=== PATIENT | male | born 1950 | race Caucasian/White ===

== ENCOUNTER → 2016-06-27 | Outpatient (CLI) | payer MEDICARE, OTHER ==
[2016-06-27 13:29] LABS: ABSOLUTE BASOPHILS # (AUTO) 0.1 10^3/uL (0.0-0.2); ABSOLUTE EOSINOPHILS # (AUTO) 0.2 10^3/uL (0.0-0.6); ABSOLUTE LYMPHOCYTES (AUTO) 1.5 10^3/uL (0.5-4.7); ABSOLUTE MONOCYTES (AUTO) 0.7 10^3/uL (0.1-1.4); ABSOLUTE NEUT (AUTO) 13.6 10^3/uL (1.7-8.2); BASOPHILS % (AUTO) 0.5 % (0-2); EOSINOPHILS % (AUTO) 1.3 % (0-6); LYMPHOCYTES % (AUTO) 9.1 % (13-45); MEAN CORPUSCULAR HEMOGLOBIN 29.3 pg (27.0-33.4); MEAN CORPUSCULAR HGB CONC 32.7 g/dL (32.0-36.0); MEAN CORPUSCULAR VOLUME 90 fl (80-97); MONOCYTES % (AUTO) 4.4 % (3-13); RED CELL DISTRIBUTION WIDTH 14.4 % (11.5-14.0); SEGMENTED NEUTROPHILS % (AUTO) 84.7 % (42-78)
[2016-06-27 13:45] LABS: ANION GAP 10 (5-19); BLOOD UREA NITROGEN 15 mg/dL (7-20); CALCIUM 10.2 mg/dL (8.4-10.2); CARBON DIOXIDE 28 mmol/L (22-30); CHLORIDE 103 mmol/L (98-107); GLUCOSE 330 mg/dL (75-110); POTASSIUM 4.9 mmol/L (3.6-5.0); SODIUM 140.5 mmol/L (137-145)
[2016-06-27 14:07] LABS: ERYTHROCYTE SEDIMENTATION RATE 19 mm/hr (0-20)
== END ==
LOC: LAB 13:09
PROVIDERS: ATTEND Emergency Medicine
DX: J18.9 Pneumonia, unspecified organism (principal); R06.02 Shortness of breath; R50.9 Fever, unspecified; Z87.09 Personal history of other diseases of the respiratory system
CPT/HCPCS: 36415; 71020; 80048; 85025; 85652

== ENCOUNTER 2016-10-11 14:31 | Inpatient (IN) | payer MEDICARE, OTHER ==
[2016-10-11] MEDS ORDERED: ASPIRIN 81 MG TABLET, CHEWABLE PO ONE (15:09)
[2016-10-11] MEDS ORDERED: NITROGLYCERIN 0.4 MG/TAB 25 TAB/BOTTLE SL PRN (15:11)
[2016-10-11 15:37] LABS: HEMATOCRIT 46.1 % (37.9-51.0); HEMOGLOBIN 14.7 g/dL (13.5-17.0); MEAN CORPUSCULAR HEMOGLOBIN 28.9 pg (27.0-33.4); MEAN CORPUSCULAR VOLUME 90 fl (80-97); RED BLOOD COUNT 5.11 10^6/uL (4.35-5.55); RED CELL DISTRIBUTION WIDTH 14.4 % (11.5-14.0); WHITE BLOOD COUNT 16.3 10^3/uL (4.0-10.5)
--- NOTE | 2016-10-11 15:47 | RADIOLOGY REPORT (SQ) ---
EXAM DESCRIPTION: CHEST PA/LAT COMPLETED DATE/TIME: 10/11/2016 3:39 pm REASON FOR STUDY: cough, fever, chest pain COMPARISON: 06/27/2016 NUMBER OF VIEWS: Two view. TECHNIQUE: Frontal and lateral radiographic views of the chest acquired. LIMITATIONS: None. FINDINGS: LUNGS AND PLEURA: Peribronchial cuffing and interstitial changes. No consolidation, effus ion, or pneumothorax. MEDIASTINUM AND HILAR STRUCTURES: No masses. No contour abnormalities. HEART AND VASCULAR STRUCTURES: Heart normal in size and contour. No evidence for failure. BONES: No acute findings. HARDWARE: Neural stimulator. OTHER: No other significant finding. IMPRESSION: REACTIVE AIRWAY DISEASE VERSUS VIRAL SYNDROME. NO CONSOLIDATION. TECHNICAL DOCUMENTATION: JOB ID: [id number] [employer]- All Rights Reserved
[2016-10-11 15:54] LABS: BAND NEUTROPHILS % (MANUAL) 8 % (3-5); BASOPHILS % (MANUAL) 0 % (0-2); EOSINOPHILS % (MANUAL) 0 % (0-6); LYMPHOCYTES % (MANUAL) 1 % (13-45); TOTAL CELLS COUNTED 100
[2016-10-11 15:55] LABS: RBC MORPHOLOGY COMMENT NORMO-CYTIC/CHROMIC
--- NOTE | 2016-10-11 15:55 | ER Document Report ---
ED Cardiac - General Mode of Arrival: Wheelchair Information source: Patient TRAVEL OUTSIDE OF THE [place] IN LAST 30 DAYS: No - HPI Similar symptoms previously: Yes Recently seen / treated by doctor: Yes <TREY BECKFORD - Last Filed: 10/11/16 18:00> <SAHARA CARUSO - Last Filed: 10/11/16 23:54> - General Chief Complaint: Chest Pain Stated Complaint: CHEST PAIN, COUGH,CONGESTION Time Seen by Provider: 10/11/16 14:56 Notes: Patient is a 66 year old male presenting to the emergency department for chest pain. Patient states his symptoms were onset yesterday and they are consistent with the symptoms he had when he was diagnosed with pneumonia in the past. Patient also complains of cough, fever, chills, vomiting, and diarrhea. Patient states her vomiting is from difficulty swallowing which is chronic. Patient states the only new symptoms is the chest pain which is dull and achy. Patient states he saw Dr. King today who referred him to the emergency department. Patient has a history of type II diabetes mellitus, hypertension, and hypercholesterolemia. Patient is also a former smoker. Patient has no known drug allergies. 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 Musculoskeltal Medical History: Reports Hx Arthritis Past Surgical History: Reports: Hx Cholecystectomy - Immunizations Hx Diphtheria, Pertussis, Tetanus Vaccination: Yes Hx Pneumococcal Vaccination: 03/11/11 <TREY BECKFORD - Last Filed: 10/11/16 18:00> Review of Systems - Review of Systems Constitutional: See HPI, Chills, Fever, Malaise EENT: No symptoms reported Cardiovascular: See HPI, Chest pain Respiratory: See HPI, Cough, Short of breath Gastrointestinal: See HPI, Diarrhea, Nausea, Vomiting Genitourinary: No symptoms reported Male Genitourinary: No symptoms reported Musculoskeletal: No symptoms reported Skin: No symptoms reported Hematologic/Lymphatic: No symptoms reported Neurological/Psychological: No symptoms reported -: Yes All other systems reviewed and negative <TREY BECKFORD - Last Filed: 10/11/16 18:00> Physical Exam <TREY BECKFORD - Last Filed: 10/11/16 18:00> <SAHARA CARUSO - Last Filed: 10/11/16 23:54> - Vital signs Vitals: Temp Pulse Resp BP Pulse Ox 99.1 F 97 20 164/62 H 94 10/11/16 14:42 10/11/16 14:42 10/11/16 14:42 10/11/16 14:42 10/11/16 14:42 - Notes Notes: GENERAL: Alert, interacts well. No acute distress. HEAD: Normocephalic, atraumatic. EYES: Pupils equal, round, and reactive to light. Extraocular movements intact. ENT: Oral mucosa moist, tongue midline. NECK: Full range of motion. Supple. Trachea midline. LUNGS: Slightly diminished breath sounds to the left lower lobe, no wheezes, rales, or rhonchi. Mildly tachypneic. Slight shortness of breath with talking. HEART: Regular rate and rhythm. No murmurs, gallops, or rubs. ABDOMEN: Soft, non-tender. Non-distended. Bowel sounds present in all 4 quadrants. EXTREMITIES: Moves all 4 extremities spontaneously. No edema. No cyanosis. NEUROLOGICAL: Alert and oriented x3. Normal speech. PSYCH: Normal affect, normal mood. SKIN: Warm, dry, normal turgor. No rashes or lesions noted. (TREY BECKFORD) Course - Laboratory Result Diagrams: 10/11/16 15:20 10/11/16 15:20 - Consults Dr. Reed Time consulted: 17:45 Consulted provider: will see as inpatient <TREY BECKFORD - Last Filed: 10/11/16 18:00> - Laboratory Result Diagrams: 10/11/16 15:20 10/11/16 15:20 <SAHARA CARUSO - Last Filed: 10/11/16 23:54> - Re-evaluation Re-evalutation: 10/11/16 16:45 Re-evaluated patient at this time. Patient's chest x-ray showed reactive airway disease verses viral syndrome. At this time patient is still requiring 4 L of oxygen via nasal cannula to maintain normal oxygenation levels. To rule out a possible PE patient will receive a CT scan. Patient's chest pain was relieved with 1 nitroglycerin. (TREY BECKFORD) 10/11/16 17:49 CBC shows leukocytosis of 16.3 with a left shift, 8% bands, coags normal, hyperglycemia noted with a glucose of 331, initial cardiac enzymes negative, lipase unremarkable at 107.3. Chest x-ray shows reactive airway disease versus viral syndrome. Patient's chest pain did resolve with one nitroglycerin. Given the chest pain and the hypoxemia without acute pneumonia and concern for possible pulmonary embolism, CT angiogram of the chest did not reveal any pulmonary embolism although there was some left lingular atelectasis. Patient was given a dose of Lovenox prior to receiving the results of the CT angiogram of the chest. Patient was discussed with Dr. Reed who agrees to accept the patient to his service for inpatient admission. He agrees with starting steroids and antibiotics. Also agrees with starting aspirin for chest pain rule out in addition to hypoxic respiratory failure from acute bronchitis. 10/11/16 23:54 (SAHARA CARUSO) - Vital Signs Vital signs: Temp Pulse Resp BP Pulse Ox 99.1 F 97 19 131/84 H 93 10/11/16 14:42 10/11/16 14:42 10/11/16 21:01 10/11/16 21:01 10/11/16 21:44 - Laboratory Laboratory results interpreted by me: 10/11/16 10/11/16 15:20 15:20 WBC 16.3 H RDW 14.4 H Seg Neuts % (Manual) 83 H Band Neutrophils % 8 H Lymphocytes % (Manual) 1 L Abs Neuts (Manual) 14.8 H Abs Lymphs (Manual) 0.2 L Glucose 331 H - EKG Interpretation by Me Additional EKG results interpreted by me: 10/11/16 17:50 EKG shows sinus rhythm at a rate of 99, first-degree AV block at a rate of 232, left anterior hemiblock, poor R-wave progression, no ST segment elevations or depressions, no T-wave inversions per my interpretation. (SAHARA CARUSO) - Consults Dr. Reed Reason for consultation: 10/11/16 17:[address] Reed who will admit the patient to telemetry. He agrees with steroids and antibiotics. (TREY BECKFORD) Discharge <TREY BECKFORD - Last Filed: 10/11/16 18:00> - Discharge Admitting Provider: Oksana - Derek Unit Admitted: Telemetry <SAHARA CARUSO - Last Filed: 10/11/16 23:54> - Discharge Clinical Impression: Acute hypoxemic respiratory failure, Chest pain, rule out acute myocardial infarction Condition: Fair Disposition: ADMITTED INPATIENT Scribe Attestation: 10/11/16 23:54 I personally performed the services described in the documentation, reviewed and edited the documentation which was dictated to the scribe in my presence, and it accurately records my words and actions. (SAHARA CARUSO) Scribe Documentation - Scribe Written by Konrad:: Konrad Oconnell, 10/11/2016 17:35 acting as scribe for :: Sourav <TREY BECKFORD - Last Filed: 10/11/16 18:00>
[2016-10-11 15:57] LABS: ALANINE AMINOTRANSFERASE 38 U/L (21-72); ALBUMIN 3.9 g/dL (3.5-5.0); ALKALINE PHOSPHATASE 123 U/L (38-126); ANION GAP 14 (5-19); ASPARTATE AMINO TRANSFERASE 18 U/L (17-59); BILIRUBIN,DIRECT 0.3 mg/dL (0.0-0.4); BILIRUBIN,TOTAL 0.9 mg/dL (0.2-1.3); BLOOD UREA NITROGEN 20 mg/dL (7-20); CALCIUM 9.3 mg/dL (8.4-10.2); CARBON DIOXIDE 25 mmol/L (22-30); CHLORIDE 102 mmol/L (98-107); CREATINE KINASE 79 U/L (55-170); CREATININE RESULT 0.93 mg/dL (0.52-1.25); GLUCOSE 331 mg/dL (75-110); LIPASE 107.3 U/L (23-300); POTASSIUM 4.6 mmol/L (3.6-5.0); SODIUM 140.9 mmol/L (137-145); TOTAL PROTEIN 6.8 g/dL (6.3-8.2)
[2016-10-11 16:09] LABS: CREATINE KINASE MB 2.19 ng/mL (<4.55)
[2016-10-11 16:14] LABS: TROPONIN I < 0.012 ng/mL
[2016-10-11] MEDS ORDERED: ALBUTEROL SULFATE 0.083% NEB 2.5 MG/3 ML AMPUL NEB ONE (16:46)
[2016-10-11] MEDS ORDERED: ENOXAPARIN SODIUM INJ 150 MG/1 ML DISP.SYRIN SUBCUT ONE (16:47)
--- NOTE | 2016-10-11 17:32 | RADIOLOGY REPORT (SQ) ---
EXAM DESCRIPTION: CTA CHEST COMPLETED DATE/TIME: 10/11/2016 5:19 pm REASON FOR STUDY: hypoxia, chest pain, r/o PE COMPARISON: Two-view chest 10/11/2016 TECHNIQUE: CT scan of the chest performed using helical scanning technique with dynamic intravenous contrast injection. Images reviewed with lung, soft tissue and bone windows. Reconstructed coronal and sagittal MPR images reviewed. Additional 3 dimensional post-processing performed to develop Maximal Intensity Projection images (MD P). All images stored on PACS. All CT scanners at this facility use dose modulation, iterative reconstruction, and/or weight based d osing when appropriate to reduce radiation dose to as low as reasonably achievable (ALARA). [facility]: Dose Right [facility]: CareDose [facility]: Dose Right [facility]: Teradose 4D [facility]: TagTagCity CONTRAST TYPE AND DOSE: contrast/concentration: Isovue 370.00 mg/ml; Total Contrast Delivered: 86.0 ml; Total Saline Delivered: 110.0 ml RENAL FUNCTION: Creatinine 0.93 RADIATION DOSE: 67.46 . LIMITATIONS: None. FINDINGS: LUNGS AND PLEURA: Minimal lingular atelectasis. Calcified granuloma in the left lower lob e. No fluffy alveolar infiltrates worrisome for edema or pneumonia. No pleural effusion or pneumothorax . No calcific pleural plaque. AORTA AND GREAT VESSELS: No aneurysm or dissection. HEART: No pericardial effusion. Moderate left coronary artery calcification PULMONARY ARTERIES: No emboli visualized in the main pulmonary arteries or the segmental branches. HILAR AND MEDIASTINAL STRUCTURES: No identified masses or abnormal nodes. HARDWARE: Thoracic spine dorsal column stimulator UPPER ABDOMEN: Post cholecystectomy. THYROID AND OTHER SOFT TISSUES: No masses. No adenopathy. BONES: Diffuse thoracic spondylotic change 3D MIPS: Confirm above findings. OTHER: Hiatal hernia with air-fluid level in the esophagus likely related to reflux. IMPRESSION: No CT angio evidence of acute pulmonary emboli or thoracic aortic dissection. Minimal lingular atelectasis Air-fluid level in the thick walled esophagus with small hiatal hernia, likely reflux esophagitis TECHNICAL DOCUMENTATION: JOB ID: [id number] Quality ID # [id number]: Final reports with documentation of one or more dose reduction techniques (e.g., Au tomated exposure control, adjustment of the mA and/or kV according to patient size, use of iterative reconstruction technique) 2010 [employer]- All Rights Reserved
[2016-10-11] MEDS ORDERED: METHYLPREDNISOLONE INJ 125 MG/2 ML SDV IV ONE (17:47)
[2016-10-11] MEDS ORDERED: LEVOFLOXACIN 750 MG/D5W RTU 150 ML IV ONE (17:47)
[2016-10-11] MEDS ORDERED: ALBUTEROL SULFATE 0.083% NEB 2.5 MG/3 ML AMPUL NEB PRN (18:04)
[2016-10-11] MEDS ORDERED: ONDANSETRON HCL INJ/PF 4 MG/2 ML SDV IV PRN (18:05)
[2016-10-11] MEDS ORDERED: ACETAMINOPHEN 325 MG TABLET PO PRN (18:05)
[2016-10-11] MEDS ORDERED: DEXTROSE 40% GEL 15 GM TUBE PO PRN ×2 (18:07)
[2016-10-11] MEDS ORDERED: GLUCAGON,HUMAN RECOMB 1 MG INJ IM PRN (18:07)
[2016-10-11] MEDS ORDERED: DEXTROSE 50%-WATER 25 GM/50 ML DISP.SYRIN IV PRN ×2 (18:07)
--- NOTE | 2016-10-11 18:13 | PDOC H&P ---
History of Present Illness Admission Date/PCP: ROSANGELA AMOR MD Patient complains of: Shortness of breath History of Present Illness: LIONEL CHESTER is a 66 year old male with past medical history of COPD, productive sleep apnea, diabetes presents with 1 day history of fever, chills, shortness of breath, chest discomfort, cough. 2-year-old granddaughter with similar symptoms. No prior cardiac disease. Chest discomfort relieved with nitroglycerin. Patient noted in the emergency department to have O2 sat at 90% . O2 sat not 95% on 4 L nasal cannula. Medications have not been verified. Past Medical History Cardiac Medical History: Reports: Hypertension Denies: Coronary Artery Disease, Myocardial Infarction Pulmonary Medical History: Reports: Chronic Obstructive Pulmonary Disease (COPD) , Sleep Apnea Denies: Asthma, Bronchitis, Pneumonia Neurological Medical History: Denies: Seizures Endocrine Medical History: Reports: Diabetes Mellitus Type 2 Malignancy Medical History: Reports: 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 Musculoskeltal Medical History: Reports: Arthritis Psychiatric Medical History: Denies: Depression Hematology: Denies: Anemia Past Surgical History Past Surgical History: Reports: Cholecystectomy Social History Information Source: Patient Lives with: Family Smoking Status: Former Smoker Frequency of Alcohol Use: Rare Hx Recreational Drug Use: No Hx Prescription Drug Abuse: No - Advance Directive Resuscitation Status: Full Code Family History Family History: COPD - Mother Parental Family History Reviewed: Yes Children Family History Reviewed: Yes Sibling(s) Family History Reviewed.: Yes Medication/Allergy Home Medications: Albuterol Sulfate [Ventolin HFA MDI 18 GM] 2 puff IH Q4H PRN 01/31/13 Aspirin [Aspirin EC] 81 mg PO DAILY 01/31/13 Ibuprofen [Motrin 800 mg Tablet] 800 mg PO PRN 01/31/13 Multivitamin [Multi-Vitamin Daily] 1 each PO DAILY 01/31/13 Pramipexole Di-HCl [Mirapex 0.5 mg Tablet] 0.5 mg PO TID 01/31/13 Albiglutide [Tanzeum] 30 mg INJ ASDIR PRN 01/04/16 Empagliflozin [Jardiance] 25 mg PO DAILY 01/04/16 Fish Oil/Dha/Epa [Fish Oil 1,200 mg Fish Oil] 1 each PO BID 01/04/16 Flaxseed Oil [Flax Seed Oil] 1,000 mg PO DAILY 01/04/16 Furosemide [Lasix 40 mg Tablet] 40 mg PO DAILY 01/04/16 Glimepiride [Amaryl] 2 mg PO DAILY 01/04/16 Losartan Potassium 50 mg PO DAILY 01/04/16 Metformin HCl [Glucophage] 1,000 mg PO BID 01/04/16 Tamsulosin HCl 0.4 mg PO DAILY 01/04/16 Tolterodine Tartrate [Detrol LA] 01/04/16 Acetaminophen [Tylenol 325 mg Tablet] 650 mg PO Q4HP PRN tablet 01/05/16 Aclidinium [place] [Tudorza Pressair for Inh] 1 inh IH BID 01/05/16 Cholecalciferol (Vitamin D3) [Vitamin D3] 1,000 unit PO BID 01/05/16 Fluticasone/Salmeterol [Advair 250-50 Diskus] 1 inh IH BID 01/05/16 Fluticasone/Salmeterol [Advair 250-50 Diskus] 1 inh IN BID 01/05/16 Levofloxacin [Levaquin 750 mg Tablet] 750 mg PO DAILY #5 tablet 01/05/16 Pramipexole Di-HCl [Mirapex] 0.5 mg PO TID 01/05/16 Tolterodine Tartrate [Detrol LA] 4 mg PO DAILY 01/05/16 Allergies/Adverse Reactions: No Known Allergies Allergy (Verified 08/24/14 09:59) Review of Systems Constitutional: PRESENT: chills, fatigue, fever(s). ABSENT: headache(s), weight gain, weight loss Eyes: ABSENT: visual disturbances Ears: ABSENT: hearing changes Cardiovascular: PRESENT: chest pain. ABSENT: dyspnea on exertion, edema, orthropnea, palpitations Respiratory: PRESENT: cough, dyspnea. ABSENT: hemoptysis Gastrointestinal: ABSENT: abdominal pain, constipation, diarrhea, hematemesis, hematochezia, nausea, vomiting Genitourinary: ABSENT: dysuria, hematuria Musculoskeletal: ABSENT: joint swelling Integumentary: ABSENT: rash, wounds Neurological: ABSENT: abnormal gait, abnormal speech, confusion, dizziness, focal weakness, syncope Psychiatric: ABSENT: anxiety, depression, homidical ideation, suicidal ideation Endocrine: ABSENT: cold intolerance, heat intolerance, polydipsia, polyuria Hematologic/Lymphatic: ABSENT: easy bleeding, easy bruising Physical Exam Vital Signs: Temp Pulse Resp BP Pulse Ox 99.1 F 97 15 130/64 H 96 10/11/16 14:42 10/11/16 14:42 10/11/16 17:19 10/11/16 16:31 10/11/16 16:31 Intake & Output 10/10/16 10/11/16 10/12/16 06:59 06:59 06:59 Weight 134 kg PHYSICAL EXAM: GENERAL: Appears well, no acute distress HEENT: Normocephalic, no scleral icterus, conjunctiva clear, EOEM intact, PERRLA , moist mucous membranes NECK: trachea midline, no thyromegally RESPIRATORY: Faint wheezes bilaterally CARDIAC: Regular rate and rhythm, no murmur/lay/rub ABDOMEN: Soft, no distension, no tenderness, no guarding, normal bowel sounds, negative Maldonado sign RECTAL: deferred : deferred EXTREMITIES: No edema, cyanosis, clubbing MUSCULOSKELETAL: No joint swelling or deformity VASCULAR: normal peripheral pulses NEUROLOGIC: Alert, oriented to person/place/time, normal speech, cranial nerves grossly intact, 5/5 strength in all extremities, tactile sensation intact in all extremities SKIN: No rash, no wounds, no worrisome skin lesions PSYCHIATRIC: Normal mood, normal affect Results Laboratory Results: 10/11/16 15:20 10/11/16 15:20 10/11/16 10/11/16 15:20 15:20 WBC 16.3 H RBC 5.11 Hgb 14.7 Hct 46.1 MCV 90 MCH 28.9 MCHC 32.0 RDW 14.4 H Plt Count 190 Seg Neutrophils % Not Reportable Lymphocytes % Not Reportable Monocytes % Not Reportable Eosinophils % Not Reportable Basophils % Not Reportable Absolute Neutrophils Not Reportable Absolute Lymphocytes Not Reportable Absolute Monocytes Not Reportable Absolute Eosinophils Not Reportable Absolute Basophils Not Reportable Sodium 140.9 Potassium 4.6 Chloride 102 Carbon Dioxide 25 Anion Gap 14 BUN 20 Creatinine 0.93 Est GFR ( Amer) > 60 Est GFR (Non-Af Amer) > 60 Glucose 331 H Calcium 9.3 Total Bilirubin 0.9 AST 18 ALT 38 Alkaline Phosphatase 123 Total Protein 6.8 Albumin 3.9 Lipase 107.3 10/11/16 10/11/16 15:20 15:20 Creatine Kinase 79 CK-MB (CK-2) 2.19 Troponin I < 0.012 Impressions: Chest X-Ray 10/11/16 15:11 IMPRESSION: REACTIVE AIRWAY DISEASE VERSUS VIRAL SYNDROME. NO CONSOLIDATION. Chest/Abdomen CTA 10/11/16 16:46 IMPRESSION: No CT angio evidence of acute pulmonary emboli or thoracic aortic dissection. Minimal lingular atelectasis Air-fluid level in the thick walled esophagus with small hiatal hernia, likely reflux esophagitis Assessment & Plan - Diagnosis (1) Acute hypoxemic respiratory failure Is this a current diagnosis for this admission?: YesPlan: Oxygen supplementation to maintain O2 sat greater than 95%. (2) COPD exacerbation Is this a current diagnosis for this admission?: YesPlan: IV Solu-Medrol, IV Levaquin, nebulizer treatments. (3) Chest pain, rule out acute myocardial infarction Is this a current diagnosis for this admission?: YesPlan: Serial cardiac enzymes. 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 Sliding scale insulin coverage. (5) Hypertension Is this a current diagnosis for this admission?: Yes (6) Obstructive sleep apnea on CPAP Is this a current diagnosis for this admission?: Yes - Time Time Spent: Greater than 70 Minutes
[2016-10-11 20:53] LABS: CREATINE KINASE MB 0.87 ng/mL (<4.55); TROPONIN I < 0.012 ng/mL
[2016-10-11] MEDS: INSULIN LISPRO 100 UNIT/ML 3 ML VIAL SUBCUT PRN (22:19)
[2016-10-12] MEDS ORDERED: METHYLPREDNISOLONE INJ 40 MG/1 ML SDV IV SCH (02:00)
[2016-10-12 02:02] LABS: CREATINE KINASE MB 0.93 ng/mL (<4.55)
[2016-10-12 02:10] LABS: TROPONIN I < 0.012 ng/mL
[2016-10-12] MEDS: INSULIN LISPRO 100 UNIT/ML 3 ML VIAL SUBCUT PRN ×2 (06:42→11:57)
[2016-10-12 08:20] LABS: ABSOLUTE LYMPHOCYTES (AUTO) 0.4 10^3/uL (0.5-4.7); ABSOLUTE MONOCYTES (AUTO) 0.1 10^3/uL (0.1-1.4); ABSOLUTE NEUT (AUTO) 6.7 10^3/uL (1.7-8.2); BASOPHILS % (AUTO) 0.2 % (0-2); EOSINOPHILS % (AUTO) 0.1 % (0-6); HEMATOCRIT 44.1 % (37.9-51.0); HEMOGLOBIN 14.5 g/dL (13.5-17.0); HGB HCT DIFFERENCE -0.6; LYMPHOCYTES % (AUTO) 5.3 % (13-45); MEAN CORPUSCULAR HEMOGLOBIN 29.3 pg (27.0-33.4); MEAN CORPUSCULAR HGB CONC 32.8 g/dL (32.0-36.0); MEAN CORPUSCULAR VOLUME 89 fl (80-97); RED BLOOD COUNT 4.94 10^6/uL (4.35-5.55); SEGMENTED NEUTROPHILS % (AUTO) 93.4 % (42-78); WHITE BLOOD COUNT 7.2 10^3/uL (4.0-10.5)
[2016-10-12 08:33] LABS: ANION GAP 15 (5-19); BLOOD UREA NITROGEN 30 mg/dL (7-20); CALCIUM 9.2 mg/dL (8.4-10.2); CARBON DIOXIDE 21 mmol/L (22-30); CHLORIDE 102 mmol/L (98-107); CREATINE KINASE 82 U/L (55-170); CREATININE RESULT 0.91 mg/dL (0.52-1.25); POTASSIUM 4.7 mmol/L (3.6-5.0); SODIUM 138.3 mmol/L (137-145)
[2016-10-12 08:53] LABS: GLUCOSE 433 mg/dL (75-110)
[2016-10-12] MEDS ORDERED: PREDNISONE 20 MG TABLET PO SCH (10:00)
[2016-10-12] MEDS ORDERED: ENOXAPARIN SODIUM INJ 40 MG/0.4 ML DISP.SYRIN SUBCUT SCH (10:00)
--- NOTE | 2016-10-12 10:19 | EKG REPORT ---
SEVERITY:- ABNORMAL ECG - SINUS RHYTHM FIRST DEGREE AV BLOCK SUPERIOR QRS AXIS CONSIDER RIGHT VENTRICULAR HYPERTROPHY : Confirmed by: Tatiana Oquendo MD 12-Oct-2016 10:19:17
[2016-10-12 10:21] LABS: CREATINE KINASE MB 1.49 ng/mL (<4.55)
[2016-10-12 10:28] LABS: TROPONIN I < 0.012 ng/mL
[2016-10-12 12:32] VITALS: BP 138/59
--- NOTE | 2016-10-12 15:54 | PDOC DISCHARGE SUMMARY ---
General - Admit/Disc Date/PCP Admission Date/Primary Care Provider: 10/11/16 18:05 ROSANGELA AMOR MD Discharge Date: 10/12/16 - Discharge Diagnosis (1) Acute hypoxemic respiratory failure Is this a current diagnosis for this admission?: Yes (2) COPD exacerbation Is this a current diagnosis for this admission?: Yes (3) Chest pain, rule out acute myocardial infarction Is this a current diagnosis for this admission?: Yes (4) Diabetes mellitus Is this a current diagnosis for this admission?: Yes (5) Hypertension Is this a current diagnosis for this admission?: Yes (6) Obstructive sleep apnea on CPAP Is this a current diagnosis for this admission?: Yes - Additional Information Resuscitation Status: Full Code Discharge Diet: Cardiac, Diabetic Discharge Activity: Activity As Tolerated, Balance Activity w/Rest Home Medications: Aclidinium [place] [Tudorza Pressair] 1 puff IH BID 10/12/16 Albuterol Sulfate [Ventolin HFA MDI 18 GM] 2 puff IH Q4HP PRN 10/12/16 Aspirin [Ecotrin 81 mg EC Tablet] 81 mg PO DAILY 10/12/16 Cholecalciferol (Vitamin D3) [Vitamin D3 1000 Unit Tablet] 1,000 unit PO BID Empagliflozin [Jardiance] 25 mg PO DAILY 10/12/16 Ezetimibe [Zetia 10 mg Tablet] 10 mg PO QHS 10/12/16 Fish Oil/Dha/Epa [Fish Oil 1,200 mg Fish Oil] 1 each PO BID 10/12/16 Flaxseed Oil [Flaxseed] 1,000 mg PO DAILY 10/12/16 Fluticasone/Salmeterol [Advair 250-50 Diskus 28 dose] 1 inh IH Q12 10/12/16 Furosemide [Lasix] 40 mg PO DAILY 10/12/16 Ibuprofen [Motrin 800 mg Tablet] 800 mg PO Q8H PRN 10/12/16 Insulin Aspart [Novolog Insulin 100 Unit/1 ml 10 ml] 0 unit SUBCUT .SLD SCALE Insulin Degludec [Tresiba Flextouch U-200] 66 unit SQ DAILY 10/12/16 Levofloxacin [Levaquin 750 mg Tablet] 750 mg PO DAILY #5 tablet 10/12/16 Losartan Potassium [Cozaar 50 mg Tablet] 50 mg PO DAILY 10/12/16 Multivitamin [Tab-A-Priscilla] 1 each PO DAILY 10/12/16 Pramipexole Di-HCl [Mirapex 0.5 Mg Tablet] 0.5 mg PO TID 10/12/16 Prednisone [Deltasone 20 mg Tablet] 40 mg PO DAILY #4 tablet 10/12/16 Tamsulosin HCl [Flomax 0.4 mg Cap.sr] 0.4 mg PO DAILY 10/12/16 Tolterodine Tartrate [Detrol La] 4 mg PO DAILY 10/12/16 History of Present Illness Patient complains of: Shortness of breath History of Present Illness: LIONEL CHESTER is a 66 year old male with past medical history of COPD, productive sleep apnea, diabetes presents with 1 day history of fever, chills, shortness of breath, chest discomfort, cough. 2-year-old granddaughter with similar symptoms. No prior cardiac disease. Chest discomfort relieved with nitroglycerin. Patient noted in the emergency department to have O2 sat at 90% . O2 sat not 95% on 4 L nasal cannula. Hospital Course Hospital Course: Patient was admitted for mild acute exacerbation of COPD. He was started on IV Solu-Medrol in the emergency department as well as IV Levaquin. Fevers resolved within 24 hours. He was back to his baseline respiratory status at time of discharge. He became hyperglycemic from IV Solu-Medrol. He will be discharged home on a much reduced steroid dose of prednisone 40 mg daily and we will taper him off this very quickly secondary to hyperglycemia. Patient was ready to discharge from the hospital despite hyperglycemia. He is comfortable with restarting all of his previous home medications. He is comfortable with monitoring his blood glucose and administering sliding scale insulin. He states that he has dietary modifications that he can implement and has tried contacting his dietitian for more advice. He admits that he has horribly noncompliant with diabetic diet. Physical Exam Vital Signs: Temp Pulse Resp BP Pulse Ox 97.4 F 72 16 138/59 H 95 10/12/16 12:18 10/12/16 12:18 10/12/16 12:18 10/12/16 12:18 10/12/16 12:18 Intake & Output 10/11/16 10/12/16 10/13/16 06:59 06:59 06:59 Intake Total 0 Balance 0 Weight 131.7 kg 131.7 kg GENERAL: No acute distress HEENT: Conjunctiva clear, nonicteric, moist mucous membranes, no JVD, midline trachea RESPIRATORY: Clear to auscultation bilaterally, no wheezes, no rhonchi CARDIAC: Regular rate and rhythm, no murmurs/gallops/rubs ABDOMEN: Soft, nondistended, nontender, positive bowel sounds, no rebound, no guarding EXTREMETIES: No edema, cyanosis, clubbing NEUROLOGIC: Alert, oriented to person/place/time, CN's grossly intact, no focal deficits SKIN: No rash, wounds PSYCH: Normal mood, normal affect Results Laboratory Results: 10/12/16 07:35 10/12/16 07:35 10/12/16 10/12/16 07:35 07:35 WBC 7.2 RBC 4.94 Hgb 14.5 Hct 44.1 MCV 89 MCH 29.3 MCHC 32.8 RDW 15.0 H Plt Count 158 Seg Neutrophils % 93.4 H Lymphocytes % 5.3 L Monocytes % 1.0 L Eosinophils % 0.1 Basophils % 0.2 Absolute Neutrophils 6.7 Absolute Lymphocytes 0.4 L Absolute Monocytes 0.1 Absolute Eosinophils 0.0 Absolute Basophils 0.0 Sodium 138.3 Potassium 4.7 Chloride 102 Carbon Dioxide 21 L Anion Gap 15 BUN 30 H Creatinine 0.91 Est GFR ( Amer) > 60 Est GFR (Non-Af Amer) > 60 Glucose 433 H* Calcium 9.2 10/11/16 10/11/16 10/11/16 19:19 19:19 20:20 Creatine Kinase 90 CK-MB (CK-2) Cancelled 0.87 Troponin I Cancelled < 0.012 10/12/16 10/12/16 10/12/16 01:13 01:13 07:35 Creatine Kinase 79 82 CK-MB (CK-2) 0.93 Troponin I < 0.012 10/12/16 07:35 Creatine Kinase CK-MB (CK-2) 1.49 Troponin I < 0.012 Impressions: Chest X-Ray 10/11/16 15:11 IMPRESSION: REACTIVE AIRWAY DISEASE VERSUS VIRAL SYNDROME. NO CONSOLIDATION. Chest/Abdomen CTA 10/11/16 16:46 IMPRESSION: No CT angio evidence of acute pulmonary emboli or thoracic aortic dissection. Minimal lingular atelectasis Air-fluid level in the thick walled esophagus with small hiatal hernia, likely reflux esophagitis Qualifiers PATEINT BEING DISCHARGED WITH ANY OF THE FOLLOWING DIAGNOSIS?: No Plan Time Spent: Less than 30 Minutes
[2016-10-12] MEDS ORDERED: LEVOFLOXACIN 750 MG/D5W RTU 750 MG/150 ML RTUPB IV SCH (18:00)
== END 2016-10-12 12:30 | disposition home or self-care (01) | DRG 190 ==
LOC: ER 14:31 → EH 18:05 → UNDOADMIN 18:33 → 4N 21:52
PROVIDERS: ADMIT Family Medicine; ATTEND Family Medicine
PROC: 3E0F73Z Introduction of Anti-inflammatory into Respiratory Tract, Via Natural or Artificial Opening (ICD-10-PCS; principal; 2016-10-12)
DX: J44.1 Chronic obstructive pulmonary disease with (acute) exacerbation (principal); J96.01 Acute respiratory failure with hypoxia; E11.65 Type 2 diabetes mellitus with hyperglycemia; I10 Essential (primary) hypertension; G47.33 Obstructive sleep apnea (adult) (pediatric); M19.90 Unspecified osteoarthritis, unspecified site; R07.89 Other chest pain; E78.00 Pure hypercholesterolemia, unspecified; Z79.82 Long term (current) use of aspirin; Z79.4 Long term (current) use of insulin; Z79.899 Other long term (current) drug therapy; Z91.11 Patient's noncompliance with dietary regimen; Z85.828 Personal history of other malignant neoplasm of skin; Z90.49 Acquired absence of other specified parts of digestive tract; Z87.891 Personal history of nicotine dependence; Z83.6 Family history of other diseases of the respiratory system
CPT/HCPCS: 36415; 71020; 71275; 80048; 80053; 82550; 82553; 82962; 83690; 84484; 85025; 85610; 87040; 93005; 93010; 94640; 96374; 99285; J1650; J1815; J1956; J2405; J2930; J3490; J7512

== ENCOUNTER 2016-11-04 14:48 | Emergency (ER) | payer MEDICARE, OTHER ==
[2016-11-04] MEDS ORDERED: ONDANSETRON 4 MG TAB.RAPDIS PO ONE (15:54)
--- NOTE | 2016-11-04 15:54 | ER Document Report ---
ED Medical Screen (RME) - General Chief Complaint: Chest Pain Stated Complaint: CHEST PAIN Time Seen by Provider: 11/04/16 15:46 Mode of Arrival: Ambulatory Information source: Patient TRAVEL OUTSIDE OF THE [place] IN LAST 30 DAYS: No - HPI Onset: This afternoon Onset/Duration: Gradual, Constant Quality of pain: Dull Associated Symptoms: Chills, Nausea, Vomiting Exacerbated by: Denies Relieved by: Denies Similar symptoms previously: Yes Recently seen / treated by doctor: Yes Notes: 11/04/16 15:51 Patient is a 66-year-old male with history of COPD, with apnea, diabetes. Patient presents with approximately 3 hours of chills, nausea, vomiting, and chest pain. Denies any acute shortness of breath. No measured fevers at home. No ill contacts. Patient is a non-smoker and does not require home oxygen. - Related Data Allergies/Adverse Reactions: No Known Allergies Allergy (Verified 11/04/16 15:02) Past Medical History - General Information source: Patient, [facility] Records - Social History Frequency of alcohol use: Occasional Drug Abuse: None Lives with: Family - Past Medical History Cardiac Medical History: Reports: Hx Hypertension Denies: Hx Coronary Artery Disease, Hx Heart Attack Pulmonary Medical History: Reports: Hx COPD, Hx Sleep Apnea Denies: Hx Asthma, Hx Bronchitis, Hx Pneumonia Neurological Medical History: Denies: Hx Cerebrovascular Accident, Hx Seizures Endocrine Medical History: Reports: Hx Diabetes Mellitus Type 2 Renal/ Medical History: Denies: Hx Peritoneal Dialysis Malignancy Medical History: Reports 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 Musculoskeltal Medical History: Reports Hx Arthritis Psychiatric Medical History: Denies: Hx Depression Past Surgical History: Reports: Hx Cholecystectomy - Immunizations Hx Diphtheria, Pertussis, Tetanus Vaccination: Yes Review of Systems - Review of Systems Constitutional: Chills Cardiovascular: Chest pain Gastrointestinal: Nausea, Vomiting -: Yes All other systems reviewed and negative Physical Exam - Vital signs Vitals: Temp Pulse Resp BP Pulse Ox 98.0 F 113 H 18 118/51 L 91 L 11/04/16 15:03 11/04/16 15:03 11/04/16 15:03 11/04/16 15:03 11/04/16 15:03 Interpretation: Normal, Tachycardic, Hypoxic - General General appearance: Appears well, Alert - HEENT Head: Normocephalic, Atraumatic Eyes: Normal Pupils: PERRL - Respiratory Respiratory status: No respiratory distress Chest status: Nontender Breath sounds: Normal Chest palpation: Normal - Cardiovascular Rhythm: Regular Heart sounds: Normal auscultation Murmur: No - Abdominal Inspection: Normal Distension: No distension Bowel sounds: Normal Tenderness: Nontender Organomegaly: No organomegaly - Extremities General upper extremity: Normal inspection, Nontender, Normal color, Normal ROM , Normal temperature General lower extremity: Normal inspection, Nontender, Normal color, Normal ROM , Normal temperature, Normal weight bearing. No: Chris's sign - Neurological Neuro grossly intact: Yes Cognition: Normal Orientation: AAOx4 Matty Coma Scale Eye Opening: Spontaneous [place] Coma Scale Verbal: Oriented [place] Coma Scale Motor: Obeys Commands Matty Coma Scale Total: 15 Speech: Normal Motor strength normal: LUE, RUE, LLE, RLE Sensory: Normal - Skin Skin Temperature: Warm Skin Moisture: Dry Skin Color: Normal Course - Re-evaluation Re-evalutation: 11/04/16 15:53 Patient with extensive history of COPD and poorly controlled diabetes. Patient will require further evaluation and management of the back treatment area. Disposition will be per the provider in that region. - Vital Signs Vital signs: Temp Pulse Resp BP Pulse Ox 98.0 F 113 H 18 118/51 L 91 L 11/04/16 15:03 11/04/16 15:03 11/04/16 15:03 11/04/16 15:03 11/04/16 15:03 - EKG Interpretation by Tx EKG shows normal: Sinus rhythm Rate: Tachycardia - 114 [place]/QRS: No: Right axis deviation, Left axis deviation When compared to previous EKG there are: Other - Nonspecific ST-T wave changes. Nothing acute
--- NOTE | 2016-11-04 16:13 | RADIOLOGY REPORT (SQ) ---
EXAM DESCRIPTION: CHEST SINGLE VIEW COMPLETED DATE/TIME: 11/04/2016 4:03 pm REASON FOR STUDY: cp COMPARISON: 10/11/2016 EXAM PARAMETERS: NUMBER OF VIEWS: One view. TECHNIQUE: Single frontal radiographic view of the chest acquired. RADIATION DOSE: NA LIMITATIONS: None. FINDINGS: LUNGS AND PLEURA: There is mild prominence of the markings in the lung bases. No focal in filtrate is seen. No pleural effusion is present. No mass is appreciated. MEDIASTINUM AND HILAR STRUCTURES: No masses. Contour normal. HEART AND VASCULAR STRUCTURES: Heart normal in size. Normal vasculature. BONES: No acute findings. HARDWARE: Neural stimulator electrodes are present. OTHER: No other significant finding. IMPRESSION: Interstitial changes are suggested in the lung bases. No acute localized pneumonia is s een. TECHNICAL DOCUMENTATION: JOB ID: [id number]
[2016-11-04 16:24] LABS: ABSOLUTE EOSINOPHILS # (AUTO) 0.1 10^3/uL (0.0-0.6); ABSOLUTE LYMPHOCYTES (AUTO) 0.4 10^3/uL (0.5-4.7); ABSOLUTE MONOCYTES (AUTO) 0.2 10^3/uL (0.1-1.4); ABSOLUTE NEUT (AUTO) 4.1 10^3/uL (1.7-8.2); BASOPHILS % (AUTO) 0.7 % (0-2); EOSINOPHILS % (AUTO) 1.8 % (0-6); HEMATOCRIT 45.7 % (37.9-51.0); HEMOGLOBIN 14.6 g/dL (13.5-17.0); HGB HCT DIFFERENCE -1.9; LYMPHOCYTES % (AUTO) 9.1 % (13-45); MEAN CORPUSCULAR HEMOGLOBIN 28.6 pg (27.0-33.4); MEAN CORPUSCULAR HGB CONC 31.9 g/dL (32.0-36.0); MEAN CORPUSCULAR VOLUME 90 fl (80-97); MONOCYTES % (AUTO) 4.8 % (3-13); RED CELL DISTRIBUTION WIDTH 14.5 % (11.5-14.0); SEGMENTED NEUTROPHILS % (AUTO) 83.6 % (42-78); WHITE BLOOD COUNT 4.9 10^3/uL (4.0-10.5)
[2016-11-04 16:41] LABS: ALANINE AMINOTRANSFERASE 36 U/L (21-72); ALBUMIN 4.2 g/dL (3.5-5.0); ALKALINE PHOSPHATASE 131 U/L (38-126); ANION GAP 13 (5-19); ASPARTATE AMINO TRANSFERASE 23 U/L (17-59); BILIRUBIN,DIRECT 0.3 mg/dL (0.0-0.4); BILIRUBIN,TOTAL 0.9 mg/dL (0.2-1.3); BLOOD UREA NITROGEN 20 mg/dL (7-20); CALCIUM 9.6 mg/dL (8.4-10.2); CARBON DIOXIDE 24 mmol/L (22-30); CHLORIDE 104 mmol/L (98-107); CREATININE RESULT 1.08 mg/dL (0.52-1.25); GLUCOSE 301 mg/dL (75-110); POTASSIUM 4.6 mmol/L (3.6-5.0); SODIUM 141.3 mmol/L (137-145); TOTAL PROTEIN 7.1 g/dL (6.3-8.2)
[2016-11-04 19:07] VITALS: BP 110/51
--- NOTE | 2016-11-04 19:13 | RADIOLOGY REPORT (SQ) ---
EXAM DESCRIPTION: CTA CHEST COMPLETED DATE/TIME: 11/04/2016 7:00 pm REASON FOR STUDY: tachycardic, SOB, hypoxia COMPARISON: 11/05/2015 TECHNIQUE: CT scan of the chest performed using helical scanning technique with dynamic intravenous contrast injection. Images reviewed with lung, soft tissue and bone windows. Reconstructed coronal and sagittal MPR images reviewed. Additional 3 dimensional post-processing performed to develop Maximal Intensity Projection images (WI P). All images stored on PACS. All CT scanners at this facility use dose modulation, iterative reconstruction, and/or weight based d osing when appropriate to reduce radiation dose to as low as reasonably achievable (ALARA). [facility]: Dose Right [facility]: CareDose [facility]: Dose Right [facility]: Teradose 4D [facility]: Global Experience CONTRAST TYPE AND DOSE: contrast/concentration: Isovue 370.00 mg/ml; Total Contrast Delivered: 86.0 ml; Total Saline Delivered: 100.0 ml RENAL FUNCTION: Creatinine 1.08 RADIATION DOSE: Up-to-date CT equipment and radiation dose reduction techniques were employed. CTDIv ol: 31.9 - 41.3 mGy. DLP: 1226 mGy-cm. . LIMITATIONS: None. FINDINGS: LUNGS AND PLEURA: Minimal parenchymal opacities lingular and right middle lobe. No effusi ons. No focal masses. AORTA AND GREAT VESSELS: No aneurysm or dissection. HEART: No pericardial effusion. PULMONARY ARTERIES: No emboli visualized in the main pulmonary arteries or the segmental branches. HILAR AND MEDIASTINAL STRUCTURES: No identified masses or abnormal nodes. HARDWARE: None in the chest. UPPER ABDOMEN: Dilated esophagus with thickened wall. Suggests esophagitis. THYROID AND OTHER SOFT TISSUES: No masses. No adenopathy. BONES: No acute or significant finding. 3D MIPS: Confirm above findings. OTHER: No other significant finding. IMPRESSION: No pulmonary emboli. Minimal parenchymal opacities possibly chronic. Dilated esophagus with thickened wall. Suggests esophagitis. TECHNICAL DOCUMENTATION: JOB ID: [id number] Quality ID # [id number]: Final reports with documentation of one or more dose reduction techniques (e.g., Au tomated exposure control, adjustment of the mA and/or kV according to patient size, use of iterative reconstruction technique) 2010 [employer]- All Rights Reserved
--- NOTE | 2016-11-04 19:48 | EKG REPORT ---
SEVERITY:- BORDERLINE ECG - SINUS OR ECTOPIC ATRIAL TACHYCARDIA CONSIDER LAFB OR INFERIOR INFARCT : Confirmed by: Jos Palumbo MD 04-Nov-2016 19:47:58
--- NOTE | 2016-11-04 20:13 | ER Document Report ---
ED Respiratory Problem - General Chief Complaint: Chest Pain Stated Complaint: CHEST PAIN Time Seen by Provider: 11/04/16 15:46 Mode of Arrival: Ambulatory Notes: The patient is a 66-year-old male, past medical history COPD, presents with mild shortness of breath, chills, nausea and episode of vomiting earlier today. He is also having a dull diffuse chest ache after the vomiting. 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 He denies current nausea, vomiting, shortness of breath , fevers, cough, leg swelling, abdominal pain, back pain, numbness or tingling. TRAVEL OUTSIDE OF THE [place] IN LAST 30 DAYS: No - Related Data Allergies/Adverse Reactions: No Known Allergies Allergy (Verified 11/04/16 15:02) Past Medical History - General Information source: Patient, [facility] Records - Social History Smoking Status: Former Smoker Frequency of alcohol use: Occasional Drug Abuse: None Lives with: Family Family History: COPD - Mother Patient has suicidal ideation: No Patient has homicidal ideation: No - Past Medical History Cardiac Medical History: Reports: Hx Hypertension Denies: Hx Coronary Artery Disease, Hx Heart Attack Pulmonary Medical History: Reports: Hx COPD, Hx Sleep Apnea Denies: Hx Asthma, Hx Bronchitis, Hx Pneumonia Neurological Medical History: Denies: Hx Cerebrovascular Accident, Hx Seizures Endocrine Medical History: Reports: Hx Diabetes Mellitus Type 2 Renal/ Medical History: Denies: Hx Peritoneal Dialysis Malignancy Medical History: 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 RESPIRATORY: -cough, +SOB GASTROINTESTINAL: -abdominal pain, - nausea, -vomiting, -diarrhea GENITOURINARY: -dysuria, -hematuria MUSCULOSKELETAL: -back pain, -neck pain SKIN: -rash or skin lesions. HEMATOLOGIC: -easy bruising or bleeding. LYMPHATIC: -swollen, enlarged glands. NEUROLOGICAL: -altered mental status or loss of consciousness, -headache, - neurologic symptoms PSYCHIATRIC: -anxiety, -depression. ALL OTHER SYSTEMS REVIEWED AND NEGATIVE. Physical Exam - Vital signs Vitals: Temp Pulse Resp BP Pulse Ox 98.0 F 113 H 18 118/51 L 91 L 11/04/16 15:03 11/04/16 15:03 11/04/16 15:03 11/04/16 15:03 11/04/16 15:03 - Notes Notes: PHYSICAL EXAMINATION: GENERAL: Well-appearing, well-nourished and in no acute distress. HEAD: Atraumatic, normocephalic. EYES: Pupils equal round and reactive to light, extraocular movements intact, sclera anicteric, conjunctiva are normal. ENT: nares patent, oropharynx clear without exudates. Moist mucous membranes. NECK: Normal range of motion, supple without lymphadenopathy LUNGS: Breath sounds clear to auscultation bilaterally and equal. Mild end- expiratory wheezing. HEART: Tachycardia, regular rhythm ABDOMEN: Soft, nontender, normoactive bowel sounds. No guarding, no rebound. No masses appreciated. EXTREMITIES: Normal range of motion, no pitting or edema. No cyanosis. NEUROLOGICAL: Cranial nerves grossly intact. Normal speech, normal gait. Normal sensory and motor exams. PSYCH: Normal mood, normal affect. SKIN: Warm, Dry, normal turgor, no rashes or lesions noted. Course - Re-evaluation Re-evalutation: Patient with tachycardia, tachypnea and mild hypoxia. Concern for PE, but CTA did not show any evidence of PE at this time. 2 sets of troponins were normal and his tachycardia resolved. Patient is completely asymptomatic on discharge. His HEART score is 3. CT does show evidence of esophagitis, so will begin a PPI and have him follow-up with his primary care physician and manufacturing maintenance technician tomorrow for further evaluation and treatment. Given strict return precautions and he understands. - Vital Signs Vital signs: Temp Pulse Resp BP Pulse Ox 98.0 F 113 H 19 110/51 L 95 11/04/16 16:48 11/04/16 15:03 11/04/16 21:33 11/04/16 19:00 11/04/16 21:33 - Laboratory Result Diagrams: 11/04/16 16:05 11/04/16 16:05 Laboratory results interpreted by me: 11/04/16 11/04/16 16:05 16:05 MCHC 31.9 L RDW 14.5 H Seg Neutrophils % 83.6 H Lymphocytes % 9.1 L Absolute Lymphocytes 0.4 L Glucose 301 H Alkaline Phosphatase 131 H - Diagnostic Test Radiology reviewed: Image reviewed, Reports reviewed Radiology results interpreted by me: CTA Chest: no PE, esophagitis - EKG Interpretation by Me EKG shows normal: Sinus rhythm, [place], Intervals, QRS Complexes, ST-T Waves When compared to previous EKG there are: No significant change Discharge - Discharge Clinical Impression: Dyspnea Qualifiers: Dyspnea type: unspecified Qualified Code(s): R06.00 - Dyspnea, unspecified Chest pain Qualifiers: Chest pain type: unspecified Qualified Code(s): R07.9 - Chest pain, unspecified Condition: Stable Disposition: HOME, SELF-CARE Additional Instructions: CHEST PAIN OF UNCLEAR CAUSE: The exact cause of your chest pain isn't clear. Fortunately, there is no evidence of a dangerous medical condition. Further testing may be required to find the source of the pain. Most often, we find that this pain is coming from the chest wall -- the muscles or rib joints in the chest. But chest pain can come from the lung and lung lining, the esophagus, the heart valves or heart lining, and even the stomach or gallbladder. Rest. Eat lightly until the pain is gone. We may prescribe medicine for pain and inflammation. You should call the physician immediately if the pain radiates to the shoulder, jaw or arms; if you start to run a fever or develop a cough; or if you develop shortness of breath, or other new or alarming symptoms. NORMAL EXAM AND WORKUP: At this time, your examination and workup show no significant abnormality. No significant abnormal physical findings were noted. All laboratory, EKG, and imaging (x-ray, CT scans, ultrasound) studies that were ordered show no significant abnormality. Although your examination and all studies that were ordered showed no significant abnormal finding, there are no examinations and no studies that are 100% accurate. There is always the possibility that some abnormality could exist and not be detected with physical examination or within the limits and capabilities of laboratory and other studies. You should return or follow up as you were instructed on your visit today for further evaluation if your symptoms do not resolve. ANGINA EPISODE: Your physician has diagnosed the pain you experienced as an episode of angina. Angina occurs when a portion of the heart muscle temporarily lacks oxygen. It does not cause any permanent heart damage, but serves as a warning. Hospitalization is not necessary now. Evaluation of your cardiac condition , and medical therapy for angina will be necessary. It's important you be sure to keep all appointments and take medication exactly as prescribed. Angina is usually treated with a type of "nitrate" medication. This is available as ointment, pills, or sublingual (under the tongue) tablets. Depending on your clinical situation, other medications may be added to help control angina. These may include beta blockers or calcium blockers. If episodes of angina are occurring with increased frequency, or if chest pain lasts longer than 15 minutes or does not respond to nitroglycerin, you must seek emergency medical care immediately. ASPIRIN: Aspirin has been shown to have a beneficial effect on blood circulation by reducing the clotting effect of platelets in the blood. These beneficial effects can be achieved by taking just a single baby (81 mg) aspirin a day. It is recommended that any person over the age of forty take a single baby aspirin every day for heart and brain circulation, unless you are allergic to aspirin or have some significant bleeding disorder. It is strongly recommended that people who have proven cardiac or blood circulation disturbances should take a baby aspirin every day. ANTACID THERAPY: You have been instructed to start antacid therapy. Antacids directly neutralize stomach acid. This is useful for acid irritation of the esophagus, gastritis, and ulcers. You should take two tablespoons of antacid one hour after each meal and three hours after each meal. If you are not eating, take the antacid every two hours. If you are using a concentrate (such as Maalox TC), use only one tablespoon. Many antacids affect the bowels. The most common problem is diarrhea. In this case, a pure aluminum hydroxide antacid (such as AlternaGel) can be substituted for some or all doses. If the problem is constipation, add a teaspoon of Milk of Magnesia to each dose. Call the doctor if you experience continued diarrhea or constipation, or if you develop lightheadedness, bloody stool or vomitus, severe abdominal pain, or black stool. PRILOSEC (ACID PUMP INHIBITOR): Prilosec (omeprazole) is an acid-pump inhibitor. It blocks the secretion of hydrogen ions in the acid-producing cells of the stomach. Prilosec keeps your stomach from making acid. Take all medication as prescribed, even after the pain is gone. Regular antacids may be added as needed if you have symptoms while taking this medicine. There are usually no side effects from this medication. Contact your doctor if there is fever, rash, yellow skin color, increasing abdominal pain, weakness, or unusual bruising. Return at once if you develop lightheadedness, black or bloody stool, or bloody vomitus. FOLLOW-UP CARE: If you have been referred to a physician for follow-up care, call the physician s office for an appointment as you were instructed or within the next two days. If you experience worsening or a significant change in your symptoms, notify the physician immediately or return to the Emergency Department at any time for re-evaluation. SHORTNESS OF BREATH OR DYSPNEA: You were evaluated for shortness of breath, or dyspnea. Dyspnea has many causes, and some are more serious than others. Sometimes it's impossible to diagnose the cause of dyspnea with the tests that are available on an emergency basis. Based on our evaluation today, you do not need hospitalization now. We found no evidence of pneumonia, collapsed lung, blood clots in the lung, tumors , or heart failure. Causes of non-specific dyspnea can include asthma or bronchospasm, hyperventilation, emotional distress, heart disease, emphysema, fibrosis of the lung, and stiffness of the chest wall. In healthy individuals with a single episode, it's sometimes reasonable to do nothing but wait to see if the problem occurs again. Additional tests used to evaluate dyspnea can include cardiac stress testing, echocardiography, pulmonary function testing, CAT scan of the chest, bronchoscopy or pulmonary biopsy. Return if shortness of breath persists or worsens, or if you develop chest pain, fever, cough, confusion, or fainting. NORMAL EXAM AND WORKUP: At this time, your examination and workup show no significant abnormality. No significant abnormal physical findings were noted. All laboratory, EKG, and imaging (x-ray, CT scans, ultrasound) studies that were ordered show no significant abnormality. Although your examination and all studies that were ordered showed no significant abnormal finding, there are no examinations and no studies that are 100% accurate. There is always the possibility that some abnormality could exist and not be detected with physical examination or within the limits and capabilities of laboratory and other studies. You should return or follow up as you were instructed on your visit today for further evaluation if your symptoms do not resolve. FOLLOW-UP CARE: If you have been referred to a physician for follow-up care, call the physician s office for an appointment as you were instructed or within the next two days. If you experience worsening or a significant change in your symptoms, notify the physician immediately or return to the Emergency Department at any time for re-evaluation. Prescriptions: Omeprazole Magnesium [Prilosec Otc] 20 mg PO Q12H #30 tablet.dr Referrals: TRISTIN CORONADO MD [ACTIVE STAFF] - Follow up as needed
== END 2016-11-04 22:01 | disposition home or self-care (01) ==
LOC: ER 14:48
DX: K20.9 Esophagitis, unspecified (principal); J44.9 Chronic obstructive pulmonary disease, unspecified; R07.9 Chest pain, unspecified; R00.0 Tachycardia, unspecified; R06.02 Shortness of breath; R09.02 Hypoxemia; R11.2 Nausea with vomiting, unspecified; R68.83 Chills (without fever); I10 Essential (primary) hypertension; E11.9 Type 2 diabetes mellitus without complications; Z85.828 Personal history of other malignant neoplasm of skin; Z87.891 Personal history of nicotine dependence
CPT/HCPCS: 93005; 99285; 36415; 85025; 80053; 84484; 71010; 71275; 93010; A9270; S0119

== ENCOUNTER 2017-03-13 10:42 | Inpatient (IN) | payer MEDICARE, OTHER ==
[2017-03-13] MEDS ORDERED: IPRATROPIUM/ALBUTEROL 0.5-2.5 MG/3 ML AMPUL NEB ONE (11:03)
--- NOTE | 2017-03-13 11:20 | RADIOLOGY REPORT (SQ) ---
EXAM DESCRIPTION: CHEST PA/LAT COMPLETED DATE/TIME: 03/13/2017 11:05 am REASON FOR STUDY: sob hypoxia COMPARISON: None. EXAM PARAMETERS: NUMBER OF VIEWS: two views TECHNIQUE: Digital Frontal and Lateral radiographic views of the chest acquired. RADIATION DOSE: NA LIMITATIONS: none FINDINGS: LUNGS AND PLEURA: There is some ill-defined increased density in the left lung base which could represent atelectatic changes or minimal infiltrate. Remaining lung cooley are clear. No pleu ral effusions are identified. No pneumothorax is seen. MEDIASTINUM AND HILAR STRUCTURES: No masses or contour abnormalities. HEART AND VASCULAR STRUCTURES: Heart normal size. No evidence for failure. BONES: No acute findings. HARDWARE: Electrodes from a neuro stimulator device are identified projected in the mid thoracic spin e OTHER: No other significant finding. IMPRESSION: Ill-defined increased density in the left lung base which could represent atelectatic ch anges or minimal infiltrate. Remaining lung cooley are clear. Other findings as noted TECHNICAL DOCUMENTATION: JOB ID: [id number] 1985 [employer]- All Rights Reserved
[2017-03-13 11:42] LABS: ABSOLUTE EOSINOPHILS # (AUTO) 0.3 10^3/uL (0.0-0.6); ABSOLUTE MONOCYTES (AUTO) 0.5 10^3/uL (0.1-1.4); BASOPHILS % (AUTO) 0.6 % (0-2); EOSINOPHILS % (AUTO) 3.6 % (0-6); HEMATOCRIT 40.1 % (37.9-51.0); HEMOGLOBIN 13.3 g/dL (13.5-17.0); HGB HCT DIFFERENCE -0.2; LYMPHOCYTES % (AUTO) 22.3 % (13-45); MEAN CORPUSCULAR HEMOGLOBIN 28.5 pg (27.0-33.4); MEAN CORPUSCULAR HGB CONC 33.3 g/dL (32.0-36.0); MEAN CORPUSCULAR VOLUME 86 fl (80-97); MONOCYTES % (AUTO) 5.2 % (3-13); RED BLOOD COUNT 4.68 10^6/uL (4.35-5.55); RED CELL DISTRIBUTION WIDTH 16.5 % (11.5-14.0); SEGMENTED NEUTROPHILS % (AUTO) 68.3 % (42-78); VENOUS BLOOD BASE EXCESS 1.3 mmol/L; VENOUS BLOOD HCO3 26.7 mmol/L (20-32); VENOUS BLOOD PCO2 45.3 mmHg (35-63); VENOUS BLOOD PH 7.39 (7.30-7.42); WHITE BLOOD COUNT 8.8 10^3/uL (4.0-10.5)
[2017-03-13 11:57] LABS: ALANINE AMINOTRANSFERASE 39 U/L (21-72); ALBUMIN 3.9 g/dL (3.5-5.0); ALKALINE PHOSPHATASE 169 U/L (38-126); ANION GAP 15 (5-19); ASPARTATE AMINO TRANSFERASE 19 U/L (17-59); BILIRUBIN,DIRECT 0.3 mg/dL (0.0-0.4); BILIRUBIN,TOTAL 0.7 mg/dL (0.2-1.3); BLOOD UREA NITROGEN 23 mg/dL (7-20); CALCIUM 9.4 mg/dL (8.4-10.2); CARBON DIOXIDE 25 mmol/L (22-30); CHLORIDE 105 mmol/L (98-107); CREATINE KINASE 68 U/L (55-170); CREATININE RESULT 0.91 mg/dL (0.52-1.25); GLUCOSE 328 mg/dL (75-110); MAGNESIUM 1.9 mg/dL (1.6-2.3); POTASSIUM 4.3 mmol/L (3.6-5.0); SODIUM 145.3 mmol/L (137-145); TOTAL PROTEIN 6.1 g/dL (6.3-8.2)
[2017-03-13] MEDS ORDERED: LEVOFLOXACIN 500 MG/D5W RTU 500 MG/100 ML RTUPB IV ONE (12:00)
[2017-03-13] MEDS ORDERED: ALBUTEROL SULFATE 0.083% NEB 2.5 MG/3 ML AMPUL NEB ONE (12:08)
[2017-03-13] MEDS ORDERED: METHYLPREDNISOLONE INJ 125 MG/2 ML SDV IV ONE (12:08)
[2017-03-13 12:09] LABS: CREATINE KINASE MB 2.45 ng/mL (<4.55)
[2017-03-13 12:21] LABS: TROPONIN I < 0.012 ng/mL
[2017-03-13] MEDS ORDERED: NITROGLYCERIN 2% OINTMENT 1 GM PACKET TP ONE (13:03)
[2017-03-13] MEDS ORDERED: CLINDAMYCIN 300 MG/D5W RTU 300 MG/50 ML RTUPB IV ONE (13:24)
--- NOTE | 2017-03-13 13:27 | ER Document Report ---
ED General - General Chief Complaint: Shortness Of Breath Stated Complaint: BREATHING DIFFICULTY Time Seen by Provider: 03/13/17 10:49 TRAVEL OUTSIDE OF THE [place] IN LAST 30 DAYS: No - HPI Patient complains to provider of: Shortness of breath Notes: Patient coming in for shortness of breath. Patient states was drinking and eating a doughnut when he had a coughing sensation and vomited states afterwards became very short of breath therefore came to the ER for further evaluation. Patient states he is concerned that he may have aspirated. Patient has a history of COPD denies any recent antibiotic use denies any fevers chills diarrhea. Upon my evaluation patient is found to be hypoxic patient states wear CPAP does not wear oxygen at home. Patient is requiring approximately 2 3 L of oxygen to keep his SPO2 around 90-92%. Patient was 84 upon arrival in room air - Related Data Allergies/Adverse Reactions: No Known Allergies Allergy (Verified 03/13/17 10:47) Home Medications: Current Home Medications Atorvastatin Calcium [Lipitor 20 mg Tablet] 20 mg PO DAILY 03/13/17 [History] Mirabegron [Myrbetriq] 50 mg PO DAILY 03/13/17 [History] Past Medical History - Social History Smoking Status: Never Smoker Chew tobacco use (# tins/day): No Frequency of alcohol use: None Drug Abuse: None Family History: COPD - Mother Patient has suicidal ideation: No Patient has homicidal ideation: No - Past Medical History Cardiac Medical History: Reports: Hx Hypertension Denies: Hx Coronary Artery Disease, Hx Heart Attack Pulmonary Medical History: Reports: Hx COPD - sleep apnea, no home o2, Hx Sleep Apnea Denies: Hx Asthma, Hx Bronchitis, Hx Pneumonia Neurological Medical History: Denies: Hx Cerebrovascular Accident, Hx Seizures Endocrine Medical History: Reports: Hx Diabetes Mellitus Type 2 Renal/ Medical History: Denies: Hx Peritoneal Dialysis Malignancy Medical History: Reports 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 - Immunizations Hx Diphtheria, Pertussis, Tetanus Vaccination: Yes Hx Pneumococcal Vaccination: 03/11/11 Review of Systems - Review of Systems Constitutional: No symptoms reported EENT: No symptoms reported Cardiovascular: No symptoms reported Respiratory: Short of breath, Wheezing Gastrointestinal: No symptoms reported Genitourinary: No symptoms reported Male Genitourinary: No symptoms reported Musculoskeletal: No symptoms reported Skin: No symptoms reported Hematologic/Lymphatic: No symptoms reported Neurological/Psychological: No symptoms reported Physical Exam - Vital signs Vitals: Temp Pulse Resp BP Pulse Ox 97.7 F 106 H 24 H 169/65 H 84 L 03/13/17 10:47 03/13/17 10:47 03/13/17 10:47 03/13/17 10:47 03/13/17 10:47 Interpretation: Hypoxic, Tachypneic - General General appearance: Appears well, Alert - HEENT Head: Normocephalic, Atraumatic Eyes: Normal Pupils: PERRL - Respiratory Respiratory status: No respiratory distress Chest status: Nontender Breath sounds: Normal Chest palpation: Normal - Cardiovascular Rhythm: Regular Heart sounds: Normal auscultation Murmur: No - Abdominal Inspection: Normal Distension: No distension Bowel sounds: Normal Tenderness: Nontender Organomegaly: No organomegaly - Back Back: Normal, Nontender - Extremities General upper extremity: Normal inspection, Nontender, Normal color, Normal ROM , Normal temperature General lower extremity: Normal inspection, Nontender, Normal color, Normal ROM , Normal temperature, Normal weight bearing. No: Chris's sign - Neurological Neuro grossly intact: Yes Cognition: Normal Orientation: AAOx4 Matty Coma Scale Eye Opening: Spontaneous [place] Coma Scale Verbal: Oriented [place] Coma Scale Motor: Obeys Commands Matty Coma Scale Total: 15 Speech: Normal Motor strength normal: LUE, RUE, LLE, RLE Sensory: Normal - Psychological Associated symptoms: Normal affect, Normal mood - Skin Skin Temperature: Warm Skin Moisture: Dry Skin Color: Normal Course - Re-evaluation Re-evalutation: 03/13/17 14:33 Laboratory studies do not really show significant pathology. Chest x-ray shows atelectasis versus developing pneumonia on the left not really the right. Patient continued to be tachypneic despite breathing treatments no improvement in this is dyspnea therefore patient was placed on BiPAP at the BiPAP patient states great relief in his dyspnea. Concern about aspiration patient states recently started on Levaquin thought to the hospitalist requesting clindamycin this was also given to the patient. Patient will be admitted to the hospital for further evaluation of his hypoxia and shortness of breath. - Vital Signs Vital signs: Temp Pulse Resp BP Pulse Ox 97.7 F 106 H 23 H 118/67 93 03/13/17 10:47 03/13/17 10:47 03/13/17 13:31 03/13/17 13:31 03/13/17 13:31 - Laboratory Result Diagrams: 03/13/17 11:20 03/13/17 11:20 Laboratory results interpreted by me: 03/13/17 03/13/17 11:20 11:20 Hgb 13.3 L RDW 16.5 H Sodium 145.3 H BUN 23 H Glucose 328 H Alkaline Phosphatase 169 H Total Protein 6.1 L Discharge - Discharge Clinical Impression: Hypoxemia, Obstructive sleep apnea on CPAP Pneumonia Qualifiers: Pneumonia type: due to unspecified organism Laterality: left Lung location: lower lobe of lung Qualified Code(s): J18.1 - Lobar pneumonia, unspecified organism Condition: Good Disposition: ADMITTED INPATIENT Admitting Provider: Hospitalist - tony Unit Admitted: [facility]
[2017-03-13 14:44] LABS: ARTERIAL BLOOD BASE EXCESS -2.2 mmol/L; ARTERIAL BLOOD O2 SATURATION 94.2 % (94-98)
--- NOTE | 2017-03-13 14:59 | PDOC H&P ---
History of Present Illness Admission Date/PCP: 03/13/17 13:48 ROSANGELA AMOR MD Patient complains of: shortness of air History of Present Illness: LIONEL CHESTER is a 66 year old male presents from home with sudden onset of SOA and wheezing after choking on a piece of doughnut earlier today. He has hx of esophageal strictures requiring intermittent EGD and dilatation last completed by dr vasquez in 09/2016. He also suffers from COPD, not O2 or steroid dependent and has nebulizer available for prn use, and LAURIE for which he wears nocturnal CPAP. prior to this event he was in his usual state of health without cough or phlegm, wheezing, fevers/chills, worsening of his chronic BLE edema, orthopnea or PND. he denies chest pain, palpitations, jaw pain, abd wall pain and has been able to swallow liquids and pills since the inciting event earlier to day. He was hypoxemic on arrival with RA sat of only 84% and remains bronchospastic requiring BiPAP for increased WOB in spite of IV solumedrol and multiple nebs so we were asked to admit for further eval and management. Of note, he is alert and talking at present, thoughts are lucid. Past Medical History Cardiac Medical History: Reports: Hypertension Denies: Coronary Artery Disease, Myocardial Infarction Pulmonary Medical History: Reports: Chronic Obstructive Pulmonary Disease (COPD ) - sleep apnea, no home o2, Sleep Apnea Denies: Asthma, Bronchitis, Pneumonia Neurological Medical History: Denies: Seizures Endocrine Medical History: Reports: Diabetes Mellitus Type 2 Malignancy Medical History: Reports: 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 Musculoskeltal Medical History: Reports: Arthritis Psychiatric Medical History: Denies: Depression Hematology: Denies: Anemia Past Surgical History Past Surgical History: Reports: Cholecystectomy Social History Information Source: Patient Smoking Status: Former Smoker Cigarettes Packs Per Day: 1.5 Number of Years Smokin Last Time Smoked: 4 yrs ago Frequency of Alcohol Use: Occasional Hx Recreational Drug Use: No Drugs: None Hx Prescription Drug Abuse: No - Advance Directive Resuscitation Status: Full Code Family History Family History: COPD - Mother Parental Family History Reviewed: Yes Children Family History Reviewed: Yes Sibling(s) Family History Reviewed.: Yes Medication/Allergy Home Medications: Aclidinium [place] [Tudorza Pressair] 1 puff IH BID 10/12/16 Albuterol Sulfate [Ventolin HFA MDI 18 GM] 2 puff IH Q4HP PRN 10/12/16 Aspirin [Ecotrin 81 mg EC Tablet] 81 mg PO DAILY 10/12/16 Cholecalciferol (Vitamin D3) [Vitamin D3 1000 Unit Tablet] 1,000 unit PO BID Empagliflozin [Jardiance] 25 mg PO DAILY 10/12/16 Ezetimibe [Zetia 10 mg Tablet] 10 mg PO DAILY 10/12/16 Fish Oil/Dha/Epa [Fish Oil 1,200 mg Fish Oil] 1 each PO BID 10/12/16 Flaxseed Oil [Flaxseed] 1,000 mg PO DAILY 10/12/16 Fluticasone/Salmeterol [Advair 250-50 Diskus 28 dose] 1 inh IH Q12 10/12/16 Furosemide [Lasix] 80 mg PO DAILY 10/12/16 Ibuprofen [Motrin 800 mg Tablet] 800 mg PO Q8H PRN 10/12/16 Insulin Aspart [Novolog Insulin 100 Unit/1 ml 10 ml] 0 unit SUBCUT .SLD SCALE Insulin Degludec [Tresiba Flextouch U-200] 51 unit SQ DAILY 10/12/16 Losartan Potassium [Cozaar 50 mg Tablet] 50 mg PO DAILY 10/12/16 Multivitamin [Tab-A-Priscilla] 1 each PO DAILY 10/12/16 Pramipexole Di-HCl [Mirapex 0.5 Mg Tablet] 0.5 mg PO TID 10/12/16 Tamsulosin HCl [Flomax 0.4 mg Cap.sr] 0.4 mg PO BID 10/12/16 Atorvastatin Calcium [Lipitor 20 mg Tablet] 20 mg PO DAILY 03/13/17 Mirabegron [Myrbetriq] 50 mg PO DAILY 03/13/17 Allergies/Adverse Reactions: No Known Allergies Allergy (Verified 03/13/17 10:47) Review of Systems All systems: reviewed and no additional remarkable complaints except as stated - all systems reviewed, see above, remaining systems negative Physical Exam Vital Signs: Temp Pulse Resp BP Pulse Ox 97.7 F 106 H 23 H 118/67 93 03/13/17 10:47 03/13/17 10:47 03/13/17 13:31 03/13/17 13:31 03/13/17 13:31 General appearance: PRESENT: mild distress, morbidly obese Head exam: PRESENT: atraumatic, normocephalic Eye exam: PRESENT: EOMI, PERRLA Mouth exam: PRESENT: moist, neck supple Throat exam: ABSENT: post pharyngeal erythema, tonsillar erythema, tonsillar exudate Neck exam: PRESENT: other - no stridor. ABSENT: lymphadenopathy, tracheal deviation Respiratory exam: PRESENT: accessory muscle use, prolonged expiratory phas, rhonchi, tachypnea. ABSENT: crackles, rales, wheezes Cardiovascular exam: PRESENT: RRR, tachycardia. ABSENT: systolic murmur Pulses: PRESENT: normal carotid pulses, normal dorsalis pedis pul GI/Abdominal exam: PRESENT: normal bowel sounds, soft. ABSENT: tenderness Extremities exam: PRESENT: pedal edema, +1 edema - no palpable cords Neurological exam: PRESENT: alert, awake, oriented to person, oriented to place , oriented to time, oriented to situation Psychiatric exam: PRESENT: appropriate affect, normal mood. ABSENT: anxious Focused psych exam: ABSENT: delusional, pressured speech Skin exam: PRESENT: dry, warm Results Laboratory Results: 03/13/17 11:20 03/13/17 11:20 MCV 86 fl (80-97) 03/13/17 11:20 MCH 28.5 pg (27.0-33.4) 03/13/17 11:20 MCHC 33.3 g/dL (32.0-36.0) 03/13/17 11:20 RDW 16.5 % (11.5-14.0) H 03/13/17 11:20 Seg Neutrophils % 68.3 % (42-78) 03/13/17 11:20 Lymphocytes % 22.3 % (13-45) 03/13/17 11:20 Monocytes % 5.2 % (3-13) 03/13/17 11:20 Eosinophils % 3.6 % (0-6) 03/13/17 11:20 Basophils % 0.6 % (0-2) 03/13/17 11:20 Absolute Neutrophils 6.0 10^3/uL (1.7-8.2) 03/13/17 11:20 Absolute Lymphocytes 2.0 10^3/uL (0.5-4.7) 03/13/17 11:20 Absolute Monocytes 0.5 10^3/uL (0.1-1.4) 03/13/17 11:20 Absolute Eosinophils 0.3 10^3/uL (0.0-0.6) 03/13/17 11:20 Absolute Basophils 0.0 10^3/uL (0.0-0.2) 03/13/17 11:20 Carbonic Acid 1.21 mmol/L (1.05-1.35) 03/13/17 14:20 HCO3/H2CO3 Ratio 18:1 03/13/17 14:20 ABG pH 7.37 (7.35-7.45) 03/13/17 14:20 ABG pCO2 40.3 mmHg (35-45) 03/13/17 14:20 ABG pO2 72.3 mmHg (80-100) L 03/13/17 14:20 ABG HCO3 22.9 mmol/L (20-26) 03/13/17 14:20 ABG O2 Saturation 94.2 % (94-98) 03/13/17 14:20 ABG Base Excess -2.2 mmol/L 03/13/17 14:20 VBG pH 7.39 (7.30-7.42) 03/13/17 11:20 VBG pCO2 45.3 mmHg (35-63) 03/13/17 11:20 VBG HCO3 26.7 mmol/L (20-32) 03/13/17 11:20 VBG Base Excess 1.3 mmol/L 03/13/17 11:20 FiO2 30% 03/13/17 14:20 Chloride 105 mmol/L (98-107) 03/13/17 11:20 Carbon Dioxide 25 mmol/L (22-30) 03/13/17 11:20 Anion Gap 15 (5-19) 03/13/17 11:20 Est GFR ( Amer) > 60 (>60) 03/13/17 11:20 Est GFR (Non-Af Amer) > 60 (>60) 03/13/17 11:20 Glucose 328 mg/dL (75-110) H 03/13/17 11:20 Calcium 9.4 mg/dL (8.4-10.2) 03/13/17 11:20 Magnesium 1.9 mg/dL (1.6-2.3) 03/13/17 11:20 Total Bilirubin 0.7 mg/dL (0.2-1.3) 03/13/17 11:20 AST 19 U/L (17-59) 03/13/17 11:20 ALT 39 U/L (21-72) 03/13/17 11:20 Alkaline Phosphatase 169 U/L (38-126) H 03/13/17 11:20 Total Protein 6.1 g/dL (6.3-8.2) L 03/13/17 11:20 Albumin 3.9 g/dL (3.5-5.0) 03/13/17 11:20 03/13/17 03/13/17 11:20 11:20 Creatine Kinase 68 CK-MB (CK-2) 2.45 Troponin I < 0.012 Impressions: Chest X-Ray 03/13/17 10:54 IMPRESSION: Ill-defined increased density in the left lung base which could represent atelectatic changes or minimal infiltrate. Remaining lung cooley are clear. Other findings as noted Status: Image reviewed by me - review of old ct chest from a couple of months ago shows a LLL scar or atelectasis likely accounting for shadow seen on today' s CXR which to me doesn't appear different from prior [facility] Assessment & Plan - Diagnosis (1) Acute hypoxemic respiratory failure Is this a current diagnosis for this admission?: Yes Plan: likely 2/2 aspiration triggered bronchospasm, possibly early aspiration pneumonitis. admit to IMCU for continue prn BiPAP support for increased WOB, supplemental O2, scheduled and prn nebs. I see no clear indication for continued steroids at this time and only a short course of abx to prevent aspiration pneumonia given his fixed lung disease and lack of functional reserve and repeat hospitalizations for pneumonia in the past including most recently 12/2016. (2) COPD (chronic obstructive pulmonary disease) Qualifiers: COPD type: chronic bronchitis Chronic bronchitis type: simple Qualified Code(s): J41.0 - Simple chronic bronchitis Is this a current diagnosis for this admission?: Yes Plan: as above (3) Obstructive sleep apnea on CPAP Is this a current diagnosis for this admission?: Yes Plan: stable, continue home CPAP (4) Diabetes mellitus Qualifiers: Diabetes mellitus type: type 2 Diabetes mellitus complication status: without complication Diabetes mellitus entry level administrative assistant insulin use: with entry level administrative assistant use Qualified Code(s): E11.9 - Type 2 diabetes mellitus without complications ; Z79.4 - [facility] (current) use of insulin; 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 will cover with low dose basal and SSI while hospitalized. (5) Hypertension Qualifiers: Hypertension type: essential hypertension Qualified Code(s): I10 - Essential (primary) hypertension Is this a current diagnosis for this admission?: Yes Plan: continue home regimen and titrate as needed. - Time Time Spent: 50 to 70 Minutes Medications reviewed and adjusted accordingly: Yes Anticipated discharge: Home Within: within 48 hours - Inpatient Certification Based on my medical assessment, after consideration of the patient's comorbidities, presenting symptoms, or acuity I expect that the services needed warrant INPATIENT care.: Yes I certify that my determination is in accordance with my understanding of Medicare's requirements for reasonable and necessary INPATIENT services [42 CFR 412.3e].: Yes Medical Necessity: Significant Comorbidiites Make Outpatient Treatment Too Risky , Need For Continuous Telemetry Monitoring, Need for Nebulizer Therapy and Monitoring of Response - Plan Summary Plan Summary: i anticipate he will turn around quickly but may need 2 nights in hospital given his multiple comorbid conditions.
[2017-03-13] MEDS ORDERED: ALBUTEROL SULFATE 0.083% NEB 2.5 MG/3 ML AMPUL NEB PRN (15:00)
[2017-03-13] MEDS ORDERED: GLUCAGON,HUMAN RECOMB 1 MG INJ IM PRN (15:00)
[2017-03-13] MEDS ORDERED: DEXTROSE 40% GEL 15 GM TUBE PO PRN ×2 (15:00)
[2017-03-13] MEDS ORDERED: ACETAMINOPHEN 325 MG TABLET PO PRN (15:00)
[2017-03-13] MEDS ORDERED: DEXTROSE 50%-WATER 25 GM/50 ML DISP.SYRIN IV PRN ×2 (15:00)
[2017-03-13] MEDS ORDERED: ONDANSETRON HCL INJ/PF 4 MG/2 ML SDV IV PRN (15:05)
[2017-03-13] MEDS ORDERED: MAGNESIUM HYDROXIDE SUSP 30 ML UDCUP PO PRN (15:05)
--- NOTE | 2017-03-13 15:44 | EKG REPORT ---
SEVERITY:- ABNORMAL ECG - SINUS RHYTHM FIRST DEGREE AV BLOCK LAD, CONSIDER LEFT ANTERIOR FASCICULAR BLOCK : Confirmed by: Indy Root 13-Mar-2017 15:43:38
[2017-03-13] MEDS: TAMSULOSIN HCL 0.4 MG CAP.SR.24H PO SCH (18:18)
[2017-03-13] MEDS: INSULIN LISPRO 100 UNIT/ML 3 ML VIAL SUBCUT PRN ×2 (18:18→22:10)
[2017-03-13] MEDS: PRAMIPEXOLE DI-HCL 0.5 MG TABLET PO SCH (18:18)
[2017-03-13] MEDS: IPRATROPIUM/ALBUTEROL 0.5-2.5 MG/3 ML AMPUL NEB SCH (20:48)
[2017-03-13] MEDS ORDERED: INSULIN GLARGINE,HUM.REC.ANLOG 300 UNIT/3 ML INSULN.PEN SUBCUT SCH (22:00)
[2017-03-13] MEDS: PANTOPRAZOLE SODIUM 40 MG VIAL IV SCH (22:10)
[2017-03-14] MEDS: IPRATROPIUM/ALBUTEROL 0.5-2.5 MG/3 ML AMPUL NEB SCH ×2 (02:36→08:42)
[2017-03-14] MEDS ORDERED: INSULIN LISPRO 100 UNIT/ML 3 ML VIAL SUBCUT ONE (09:30)
[2017-03-14] MEDS: PANTOPRAZOLE SODIUM 40 MG VIAL IV SCH (09:55)
[2017-03-14] MEDS: TAMSULOSIN HCL 0.4 MG CAP.SR.24H PO SCH (09:57)
[2017-03-14] MEDS: PRAMIPEXOLE DI-HCL 0.5 MG TABLET PO SCH (09:57)
--- NOTE | 2017-03-14 09:57 | PDOC DISCHARGE SUMMARY ---
General - Admit/Disc Date/PCP Admission Date/Primary Care Provider: 03/13/17 13:48 ROSANGELA AMOR MD Discharge Date: 03/14/17 - Discharge Diagnosis (1) Acute hypoxemic respiratory failure Is this a current diagnosis for this admission?: Yes Summary: Resolved. (2) Diabetes mellitus Is this a current diagnosis for this admission?: Yes Summary: Continue home medications. (3) Hypertension Is this a current diagnosis for this admission?: Yes (4) Obstructive sleep apnea on CPAP Is this a current diagnosis for this admission?: Yes Summary: Continue nightly CPAP. (5) COPD (chronic obstructive pulmonary disease) Is this a current diagnosis for this admission?: Yes Summary: Patient is not chronically on oxygen. Continue various nebulizers. Follow-up with PCP as needed. - Additional Information Resuscitation Status: Full Code Home Medications: Aclidinium [place] [Tudorza Pressair] 1 puff IN BID 10/12/16 Albuterol Sulfate [Ventolin HFA MDI 18 GM] 2 puff IH Q4HP PRN 10/12/16 Aspirin [Ecotrin 81 mg EC Tablet] 81 mg PO DAILY 10/12/16 Cholecalciferol (Vitamin D3) [Vitamin D3 1000 Unit Tablet] 1,000 unit PO BID Empagliflozin [Jardiance] 25 mg PO DAILY 10/12/16 Ezetimibe [Zetia 10 mg Tablet] 10 mg PO DAILY 10/12/16 Fish Oil/Dha/Epa [Fish Oil 1,200 mg Fish Oil] 1 each PO BID 10/12/16 Flaxseed Oil [Flaxseed] 1,000 mg PO DAILY 10/12/16 Fluticasone/Salmeterol [Advair 250-50 Diskus 28 dose] 1 puff IN Q12 10/12/16 Furosemide [Lasix] 80 mg PO Q12 10/12/16 Ibuprofen [Motrin 800 mg Tablet] 800 mg PO Q8H PRN 10/12/16 Insulin Aspart [Novolog Insulin (Aspart) 100 unit/mL] 0 unit SUBCUT .SLD SCALE 10/12/16 Insulin Degludec [Tresiba Flextouch U-200] 69 unit SQ QHS 10/12/16 Losartan Potassium [Cozaar 50 mg Tablet] 50 mg PO DAILY 10/12/16 Multivitamin [Tab-A-Priscilla] 1 each PO DAILY 10/12/16 Tamsulosin HCl [Flomax 0.4 mg Cap.sr] 0.4 mg PO BID 10/12/16 Atorvastatin Calcium [Lipitor 20 mg Tablet] 20 mg PO DAILY 03/13/17 Isosorbide Mononitrate [Isosorbide Mononitrate ER] 30 mg PO DAILY 03/13/17 Mirabegron [Myrbetriq] 50 mg PO DAILY 03/13/17 Pramipexole Di-HCl [Mirapex] 2 mg PO QHS 03/13/17 Pramipexole Di-HCl [Pramipexole Dihydrochloride] 1 mg PO QAM 03/13/17 History of Present Illness History of Present Illness: LIONEL CHESTER is a 66 year old white male who presented to the service after choking on a piece of dominant and beverage and developing acute respiratory failure. Please see the HPI as outlined by the admitting physician below. Admission Date/PCP: 03/13/17 13:48 ROSANGELA AMOR MD Patient complains of: shortness of air History of Present Illness: LIONEL CHESTER is a 66 year old male presents from home with sudden onset of SOA and wheezing after choking on a piece of doughnut earlier today. He has hx of esophageal strictures requiring intermittent EGD and dilatation last completed by dr vasquez in 09/2016. He also suffers from COPD, not O2 or steroid dependent and has nebulizer available for prn use, and LAURIE for which he wears nocturnal CPAP. prior to this event he was in his usual state of health without cough or phlegm, wheezing, fevers/chills, worsening of his chronic BLE edema, orthopnea or PND. he denies chest pain, palpitations, jaw pain, abd wall pain and has been able to swallow liquids and pills since the inciting event earlier to day. He was hypoxemic on arrival with RA sat of only 84% and remains bronchospastic requiring BiPAP for increased WOB in spite of IV solumedrol and multiple nebs so we were asked to admit for further eval and management. Of note, he is alert and talking at present, thoughts are lucid. Hospital Course Hospital Course: Patient was admitted to the hospital initially on bilevel Pap. He did well with this overnight. And was able to be weaned off. At the bedside today the patient states that he feels like himself and that he is breathing well. He says that at baseline he always has some dyspnea on exertion. He states that he got up and walked around the room and walked to the bathroom as well as washed up this morning. He states he did not feel any worse than usual and that he ready to go home. Antibiotics as well as steroids were stopped after the patient arrived to the floor the patient has been doing well without them. Patient is stable and fit for discharge. Physical Exam Vital Signs: Temp Pulse Resp BP Pulse Ox 97.7 F 76 18 126/48 H 96 03/14/17 07:15 03/14/17 07:15 03/14/17 04:50 03/14/17 07:15 03/14/17 07:15 Intake & Output 03/13/17 03/14/17 03/15/17 06:59 06:59 06:59 Intake Total 952 Balance 952 Weight 132.3 kg GENERAL: This is a well-developed well-nourished morbidly obese white male resting in his recliner currently in no acute distress. HEART: Regular rate and rhythm. No murmurs, rubs or gallops. LUNGS: Clear to auscultation bilaterally with equal rise and fall of the chest. ABDOMEN: Soft, obese nontender, nondistended with normoactive bowel sounds EXTREMETIES: No clubbing, cyanosis or edema. JULIA hose are in place 2+ peripheral pulses bilaterally. NEURO: Awake, alert and oriented 3. Cranial nerves II through XII are grossly intact. Results Laboratory Results: 03/13/17 14:20 Carbonic Acid 1.21 HCO3/H2CO3 Ratio 18:1 ABG pH 7.37 ABG pCO2 40.3 ABG pO2 72.3 L ABG HCO3 22.9 ABG O2 Saturation 94.2 ABG Base Excess -2.2 FiO2 30% 03/13/17 15:40 Troponin I < 0.012 Impressions: Chest X-Ray 03/13/17 10:54 IMPRESSION: Ill-defined increased density in the left lung base which could represent atelectatic changes or minimal infiltrate. Remaining lung cooley are clear. Other findings as noted Qualifiers PATEINT BEING DISCHARGED WITH ANY OF THE FOLLOWING DIAGNOSIS?: No Plan Time Spent: Less than 30 Minutes
[2017-03-14] MEDS ORDERED: (PENDING PHARMACY ID) (Aclidinium Bromide [Tudorza Pressair] 1 PUFF) IN SCH (10:00)
[2017-03-14] MEDS ORDERED: ATORVASTATIN CALCIUM 20 MG TABLET PO SCH (10:00)
[2017-03-14] MEDS ORDERED: (PENDING PHARMACY ID) (Empagliflozin [Jardiance] 25 MG) PO SCH (10:00)
[2017-03-14] MEDS ORDERED: LOSARTAN POTASSIUM 50 MG TABLET PO SCH (10:00)
[2017-03-14] MEDS ORDERED: DOCUSATE SODIUM 100 MG CAPSULE PO SCH (10:00)
[2017-03-14] MEDS ORDERED: FUROSEMIDE 40 MG TABLET PO SCH (10:00)
[2017-03-14] MEDS ORDERED: EZETIMIBE 10 MG TABLET PO SCH (10:00)
[2017-03-14] MEDS ORDERED: ISOSORBIDE MONONITRATE 30 MG TAB.ER.24H PO SCH (10:00)
[2017-03-14] MEDS ORDERED: ASPIRIN 81 MG TABLET, ENT COATED PO SCH (10:00)
[2017-03-14] MEDS ORDERED: FLUTICASONE/SALMETEROL DISKUS 250-50 MCG/DOSE IH SCH (10:00)
[2017-03-14] MEDS ORDERED: ENOXAPARIN SODIUM INJ 40 MG/0.4 ML DISP.SYRIN SUBCUT SCH (10:00)
[2017-03-14] MEDS ORDERED: INSULIN LISPRO 100 UNIT/ML 3 ML VIAL SUBCUT SCH (11:00)
[2017-03-14] MEDS ORDERED: INSULIN ASPART 20 UNIT SUBCUT SCH (11:00)
[2017-03-14 11:35] VITALS: BP 147/73
[2017-03-14] MEDS ORDERED: INSULIN DEGLUDEC SQ SCH (22:00)
== END 2017-03-14 11:45 | disposition home or self-care (01) | DRG 189 ==
LOC: ER 10:42 → EH 13:48 → 3S 17:01
PROVIDERS: ADMIT Internal Medicine; ATTEND Internal Medicine
DX: J96.01 Acute respiratory failure with hypoxia (principal); Z68.41 Body mass index [BMI] 40.0-44.9, adult; J44.9 Chronic obstructive pulmonary disease, unspecified; G47.33 Obstructive sleep apnea (adult) (pediatric); I10 Essential (primary) hypertension; E11.9 Type 2 diabetes mellitus without complications; E66.01 Morbid (severe) obesity due to excess calories; Z87.891 Personal history of nicotine dependence; Z79.82 Long term (current) use of aspirin; Z79.4 Long term (current) use of insulin; Z79.51 Long term (current) use of inhaled steroids; Z79.899 Other long term (current) drug therapy
CPT/HCPCS: 36415; 36600; 71020; 80053; 82550; 82553; 82803; 82962; 83735; 84484; 85025; 87040; 93005; 93010; 94640; 94660; 96365; 96375; 99285; J1815; J1956; J2930; J3490; J7620; S0164

== ENCOUNTER → 2017-12-07 | Outpatient (CLI) | payer MEDICARE, OTHER ==
--- NOTE | 2017-12-07 09:26 | RADIOLOGY REPORT (SQ) ---
EXAM DESCRIPTION: COOKIE SWALLOW COMPLETED DATE/TIME: 12/07/2017 8:59 am REASON FOR STUDY: DYSPHAGIA (R13.10), UNSP FB IN RESP TRACT, PART UNSP CAUSING ASPHYX, INIT R13.10 DYSPHAGIA, UNSPECIFIED T17.900A UNSP FB IN RESP TRACT, PART UNSP CAUSING ASPHYX, IN COMPARISON: Cookie swallow 09/25/2014. TECHNIQUE: Videofluoroscopic swallowing examination was performed in conjunction with speech patholo gy. Videofluoroscopic imaging was obtained and reviewed and these are the findings: RADIATION DOSE: Fluoro time 1.37 minutes 1 images saved to PACS. LIMITATIONS: None FINDINGS: The patient was brought into the fluoro room and placed upright on a modified barium swall ow chair. The patient was then given multiple consistencies mixed with barium to swallow under live fluoroscopic video guidance. According to the Speech Pathologist there was no penetration or aspirat ion. Please refer to the speech pathology report for further details. IMPRESSION: NO EVIDENCE OF PENETRATION OR ASPIRATION.PLEASE SEE SPEECH PATHOLOGIST REPORT FOR OTHER FINDINGS AND RECOMMENDATIONS. COMMENT: None Quality ID [id number]: Final reports for procedures using fluoroscopy that document radiation exposure kelsi frank, or exposure time and number of fluorographic images (if radiation exposure indices are not avail able) TECHNICAL DOCUMENTATION: JOB ID: [id number] [employer]- All Rights Reserved Reading location - IP/workstation name: [email or web address]
--- NOTE | 2017-12-07 17:39 | ST Modified Barium Swallow ---
Recommendation - Recommendations Recommendations: Recommend alternating bites and sips due to mild valleculae residue. Normal pharyngeal swallow seen. Medical Diagnoses - Medical Diagnoses Medical Diagnosis Description & ICD-10 Code(s): Dysphagia R13.10 Other Medical Diagnoses/Co-Morbidities: Pt reports medical history significant for COPD, DM, lower back pain - ICD-10 Tx Diagnosis Coding (1) Airway obstruction due to foreign body ICD-10 Code(s): T17.900A - UNSP FB IN RESP TRACT, PART UNSP CAUSING ASPHYX, INIT ST Modified Barium Swallow - General Date: 12/07/17 Referring Physician: Dr. Montes De Oca Date of Onset: 11/24/16 - approximate onset date Reason for Referral: difficulty with solids and liquids - History History obtained from: Patient -: Medical - Pt endorses difficulty swallowing characterized by globus sensation and coughing with PO trials. Patient does report having an esophageal dilation previously due to swallowing problems. Medications: per patient report: advair, proair, diabetes medication. Unable to give complete medication list. Allergies: None reported. - Functional Status Prior Functional Status: INDEPENDENT: feeding - independent Current Functional Limitations: feeding - coughing - Subjective Patient/caregiver goal(s): better swallow Cognitive-Linguistic Function: WNL Speech Intelligibility: WNL Current Nutritional Means: PO Current PO diet: Regular Current symptoms: Coughing, c/o Globus sensation Pain: Patient reports, 0/5 - Objective Assessment: Upright, Left Lateral - Food Trials Used Food trials used: Thin liquids, Pureed, Regular The patient: Was Able to Self Feed - Assessment Oral prep: Normal Labial closure: Adequate Leakage: None Mastication: Adequate Lingual Movement: Normal Oral stage: Normal for this Procedure - Pharyngeal Stage Initiation of Pharyngeal Stage Reflex: Normal Decreased laryngeal elevation: No Reduced Velopharyngeal Closure: no Reduced pressure generation: No reduced tongue-based retraction: No Pre-swallow pooling in valleculae: None Pre-Swallow pooling in pyriforms: None Reduced Thyro-Hyoid approximation: No Reduced epiglottic excursion: No Reduced pharyngeal peristalsis/contraction: No Multiple Swallows with: Cleared w/ Liquid Assist Post-swallow residulas vallecular: Moderate Post-Swallow residuals in pyriforms: None - Fall Risk Assessment Medications/Conditions that increase fall risks include: Antidepressants, sedatives, anti-arrhythmic, diuretic, benzodiazipenes, neuroleptics. BP regulation problems, cardiac problems, balance or gait deficits, neurological problems. Fall Risk Actions Taken: No action needed - Behavioral Observations During evaluation process patient: was pleasant, was cooperative, able to answer questions - Treatment / Educational Needs: Treatment/Education Needs: Treatment consisted of patient education on the role of the Speech Pathologist. Patient's plan of care and golas were communicated as well as scheduling and attendance policies. Recommendations for initial home program were shared. Patient demonstrated understanding and verbalized agreement. - Impression/Summary Laryngeal Penetration: No Tracheal Aspiration: no Patient presents with: Normal swallow at eval Risk of Aspiration: Minimal Evaluation and Findings: Patient demonstrated functional swallow for all consistencies. Valleculae residue noted with solid trials, however, this cleared with liquid wash. - Recommendations Solid diet recommendations: Regular Liquid Diet Modification: Thin Pt/Family education and followup with MD: Yes Dysphagia therapy with PSYCHOLOGICAL TESTS SALES AGENT: no Reflux Precautions: Taught to Patient Recommended techniques: Fully Upright During Meal, Small Bites and Sips, Alternate Bites/Sips Information, Precautions and Recommendations: Patient (Written), Patient (Verbal ) - Time Total Time: 30 - Plan of Care Strategies to optimize patient understanding include:: ongoing assessment of educational needs, implementation of educational strategies, and re-education. - - -: Thank you for the opportunity to work with this patient and his/her family. Should you have any questions about this patient's plan or progress, I can be reached at [phone]. Charge G Code? - - -: Yes ST F.L. Impairment Category - Rationale Based On Rationale Based On: Clin Find., Obj Measures - Swallowing Current G8996: CI 1-19% Impaired Goal G8997: CI 1-19% Impaired Discharge G8998: CI 1-19% Impaired
== END ==
LOC: RAD 07:53
PROVIDERS: ATTEND Internal Medicine Pulmonary Disease
DX: T17.900A Unspecified foreign body in respiratory tract, part unspecified causing asphyxiation, initial encounter (principal); R13.10 Dysphagia, unspecified
CPT/HCPCS: 74230; 92611; G8996; G8997; G8998

== ENCOUNTER 2017-12-17 12:53 | Emergency (ER) | payer MEDICARE, OTHER ==
[2017-12-17] MEDS ORDERED: ASPIRIN 81 MG TABLET, CHEWABLE PO ONE (13:31)
[2017-12-17] MEDS ORDERED: PREDNISONE 20 MG TABLET PO ONE (13:33)
[2017-12-17] MEDS ORDERED: IPRATROPIUM/ALBUTEROL 0.5-2.5 MG/3 ML AMPUL NEB ONE (13:33)
--- NOTE | 2017-12-17 13:36 | ER Document Report ---
ED Medical Screen (RME) - General Chief Complaint: Chest Pain Stated Complaint: chest pain Time Seen by Provider: 12/17/17 13:31 Mode of Arrival: Ambulatory Information source: Patient TRAVEL OUTSIDE OF THE [place] IN LAST 30 DAYS: No - HPI Patient complains to provider of: Shortness of breath Onset: Other - 59-year-old male with a history of COPD as well as hypertension who presents for evaluation of worsening shortness of breath and associated chest tightness. He has been evaluated in the past for his chest tightness is currently_scheduled to go catheterization for further investigation. Has uses nebulizer 3 times a day with minimal improvement in his symptoms, he is concerned that he may have aspirated approximately 3 days prior during an episode when she vomited while coughing. - Related Data Allergies/Adverse Reactions: No Known Allergies Allergy (Verified 03/13/17 10:47) Past Medical History - General Information source: Patient - Social History Chew tobacco use (# tins/day): No Frequency of alcohol use: Rare Drug Abuse: None - Past Medical History Cardiac Medical History: Reports: Hx Hypertension Denies: Hx Coronary Artery Disease, Hx Heart Attack Pulmonary Medical History: Reports: Hx COPD, Hx Sleep Apnea Denies: Hx Asthma, Hx Bronchitis, Hx Pneumonia Neurological Medical History: Denies: Hx Cerebrovascular Accident, Hx Seizures Endocrine Medical History: Reports: Hx Diabetes Mellitus Type 2 Renal/ Medical History: Denies: Hx Peritoneal Dialysis Malignancy Medical History: Reports 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, Hx Orthopedic Surgery - back stimulator - Immunizations Hx Diphtheria, Pertussis, Tetanus Vaccination: Yes History of Influenza Vaccine for 01/2017 - 06/2017 Season: Yes Influenza Administration Date for 01/2017 - 06/2017 Season: 01/24/17 Physical Exam - Vital signs Vitals: Temp Pulse Resp BP Pulse Ox 97.6 F 101 H 24 H 144/74 H 90 L 12/17/17 13:08 12/17/17 13:08 12/17/17 13:08 12/17/17 13:08 12/17/17 13:08 Course - Re-evaluation Re-evalutation: 12/17/17 13:35 67-year-old male with COPD as well as multiple comorbidities potential for cardiac problems is currently scheduled to undergo cath as a result of an abnormal stress test. Patient with active chest discomfort at this time, his EKG is unchanged, he demonstrates diminished air movements in bilateral lung cooley, because of the concern for worsening COPD exacerbation versus angina will plan for a broad workup including chest x-ray, EKG, CMP CBC and troponin. This patient may have an aspiration pneumonia, angina, COPD exacerbation or some combination thereof. As such we will plan for monitoring and evaluations remain emergency department. - Vital Signs Vital signs: Temp Pulse Resp BP Pulse Ox 97.6 F 101 H 24 H 144/74 H 90 L 12/17/17 13:08 12/17/17 13:08 12/17/17 13:08 12/17/17 13:08 12/17/17 13:08 Doctor's Discharge - Discharge Referrals: DEVIN VILLAVICENCIO DO [Primary Care Provider] - Follow up as needed
--- NOTE | 2017-12-17 14:35 | ER Document Report ---
ED Respiratory Problem - General Chief Complaint: Chest Pain Stated Complaint: chest pain Time Seen by Provider: 12/17/17 13:31 Mode of Arrival: Ambulatory Information source: Patient TRAVEL OUTSIDE OF THE [place] IN LAST 30 DAYS: No - HPI Patient complains to provider of: Chest pain, COPD, Cough, Short of breath Onset: Other - Several weeks intermittently Duration: Intermittent episodes Quality of pain: Achy Severity: Moderate Context: Hx COPD Short of Breath: Moderate Chest pain/discomfort: Tightness Cough: Nonproductive At home treatment: Bronchodilators, Inhaled steroids Associated symptoms: Chest pain/discomfort, Cough, Short of breath Similar symptoms previously: Yes Recently seen / treated by doctor: Yes Notes: Patient is a 67-year-old male with a history of COPD presenting to the emergency room today complaining of intermittent shortness of breath with intermittent waves of chest pain that have been going on for several weeks now, he has used breathing treatments at home with minimal relief of symptoms, he does not wear home oxygen, he is scheduled to have a cardiac catheterization with his apprentice instrument technician in [facility] next week, no known history of coronary artery disease, no exacerbating or alleviating, no nausea, vomiting or diarrhea , no fever or chills - Related Data Allergies/Adverse Reactions: No Known Allergies Allergy (Verified 03/13/17 10:47) Past Medical History - General Information source: Patient - Social History Smoking Status: Former Smoker Chew tobacco use (# tins/day): No Frequency of alcohol use: Rare Drug Abuse: None Family History: COPD - Mother Patient has suicidal ideation: No Patient has homicidal ideation: No - Past Medical History Cardiac Medical History: Reports: Hx Hypertension Denies: Hx Coronary Artery Disease, Hx Heart Attack Pulmonary Medical History: Reports: Hx COPD, Hx Sleep Apnea Denies: Hx Asthma, Hx Bronchitis, Hx Pneumonia Neurological Medical History: Denies: Hx Cerebrovascular Accident, Hx Seizures Endocrine Medical History: Reports: Hx Diabetes Mellitus Type 2 Renal/ Medical History: Denies: Hx Peritoneal Dialysis Malignancy Medical History: Reports 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 Musculoskeletal Medical History: Reports Hx Arthritis Psychiatric Medical History: Denies: Hx Depression Past Surgical History: Reports: Hx Cholecystectomy, Hx Neurologic Surgery - right hip nerve stim., Hx Orthopedic Surgery - back stimulator - Immunizations Hx Diphtheria, Pertussis, Tetanus Vaccination: Yes Hx Pneumococcal Vaccination: 03/11/11 Review of Systems - Review of Systems Constitutional: No symptoms reported EENT: No symptoms reported Cardiovascular: See HPI Respiratory: See HPI Gastrointestinal: No symptoms reported Genitourinary: No symptoms reported Male Genitourinary: No symptoms reported Musculoskeletal: No symptoms reported Skin: No symptoms reported Hematologic/Lymphatic: No symptoms reported Neurological/Psychological: No symptoms reported -: Yes All other systems reviewed and negative Physical Exam - Vital signs Vitals: Temp Pulse Resp BP Pulse Ox 97.6 F 101 H 24 H 144/74 H 90 L 12/17/17 13:08 12/17/17 13:08 12/17/17 13:08 12/17/17 13:08 12/17/17 13:08 Interpretation: Normal - General General appearance: Appears well, Alert - HEENT Head: Normocephalic, Atraumatic Eyes: Normal Pupils: PERRL - Respiratory Respiratory status: No respiratory distress Chest status: Nontender Breath sounds: Normal Chest palpation: Normal - Cardiovascular Rhythm: Regular Heart sounds: Normal auscultation Murmur: No - Abdominal Inspection: Normal Distension: No distension Bowel sounds: Normal Tenderness: Nontender Organomegaly: No organomegaly - Back Back: Normal, Nontender - Extremities General upper extremity: Normal inspection, Nontender, Normal color, Normal ROM , Normal temperature General lower extremity: Normal inspection, Nontender, Normal color, Normal ROM , Normal temperature, Normal weight bearing. No: Chris's sign - Neurological Neuro grossly intact: Yes Cognition: Normal Orientation: AAOx4 [place] Coma Scale Eye Opening: Spontaneous Matty Coma Scale Verbal: Oriented [place] Coma Scale Motor: Obeys Commands Matty Coma Scale Total: 15 Speech: Normal Motor strength normal: LUE, RUE, LLE, RLE Sensory: Normal - Psychological Associated symptoms: Normal affect, Normal mood - Skin Skin Temperature: Warm Skin Moisture: Dry Skin Color: Normal Course - Re-evaluation Re-evalutation: 12/17/17 18:45 Patient resting comfortably, reports feeling much better, symptoms resolved after receiving a breathing treatment and are likely related to COPD exacerbation, troponin 2 is unremarkable as well as rest of evaluation, patient already has several nebulizer treatments and inhaled steroids at home, because the possibility of admission versus discharge with outpatient, patient states he feels well enough to be discharged home to this time, will given prescription for prednisone and instructions for follow-up, advised to return if symptoms worsen, patient acknowledges understanding and agreement with this plan - Vital Signs Vital signs: Temp Pulse Resp BP Pulse Ox 97.6 F 89 20 118/64 92 12/17/17 13:08 12/17/17 14:18 12/17/17 17:00 12/17/17 14:18 12/17/17 17:00 - Laboratory Result Diagrams: 12/17/17 13:45 12/17/17 13:45 Laboratory results interpreted by me: 12/17/17 12/17/17 13:45 13:45 RDW 15.9 H Sodium 145.2 H BUN 22 H Glucose 190 H Alkaline Phosphatase 129 H - Diagnostic Test Radiology reviewed: Image reviewed, Reports reviewed - EKG Interpretation by Me EKG shows normal: Sinus rhythm Rate: Normal Rhythm: NSR Heart block present: 1st Degree When compared to previous EKG there are: No significant change Discharge - Discharge Clinical Impression: COPD exacerbation Condition: Stable Disposition: HOME, SELF-CARE Instructions: Chronic Obstructive Lung Disease ([facility]) Additional Instructions: Follow up with your primary care provider in one to 2 days. Return to the emergency room immediately if symptoms worsen or any additional concerns. Prescriptions: Prednisone 40 mg PO DAILY #8 tablet Referrals: DEVIN VILLAVICENCIO DO [NO LOCAL MD] - Follow up as needed
[2017-12-17 14:47] LABS: ABSOLUTE EOSINOPHILS # (AUTO) 0.3 10^3/uL (0.0-0.6); ABSOLUTE LYMPHOCYTES (AUTO) 1.7 10^3/uL (0.5-4.7); ABSOLUTE MONOCYTES (AUTO) 0.5 10^3/uL (0.1-1.4); ABSOLUTE NEUT (AUTO) 5.7 10^3/uL (1.7-8.2); BASOPHILS % (AUTO) 0.5 % (0-2); EOSINOPHILS % (AUTO) 3.8 % (0-6); HEMATOCRIT 45.5 % (37.9-51.0); HEMOGLOBIN 15.3 g/dL (13.5-17.0); LYMPHOCYTES % (AUTO) 20.5 % (13-45); MEAN CORPUSCULAR HEMOGLOBIN 28.7 pg (27.0-33.4); MEAN CORPUSCULAR HGB CONC 33.5 g/dL (32.0-36.0); MEAN CORPUSCULAR VOLUME 86 fl (80-97); MONOCYTES % (AUTO) 6.6 % (3-13); PLATELET COUNT 207 10^3/uL (150-450); RED BLOOD COUNT 5.31 10^6/uL (4.35-5.55); RED CELL DISTRIBUTION WIDTH 15.9 % (11.5-14.0); SEGMENTED NEUTROPHILS % (AUTO) 68.6 % (42-78); TOTAL CELLS COUNTED % (AUTO) 100 %; WHITE BLOOD COUNT 8.4 10^3/uL (4.0-10.5)
--- NOTE | 2017-12-17 15:00 | RADIOLOGY REPORT (SQ) ---
EXAM DESCRIPTION: CHEST 2 VIEWS COMPLETED DATE/TIME: 12/17/2017 2:37 pm REASON FOR STUDY: query aspiration pneumonia COMPARISON: 03/13/2017 EXAM PARAMETERS: NUMBER OF VIEWS: two views TECHNIQUE: Digital Frontal and Lateral radiographic views of the chest acquired. RADIATION DOSE: NA LIMITATIONS: none FINDINGS: LUNGS AND PLEURA: No opacities, masses or pneumothorax. No pleural effusion. MEDIASTINUM AND HILAR STRUCTURES: No masses or contour abnormalities. HEART AND VASCULAR STRUCTURES: Heart normal size. No evidence for failure. BONES: No acute findings. HARDWARE: None in the chest. OTHER: No other significant finding. IMPRESSION: NO ACUTE RADIOGRAPHIC FINDING IN THE CHEST. TECHNICAL DOCUMENTATION: JOB ID: [id number] [employer]- All Rights Reserved Reading location - IP/workstation name: [email or web address]
[2017-12-17 15:12] LABS: ALANINE AMINOTRANSFERASE 35 U/L (21-72); ALKALINE PHOSPHATASE 129 U/L (38-126); ANION GAP 12 (5-19); ASPARTATE AMINO TRANSFERASE 21 U/L (17-59); BILIRUBIN,DIRECT 0.3 mg/dL (0.0-0.4); BILIRUBIN,TOTAL 0.7 mg/dL (0.2-1.3); BLOOD UREA NITROGEN 22 mg/dL (7-20); CALCIUM 10.1 mg/dL (8.4-10.2); CARBON DIOXIDE 28 mmol/L (22-30); CHLORIDE 105 mmol/L (98-107); CREATINE KINASE 105 U/L (55-170); GLUCOSE 190 mg/dL (75-110); POTASSIUM 4.5 mmol/L (3.6-5.0); SODIUM 145.2 mmol/L (137-145); TOTAL PROTEIN 6.5 g/dL (6.3-8.2)
[2017-12-17 15:34] LABS: NT PRO BNP 29 pg/mL (5-900)
[2017-12-17 15:35] LABS: TROPONIN I < 0.012 ng/mL
[2017-12-17] MEDS ORDERED: ALBUTEROL SULFATE 0.083% NEB 2.5 MG/3 ML AMPUL NEB ONE (17:11)
[2017-12-17 19:10] VITALS: BP 136/74
--- NOTE | 2017-12-17 20:32 | EKG REPORT ---
SEVERITY:- ABNORMAL ECG - SINUS RHYTHM FIRST DEGREE AV BLOCK PROBABLE INFERIOR INFARCT, OLD : Confirmed by: Indy Root 17-Dec-2017 17:31:29
== END 2017-12-17 19:10 | disposition home or self-care (01) ==
LOC: ER 12:53
DX: R07.89 Other chest pain (principal); J44.1 Chronic obstructive pulmonary disease with (acute) exacerbation; I44.0 Atrioventricular block, first degree; I10 Essential (primary) hypertension; E11.9 Type 2 diabetes mellitus without complications; R05 Cough; R06.02 Shortness of breath; Z87.891 Personal history of nicotine dependence; Z85.828 Personal history of other malignant neoplasm of skin
CPT/HCPCS: 93005; 94640 ×2; 99285; 36415; 82553; 82550; 85025; 80053; 84484; 83880; 71046; 93010; A9270 ×4; J7512; J7620

== ENCOUNTER → 2017-12-22 | Outpatient (CLI) | payer MEDICARE, OTHER ==
[2017-12-22 10:10] LABS: ABSOLUTE LYMPHOCYTES (AUTO) 0.8 10^3/uL (0.5-4.7); ABSOLUTE MONOCYTES (AUTO) 0.2 10^3/uL (0.1-1.4); ABSOLUTE NEUT (AUTO) 8.6 10^3/uL (1.7-8.2); BASOPHILS % (AUTO) 0.2 % (0-2); EOSINOPHILS % (AUTO) 0.1 % (0-6); HEMATOCRIT 46.2 % (37.9-51.0); HEMOGLOBIN 15.5 g/dL (13.5-17.0); MEAN CORPUSCULAR HEMOGLOBIN 28.8 pg (27.0-33.4); MEAN CORPUSCULAR HGB CONC 33.5 g/dL (32.0-36.0); MEAN CORPUSCULAR VOLUME 86 fl (80-97); MONOCYTES % (AUTO) 2.3 % (3-13); PLATELET COUNT 191 10^3/uL (150-450); RED BLOOD COUNT 5.37 10^6/uL (4.35-5.55); RED CELL DISTRIBUTION WIDTH 15.8 % (11.5-14.0); SEGMENTED NEUTROPHILS % (AUTO) 89.4 % (42-78); TOTAL CELLS COUNTED % (AUTO) 100 %; WHITE BLOOD COUNT 9.6 10^3/uL (4.0-10.5)
[2017-12-22 10:15] LABS: INTERNATIONAL RATION (INR) 0.88; PROTHROMBIN TIME 12.4 SEC (11.4-15.4)
[2017-12-22 10:42] LABS: ANION GAP 15 (5-19); BLOOD UREA NITROGEN 35 mg/dL (7-20); CALCIUM 9.6 mg/dL (8.4-10.2); CARBON DIOXIDE 25 mmol/L (22-30); CHLORIDE 101 mmol/L (98-107); POTASSIUM 4.6 mmol/L (3.6-5.0); SODIUM 140.5 mmol/L (137-145)
[2017-12-22 11:00] LABS: GLUCOSE 408 mg/dL (75-110)
== END ==
LOC: OD 09:25
PROVIDERS: ATTEND Internal Medicine
DX: R07.9 Chest pain, unspecified (principal)
CPT/HCPCS: 36415; 80048; 83735; 85025; 85610

== ENCOUNTER → 2017-12-31 | Outpatient (CLI) | payer MEDICARE, OTHER ==
--- NOTE | 2017-12-31 14:09 | RADIOLOGY REPORT (SQ) ---
EXAM DESCRIPTION: BARIUM SWALLOW ESOPHAGUS COMPLETED DATE/TIME: 12/31/2017 9:40 am REASON FOR STUDY: ASPIRATION PNA (J69.0) J69.0 PNEUMONITIS DUE TO INHALATION OF FOOD AND VOMIT COMPARISON: None. TECHNIQUE: Under fluoroscopic guidance, patient ingested effervescent granules followed by thick and thin barium. Fluoroscopic spot images and routine radiographic images acquired and stored on PACS. 12 MM BARIUM TABLET GIVEN: NO LIMITATIONS: None. FLUOROSCOPY TIME: FLUORO TIME: 4.06 minutes 13 images saved to PACS. FINDINGS: NEUROMUSCULAR COORDINATION OF SWALLOW: Normal. No aspiration. ESOPHAGEAL MOTILITY: Moderate tertiary contractions seen throughout the esophagus ESOPHAGEAL MUCOSA: Normal mucosa without masses or ulceration. GASTRO-ESOPHAGEAL JUNCTION: Significant GE junction narrowing which intermittently impedes the passag e of barium into the stomach due to spasm. NON-GI TRACT STRUCTURES: No significant finding. OTHER: No other significant finding. IMPRESSION: SIGNIFICANT NARROWING OF THE GE JUNCTION WHICH CAUSES INTERMITTENT EMPTYING OF BARIUM FR OM THE ESOPHAGUS INTO THE STOMACH. MODERATE ESOPHAGEAL TERTIARY CONTRACTIONS SEEN. STASIS OF BARIUM IN THE ESOPHAGUS THROUGHOUT STUDY. RECOMMENDATION: Upper endoscopy may be useful for further evaluation. COMMENT: None Quality ID [id number]: Final reports for procedures using fluoroscopy that document radiation exposure kelsi frank, or exposure time and number of fluorographic images (if radiation exposure indices are not avail able) TECHNICAL DOCUMENTATION: JOB ID: [id number] [employer]- All Rights Reserved Reading location - IP/workstation name: [email or web address] [id number]
== END ==
LOC: RAD 08:39
PROVIDERS: ATTEND Internal Medicine Pulmonary Disease
DX: J69.0 Pneumonitis due to inhalation of food and vomit (principal)
CPT/HCPCS: 74220

== ENCOUNTER 2018-03-18 05:30 | Observation (INO) | payer MEDICARE, OTHER ==
[2018-03-18] MEDS ORDERED: IPRATROPIUM/ALBUTEROL 0.5-2.5 MG/3 ML AMPUL NEB ONE ×3 (05:43)
[2018-03-18] MEDS ORDERED: MAGNESIUM SULFATE/D5W 2 GM/200 ML RTUPB IV ONE (05:43)
[2018-03-18] MEDS ORDERED: METHYLPREDNISOLONE INJ 125 MG/2 ML SDV IV ONE (05:43)
[2018-03-18] MEDS ORDERED: ALBUTEROL SULFATE 0.083% NEB 2.5 MG/3 ML AMPUL NEB ONE ×2 (05:44→06:48)
[2018-03-18] MEDS ORDERED: IPRATROPIUM BROMIDE 0.02% NEB 0.5 MG/2.5 ML AMPUL NEB ONE (05:44)
[2018-03-18] MEDS: MAGNESIUM SULFATE/D5W 1 GM/100 ML RTUPB IV SCH ×2 (05:50→06:20)
--- NOTE | 2018-03-18 05:50 | ER Document Report ---
ED Medical Screen (RME) - General Chief Complaint: Shortness Of Breath Stated Complaint: BREATHING DIFFICULTY Notes: Patient is a 67-year-old male with a history of COPD that comes to the emergency department for chief complaint of worsening difficulty breathing and wheezing since yesterday. Home albuterol treatments not helping. Patient is not on oxygen at home, former smoker, also reports 5-hour trip yesterday, has no difference in lower extremity swelling. Denies fever, cough, chest pain. Patient does report history of admissions for COPD, BiPAP use, denies ever being intubated. TRAVEL OUTSIDE OF THE [place] 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, Hx Orthopedic Surgery - back stimulator - Immunizations Hx Diphtheria, Pertussis, Tetanus Vaccination: Yes History of Influenza Vaccine for 01/2017 - 06/2017 Season: Yes Influenza Administration Date for 01/2017 - 06/2017 Season: 01/24/17 Physical Exam - Respiratory Respiratory status: Respiratory distress - Mild, Tachypnea Breath sounds: Decreased air movement, Wheezing Course - Re-evaluation Re-evalutation: On my initial evaluation patient with tachypnea, mildly labored breathing, however he can speak in full sentences, he is alert. He does have decreased breath sounds bilaterally and expiratory wheezes. Immediately placed on oxygen , given DuoNeb's, Solu-Medrol, magnesium. Workup pending, will monitor closely. 03/18/18 05:50 Patient with oxygen saturation of 95% on nasal cannula oxygen, respiratory rate rate is 24. Doctor's Discharge - Discharge Referrals: GT VALDES DPM [Primary Care Provider] - Follow up as needed
[2018-03-18 06:04] LABS: VENOUS BLOOD BASE EXCESS 2.9 mmol/L; VENOUS BLOOD HCO3 30.4 mmol/L (20-32); VENOUS BLOOD PCO2 58.5 mmHg (35-63); VENOUS BLOOD PH 7.33 (7.30-7.42)
[2018-03-18 06:05] LABS: ABSOLUTE BASOPHILS # (AUTO) 0.1 10^3/uL (0.0-0.2); ABSOLUTE EOSINOPHILS # (AUTO) 0.3 10^3/uL (0.0-0.6); ABSOLUTE MONOCYTES (AUTO) 0.6 10^3/uL (0.1-1.4); ABSOLUTE NEUT (AUTO) 6.1 10^3/uL (1.7-8.2); BASOPHILS % (AUTO) 0.9 % (0-2); EOSINOPHILS % (AUTO) 3.8 % (0-6); HEMATOCRIT 41.5 % (37.9-51.0); HEMOGLOBIN 13.7 g/dL (13.5-17.0); LYMPHOCYTES % (AUTO) 22.2 % (13-45); MEAN CORPUSCULAR VOLUME 85 fl (80-97); MONOCYTES % (AUTO) 6.1 % (3-13); PLATELET COUNT 180 10^3/uL (150-450); RED BLOOD COUNT 4.89 10^6/uL (4.35-5.55); RED CELL DISTRIBUTION WIDTH 15.7 % (11.5-14.0); TOTAL CELLS COUNTED % (AUTO) 100 %
[2018-03-18 06:19] LABS: ALANINE AMINOTRANSFERASE 29 U/L (21-72); ALBUMIN 3.8 g/dL (3.5-5.0); ALKALINE PHOSPHATASE 101 U/L (38-126); ANION GAP 13 (5-19); ASPARTATE AMINO TRANSFERASE 25 U/L (17-59); BILIRUBIN,DIRECT 0.3 mg/dL (0.0-0.4); BILIRUBIN,TOTAL 0.8 mg/dL (0.2-1.3); BLOOD UREA NITROGEN 19 mg/dL (7-20); CALCIUM 9.6 mg/dL (8.4-10.2); CARBON DIOXIDE 26 mmol/L (22-30); CHLORIDE 105 mmol/L (98-107); GLUCOSE 200 mg/dL (75-110); POTASSIUM 4.1 mmol/L (3.6-5.0); SODIUM 143.7 mmol/L (137-145); TOTAL PROTEIN 6.3 g/dL (6.3-8.2)
--- NOTE | 2018-03-18 06:28 | RADIOLOGY REPORT (SQ) ---
Chest single view on 03/18/2018 at 6:09 AM CLINICAL INDICATION: Shortness of breath, hypoxia COMPARISON: 12/17/2017 FINDINGS: Stimulator device leads overlie the midthoracic spine. There is evidence of calcified granulomatous disease in the chest. The lungs are otherwise clear. Cardiac, hilar and mediastinal contours are within normal limits. Pulmonary vascularity is within normal limits. IMPRESSION: No acute disease.
[2018-03-18] MEDS ORDERED: LORAZEPAM INJ 2 MG/1 ML VIAL IV ONE (06:48)
--- NOTE | 2018-03-18 06:48 | ER Document Report ---
ED Respiratory Problem - General Information source: Patient TRAVEL OUTSIDE OF THE [place] IN LAST 30 DAYS: No <TERRELL DICKINSON - Last Filed: 03/18/18 09:55> <SAHARA CARUSO - Last Filed: 03/18/18 09:55> - General Chief Complaint: Shortness Of Breath Stated Complaint: BREATHING DIFFICULTY Time Seen by Provider: 03/18/18 05:56 Notes: 67-year-old male with COPD who presents to the emergency department today with complaints of shortness of breath. Patient states he has had increasing shortness of breath over the last few days despite using his albuterol inhaler. Patient states he has had to be put on BiPAP twice in the past for COPD exacerbation but has never had to be intubated. Patient has had a cough. Patient also mentions he has some sternal chest pain since being placed on the BiPAP. Patient denies fevers. (TERRELL DICKINSON) - Related Data Allergies/Adverse Reactions: No Known Allergies Allergy (Verified 03/13/17 10:47) Past Medical History - General Information source: Patient, [facility], LATER [facility] Records - Social History Smoking Status: Former Smoker Cigarette use (# per day): No Frequency of alcohol use: None Drug Abuse: None Lives with: Family Family History: COPD - Mother Patient has suicidal ideation: No Patient has homicidal ideation: No - Past Medical History Cardiac Medical History: Reports: Hx Hypertension Pulmonary Medical History: Reports: Hx COPD, Hx Sleep Apnea Endocrine Medical History: Reports: Hx Diabetes Mellitus Type 2 Malignancy Medical History: Reports 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 Musculoskeletal Medical History: Reports Hx Arthritis Past Surgical History: Reports: Hx Cholecystectomy, Hx Neurologic Surgery - right hip nerve stim., Hx Orthopedic Surgery - back stimulator - Immunizations Hx Diphtheria, Pertussis, Tetanus Vaccination: Yes Hx Pneumococcal Vaccination: 03/11/11 <TERRELL DICKINSON - Last Filed: 03/18/18 09:55> Review of Systems - Review of Systems Constitutional: denies: Fever EENT: No symptoms reported Cardiovascular: See HPI, Chest pain Respiratory: See HPI, Cough, Short of breath Gastrointestinal: No symptoms reported Genitourinary: No symptoms reported Male Genitourinary: No symptoms reported Musculoskeletal: No symptoms reported Skin: No symptoms reported Hematologic/Lymphatic: No symptoms reported Neurological/Psychological: No symptoms reported -: Yes All other systems reviewed and negative <TERRELL DICKINSON - Last Filed: 03/18/18 09:55> Physical Exam <TERRELL DICKINSON - Last Filed: 03/18/18 09:55> <SAHARA CARUSO - Last Filed: 03/18/18 09:55> - Vital signs Vitals: Temp Pulse BP Pulse Ox 97.6 F 107 H 158/75 H 84 L 03/18/18 05:36 03/18/18 05:36 03/18/18 05:36 03/18/18 05:36 - Notes Notes: PHYSICAL EXAM GENERAL: Alert, interacts well. Mild distress secondary to respiratory status. Pulse oximetry interpretation: On BiPap with FiO2 of 30%, saturating 96%, good wave form, not hypoxic as interpreted by me. HEAD: Normocephalic, atraumatic. EYES: Pupils equal, round, and reactive to light. Extraocular movements intact. ENT: Oral mucosa moist, tongue midline. NECK: Full range of motion. Supple. Trachea midline. LUNGS: Diminished air movement bilaterally. Trace expiratory wheezing with forceful exhalation. Mild tachypnea. No rales or rhonchi. HEART: Regular rate and rhythm. No murmurs, gallops, or rubs. ABDOMEN: Soft, non-tender. Non-distended. Bowel sounds present in all 4 quadrants. No guarding, rigidity, or rebound. EXTREMITIES: Moves all 4 extremities spontaneously. No edema, radial and dorsalis pedis pulses 2/4 bilaterally. No cyanosis. NEUROLOGICAL: Alert and oriented x3. Normal speech. PSYCH: Mildly anxious. SKIN: Warm, dry, normal turgor. No rashes or lesions noted. (TERRELL DICKINSON) Course - Laboratory Result Diagrams: 03/18/18 05:55 03/18/18 05:55 <TERRELL DICKINSON - Last Filed: 03/18/18 09:55> - Laboratory Result Diagrams: 03/18/18 05:55 03/18/18 05:55 <SAHARA CARUSO - Last Filed: 03/18/18 09:55> - Re-evaluation Re-evalutation: 03/18/18 07:31 CBC unremarkable, venous blood gas grossly unremarkable, CMP shows elevated glucose consistent with his history of diabetes otherwise unremarkable, negative troponin, chest x-ray does not show any acute infiltrate, EKG is nonischemic. Patient had initially improved with breathing treatments, steroids and magnesium however he then became increasingly tachypneic and was put on BiPAP. Patient is feeling a little bit anxious on BiPAP but is doing much better, no longer tachypneic and is not hypoxic. Patient was given a small dose of Ativan 0.25 mg IV to help with the anxiety. Discussed the case with Dr. 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 (SAHARA CARUSO) - Vital Signs Vital signs: Temp Pulse Resp BP Pulse Ox 97.6 F 99 23 H 158/75 H 88 L 03/18/18 06:05 03/18/18 08:21 03/18/18 08:21 03/18/18 06:05 03/18/18 09:51 - Laboratory Laboratory results interpreted by me: 03/18/18 03/18/18 05:55 05:55 RDW 15.7 H Glucose 200 H - EKG Interpretation by Me Additional EKG results interpreted by me: 03/18/18 07:49 EKG shows sinus tachycardia at a rate of 102, left axis deviation, borderline criteria for left anterior hemiblock, no ST segment elevations or depressions, significant baseline artifact, no T wave inversions, one single PVC is noted per my interpretation. (SAHARA CARUSO) Critical Care Note - Critical Care Note Total time excluding time spent on procedures (mins): 35 <SAHARA CARUSO - Last Filed: 03/18/18 09:55> Discharge <TERRELL DICKINSON - Last Filed: 03/18/18 09:55> - Discharge Admitting Provider: Hospitalist - Marco Antonio/Zari Unit Admitted: Telemetry <SAHARA CARUSO - Last Filed: 03/18/18 09:55> - Discharge Clinical Impression: COPD exacerbation, Acute hypoxemic respiratory failure Condition: Fair Disposition: ADMITTED INPATIENT Scribe Attestation: 03/18/18 09:55 I personally performed the services described in the documentation, reviewed and edited the documentation which was dictated to the scribe in my presence, and it accurately records my words and actions. (SAHARA CARUSO) Scribe Documentation - Scribe Written by Ayushibe:: Konrad Gavin, 03/18/2018 0933 acting as scribe for :: Sourav <TERRELL DICKINSON - Last Filed: 03/18/18 09:55>
[2018-03-18] MEDS ORDERED: MAGNESIUM HYDROXIDE SUSP 30 ML UDCUP PO PRN (07:50)
[2018-03-18] MEDS ORDERED: ALBUTEROL SULFATE 0.083% NEB 2.5 MG/3 ML AMPUL NEB PRN (07:50)
[2018-03-18] MEDS ORDERED: ACETAMINOPHEN 325 MG TABLET PO PRN (07:50)
[2018-03-18] MEDS ORDERED: ONDANSETRON HCL INJ/PF 4 MG/2 ML SDV IV PRN (07:57)
[2018-03-18] MEDS ORDERED: MAG HYDROX/AL HYDROX/SIMETH SUSP 30 ML UDCUP PO PRN (07:57)
[2018-03-18] MEDS ORDERED: DEXTROSE 50%-WATER 25 GM/50 ML DISP.SYRIN IV PRN ×2 (08:01)
[2018-03-18] MEDS ORDERED: GLUCAGON,HUMAN RECOMB 1 MG INJ IM PRN (08:01)
[2018-03-18] MEDS ORDERED: DEXTROSE 40% GEL 15 GM TUBE PO PRN ×2 (08:01)
[2018-03-18] MEDS: IPRATROPIUM/ALBUTEROL 0.5-2.5 MG/3 ML AMPUL NEB SCH ×3 (08:21→23:37)
[2018-03-18] MEDS: INSULIN LISPRO 100 UNIT/ML 3 ML VIAL SUBCUT PRN ×4 (10:30→21:20)
[2018-03-18] MEDS: FAMOTIDINE 20 MG TABLET PO SCH ×2 (10:31→21:24)
[2018-03-18] MEDS: DOCUSATE SODIUM 100 MG CAPSULE PO SCH (10:31)
[2018-03-18] MEDS: METHYLPREDNISOLONE INJ 40 MG/1 ML SDV IV SCH ×2 (14:11→21:21)
[2018-03-18] MEDS: HEPARIN SOD (PORCINE) 5,000 UNIT/ML 1 ML SYRINGE SUBCUT SCH ×2 (14:11→21:25)
--- NOTE | 2018-03-18 14:47 | PDOC H&P ---
History of Present Illness Admission Date/PCP: 03/18/18 07:47 Patient complains of: shortness of breath History of Present Illness: LIONEL MALDONADO is a 67 year old male with a past medical history of COPD, LAURIE, hypertension, hyperlipidemia, insulin-dependent diabetes mellitus, GERD, restless leg syndrome, BPH, and morbid obesity who presented to the emergency department today with a complaint of 2-3 days of progressively worsening shortness of breath that is now occurring while at rest. He reports a slight nonproductive cough but denies recent fever, chills, congestion, rhinorrhea, or other upper respiratory infectious symptoms. Evaluation in the emergency department revealed tachycardia (HR 107), tachypnea (RR 30), hypoxia (84% on room air), unremarkable laboratory evaluation including a normal WBC, troponin, and proBNP. Chest x-ray was benign and EKG demonstrated sinus tachycardia. He was referred to the hospitalist service for admission and management of acute respiratory failure with hypoxia secondary to COPD exacerbation as the patient remained BiPAP dependent despite IV magnesium, Solu-Medrol, and nebulizer treatments. Past Medical History Cardiac Medical History: Reports: Hyperlipidema, Hypertension Denies: Coronary Artery Disease, Myocardial Infarction Pulmonary Medical History: Reports: Chronic Obstructive Pulmonary Disease (COPD) , Sleep Apnea Denies: Pneumonia Neurological Medical History: Denies: Ischemic CVA, Seizures Endocrine Medical History: Reports: Diabetes Mellitus Type 2 - Insulin-dependent Malignancy Medical History: Reports: 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 GI Medical History: Reports: Gastroesophageal Reflux Disease Musculoskeltal Medical History: Reports: Arthritis Psychiatric Medical History: Denies: Depression Hematology: Denies: Anemia Past Surgical History Past Surgical History: Reports: Cholecystectomy, Orthopedic Surgery - back stimulator Social History Information Source: Patient Lives with: Family Smoking Status: Former Smoker Number of Years Smokin Last Time Smoked: 04/26/2012 Frequency of Alcohol Use: Rare Hx Recreational Drug Use: No Drugs: None Hx Prescription Drug Abuse: No - Advance Directive Resuscitation Status: Full Code Surrogate healthcare decision maker:: The patient's , Gila Maldonado Family History Family History: COPD - Mother Parental Family History Reviewed: Yes Children Family History Reviewed: Yes Sibling(s) Family History Reviewed.: Yes Medication/Allergy Home Medications: Aclidinium [place] [Tudorza Pressair] 1 puff IN Q12 10/12/16 Albuterol Sulfate [Ventolin HFA MDI 18 GM] 2 puff IH Q4HP PRN 10/12/16 Aspirin [Ecotrin 81 mg EC Tablet] 81 mg PO DAILY 10/12/16 Cholecalciferol (Vitamin D3) [Vitamin D3 1000 Unit Tablet] 1,000 unit PO BID Empagliflozin [Jardiance] 25 mg PO DAILY 10/12/16 Ezetimibe [Zetia 10 mg Tablet] 10 mg PO DAILY 10/12/16 Flaxseed Oil [Flaxseed] 1,000 mg PO DAILY 10/12/16 Fluticasone/Salmeterol [Advair 250-50 Diskus 28 dose] 1 puff IN Q12 10/12/16 Furosemide [Lasix] 40 mg PO BID 10/12/16 Ibuprofen [Motrin 800 mg Tablet] 800 mg PO Q8H PRN 10/12/16 Insulin Aspart [Novolog Insulin (Aspart) 100 unit/mL] 40 unit SUBCUT MEALS 10/12 Losartan Potassium [Cozaar 50 mg Tablet] 50 mg PO DAILY 10/12/16 Multivitamin [Tab-A-Priscilla] 1 each PO DAILY 10/12/16 Tamsulosin HCl [Flomax 0.4 mg Cap.sr] 0.4 mg PO BID 10/12/16 Atorvastatin Calcium [Lipitor 20 mg Tablet] 20 mg PO QHS 03/13/17 Isosorbide Mononitrate [Isosorbide Mononitrate ER] 30 mg PO DAILY 03/13/17 Mirabegron [Myrbetriq] 50 mg PO DAILY 03/13/17 Pramipexole Di-HCl [Mirapex] 2 mg PO QHS 03/13/17 Pramipexole Di-HCl [Pramipexole Dihydrochloride] 1 mg PO QAM 03/13/17 Exenatide Microspheres [Bydureon Bcise] 2 mg SQ WE@0800 03/18/18 Finasteride [Proscar 5 mg Tablet] 5 mg PO DAILY 03/18/18 Insulin Aspart [Novolog Insulin (Aspart) 100 unit/mL] 10 units SUBCUT .SNACKS Insulin Degludec [Tresiba Flextouch U-200] 130 units SUBCUT QHS 03/18/18 Metoprolol Succinate [Toprol Xl 25 mg Tab.sr] 12.5 mg PO DAILY 03/18/18 Omeprazole 40 mg PO ACBRKFST 03/18/18 Allergies/Adverse Reactions: No Known Allergies Allergy (Verified 03/13/17 10:47) Review of Systems Constitutional: ABSENT: chills, fever(s), headache(s), weight gain, weight loss Eyes: ABSENT: visual disturbances Ears: ABSENT: hearing changes Cardiovascular: PRESENT: chest pain - With deep inspiration or cough. ABSENT: dyspnea on exertion, edema, orthropnea, palpitations Respiratory: PRESENT: cough, dyspnea. ABSENT: hemoptysis Gastrointestinal: ABSENT: abdominal pain, constipation, diarrhea, hematemesis, hematochezia, nausea, vomiting Genitourinary: ABSENT: dysuria, hematuria Musculoskeletal: ABSENT: joint swelling Integumentary: ABSENT: rash, wounds Neurological: ABSENT: abnormal gait, abnormal speech, confusion, dizziness, focal weakness, syncope Psychiatric: ABSENT: anxiety, depression, homidical ideation, suicidal ideation Endocrine: ABSENT: cold intolerance, heat intolerance, polydipsia, polyuria Hematologic/Lymphatic: ABSENT: easy bleeding, easy bruising Physical Exam Vital Signs: Temp Pulse Resp BP Pulse Ox 97.6 F 99 23 H 158/75 H 88 L 03/18/18 06:05 03/18/18 08:21 03/18/18 08:21 03/18/18 06:05 03/18/18 09:51 General appearance: PRESENT: no acute distress, morbidly obese, well-developed, well-nourished Head exam: PRESENT: atraumatic, normocephalic Eye exam: PRESENT: conjunctiva pink, EOMI, PERRLA. ABSENT: scleral icterus Ear exam: PRESENT: normal external ear exam Mouth exam: PRESENT: moist, tongue midline Neck exam: ABSENT: carotid bruit, JVD, lymphadenopathy, thyromegaly Respiratory exam: PRESENT: accessory muscle use, decreased breath sounds - Bibasilar, prolonged expiratory phas, symmetrical, tachypnea, other - On BiPAP. ABSENT: rales, rhonchi, wheezes Cardiovascular exam: PRESENT: RRR, +S1, +S2, tachycardia. ABSENT: diastolic murmur, rubs, systolic murmur Pulses: PRESENT: normal dorsalis pedis pul Vascular exam: PRESENT: normal capillary refill GI/Abdominal exam: PRESENT: normal bowel sounds, soft, other - Limited exam secondary to body habitus. ABSENT: distended, guarding, mass, organolmegaly, rebound, tenderness Rectal exam: PRESENT: deferred Extremities exam: PRESENT: full ROM. ABSENT: calf tenderness, clubbing, pedal edema Neurological exam: PRESENT: alert, awake, oriented to person, oriented to place , oriented to time, oriented to situation, CN II-XII grossly intact. ABSENT: motor sensory deficit Psychiatric exam: PRESENT: appropriate affect, normal mood. ABSENT: homicidal ideation, suicidal ideation Skin exam: PRESENT: dry, intact, warm. ABSENT: cyanosis, rash Results Impressions: Chest X-Ray 03/18/18 05:43 IMPRESSION: No acute disease. Assessment & Plan - Diagnosis (1) Acute hypoxemic respiratory failure Is this a current diagnosis for this admission?: Yes Plan: The patient presented to the emergency department with 2 days of progressively worsening dyspnea; now uncomfortable at rest. Chest x-ray was benign. EKG demonstrated sinus tachycardia. Troponin and proBNP are negative. Emergency department provider administered 1 g IV magnesium, Solu-Medrol, and nebulizer treatments. Despite this, the patient remained BiPAP dependent to maintain oxygen saturations. He is admitted to the medical floor on continuous cardiac telemetry. We will continue supplemental oxygen as needed to maintain saturations greater than 89%. BiPAP nightly and as needed. IV Solu-Medrol 40 mg every 8 hours. Scheduled and as needed nebulizer treatments. Mucinex twice daily. Flutter valve to bedside. (2) COPD exacerbation Is this a current diagnosis for this admission?: Yes Plan: Plan as above. 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 Patient takes Tresiba 130 units daily; patient is notified he may bring in his home medication. Will provide Lantus 130 units daily. Accu-Cheks before meals and at bedtime with Humalog for sliding scale coverage. Have consulted the public health educator and registered dietitian. (4) Hypertension Qualifiers: Hypertension type: essential hypertension Qualified Code(s): I10 - Essential (primary) hypertension Is this a current diagnosis for this admission?: Yes Plan: The patient's home medication regiment of Imdur, losartan, metoprolol, and furosemide are continued. Cardiac diet. (5) Obstructive sleep apnea on CPAP Is this a current diagnosis for this admission?: Yes Plan: BiPAP nightly and as needed. - Time Time Spent: 50 to 70 Minutes Medications reviewed and adjusted accordingly: Yes Anticipated discharge: Home Within: within 48 hours
[2018-03-18] MEDS ORDERED: INSULIN DEGLUDEC SUBCUT SCH ×2 (16:00→22:00)
[2018-03-18] MEDS: TAMSULOSIN HCL 0.4 MG CAP.SR.24H PO SCH (17:49)
[2018-03-18] MEDS: FUROSEMIDE 40 MG TABLET PO SCH (17:49)
--- NOTE | 2018-03-18 19:16 | EKG REPORT ---
SEVERITY:- ABNORMAL ECG - SINUS TACHYCARDIA LAD, CONSIDER LEFT ANTERIOR FASCICULAR BLOCK : Confirmed by: Tatiana Oquendo MD 18-Mar-2018 19:15:02
[2018-03-18] MEDS: GUAIFENESIN 600 MG TABLET.SA PO SCH (21:24)
[2018-03-18] MEDS ORDERED: INSULIN GLARGINE,HUM.REC.ANLOG 300 UNIT/3 ML INSULN.PEN SUBCUT SCH (22:00)
[2018-03-18] MEDS ORDERED: Insulin Degludec [Tresiba Flextouch U-200] INJ SCH (22:00)
[2018-03-18] MEDS ORDERED: PRAMIPEXOLE DI HCL 2 MG PO SCH (22:00)
[2018-03-18] MEDS ORDERED: ATORVASTATIN CALCIUM 20 MG TABLET PO SCH (22:00)
[2018-03-18] MEDS ORDERED: PRAMIPEXOLE DI-HCL 0.5 MG TABLET PO SCH (22:00)
[2018-03-19] MEDS: METHYLPREDNISOLONE INJ 40 MG/1 ML SDV IV SCH (05:10)
[2018-03-19] MEDS: HEPARIN SOD (PORCINE) 5,000 UNIT/ML 1 ML SYRINGE SUBCUT SCH (05:10)
[2018-03-19] MEDS ORDERED: LANSOPRAZOLE 30 MG TAB.RAP.DR PO SCH (06:00)
[2018-03-19 06:02] LABS: HEMATOCRIT 42.1 % (37.9-51.0); MEAN CORPUSCULAR HEMOGLOBIN 28.1 pg (27.0-33.4); MEAN CORPUSCULAR HGB CONC 33.2 g/dL (32.0-36.0); MEAN CORPUSCULAR VOLUME 85 fl (80-97); PLATELET COUNT 198 10^3/uL (150-450); RED BLOOD COUNT 4.98 10^6/uL (4.35-5.55); WHITE BLOOD COUNT 10.4 10^3/uL (4.0-10.5)
[2018-03-19 06:28] LABS: ANION GAP 12 (5-19); BLOOD UREA NITROGEN 30 mg/dL (7-20); CALCIUM 9.3 mg/dL (8.4-10.2); CARBON DIOXIDE 26 mmol/L (22-30); CHLORIDE 104 mmol/L (98-107); GLUCOSE 254 mg/dL (75-110); POTASSIUM 4.5 mmol/L (3.6-5.0); SODIUM 141.9 mmol/L (137-145)
[2018-03-19] MEDS: INSULIN LISPRO 100 UNIT/ML 3 ML VIAL SUBCUT PRN (07:34)
[2018-03-19] MEDS ORDERED: PRAMIPEXOLE DI-HCL 0.5 MG TABLET PO SCH (08:00)
[2018-03-19] MEDS ORDERED: (PENDING PHARMACY ID) (Pramipexole Di-Hcl [Pramipexole Dihydrochloride] 1 MG) PO SCH (08:00)
[2018-03-19] MEDS: IPRATROPIUM/ALBUTEROL 0.5-2.5 MG/3 ML AMPUL NEB SCH (08:07)
[2018-03-19 08:55] VITALS: BP 127/52
[2018-03-19] MEDS: DOCUSATE SODIUM 100 MG CAPSULE PO SCH (09:38)
[2018-03-19] MEDS: FUROSEMIDE 40 MG TABLET PO SCH (09:38)
[2018-03-19] MEDS: FAMOTIDINE 20 MG TABLET PO SCH (09:39)
[2018-03-19] MEDS: GUAIFENESIN 600 MG TABLET.SA PO SCH (09:40)
[2018-03-19] MEDS: TAMSULOSIN HCL 0.4 MG CAP.SR.24H PO SCH (09:46)
[2018-03-19] MEDS ORDERED: ASPIRIN 81 MG TABLET, ENT COATED PO SCH (10:00)
[2018-03-19] MEDS ORDERED: LOSARTAN POTASSIUM 50 MG TABLET PO SCH (10:00)
[2018-03-19] MEDS ORDERED: (PENDING PHARMACY ID) (Mirabegron [Myrbetriq] 50 MG) PO SCH (10:00)
[2018-03-19] MEDS ORDERED: ISOSORBIDE MONONITRATE 30 MG TAB.ER.24H PO SCH (10:00)
[2018-03-19] MEDS ORDERED: FINASTERIDE 5 MG TABLET PO SCH (10:00)
[2018-03-19] MEDS ORDERED: EZETIMIBE 10 MG TABLET PO SCH (10:00)
[2018-03-19] MEDS ORDERED: METOPROLOL SUCCINATE 25 MG TAB.SR.24H PO SCH (10:00)
--- NOTE | 2018-03-21 16:33 | PDOC DISCHARGE SUMMARY ---
General - Admit/Disc Date/PCP Admission Date/Primary Care Provider: 03/18/18 07:47 Discharge Date: 03/19/18 - Discharge Diagnosis (1) Acute hypoxemic respiratory failure Is this a current diagnosis for this admission?: Yes Summary: Resolved; secondary to COPD exacerbation. The patient is now maintaining oxygen saturations while ambulating on room air. He denies dyspnea, orthopnea, wheezing, cough. He reports that he has a nebulizer machine and plenty of medication at home. He is discharged home with a prescription for prednisone and Mucinex. (2) COPD exacerbation Is this a current diagnosis for this admission?: Yes Summary: Resolved. The patient was admitted overnight and provided IV magnesium while still in the emergency department, supplemental oxygen and BiPAP overnight, scheduled and as needed nebulizer treatments, and steroid therapy. Symptoms rapidly improved and by the following day he was asymptomatic and maintaining oxygen saturations while ambulatory. (3) Diabetes mellitus Is this a current diagnosis for this admission?: Yes Summary: The patient's home medication regiment was continued. (4) Hypertension Is this a current diagnosis for this admission?: Yes Summary: The patient's home medication regiment was continued. (5) Obstructive sleep apnea on CPAP Is this a current diagnosis for this admission?: Yes Summary: The patient utilized BiPAP overnight; will resume CPAP while at home. - Additional Information Resuscitation Status: Full Code Discharge Diet: Cardiac, Diabetic Discharge Activity: Activity As Tolerated, Balance Activity w/Rest, Slowly Increase Activity Prescriptions: Doxycycline Hyclate [Vibramycin 100 mg Tablet] 100 mg PO BID #20 tablet Guaifenesin [Mucinex Sr 600 mg Tablet.sa] 600 mg PO Q12 #28 tablet.sa Prednisone [Deltasone] 60 mg PO DAILY #15 tablet Home Medications: Aclidinium [place] [Tudorza Pressair] 1 puff IN Q12 10/12/16 Albuterol Sulfate [Ventolin HFA MDI 18 GM] 2 puff IH Q4HP PRN 10/12/16 Aspirin [Ecotrin 81 mg EC Tablet] 81 mg PO DAILY 10/12/16 Cholecalciferol (Vitamin D3) [Vitamin D3 1000 Unit Tablet] 1,000 unit PO BID Empagliflozin [Jardiance] 25 mg PO DAILY 10/12/16 Ezetimibe [Zetia 10 mg Tablet] 10 mg PO DAILY 10/12/16 Flaxseed Oil [Flaxseed] 1,000 mg PO DAILY 10/12/16 Fluticasone/Salmeterol [Advair 250-50 Diskus 28 dose] 1 puff IN Q12 10/12/16 Furosemide [Lasix] 40 mg PO BID 10/12/16 Ibuprofen [Motrin 800 mg Tablet] 800 mg PO Q8H PRN 10/12/16 Insulin Aspart [Novolog Insulin (Aspart) 100 unit/mL] 40 unit SUBCUT MEALS 10/12 Losartan Potassium [Cozaar 50 mg Tablet] 50 mg PO DAILY 10/12/16 Multivitamin [Tab-A-Priscilla] 1 each PO DAILY 10/12/16 Tamsulosin HCl [Flomax 0.4 mg Cap.sr] 0.4 mg PO BID 10/12/16 Atorvastatin Calcium [Lipitor 20 mg Tablet] 20 mg PO QHS 03/13/17 Isosorbide Mononitrate [Isosorbide Mononitrate ER] 30 mg PO DAILY 03/13/17 Mirabegron [Myrbetriq] 50 mg PO DAILY 03/13/17 Pramipexole Di-HCl [Mirapex] 2 mg PO QHS 03/13/17 Pramipexole Di-HCl [Pramipexole Dihydrochloride] 1 mg PO QAM 03/13/17 Exenatide Microspheres [Bydureon Bcise] 2 mg SQ WE@0800 03/18/18 Finasteride [Proscar 5 mg Tablet] 5 mg PO DAILY 03/18/18 Insulin Aspart [Novolog Insulin (Aspart) 100 unit/mL] 10 units SUBCUT .SNACKS Insulin Degludec [Tresiba Flextouch U-200] 130 units SUBCUT QHS 03/18/18 Metoprolol Succinate [Toprol Xl 25 mg Tab.sr] 12.5 mg PO DAILY 03/18/18 Omeprazole 40 mg PO ACBRKFST 03/18/18 Acetaminophen [Tylenol 325 mg Tablet] 650 mg PO Q4HP PRN tablet 03/19/18 Doxycycline Hyclate [Vibramycin 100 mg Tablet] 100 mg PO BID #20 tablet Guaifenesin [Mucinex Sr 600 mg Tablet.sa] 600 mg PO Q12 #28 tablet.sa 03/19/18 Prednisone [Deltasone] 60 mg PO DAILY #15 tablet 03/19/18 History of Present Illness History of Present Illness: LIONEL CHESTER is a 67 year old male with a past medical history of COPD, LAURIE, hypertension, hyperlipidemia, insulin-dependent diabetes mellitus, GERD, restless leg syndrome, BPH, and morbid obesity who presented to the emergency department today with a complaint of 2-3 days of progressively worsening shortness of breath that is now occurring while at rest. He reports a slight nonproductive cough but denies recent fever, chills, congestion, rhinorrhea, or other upper respiratory infectious symptoms. Evaluation in the emergency department revealed tachycardia (HR 107), tachypnea (RR 30), hypoxia (84% on room air), unremarkable laboratory evaluation including a normal WBC, troponin, and proBNP. Chest x-ray was benign and EKG demonstrated sinus tachycardia. He was referred to the hospitalist service for admission and management of acute respiratory failure with hypoxia secondary to COPD exacerbation as the patient remained BiPAP dependent despite IV magnesium, Solu-Medrol, and nebulizer treatments. Hospital Course Hospital Course: The patient was admitted to the medical floor on continuous cardiac telemetry. He was supported with supplemental oxygen, BiPAP, 1 g IV magnesium, Solu-Medrol , and nebulizer treatments. His symptoms rapidly improved and by the following morning he was asymptomatic and maintaining his oxygen saturations. At time of discharge, the patient was in stable condition, and maintain oxygen saturations while ambulatory on room air. He reported that he has a working nebulizer machine at home with plenty of medication. He was instructed to follow-up with his primary care provider within 1 week. He was provided prescriptions for prednisone, Mucinex, and doxycycline. He was instructed to hold his doxycycline and only fill the prescription if he developed a fever or a productive cough with copious amounts of sputum. He was advised to return to the emergency department as needed for any concerning symptoms. Physical Exam Vital Signs: Temp Pulse Resp BP Pulse Ox 97.5 F 88 14 127/52 H 94 03/19/18 11:05 03/19/18 11:05 03/19/18 11:05 03/19/18 11:05 03/19/18 11:05 Intake & Output 03/20/18 03/21/18 03/22/18 06:59 06:59 06:59 Weight 140.1 kg General appearance: PRESENT: no acute distress, cooperative, morbidly obese, well-developed, well-nourished Head exam: PRESENT: atraumatic, normocephalic Eye exam: PRESENT: conjunctiva pink, EOMI, PERRLA. ABSENT: scleral icterus Ear exam: PRESENT: normal external ear exam Mouth exam: PRESENT: moist, tongue midline Neck exam: ABSENT: carotid bruit, JVD, lymphadenopathy, thyromegaly Respiratory exam: PRESENT: clear to auscultation kana, decreased breath sounds - Bibasilar, prolonged expiratory phas, symmetrical, unlabored. ABSENT: rales, rhonchi, wheezes Cardiovascular exam: PRESENT: RRR. ABSENT: diastolic murmur, rubs, systolic murmur Pulses: PRESENT: normal dorsalis pedis pul Vascular exam: PRESENT: normal capillary refill GI/Abdominal exam: PRESENT: normal bowel sounds, soft. ABSENT: distended, guarding, mass, organolmegaly, rebound, tenderness Rectal exam: PRESENT: deferred Extremities exam: PRESENT: full ROM. ABSENT: calf tenderness, clubbing, pedal edema Neurological exam: PRESENT: alert, awake, oriented to person, oriented to place , oriented to time, oriented to situation, CN II-XII grossly intact. ABSENT: motor sensory deficit Psychiatric exam: PRESENT: appropriate affect, normal mood. ABSENT: homicidal ideation, suicidal ideation Skin exam: PRESENT: dry, intact, warm. ABSENT: cyanosis, rash Results Laboratory Results: 03/19/18 05:20 03/19/18 05:20 Impressions: Chest X-Ray 03/18/18 05:43 IMPRESSION: No acute disease. Qualifiers - * PATIENT BEING DISCHARGED WITH ANY OF THE FOLLOWING DIAGNOSIS: No Plan Discharge Plan: The patient is discharged home with self-care. To follow-up with primary care provider within 1 week. Return to the emergency department as needed for concerning symptoms. Time Spent: Less than 30 Minutes
== END 2018-03-19 11:05 | disposition home or self-care (01) ==
LOC: ER 05:30 → INTOOBSV 07:47 → EH 07:47 → 5 09:26
PROVIDERS: ADMIT Internal Medicine; ATTEND Internal Medicine
DX: J96.01 Acute respiratory failure with hypoxia (principal); J44.1 Chronic obstructive pulmonary disease with (acute) exacerbation; E11.9 Type 2 diabetes mellitus without complications; I10 Essential (primary) hypertension; G47.33 Obstructive sleep apnea (adult) (pediatric); K21.9 Gastro-esophageal reflux disease without esophagitis; G25.81 Restless legs syndrome; R00.0 Tachycardia, unspecified; E66.01 Morbid (severe) obesity due to excess calories; F41.9 Anxiety disorder, unspecified; E78.5 Hyperlipidemia, unspecified; Z68.41 Body mass index [BMI] 40.0-44.9, adult; Z79.899 Other long term (current) drug therapy; Z87.891 Personal history of nicotine dependence; Z79.82 Long term (current) use of aspirin; Z79.4 Long term (current) use of insulin; Z85.828 Personal history of other malignant neoplasm of skin; Z90.49 Acquired absence of other specified parts of digestive tract; Z96.89 Presence of other specified functional implants
CPT/HCPCS: 93005; 94640 ×4; 99291; 96375; 96365; 36415 ×2; 82962 ×2; 85025; 85027; 80048; 80053; 84484; 82803; 83880; 71045; 93010; 94660; 94667; G0378 ×3; J1644 ×2; A9270 ×22; J2920 ×2; J2930; J2060; J3475; J1815; J3490; J7620

== ENCOUNTER → 2018-04-04 | Outpatient (CLI) | payer MEDICARE, OTHER ==
[2018-04-04 15:18] LABS: ABSOLUTE EOSINOPHILS # (AUTO) 0.2 10^3/uL (0.0-0.6); ABSOLUTE LYMPHOCYTES (AUTO) 1.7 10^3/uL (0.5-4.7); ABSOLUTE MONOCYTES (AUTO) 0.6 10^3/uL (0.1-1.4); ABSOLUTE NEUT (AUTO) 5.8 10^3/uL (1.7-8.2); BASOPHILS % (AUTO) 0.5 % (0-2); HEMATOCRIT 40.8 % (37.9-51.0); HEMOGLOBIN 13.5 g/dL (13.5-17.0); LYMPHOCYTES % (AUTO) 20.4 % (13-45); MEAN CORPUSCULAR HGB CONC 33.1 g/dL (32.0-36.0); MEAN CORPUSCULAR VOLUME 85 fl (80-97); MONOCYTES % (AUTO) 6.8 % (3-13); PLATELET COUNT 162 10^3/uL (150-450); RED BLOOD COUNT 4.83 10^6/uL (4.35-5.55); RED CELL DISTRIBUTION WIDTH 16.4 % (11.5-14.0); SEGMENTED NEUTROPHILS % (AUTO) 70.3 % (42-78); TOTAL CELLS COUNTED % (AUTO) 100 %; WHITE BLOOD COUNT 8.2 10^3/uL (4.0-10.5)
[2018-04-04 15:51] LABS: ALANINE AMINOTRANSFERASE 31 U/L (21-72); ALBUMIN 3.5 g/dL (3.5-5.0); ALKALINE PHOSPHATASE 127 U/L (38-126); ANION GAP 8 (5-19); ASPARTATE AMINO TRANSFERASE 17 U/L (17-59); BILIRUBIN,DIRECT 0.1 mg/dL (0.0-0.4); BILIRUBIN,TOTAL 0.7 mg/dL (0.2-1.3); BLOOD UREA NITROGEN 19 mg/dL (7-20); C-REACTIVE PROTEIN 23.7 mg/L (<10.0); CALCIUM 9.4 mg/dL (8.4-10.2); CARBON DIOXIDE 32 mmol/L (22-30); CHLORIDE 102 mmol/L (98-107); GLUCOSE 292 mg/dL (75-110); POTASSIUM 4.6 mmol/L (3.6-5.0); SODIUM 142.4 mmol/L (137-145); TOTAL PROTEIN 5.8 g/dL (6.3-8.2)
[2018-04-04 16:01] LABS: ERYTHROCYTE SEDIMENTATION RATE 27 mm/hr (0-20)
--- NOTE | 2018-04-04 16:19 | RADIOLOGY REPORT (SQ) ---
EXAM DESCRIPTION: FOOT LEFT COMPLETE COMPLETED DATE/TIME: 04/04/2018 3:42 pm REASON FOR STUDY: NON-PRS CHRONIC ULCER OTH PRT LEFT FOOT W FAT LAYER EXPOSED E11.621 TYPE 2 DIABET ES MELLITUS WITH FOOT ULCER L97.522 NON-PRS CHRONIC ULCER OTH PRT LEFT FOOT W FAT LAYER COMPARISON: None. NUMBER OF VIEWS: Three views. TECHNIQUE: AP, lateral and oblique radiographic images acquired of the left foot. LIMITATIONS: None. FINDINGS: MINERALIZATION: Normal. BONES: No acute fracture or dislocation. No worrisome bone lesions. Prominent Achilles enthesophyte . No evidence for osteomyelitis. JOINTS: No effusions. SOFT TISSUES: No soft tissue swelling. No foreign body. OTHER: No other significant finding. IMPRESSION: No evidence for osteomyelitis. TECHNICAL DOCUMENTATION: JOB ID: [id number] [employer]- All Rights Reserved Reading location - IP/workstation name: [email or web address]
== END ==
LOC: OD 14:47
PROVIDERS: ATTEND Preventive Medicine Undersea and Hyperbaric Medicine
DX: E11.621 Type 2 diabetes mellitus with foot ulcer (principal); L97.522 Non-pressure chronic ulcer of other part of left foot with fat layer exposed
CPT/HCPCS: 36415; 80053; 83036; 85025; 85652; 86140

== ENCOUNTER → 2018-04-07 | Outpatient (CLI) | payer MEDICARE, OTHER ==
--- NOTE | 2018-04-07 17:26 | XCELERA REPORT ---
[address] [address] Lower Extremity Arterial Evaluation Name: LIONEL CHESTER Age: 67 yrs Gender: Male : 1950 Patient Status: Outpatient Patient Location: Study Date: 04/07/2018 12:58 PM Procedure: A color flow and duplex scan of the lower extremity arteries was performed bilaterally with velocity and waveform anaylsis. Ankle brachial indicies performed. Reason For Study: ULCER Ordering Physician: LANI FLOOD Performed By: Dottie Dumont Measurements and Calculations Right Left FOOD AND NUTRITION SERVICES ASSISTANT PSV 151.9 118.6 cm/sec Prox PFA PSV 153.7 64.5 cm/sec Prox SFA PSV -125.7 -93.7 cm/sec Mid SFA PSV -149.3 -134.8cm/sec Dist SFA PSV -103.0 -108.9cm/sec Prox Pop A PSV -69.5 67.8 cm/sec Prox CHARLES PSV 105.6 cm/sec Mid CHARLES PSV -56.9 cm/sec Prox DRUM LOADER AND UNLOADER PSV 97.7 cm/sec Mid DRUM LOADER AND UNLOADER PSV 61.8 cm/sec Ricky Pedis PSV 66.3 135.1 cm/sec Right Side Arterial Evaluation Normal velocity and triphasic waveforms noted from the Common Femoral artery to the Popliteal. . Biphasic with normal velocity in the infrageniculate arteries. Ankle Brachial index 1.00. Left Side Arterial Evaluation Normal velocity and triphasic waveforms noted from the Common Femoral artery to the Popliteal. . Biphasic with normal velocity in the infrageniculate arteries. Ankle Brachial index 1.00. Interpretation Summary Mild hemodynamically significant lesions in the bilateral lower extremities, on duplex imaging, at rest. DOMONIQUE's are in the normal range. : LANI FLOOD > Boone Ramos
== END ==
LOC: SP 12:40
PROVIDERS: ATTEND Preventive Medicine Undersea and Hyperbaric Medicine
DX: L97.522 Non-pressure chronic ulcer of other part of left foot with fat layer exposed (principal)
CPT/HCPCS: 93922; 93925

== ENCOUNTER → 2018-05-02 | Outpatient (CLI) | payer MEDICARE, OTHER ==
[2018-05-02 16:02] LABS: ABSOLUTE EOSINOPHILS # (AUTO) 0.3 10^3/uL (0.0-0.6); ABSOLUTE LYMPHOCYTES (AUTO) 1.7 10^3/uL (0.5-4.7); ABSOLUTE MONOCYTES (AUTO) 0.6 10^3/uL (0.1-1.4); ABSOLUTE NEUT (AUTO) 5.9 10^3/uL (1.7-8.2); BASOPHILS % (AUTO) 0.4 % (0-2); EOSINOPHILS % (AUTO) 3.5 % (0-6); HEMATOCRIT 38.8 % (37.9-51.0); HEMOGLOBIN 12.8 g/dL (13.5-17.0); LYMPHOCYTES % (AUTO) 19.8 % (13-45); MEAN CORPUSCULAR HEMOGLOBIN 28.1 pg (27.0-33.4); MEAN CORPUSCULAR HGB CONC 33.1 g/dL (32.0-36.0); MEAN CORPUSCULAR VOLUME 85 fl (80-97); MONOCYTES % (AUTO) 6.5 % (3-13); PLATELET COUNT 191 10^3/uL (150-450); RED BLOOD COUNT 4.56 10^6/uL (4.35-5.55); RED CELL DISTRIBUTION WIDTH 16.9 % (11.5-14.0); SEGMENTED NEUTROPHILS % (AUTO) 69.8 % (42-78); TOTAL CELLS COUNTED % (AUTO) 100 %; WHITE BLOOD COUNT 8.5 10^3/uL (4.0-10.5)
[2018-05-02 16:25] LABS: ALANINE AMINOTRANSFERASE 25 U/L (21-72); ALBUMIN 3.5 g/dL (3.5-5.0); ALKALINE PHOSPHATASE 125 U/L (38-126); ANION GAP 6 (5-19); ASPARTATE AMINO TRANSFERASE 20 U/L (17-59); BILIRUBIN,DIRECT 0.2 mg/dL (0.0-0.4); BILIRUBIN,TOTAL 0.6 mg/dL (0.2-1.3); BLOOD UREA NITROGEN 17 mg/dL (7-20); C-REACTIVE PROTEIN 49.8 mg/L (<10.0); CALCIUM 9.1 mg/dL (8.4-10.2); CARBON DIOXIDE 31 mmol/L (22-30); CHLORIDE 103 mmol/L (98-107); GLUCOSE 196 mg/dL (75-110); POTASSIUM 4.3 mmol/L (3.6-5.0); SODIUM 140.3 mmol/L (137-145); TOTAL PROTEIN 5.9 g/dL (6.3-8.2)
[2018-05-02 16:41] LABS: ERYTHROCYTE SEDIMENTATION RATE 31 mm/hr (0-20)
--- NOTE | 2018-05-02 16:48 | RADIOLOGY REPORT (SQ) ---
EXAM DESCRIPTION: FOOT BILATERAL 3 VIEWS COMPLETED DATE/TIME: 05/02/2018 3:28 pm REASON FOR STUDY: RT FOOT RAISED HALLUX ON LATERAL;NON PRESSURE ULCER CHRONIC PART OF LT FOOT E11.62 1 TYPE 2 DIABETES MELLITUS WITH FOOT ULCER L97.522 NON-PRS CHRONIC ULCER OTH PRT LEFT FOOT W FAT [place] COMPARISON: None. NUMBER OF VIEWS: Three views. TECHNIQUE: AP, lateral and oblique radiographic images acquired of the right and left foot. LIMITATIONS: None. FINDINGS: MINERALIZATION: Normal. BONES: No fracture. No bone destruction. Calcaneal spurs. Dense calcifications in the Achilles ten dons. JOINTS: No effusions. SOFT TISSUES: No soft tissue swelling. No foreign body. OTHER: No other significant finding. IMPRESSION: Calcaneal spurs. Achilles tendinopathy. No evidence of osteomyelitis. TECHNICAL DOCUMENTATION: JOB ID: [id number] [employer]- All Rights Reserved Reading location - IP/workstation name: [email or web address]
== END ==
LOC: WC 14:56
PROVIDERS: ATTEND Preventive Medicine Undersea and Hyperbaric Medicine
DX: E11.621 Type 2 diabetes mellitus with foot ulcer (principal); L97.522 Non-pressure chronic ulcer of other part of left foot with fat layer exposed
CPT/HCPCS: 36415; 80053; 83036; 85025; 85652; 86140

== ENCOUNTER 2018-05-04 12:04 | Emergency (ER) | payer MEDICARE, OTHER ==
--- NOTE | 2018-05-04 12:53 | ER Document Report ---
ED Medical Screen (RME) - General Chief Complaint: Fall Stated Complaint: FACE LACERATION Time Seen by Provider: 05/04/18 12:49 Notes: 67 years old male while getting out of the car tripped and fell face downwards sustaining a large laceration over the nose. No loss of consciousness. Currently have mild headache. Denies any neck pain. Denies any other injuries Nose is bleeding with a large laceration in the middle TRAVEL OUTSIDE OF THE [place] IN LAST 30 DAYS: No - Related Data Allergies/Adverse Reactions: No Known Allergies Allergy (Verified 05/04/18 12:11) Past Medical History - Social History Chew tobacco use (# tins/day): No Frequency of alcohol use: Rare Drug Abuse: None - Past Medical History Cardiac Medical History: Reports: Hx Hypercholesterolemia, Hx Hypertension Denies: Hx Coronary Artery Disease, Hx Heart Attack Pulmonary Medical History: Reports: Hx COPD, Hx Sleep Apnea Denies: Hx Asthma, Hx Bronchitis, Hx Pneumonia Neurological Medical History: Denies: Hx Cerebrovascular Accident, Hx Seizures Endocrine Medical History: Reports: Hx Diabetes Mellitus Type 2 - Insulin- dependent Renal/ Medical History: Denies: Hx Peritoneal Dialysis Malignancy Medical History: Reports 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 GI Medical History: Reports: Hx Gastroesophageal Reflux Disease Musculoskeltal Medical History: Reports Hx Arthritis Psychiatric Medical History: Denies: Hx Depression Past Surgical History: Reports: Hx Cholecystectomy, Hx Neurologic Surgery - right hip nerve stim., Hx Orthopedic Surgery - back stimulator - Immunizations Hx Diphtheria, Pertussis, Tetanus Vaccination: Yes History of Influenza Vaccine for 01/2017 - 06/2017 Season: Yes Influenza Administration Date for 01/2017 - 06/2017 Season: 01/24/18 Physical Exam - Vital signs Vitals: Temp Pulse Resp BP Pulse Ox 97.8 F 92 20 126/49 H 92 05/04/18 12:27 05/04/18 12:27 05/04/18 12:27 05/04/18 12:27 05/04/18 12:27 Course - Vital Signs Vital signs: Temp Pulse Resp BP Pulse Ox 97.8 F 92 20 126/49 H 92 05/04/18 12:27 05/04/18 12:27 05/04/18 12:27 05/04/18 12:27 05/04/18 12:27 Doctor's Discharge - Discharge Referrals: REMIGIO,LANI, DPM [Primary Care Provider] - Follow up as needed
--- NOTE | 2018-05-04 13:40 | RADIOLOGY REPORT (SQ) ---
EXAM DESCRIPTION: CT HEAD WITHOUT; CT FACIAL AREA WITHOUT COMPLETED DATE/TIME: 05/04/2018 1:18 pm REASON FOR STUDY: fall/injury to face and head COMPARISON: None. TECHNIQUE: Axial images acquired through the brain without intravenous contrast. Images reviewed wi th bone, brain and subdural windows. Additional sagittal and coronal reconstructions were generated. Images stored on PACS. All CT scanners at this facility use dose modulation, iterative reconstruction, and/or weight based d osing when appropriate to reduce radiation dose to as low as reasonably achievable (ALARA). [facility]: Dose Right [facility]: CareDose [facility]: Dose Right [facility]: Teradose 4D [facility]: [employer] RADIATION DOSE: CT Rad equipment meets quality standard of care and radiation dose reduction techniq ues were employed. CTDIvol: 53.2 mGy. DLP: 1044 mGy-cm.; CT Rad equipment meets quality standard of c are and radiation dose reduction techniques were employed. CTDIvol: 30.4 mGy. DLP: 606 mGy-cm. mGy. LIMITATIONS: None. FINDINGS: VENTRICLES: Normal size and contour. CEREBRUM: No masses. No hemorrhage. No midline shift. No evidence for acute infarction. Normal gra y/white matter differentiation. No areas of low density in the white matter. CEREBELLUM: No masses. No hemorrhage. No alteration of density. No evidence for acute infarction. EXTRAAXIAL SPACES: No fluid collections. No masses. ORBITS AND GLOBE: No intra- or extraconal masses. Normal contour of globe without masses. CALVARIUM: No fracture. FACIAL BONES: Minimal fractures of the nasal bone tips. PARANASAL SINUSES: Small air-fluid level in the dependent left maxillary sinus. SOFT TISSUES: Soft tissue laceration of the nose. OTHER: No other significant finding. IMPRESSION: 1. No acute intracranial pathology. 2. Minimal fractures of the nasal bone tips underlying a soft tissue laceration of the nose. 3. Small fluid level of the left maxillary sinus without displaced fracture of the maxilla or orbit. EVIDENCE OF ACUTE STROKE: NO. COMMENT: Quality ID # [id number]: Final reports with documentation of one or more dose reduction techniques (e.g., Automated exposure control, adjustment of the mA and/or kV according to patient size, use of iterative reconstruction technique) TECHNICAL DOCUMENTATION: JOB ID: [id number]- All Rights Reserved Reading location - IP/workstation name: [email or web address]
--- NOTE | 2018-05-04 13:44 | RADIOLOGY REPORT (SQ) ---
EXAM DESCRIPTION: CT CERVICAL SPINE WITHOUT COMPLETED DATE/TIME: 05/04/2018 1:18 pm REASON FOR STUDY: fall/injury to face and head COMPARISON: None. TECHNIQUE: Axial images acquired through the cervical spine without intravenous contrast. Images re viewed with lung, soft tissue and bone windows. Reconstructed coronal and sagittal MPR images review ed. Images stored on PACS. All CT scanners at this facility use dose modulation, iterative reconstruction, and/or weight based d osing when appropriate to reduce radiation dose to as low as reasonably achievable (ALARA). [facility]: Dose Right [facility]: CareDose [facility]: Dose Right [facility]: Teradose 4D [facility]: Smart [employer] RADIATION DOSE: CT Rad equipment meets quality standard of care and radiation dose reduction techniq ues were employed. CTDIvol: 29.4 mGy. DLP: 656 mGy-cm. mGy. LIMITATIONS: None. FINDINGS: ALIGNMENT: Straightening of the normal cervical lordosis MINERALIZATION: Normal. VERTEBRAL BODIES: No fractures or dislocation. DISCS: Severe multilevel disc degenerative disease and osteophytosis. FACETS, LATERAL MASSES, POSTERIOR ELEMENTS: No fractures. No dislocation. No acute findings. HARDWARE: None in the spine. VISUALIZED RIBS: No fractures. LUNG APICES AND SOFT TISSUES: No significant or acute findings. OTHER: No other significant finding. IMPRESSION: No fracture or static subluxation of the cervical spine. Severe multilevel disc degener ative disease. TECHNICAL DOCUMENTATION: JOB ID: [id number] Quality ID # [id number]: Final reports with documentation of one or more dose reduction techniques (e.g., Au tomated exposure control, adjustment of the mA and/or kV according to patient size, use of iterative reconstruction technique) 2010 [employer]- All Rights Reserved Reading location - IP/workstation name: [email or web address]
[2018-05-04] MEDS ORDERED: LIDOCAINE 1%/EPINEPHRINE INJ 20 ML VIAL INJ ONE (15:01)
[2018-05-04] MEDS ORDERED: OXYCODONE-ACETAMINOPHEN 5-325 MG TABLET PO ONE (15:01)
--- NOTE | 2018-05-04 16:10 | ER Document Report ---
HPI - HPI Patient complains to provider of: fall, nose laceration Time Seen by Provider: 05/04/18 12:49 Pain Level: 1 Context: Patient is a 59-year-old male presents to the emergency department after tripping and falling on the concrete steps onto his nose. Patient denies any loss of consciousness, denies any feeling of weakness, dizziness, lightheadedness prior to the fall. States it was a mechanical fall. Patient does admit to taking a daily aspirin but denies taking any blood thinners. Patient did state he initially had blood from bilateral nares which has since stopped. Patient's only complaint at this time is pain in his nose. Past medical history: Diabetes, COPD, sleep apnea Medications: Unknown Allergies: None Patient is unsure of when his last tetanus immunization was. - REPRODUCTIVE Reproductive: DENIES: : - DERM Skin Color: Normal, [place] Past Medical History - General Information source: Patient - Social History Smoking Status: Never Smoker Chew tobacco use (# tins/day): No Frequency of alcohol use: Rare Drug Abuse: None Family History: COPD Patient has suicidal ideation: No Patient has homicidal ideation: No - Past Medical History Cardiac Medical History: Reports: Hx Hypercholesterolemia, Hx Hypertension Denies: Hx Coronary Artery Disease, Hx Heart Attack Pulmonary Medical History: Reports: Hx COPD, Hx Sleep Apnea Denies: Hx Asthma, Hx Bronchitis, Hx Pneumonia Neurological Medical History: Denies: Hx Cerebrovascular Accident, Hx Seizures Endocrine Medical History: Reports: Hx Diabetes Mellitus Type 2 - Insulin- dependent Renal/ Medical History: Denies: Hx Peritoneal Dialysis Malignancy Medical History: Reports 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 GI Medical History: Reports: Hx Gastroesophageal Reflux Disease Musculoskeletal Medical History: Reports Hx Arthritis Psychiatric Medical History: Denies: Hx Depression Past Surgical History: Reports: Hx Cholecystectomy, Hx Neurologic Surgery - right hip nerve stim., Hx Orthopedic Surgery - back stimulator - Immunizations Hx Diphtheria, Pertussis, Tetanus Vaccination: Yes Hx Pneumococcal Vaccination: 12/25/17 Vertical Provider Document - CONSTITUTIONAL Agree With Documented VS: Yes Notes: GENERAL: Alert, interacts well. No acute distress. HEAD: Normocephalic EYES: Pupils equal, round, and reactive to light. Extraocular movements intact. ENT: Oral mucosa moist, tongue midline. Nares patent, dried blood bilateral nares no nasal septal hematoma, TM's intact, no hemotympanum bilaterally. Swelling noted to patient's nose with a 3 cm jagged vertical laceration down the middle of the patient's nose. NECK: Full range of motion. Supple. Trachea midline. LUNGS: Clear to auscultation bilaterally, no wheezes, rales, or rhonchi. No respiratory distress. HEART: Regular rate and rhythm. No murmur ABDOMEN: Soft, non-tender. Non-distended. Bowel sounds present in all 4 quadrants. EXTREMITIES: Moves all 4 extremities spontaneously. No edema, normal radial and dorsalis pedis pulses bilaterally. No cyanosis. BACK: no cervical, thoracic, lumbar midline tenderness. No saddle anesthesia, normal distal neurovascular exam. NEUROLOGICAL: Alert and oriented x3. Normal speech. cranial nerves II through XII grossly intact. PSYCH: Normal affect, normal mood. SKIN: Warm, dry, normal turgor. - INFECTION CONTROL TRAVEL OUTSIDE OF THE [place] IN LAST 30 DAYS: No Course - Re-evaluation Re-evalutation: 05/04/18 16:[address] Moreno who stated to loosely suture the lacerations on the patient's nose, place him on an antibiotic Keflex and have him follow-up with ENT tomorrow morning. Laceration repaired, patient tolerated procedure well. Patient CT does show a nasal fracture, no intracranial bleeding or other fracture seen. - Vital Signs Vital signs: Temp Pulse Resp BP Pulse Ox 97.8 F 92 20 126/49 H 92 05/04/18 12:27 05/04/18 12:27 05/04/18 12:27 05/04/18 12:27 05/04/18 12:27 Procedures - Laceration/Wound Repair face Wound length (cm): 3 Wound's Depth, Shape: Superficial, Irregular, Contused tissue Laceration pre-procedure: Sterile PPE donned, Sterile drapes applied, Shur-Clens applied, Other Anesthetic type: 1% Lidocaine w/epi Volume Anesthetic (mLs): 5 Wound explored: Clean Irrigated w/ Saline (mLs): 200 Wound Debrided: Minimal Wound Repaired With: Sutures Suture Size/Type: 5:0, Vicryl Number of Sutures: 5 Post-procedure wound care: Sterile dressing applied Post-procedure NV exam normal: Yes Complications: No Discharge - Discharge Clinical Impression: Epistaxis Nasal bone fracture Qualifiers: Encounter type: initial encounter Fracture type: open Qualified Code(s): S02.2XXB - Fracture of nasal bones, initial encounter for open fracture Nasal laceration Qualifiers: Encounter type: initial encounter Qualified Code(s): S01.21XA - Laceration without foreign body of nose, initial encounter Condition: Stable Disposition: HOME, SELF-CARE Instructions: Laceration Care ([facility]), Prophylactic Antibiotic ([facility]), Tetanus Immunization Given ([facility]) Additional Instructions: As we discussed you have been seen and treated in the emergency department for a fall. You did fracture your nasal bone and sustained a laceration on your nose. Please take antibiotics as prescribed. Please keep the wound clean and dry. Please return to the emergency room immediately should you see any signs of infection. Please follow-up with the ENT Dr. Rabago tomorrow. His phone number is provided in this packet. Prescriptions: Cephalexin Monohydrate [Keflex 500 mg Capsule] 500 mg PO BID 7 Days #14 capsule Docusate Sodium [Colace 100 mg Capsule] 100 mg PO DAILY #30 capsule Hydrocodone/Acetaminophen [[place] 10-325 mg Tablet] 1 tab PO Q6 PRN #16 tablet PRN Reason: Referrals: REECE RABAGO DO [ASSOCIATE] - Follow up as needed
[2018-05-04] MEDS ORDERED: DIPH/PERTUSS(ACELL)/TETANUS VAC/PF 0.5 ML SYR (>=10YO) IM ONE (16:11)
[2018-05-04] MEDS ORDERED: CEPHALEXIN 500 MG CAPSULE PO ONE (16:15)
[2018-05-04 17:19] VITALS: BP 109/63
== END 2018-05-04 17:10 | disposition home or self-care (01) ==
LOC: ER 12:04
DX: S02.2XXB Fracture of nasal bones, initial encounter for open fracture (principal); W10.8XXA Fall (on) (from) other stairs and steps, initial encounter; E11.9 Type 2 diabetes mellitus without complications; J44.9 Chronic obstructive pulmonary disease, unspecified; Z79.82 Long term (current) use of aspirin; Z85.828 Personal history of other malignant neoplasm of skin
CPT/HCPCS: 99284; 90471; 70450; 70486; 72125; 90715; 12013; A9270 ×2; J3490

== ENCOUNTER 2018-05-05 19:00 | Inpatient (IN) | payer MEDICARE, OTHER ==
[2018-05-05] MEDS ORDERED: IPRATROPIUM/ALBUTEROL 0.5-2.5 MG/3 ML AMPUL NEB ONE ×2 (19:17→20:06)
[2018-05-05] MEDS ORDERED: METHYLPREDNISOLONE INJ 125 MG/2 ML SDV IV ONE (19:25)
--- NOTE | 2018-05-05 19:47 | ER Document Report ---
ED General - General Mode of Arrival: Ambulatory Information source: Patient TRAVEL OUTSIDE OF THE [place] IN LAST 30 DAYS: No <JOJO MCCALLUM - Last Filed: 05/05/18 23:54> <DESHAUN RUIZ - Last Filed: 05/06/18 01:15> - General Chief Complaint: Shortness Of Breath Stated Complaint: SHORTNESS OF BREATH Time Seen by Provider: 05/05/18 19:15 Notes: Patient is a 67 year old male with COPD, type 2 diabetes presents to the em ergency department complaining of shortness of breath onset today. Patient states he had a sudden onset earlier today and another episode prior to arrival. Patient mentions breaking his nose yesterday secondary to a mechanical trip and fall. Patient states he has had recent episodes of shortness of breath but none as severe as today. Patient denies any coughs, fevers or chest pain. Patient mentions an infection in his right foot and an "abscess" on a left toe. (JOJO MCCALLUM) - Related Data Allergies/Adverse Reactions: No Known Allergies Allergy (Verified 05/05/18 19:02) Past Medical History - Social History Family History: COPD - Past Medical History Cardiac Medical History: Reports: Hx Hypercholesterolemia, Hx Hypertension Denies: Hx Coronary Artery Disease, Hx Heart Attack Pulmonary Medical History: Reports: Hx COPD, Hx Sleep Apnea Denies: Hx Asthma, Hx Bronchitis, Hx Pneumonia Neurological Medical History: Denies: Hx Cerebrovascular Accident, Hx Seizures Endocrine Medical History: Reports: Hx Diabetes Mellitus Type 2 - Insulin- dependent Renal/ Medical History: Denies: Hx Peritoneal Dialysis Malignancy Medical History: Reports 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 GI Medical History: Reports: Hx Gastroesophageal Reflux Disease Musculoskeletal Medical History: Reports Hx Arthritis Psychiatric Medical History: Denies: Hx Depression Past Surgical History: Reports: Hx Cholecystectomy, Hx Neurologic Surgery - right hip nerve stim., Hx Orthopedic Surgery - back stimulator - Immunizations Hx Diphtheria, Pertussis, Tetanus Vaccination: Yes Hx Pneumococcal Vaccination: 12/25/17 <JOJO MCCALLUM - Last Filed: 05/05/18 23:54> - Social History Smoking Status: Unknown if Ever Smoked <DESHAUN RUIZ - Last Filed: 05/06/18 01:15> Review of Systems - Review of Systems Constitutional: No symptoms reported EENT: No symptoms reported Cardiovascular: No symptoms reported Respiratory: See HPI, Short of breath Gastrointestinal: No symptoms reported Genitourinary: No symptoms reported Male Genitourinary: No symptoms reported Musculoskeletal: No symptoms reported Skin: No symptoms reported, Change in color Hematologic/Lymphatic: No symptoms reported Neurological/Psychological: No symptoms reported -: Yes All other systems reviewed and negative <JOJO MCCALLUM - Last Filed: 05/05/18 23:54> Physical Exam <JOJO MCCALLUM - Last Filed: 05/05/18 23:54> - Extremities General upper extremity: Normal inspection General lower extremity: Other - Ulcer to top of great hallux on the right. No erythema or discharge Ulceration to second toe on the left. No erythema or discharge <DESHAUN RUIZ - Last Filed: 05/06/18 01:15> - Vital signs Vitals: Temp Pulse Resp BP Pulse Ox 97.6 F 106 H 28 H 159/97 H 83 L 05/05/18 19:05 05/05/18 19:05 05/05/18 19:05 05/05/18 19:05 05/05/18 19:05 - Notes Notes: GENERAL: Alert, interacts well. No acute distress. HEAD: Normocephalic. Healing laceration on nose. EYES: Pupils equal, round, and reactive to light. Extraocular movements intact. ENT: Oral mucosa moist, tongue midline. NECK: Full range of motion. Supple. Trachea midline. LUNGS: Retractions, tachypneic, poor air movment, wheezes. Respiratory distress. HEART: Regular rate and rhythm. No murmurs, gallops, or rubs. ABDOMEN: Soft, non-tender. Non-distended. Bowel sounds present in all 4 quadr ants. EXTREMITIES: Moves all 4 extremities spontaneously. NEUROLOGICAL: Alert and oriented x3. Normal speech. PSYCH: Normal affect, normal mood. SKIN: Warm, dry, normal turgor. No rashes or lesions noted. (JOJO MCCALLUM) Patient with moderate distress on initial exam (DESHAUN RUIZ) Course - Laboratory Result Diagrams: 05/05/18 19:42 05/05/18 19:42 <JOJO MCCALLUM - Last Filed: 05/05/18 23:54> - Laboratory Result Diagrams: 05/05/18 19:42 05/05/18 19:42 <DESHAUN RUIZ - Last Filed: 05/06/18 01:15> - Re-evaluation Re-evalutation: 05/05/18 20:10 Patient recheck. Rate of breathing improved. 05/05/18 22:15 Dr. Chacon accepts the patient to his services. (JOJO MCCALLUM) Patient is a 67-year-old male who comes in with difficulty breathing and respiratory distress, as well as an oxygen saturation in the low 80s. He does not wear oxygen at home. Patient is improved after DuoNeb, Solu-Medrol, and magnesium; however, he is still on oxygen and drops to the 80s with ambulation. Discussed with the hospitalist service will accept for admission. No evidence for pneumonia. Stable on nasal cannula. Will admit to telemetry. (DESHAUN RUIZ) - Vital Signs Vital signs: Temp Pulse Resp BP Pulse Ox 98.0 F 99 18 144/64 H 90 L 05/05/18 23:13 05/06/18 00:44 05/06/18 00:44 05/05/18 23:13 05/06/18 00:44 - Laboratory Laboratory results interpreted by me: 05/05/18 05/05/18 05/05/18 19:42 19:42 21:19 Hgb 13.2 L RDW 17.2 H Glucose 204 H Alkaline Phosphatase 132 H Total Protein 6.2 L Urine Glucose (UA) >=500 H Urine Urobilinogen 4.0 H Critical Care Note - Critical Care Note Total time excluding time spent on procedures (mins): 35 - Evaluation and management of respiratory distress, hypoxia, COPD exacerbation, multiple re- evaluations, coordination of admission, interpretation of labs and chest x-rays, counseling of patient <DESHAUN RUIZ - Last Filed: 05/06/18 01:15> Discharge <JOJO MCCALLUM - Last Filed: 05/05/18 23:54> - Discharge Admitting Provider: Oksana Chacon Unit Admitted: Telemetry <DESHAUN RUIZ - Last Filed: 05/06/18 01:15> - Discharge Clinical Impression: COPD exacerbation, Hypoxemia Condition: Stable Disposition: ADMITTED INPATIENT Scribe Attestation: 05/06/18 01:13 I personally performed the services described in the documentation, reviewed and edited the documentation which was dictated to the scribe in my presence, and it accurately records my words and actions. (DESHAUN RUIZ) Scribe Documentation - Scribe Written by Scribe:: Konrad Yoo, 05/05/2017 19:47 acting as scribe for :: Nattyksi <JOJO MCCALLUM - Last Filed: 05/05/18 23:54>
[2018-05-05] MEDS: MAGNESIUM SULFATE/D5W 1 GM/100 ML RTUPB IV SCH ×2 (19:50→21:16)
[2018-05-05 19:56] LABS: ABSOLUTE BASOPHILS # (AUTO) 0.1 10^3/uL (0.0-0.2); ABSOLUTE EOSINOPHILS # (AUTO) 0.3 10^3/uL (0.0-0.6); ABSOLUTE LYMPHOCYTES (AUTO) 2.1 10^3/uL (0.5-4.7); ABSOLUTE MONOCYTES (AUTO) 0.5 10^3/uL (0.1-1.4); ABSOLUTE NEUT (AUTO) 4.8 10^3/uL (1.7-8.2); BASOPHILS % (AUTO) 0.6 % (0-2); EOSINOPHILS % (AUTO) 4.1 % (0-6); HEMATOCRIT 39.6 % (37.9-51.0); HEMOGLOBIN 13.2 g/dL (13.5-17.0); LYMPHOCYTES % (AUTO) 27.3 % (13-45); MEAN CORPUSCULAR HEMOGLOBIN 28.3 pg (27.0-33.4); MEAN CORPUSCULAR HGB CONC 33.3 g/dL (32.0-36.0); MEAN CORPUSCULAR VOLUME 85 fl (80-97); MONOCYTES % (AUTO) 6.9 % (3-13); PLATELET COUNT 194 10^3/uL (150-450); RED BLOOD COUNT 4.65 10^6/uL (4.35-5.55); RED CELL DISTRIBUTION WIDTH 17.2 % (11.5-14.0); SEGMENTED NEUTROPHILS % (AUTO) 61.1 % (42-78); TOTAL CELLS COUNTED % (AUTO) 100 %; WHITE BLOOD COUNT 7.9 10^3/uL (4.0-10.5)
[2018-05-05 19:57] LABS: VENOUS BLOOD PCO2 56.1 mmHg (35-63); VENOUS BLOOD PH 7.35 (7.30-7.42)
--- NOTE | 2018-05-05 20:02 | RADIOLOGY REPORT (SQ) ---
EXAM DESCRIPTION: CHEST SINGLE VIEW COMPLETED DATE/TIME: 05/05/2018 7:53 pm REASON FOR STUDY: SOB COMPARISON: 03/18/2018. EXAM PARAMETERS: NUMBER OF VIEWS: One view. TECHNIQUE: Single frontal radiographic view of the chest acquired. RADIATION DOSE: NA LIMITATIONS: None. FINDINGS: LUNGS AND PLEURA: No opacities, masses or pneumothorax. No pleural effusion. MEDIASTINUM AND HILAR STRUCTURES: No masses. Contour normal. HEART AND VASCULAR STRUCTURES: Heart normal in size. Normal vasculature. BONES: No acute findings. HARDWARE: Spinal stimulator electrodes. OTHER: No other significant finding. IMPRESSION: NO ACUTE RADIOGRAPHIC FINDING IN THE CHEST. TECHNICAL DOCUMENTATION: JOB ID: [id number] [employer]- All Rights Reserved Reading location - IP/workstation name: [email or web address]
[2018-05-05 20:03] LABS: PROTHROMBIN TIME 12.6 SEC (11.4-15.4)
[2018-05-05 20:19] LABS: ALANINE AMINOTRANSFERASE 40 U/L (21-72); ALBUMIN 3.9 g/dL (3.5-5.0); ALKALINE PHOSPHATASE 132 U/L (38-126); ANION GAP 10 (5-19); ASPARTATE AMINO TRANSFERASE 20 U/L (17-59); BILIRUBIN,DIRECT 0.1 mg/dL (0.0-0.4); BILIRUBIN,TOTAL 0.7 mg/dL (0.2-1.3); BLOOD UREA NITROGEN 19 mg/dL (7-20); CALCIUM 9.1 mg/dL (8.4-10.2); CARBON DIOXIDE 29 mmol/L (22-30); CHLORIDE 102 mmol/L (98-107); GLUCOSE 204 mg/dL (75-110); POTASSIUM 4.2 mmol/L (3.6-5.0); SODIUM 140.5 mmol/L (137-145); TOTAL PROTEIN 6.2 g/dL (6.3-8.2)
[2018-05-05 21:44] LABS: APPEARANCE,URINE CLEAR; BILIRUBIN,URINE NEGATIVE (NEGATIVE); COLOR,URINE YELLOW; GLUCOSE, URINE >=500 mg/dL (NEGATIVE); KETONES,URINE NEGATIVE (NEGATIVE); LEUKOCYTE ESTERASE,URINE NEGATIVE (NEGATIVE); NITRITE,URINE NEGATIVE (NEGATIVE); PROTEIN,URINE NEGATIVE (NEGATIVE); URINE SPECIFIC GRAVITY 1.032
[2018-05-05] MEDS ORDERED: ONDANSETRON HCL INJ/PF 4 MG/2 ML SDV IV ONE (21:57)
[2018-05-05] MEDS ORDERED: IBUPROFEN 800 MG TABLET PO PRN (23:05)
[2018-05-05] MEDS ORDERED: ACETAMINOPHEN 650 MG SUPP.RECT PR PRN (23:09)
[2018-05-05] MEDS ORDERED: NICOTINE 21 MG/24 HR PATCH.TD24 TD PRN (23:09)
[2018-05-05] MEDS ORDERED: ACETAMINOPHEN 325 MG TABLET PO PRN (23:09)
[2018-05-05] MEDS ORDERED: ALBUTEROL SULFATE 0.083% NEB 2.5 MG/3 ML AMPUL NEB PRN (23:09)
[2018-05-05] MEDS ORDERED: MORPHINE SULFATE 10 MG/ML INJ IV PRN ×3 (23:09)
[2018-05-05] MEDS ORDERED: MAG HYDROX/AL HYDROX/SIMETH SUSP 30 ML UDCUP PO PRN (23:12)
[2018-05-05] MEDS ORDERED: ONDANSETRON 4 MG TAB.RAPDIS PO PRN (23:12)
[2018-05-05] MEDS ORDERED: MAGNESIUM HYDROXIDE SUSP 30 ML UDCUP PO PRN (23:12)
[2018-05-05] MEDS ORDERED: ONDANSETRON HCL INJ/PF 4 MG/2 ML SDV IV PRN (23:12)
[2018-05-05] MEDS ORDERED: INSULIN LISPRO 100 UNIT/ML 3 ML VIAL SUBCUT SCH (23:30)
[2018-05-05] MEDS ORDERED: HEPARIN SOD (PORCINE) 5,000 UNIT/ML 1 ML SYRINGE SUBCUT ONE (23:45)
[2018-05-05] MEDS ORDERED: CHOLECALCIFEROL (D3) 1,000 UNIT TABLET PO ONE (23:45)
[2018-05-05] MEDS ORDERED: ATORVASTATIN CALCIUM 20 MG TABLET PO ONE (23:45)
[2018-05-05] MEDS ORDERED: FUROSEMIDE 40 MG TABLET PO ONE (23:45)
[2018-05-05] MEDS ORDERED: CEPHALEXIN 500 MG CAPSULE PO ONE (23:45)
[2018-05-05] MEDS ORDERED: FAMOTIDINE 20 MG TABLET PO ONE (23:45)
[2018-05-05] MEDS ORDERED: PRAMIPEXOLE DI-HCL 0.5 MG TABLET PO ONE (23:45)
[2018-05-05] MEDS ORDERED: TAMSULOSIN HCL 0.4 MG CAP.SR.24H PO ONE (23:49)
[2018-05-06] MEDS ORDERED: INSULIN LISPRO 100 UNIT/ML 3 ML VIAL SUBCUT ONE (00:15)
[2018-05-06] MEDS ORDERED: INSULIN LISPRO 100 UNIT/ML 3 ML VIAL SUBCUT PRN (00:30)
[2018-05-06] MEDS: LEVALBUTEROL HCL NEB 1.25 MG/3 ML AMPUL NEB SCH ×2 (00:44→08:30)
[2018-05-06] MEDS: IPRATROPIUM BROMIDE 0.02% NEB 0.5 MG/2.5 ML AMPUL NEB SCH ×2 (00:44→08:29)
[2018-05-06] MEDS: METHYLPREDNISOLONE INJ 40 MG/1 ML SDV IV SCH ×3 (01:08→12:02)
[2018-05-06] MEDS ORDERED: PRAMIPEXOLE DI-HCL 0.5 MG TABLET ONE (02:11)
[2018-05-06] MEDS: HEPARIN SOD (PORCINE) 5,000 UNIT/ML 1 ML SYRINGE SUBCUT SCH ×2 (05:12→13:46)
--- NOTE | 2018-05-06 05:36 | PDOC H&P ---
History of Present Illness Admission Date/PCP: 05/05/18 22:21 ROSANGELA AMOR MD Patient complains of: Dyspnea History of Present Illness: LIONEL CHESTER is a 67 year old male who presented to the emergency room with acute onset of dyspnea on the day of admission. He admits that he developed acute dyspnea earlier in the day which seemed to improve with treatment at home but then reoccurred and was severe and without improvement on home therapy. He denies accompanying signs or symptoms but admits having had prior similar episodes with exacerbations of COPD. He has not identified any aggravating or other ameliorating factors for his acute dyspnea. In the emergency room he was found to have acute hypoxic respiratory failure which responded to supplemental oxygen. His respiratory status did improve to some degree with intravenous steroids, IV magnesium sulfate and nebulizer treatments however he continued to be hypoxic without supplemental oxygen. Because of his acute respiratory failure with hypoxia he is admitted for further evaluation and treatment. Past Medical History Cardiac Medical History: Reports: Hyperlipidema, Hypertension Denies: Coronary Artery Disease, Myocardial Infarction Pulmonary Medical History: Reports: Chronic Obstructive Pulmonary Disease (COPD), Sleep Apnea - LAURIE uses CPAP at home Denies: Asthma, Bronchitis, Pneumonia EENT Medical History: Reports: None Neurological Medical History: Denies: Multiple Sclerosis, Seizures Endocrine Medical History: Reports: Diabetes Mellitus Type 2 - Insulin- dependent, Obesity Denies: Diabetes Mellitus Type 1, Hyperthyroidism, Hypothyroidism Renal/ Medical History: Denies: Chronic Kidney Disease, Nephrolithiasis Malignancy Medical History: Reports: 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 GI Medical History: Reports: Gastroesophageal Reflux Disease Denies: Cirrhosis, Hepatitis Musculoskeltal Medical History: Reports: Arthritis Denies: Gout Skin Medical History: Denies: Eczema, Psoriasis Psychiatric Medical History: Reports: Tobacco Dependency Denies: Alcohol Dependency, Depression, Substance Abuse Hematology: Denies: Anemia Past Surgical History Past Surgical History: Reports: Cholecystectomy, Orthopedic Surgery - back stimulator Social History Information Source: Patient Lives with: Spouse/Significant other Smoking Status: Former Smoker Frequency of Alcohol Use: Rare Hx Recreational Drug Use: No Drugs: None Hx Prescription Drug Abuse: No - Advance Directive Resuscitation Status: Full Code Surrogate healthcare decision maker:: Family History Family History: COPD Parental Family History Reviewed: Yes Children Family History Reviewed: No Sibling(s) Family History Reviewed.: Yes Medication/Allergy Home Medications: Aclidinium [place] [Tudorza Pressair] 1 puff IN Q12 10/12/16 Albuterol Sulfate [Ventolin HFA MDI 18 GM] 2 puff IH Q4HP PRN 10/12/16 Aspirin [Ecotrin 81 mg EC Tablet] 81 mg PO DAILY 10/12/16 Cholecalciferol (Vitamin D3) [Vitamin D3 1000 Unit Tablet] 1,000 unit PO BID 10/12/16 Empagliflozin [Jardiance] 25 mg PO DAILY 10/12/16 Ezetimibe [Zetia 10 mg Tablet] 10 mg PO DAILY 10/12/16 Flaxseed Oil [Flaxseed] 1,000 mg PO DAILY 10/12/16 Fluticasone/Salmeterol [Advair 250-50 Diskus 28 dose] 1 puff IN Q12 10/12/16 Furosemide [Lasix] 40 mg PO BID 10/12/16 Ibuprofen [Motrin 800 mg Tablet] 800 mg PO Q8H PRN 10/12/16 Insulin Aspart [Novolog Insulin (Aspart) 100 unit/mL] 40 unit SUBCUT MEALS 10/12/16 Losartan Potassium [Cozaar 50 mg Tablet] 50 mg PO DAILY 10/12/16 Multivitamin [Tab-A-Priscilla] 1 each PO DAILY 10/12/16 Tamsulosin HCl [Flomax 0.4 mg Cap.sr] 0.4 mg PO BID 10/12/16 Atorvastatin Calcium [Lipitor 20 mg Tablet] 20 mg PO QHS 03/13/17 Isosorbide Mononitrate [Isosorbide Mononitrate ER] 30 mg PO DAILY 03/13/17 Mirabegron [Myrbetriq] 50 mg PO DAILY 03/13/17 Pramipexole Di-HCl [Mirapex] 2 mg PO QHS 03/13/17 Pramipexole Di-HCl [Pramipexole Dihydrochloride] 1 mg PO QAM 03/13/17 Exenatide Microspheres [Bydureon Bcise] 2 mg SQ WE@0800 03/18/18 Finasteride [Proscar 5 mg Tablet] 5 mg PO DAILY 03/18/18 Insulin Aspart [Novolog Insulin (Aspart) 100 unit/mL] 10 units SUBCUT .SNACKS 03/18/18 Insulin Degludec [Tresiba Flextouch U-200] 130 units SUBCUT QHS 03/18/18 Metoprolol Succinate [Toprol Xl 25 mg Tab.sr] 12.5 mg PO DAILY 03/18/18 Omeprazole 40 mg PO ACBRKFST 03/18/18 Acetaminophen [Tylenol 325 mg Tablet] 650 mg PO Q4HP PRN tablet 03/19/18 Doxycycline Hyclate [Vibramycin 100 mg Tablet] 100 mg PO BID #20 tablet 03/19/18 Guaifenesin [Mucinex Sr 600 mg Tablet.sa] 600 mg PO Q12 #28 tablet.sa 03/19/18 Prednisone [Deltasone] 60 mg PO DAILY #15 tablet 03/19/18 Cephalexin Monohydrate [Keflex 500 mg Capsule] 500 mg PO BID 7 Days #14 capsule 05/04/18 Docusate Sodium [Colace 100 mg Capsule] 100 mg PO DAILY #30 capsule 05/04/18 Hydrocodone/Acetaminophen [[place] 10-325 mg Tablet] 1 tab PO Q6 PRN #16 tablet 05/04/18 Allergies/Adverse Reactions: No Known Allergies Allergy (Verified 05/05/18 19:02) Review of Systems Constitutional: ABSENT: chills, fever(s) Eyes: ABSENT: visual disturbances, other - Ocular pain Ears: ABSENT: hearing changes, other - Ear pain Nose, Mouth, and Throat: ABSENT: mouth pain, sore throat Cardiovascular: PRESENT: dyspnea on exertion. ABSENT: chest pain, edema, orthropnea, palpitations Respiratory: PRESENT: dyspnea. ABSENT: cough, hemoptysis Gastrointestinal: ABSENT: abdominal pain, constipation, diarrhea, nausea, vomiting Genitourinary: ABSENT: dysuria, hematuria Musculoskeletal: PRESENT: other - Right foot and left toe pain. ABSENT: joint swelling Integumentary: PRESENT: other - Infections of the right foot and the left toe noted.. ABSENT: pruritus, rash Neurological: ABSENT: confusion, convulsions, memory loss Psychiatric: ABSENT: anxiety, depression Endocrine: ABSENT: cold intolerance, heat intolerance Hematologic/Lymphatic: ABSENT: easy bleeding, easy bruising Physical Exam Vital Signs: Temp Pulse Resp BP Pulse Ox 97.6 F 106 H 15 146/66 H 91 L 05/05/18 19:05 05/05/18 19:05 05/05/18 22:04 05/05/18 21:01 05/05/18 22:04 Intake & Output 05/03/18 05/04/18 05/05/18 23:59 23:59 23:59 Intake Total 100 Balance 100 Weight 141.5 kg General appearance: PRESENT: no acute distress, cooperative, morbidly obese Head exam: PRESENT: normocephalic, other - Nasal exam reveals a contusion with ecchymosis, abrasion and repaired laceration of the right mid and distal nose. Eye exam: PRESENT: conjunctiva pink, EOMI. ABSENT: periorbital swelling, scleral icterus Ear exam: PRESENT: normal external ear exam. ABSENT: bleeding, drainage Mouth exam: PRESENT: dry mucosa, neck supple Neck exam: ABSENT: JVD, thyromegaly, tracheal deviation Respiratory exam: PRESENT: decreased breath sounds - Minimally decreased breath sounds throughout all cooley consistent with mild to moderate COPD, prolonged expiratory phas - Minimally prolonged expiratory phase in all cooley, symmetrical, wheezes - Mild expiratory wheezes throughout all cooley. ABSENT: accessory muscle use, rales, retraction, rhonchi Cardiovascular exam: PRESENT: RRR. ABSENT: clicks, gallop, rubs Pulses: PRESENT: normal radial pulses, normal dorsalis pedis pul Vascular exam: PRESENT: normal capillary refill. ABSENT: pallor GI/Abdominal exam: PRESENT: normal bowel sounds, soft Rectal exam: PRESENT: deferred Extremities exam: PRESENT: pedal edema - Trace bilaterally. ABSENT: joint swelling, tenderness Musculoskeletal exam: PRESENT: full ROM, normal inspection Neurological exam: PRESENT: alert, oriented to person, oriented to place, oriented to time, oriented to situation, CN II-XII grossly intact. ABSENT: motor sensory deficit Psychiatric exam: PRESENT: appropriate affect, normal mood Skin exam: PRESENT: dry, intact, warm. ABSENT: jaundice, rash, urticaria Results Laboratory Results: 05/05/18 19:42 05/05/18 19:42 05/05/18 05/05/18 05/05/18 19:42 19:42 19:42 WBC 7.9 RBC 4.65 Hgb 13.2 L Hct 39.6 MCV 85 MCH 28.3 MCHC 33.3 RDW 17.2 H Plt Count 194 Seg Neutrophils % 61.1 Lymphocytes % 27.3 Monocytes % 6.9 Eosinophils % 4.1 Basophils % 0.6 Absolute Neutrophils 4.8 Absolute Lymphocytes 2.1 Absolute Monocytes 0.5 Absolute Eosinophils 0.3 Absolute Basophils 0.1 VBG pH VBG pCO2 VBG HCO3 VBG Base Excess Sodium 140.5 Potassium 4.2 Chloride 102 Carbon Dioxide 29 Anion Gap 10 BUN 19 Creatinine 0.92 Est GFR ( Amer) > 60 Est GFR (Non-Af Amer) > 60 Glucose 204 H Lactic Acid 1.9 Calcium 9.1 Total Bilirubin 0.7 AST 20 ALT 40 Alkaline Phosphatase 132 H Total Protein 6.2 L Albumin 3.9 Urine Color Urine Appearance Urine pH Ur Specific [place] Urine Protein Urine Glucose (UA) Urine Ketones Urine Blood Urine Nitrite Ur Leukocyte Esterase Urine WBC (Auto) 05/05/18 05/05/18 19:42 21:19 WBC RBC Hgb Hct MCV MCH MCHC RDW Plt Count Seg Neutrophils % Lymphocytes % Monocytes % Eosinophils % Basophils % Absolute Neutrophils Absolute Lymphocytes Absolute Monocytes Absolute Eosinophils Absolute Basophils VBG pH 7.35 VBG pCO2 56.1 VBG HCO3 30.0 VBG Base Excess 3.0 Sodium Potassium Chloride Carbon Dioxide Anion Gap BUN Creatinine Est GFR ( Amer) Est GFR (Non-Af Amer) Glucose Lactic Acid Calcium Total Bilirubin AST ALT Alkaline Phosphatase Total Protein Albumin Urine Color YELLOW Urine Appearance CLEAR Urine pH 6.0 Ur Specific [place] 1.032 Urine Protein NEGATIVE Urine Glucose (UA) >=500 H Urine Ketones NEGATIVE Urine Blood NEGATIVE Urine Nitrite NEGATIVE Ur Leukocyte Esterase NEGATIVE Urine WBC (Auto) 1 05/05/18 05/05/18 19:42 20:00 Troponin I < 0.012 NT-Pro-B Natriuret Pep 49 Impressions: Chest X-Ray 05/05/18 19:24 IMPRESSION: NO ACUTE RADIOGRAPHIC FINDING IN THE CHEST. Assessment & Plan - Diagnosis (1) Acute hypoxemic respiratory failure Is this a current diagnosis for this admission?: Yes Plan: Patient will be treated with supplemental oxygen and further intervention as required. His underlying problems will be addressed with an aggressive pulmonary toilet and intravenous steroids. Patient is currently on antibiotic therapy for a integument infection in his right foot and left toe. (2) COPD exacerbation Is this a current diagnosis for this admission?: Yes Plan: Patient be treated with an aggressive pulmonary toilet utilizing Xopenex, Atrovent and albuterol. He will also receive intravenous steroids with Solu- Medrol and will be continued on his home Advair therapy. (3) Diabetes mellitus Qualifiers: Diabetes mellitus type: type 2 Diabetes mellitus alf insulin use: with roller turner use Diabetes mellitus complication status: without complication Qualified Code(s): E11.9 - Type 2 diabetes mellitus without complications; Z79.4 - nursing home (current) use of insulin Is this a current diagnosis for this admission?: Yes Plan: Patient will be continued on his current diabetic therapy as prescribed. Hemoglobin A1c will be obtained to assess the efficacy of his current therape utic regimen. (4) Hypertension Qualifiers: Hypertension type: essential hypertension Qualified Code(s): I10 - Essential (primary) hypertension Is this a current diagnosis for this admission?: Yes Plan: Patient will be maintained on his current antihypertensive therapeutic regiment and his vital signs will be monitored throughout his hospital stay to evaluate the efficacy of therapy. (5) Obstructive sleep apnea on CPAP Is this a current diagnosis for this admission?: Yes Plan: Patient will be continued on his current home CPAP therapy during his hospital course. - Time Time Spent: 30 to 50 Minutes Critical Time spent with patient: Less than 15 minutes Medications reviewed and adjusted accordingly: Yes Anticipated discharge: Home - Inpatient Certification Based on my medical assessment, after consideration of the patient's comorbidities, presenting symptoms, or acuity I expect that the services needed warrant INPATIENT care.: Yes I certify that my determination is in accordance with my understanding of Medicare's requirements for reasonable and necessary INPATIENT services [42 CFR 412.3e].: Yes Medical Necessity: Need Close Monitoring Due to Risk of Patient Decompensation, Need for Nebulizer Therapy and Monitoring of Response, Risk of Complication if Not Cared For in Hospital
[2018-05-06 06:21] LABS: VENOUS BLOOD HCO3 25.8 mmol/L (20-32); VENOUS BLOOD PCO2 46.1 mmHg (35-63); VENOUS BLOOD PH 7.37 (7.30-7.42)
[2018-05-06 06:22] LABS: ABSOLUTE LYMPHOCYTES (AUTO) 0.6 10^3/uL (0.5-4.7); ABSOLUTE MONOCYTES (AUTO) 0.1 10^3/uL (0.1-1.4); ABSOLUTE NEUT (AUTO) 6.8 10^3/uL (1.7-8.2); BASOPHILS % (AUTO) 0.2 % (0-2); EOSINOPHILS % (AUTO) 0.1 % (0-6); HEMATOCRIT 39.4 % (37.9-51.0); LYMPHOCYTES % (AUTO) 8.6 % (13-45); MEAN CORPUSCULAR HEMOGLOBIN 28.1 pg (27.0-33.4); MEAN CORPUSCULAR HGB CONC 32.9 g/dL (32.0-36.0); MEAN CORPUSCULAR VOLUME 85 fl (80-97); MONOCYTES % (AUTO) 1.2 % (3-13); PLATELET COUNT 181 10^3/uL (150-450); RED BLOOD COUNT 4.62 10^6/uL (4.35-5.55); RED CELL DISTRIBUTION WIDTH 17.4 % (11.5-14.0); SEGMENTED NEUTROPHILS % (AUTO) 89.9 % (42-78); TOTAL CELLS COUNTED % (AUTO) 100 %; WHITE BLOOD COUNT 7.5 10^3/uL (4.0-10.5)
[2018-05-06 06:45] LABS: ANION GAP 12 (5-19); BLOOD UREA NITROGEN 22 mg/dL (7-20); CALCIUM 9.2 mg/dL (8.4-10.2); CARBON DIOXIDE 25 mmol/L (22-30); CHLORIDE 102 mmol/L (98-107); CHOLESTEROL 131.87 mg/dL (0-200); GLUCOSE 362 mg/dL (75-110); POTASSIUM 4.9 mmol/L (3.6-5.0); SODIUM 138.9 mmol/L (137-145); TRIGLYCERIDES 225 mg/dL (<150)
[2018-05-06 06:56] LABS: DIRECT LDL 78 mg/dL (<100)
[2018-05-06 07:03] LABS: FREE T3 2.98 pg/mL (2.77-5.27); FREE T4 (FREE THYROXINE) 1.04 ng/dL (0.78-2.19)
[2018-05-06 07:16] LABS: THYROID STIMULATING HORMONE 0.48 uIU/mL (0.47-4.68)
--- NOTE | 2018-05-06 07:54 | EKG REPORT ---
SEVERITY:- ABNORMAL ECG - SINUS RHYTHM FIRST DEGREE AV BLOCK LAD, CONSIDER LEFT ANTERIOR FASCICULAR BLOCK : Confirmed by: Jos Palumbo MD 06-May-2018 07:53:47
[2018-05-06] MEDS ORDERED: PRAMIPEXOLE DI-HCL 0.5 MG TABLET PO SCH ×2 (08:00→22:00)
[2018-05-06] MEDS: INSULIN LISPRO 100 UNIT/ML 3 ML VIAL SUBCUT SCH ×2 (08:56→12:02)
[2018-05-06] MEDS ORDERED: (PENDING PHARMACY ID) (Empagliflozin [Jardiance] 25 MG) PO SCH (10:00)
[2018-05-06] MEDS ORDERED: FAMOTIDINE 20 MG TABLET PO SCH (10:00)
[2018-05-06] MEDS ORDERED: FLUTICASONE/SALMETEROL DISKUS 250-50 MCG/DOSE IH SCH (10:00)
[2018-05-06] MEDS ORDERED: MULTIVITAMIN TABLET PO SCH (10:00)
[2018-05-06] MEDS ORDERED: DOCUSATE SODIUM 100 MG CAPSULE PO SCH (10:00)
[2018-05-06] MEDS ORDERED: LOSARTAN POTASSIUM 50 MG TABLET PO SCH (10:00)
[2018-05-06] MEDS ORDERED: METOPROLOL SUCCINATE 25 MG TAB.SR.24H PO SCH (10:00)
[2018-05-06] MEDS ORDERED: FUROSEMIDE 40 MG TABLET PO SCH (10:00)
[2018-05-06] MEDS ORDERED: ASPIRIN 81 MG TABLET, ENT COATED PO SCH (10:00)
[2018-05-06] MEDS ORDERED: CEPHALEXIN 500 MG CAPSULE PO SCH (10:00)
[2018-05-06] MEDS ORDERED: CHOLECALCIFEROL (D3) 1,000 UNIT TABLET PO SCH (10:00)
[2018-05-06] MEDS ORDERED: (PENDING PHARMACY ID) (Aclidinium Bromide [Tudorza Pressair] 1 PUFF) IN SCH (10:00)
[2018-05-06] MEDS ORDERED: TAMSULOSIN HCL 0.4 MG CAP.SR.24H PO SCH (10:00)
[2018-05-06] MEDS ORDERED: FINASTERIDE 5 MG TABLET PO SCH (10:00)
[2018-05-06] MEDS ORDERED: ISOSORBIDE MONONITRATE 30 MG TAB.ER.24H PO SCH (10:00)
[2018-05-06] MEDS ORDERED: (PENDING PHARMACY ID) (Mirabegron [Myrbetriq] 50 MG) PO SCH (10:00)
[2018-05-06 12:04] VITALS: BP 144/74
--- NOTE | 2018-05-06 19:17 | PDOC DISCHARGE SUMMARY ---
General - Admit/Disc Date/PCP Admission Date/Primary Care Provider: 05/05/18 22:21 ROSANGELA AMOR MD Discharge Date: 05/06/18 - Discharge Diagnosis (1) COPD exacerbation Is this a current diagnosis for this admission?: Yes Summary: Responded quickly to steroids and bronchodilators - Additional Information Resuscitation Status: Full Code Discharge Diet: Cardiac, Diabetic Discharge Activity: Activity As Tolerated Prescriptions: Prednisone [Deltasone 20 mg Tablet] 40 mg PO DAILY #10 tablet Home Medications: Aclidinium [place] [Tudorza Pressair] 1 puff IH Q12 05/06/18 Albuterol Sulfate [Proair HFA Inhalation Aerosol 8.5 gm MDI] 2 puff IH Q4HP PRN 05/06/18 Aspirin [Ecotrin 81 mg EC Tablet] 81 mg PO DAILY 05/06/18 Atorvastatin Calcium [Lipitor 20 mg Tablet] 20 mg PO QHS 05/06/18 Cholecalciferol (Vitamin D3) [Vitamin D3 1000 Unit Tablet] 1,000 mg PO BID 05/06/18 Docusate Sodium [Colace 100 mg Capsule] 100 mg PO DAILY 05/06/18 Empagliflozin [Jardiance] 25 mg PO DAILY 05/06/18 Exenatide Microspheres [Bydureon Pen] 2 mg SQ WE@0800 05/06/18 Ezetimibe [Zetia 10 mg Tablet] 10 mg PO DAILY 05/06/18 Finasteride [Proscar 5 mg Tablet] 5 mg PO DAILY 05/06/18 Flaxseed Oil [Flax Seed Oil] 1,000 mg PO DAILY 05/06/18 Fluticasone/Salmeterol [Advair 250-50 Diskus 14 Dose/Diskus] 1 puff IH Q12 05/06/18 Furosemide [Lasix 40 mg Tablet] 40 mg PO BID 05/06/18 Hydrocodone/Acetaminophen [[place] 10-325 mg Tablet] 1 tab PO BID 05/06/18 Insulin Aspart [Novolog Insulin (Aspart) 100 unit/mL] 10 unit SQ .SNACKS 05/06/18 Insulin Aspart [Novolog Insulin (Aspart) 100 unit/mL] 40 unit SQ MEALS 05/06/18 Insulin Degludec [Tresiba Flextouch U-200] 160 mg PO QHS 05/06/18 Isosorbide Mononitrate [Imdur 30 mg Tablet.er] 30 mg PO DAILY 05/06/18 Losartan Potassium [Cozaar 50 mg Tablet] 50 mg PO DAILY 05/06/18 Metoprolol Succinate [Toprol Xl 25 mg Tab.sr] 12.5 mg PO DAILY 05/06/18 Mirabegron [Myrbetriq] 50 mg PO DAILY 05/06/18 Multivitamin [Daily Multiple Vitamin] 1 tab PO DAILY 05/06/18 Omeprazole 40 mg PO ACBRKFST 05/06/18 Pramipexole Di-HCl [Mirapex] 1 mg PO DAILY 05/06/18 Pramipexole Di-HCl [Mirapex] 2 mg PO QHS 05/06/18 Prednisone [Deltasone 20 mg Tablet] 40 mg PO DAILY #10 tablet 05/06/18 Pregabalin [Lyrica 75 mg Capsule] 75 mg PO Q12 05/06/18 Tamsulosin HCl [Flomax 0.4 mg Cap.sr] 0.4 mg PO BID 05/06/18 History of Present Illness History of Present Illness: LIONEL CHESTER is a 67 year old male who presented to the emergency room with acute onset of dyspnea on the day of admission. He admits that he developed acute dyspnea earlier in the day which seemed to improve with treatment at home but then reoccurred and was severe and without improvement on home therapy. He denies accompanying signs or symptoms but admits having had prior similar episodes with exacerbations of COPD. He has not identified any aggravating or other ameliorating factors for his acute dyspnea. In the emergency room he was found to have acute hypoxic respiratory failure which responded to supplemental oxygen. His respiratory status did improve to some degree with intravenous steroids, IV magnesium sulfate and nebulizer treatments however he continued to be hypoxic without supplemental oxygen. Because of his acute respiratory failure with hypoxia he is admitted for further evaluation and treatment. Hospital Course Hospital Course: He responded pretty quickly to steroids and bronchodilators and we were able to keep him on room air. He was able to ambulate independently without getting too short of breath. He will finish a course of prednisone at home. He has a nebulizer and medicine for it at home. His labs and examination were reassuring and he was discharged in good condition. Physical Exam Vital Signs: Temp Pulse Resp BP Pulse Ox 98.1 F 93 16 144/74 H 92 05/06/18 13:51 05/06/18 13:51 05/06/18 13:51 05/06/18 13:51 05/06/18 13:51 Intake & Output 05/05/18 05/06/18 05/07/18 06:59 06:59 06:59 Intake Total 700 840 Balance 700 840 Weight 141.8 kg General appearance: PRESENT: no acute distress, cooperative, disheveled, morbidly obese Respiratory exam: PRESENT: decreased breath sounds, symmetrical, unlabored. ABSENT: accessory muscle use, prolonged expiratory phas, rales, rhonchi, tachypnea, wheezes Cardiovascular exam: PRESENT: RRR, +S1, +S2, other - Occasional irregular beats Vascular exam: PRESENT: normal capillary refill GI/Abdominal exam: PRESENT: normal bowel sounds, soft. ABSENT: distended, guarding, rebound, tenderness Extremities exam: ABSENT: clubbing, pedal edema Musculoskeletal exam: PRESENT: normal inspection. ABSENT: deformity Neurological exam: PRESENT: alert, awake, oriented to person, oriented to place, oriented to time, oriented to situation Psychiatric exam: PRESENT: appropriate affect, normal mood Skin exam: PRESENT: dry, warm Results Laboratory Results: 05/06/18 06:02 05/06/18 06:02 05/05/18 05/05/18 05/05/18 19:42 19:42 19:42 WBC 7.9 RBC 4.65 Hgb 13.2 L Hct 39.6 MCV 85 MCH 28.3 MCHC 33.3 RDW 17.2 H Plt Count 194 Seg Neutrophils % 61.1 Lymphocytes % 27.3 Monocytes % 6.9 Eosinophils % 4.1 Basophils % 0.6 Absolute Neutrophils 4.8 Absolute Lymphocytes 2.1 Absolute Monocytes 0.5 Absolute Eosinophils 0.3 Absolute Basophils 0.1 VBG pH VBG pCO2 VBG HCO3 VBG Base Excess Sodium 140.5 Potassium 4.2 Chloride 102 Carbon Dioxide 29 Anion Gap 10 BUN 19 Creatinine 0.92 Est GFR ( Amer) > 60 Est GFR (Non-Af Amer) > 60 Glucose 204 H Lactic Acid 1.9 Calcium 9.1 Magnesium Total Bilirubin 0.7 AST 20 ALT 40 Alkaline Phosphatase 132 H Total Protein 6.2 L Albumin 3.9 Triglycerides Cholesterol LDL Cholesterol Direct VLDL Cholesterol HDL Cholesterol TSH Free T4 Free T3 pg/mL Urine Color Urine Appearance Urine pH Ur Specific [place] Urine Protein Urine Glucose (UA) Urine Ketones Urine Blood Urine Nitrite Ur Leukocyte Esterase Urine WBC (Auto) 05/05/18 05/05/18 05/06/18 19:42 21:19 06:02 WBC RBC Hgb Hct MCV MCH MCHC RDW Plt Count Seg Neutrophils % Lymphocytes % Monocytes % Eosinophils % Basophils % Absolute Neutrophils Absolute Lymphocytes Absolute Monocytes Absolute Eosinophils Absolute Basophils VBG pH 7.35 VBG pCO2 56.1 VBG HCO3 30.0 VBG Base Excess 3.0 Sodium Potassium Chloride Carbon Dioxide Anion Gap BUN Creatinine Est GFR ( Amer) Est GFR (Non-Af Amer) Glucose Lactic Acid Calcium Magnesium Total Bilirubin AST ALT Alkaline Phosphatase Total Protein Albumin Triglycerides Cholesterol LDL Cholesterol Direct VLDL Cholesterol HDL Cholesterol TSH 0.48 Free T4 1.04 Free T3 pg/mL 2.98 Urine Color YELLOW Urine Appearance CLEAR Urine pH 6.0 Ur Specific [place] 1.032 Urine Protein NEGATIVE Urine Glucose (UA) >=500 H Urine Ketones NEGATIVE Urine Blood NEGATIVE Urine Nitrite NEGATIVE Ur Leukocyte Esterase NEGATIVE Urine WBC (Auto) 1 05/06/18 05/06/18 05/06/18 06:02 06:02 06:02 WBC 7.5 RBC 4.62 Hgb 13.0 L Hct 39.4 MCV 85 MCH 28.1 MCHC 32.9 RDW 17.4 H Plt Count 181 Seg Neutrophils % 89.9 H Lymphocytes % 8.6 L Monocytes % 1.2 L Eosinophils % 0.1 Basophils % 0.2 Absolute Neutrophils 6.8 Absolute Lymphocytes 0.6 Absolute Monocytes 0.1 Absolute Eosinophils 0.0 Absolute Basophils 0.0 VBG pH 7.37 VBG pCO2 46.1 VBG HCO3 25.8 VBG Base Excess 0 Sodium 138.9 Potassium 4.9 Chloride 102 Carbon Dioxide 25 Anion Gap 12 BUN 22 H Creatinine 0.88 Est GFR ( Amer) > 60 Est GFR (Non-Af Amer) > 60 Glucose 362 H Lactic Acid Calcium 9.2 Magnesium 2.6 H Total Bilirubin AST ALT Alkaline Phosphatase Total Protein Albumin Triglycerides 225 H Cholesterol 131.87 LDL Cholesterol Direct 78 VLDL Cholesterol 45.0 H HDL Cholesterol 32 L TSH Free T4 Free T3 pg/mL Urine Color Urine Appearance Urine pH Ur Specific [place] Urine Protein Urine Glucose (UA) Urine Ketones Urine Blood Urine Nitrite Ur Leukocyte Esterase Urine WBC (Auto) 05/05/18 05/05/18 05/06/18 19:42 20:00 06:02 Troponin I < 0.012 NT-Pro-B Natriuret Pep 49 133 Impressions: Chest X-Ray 05/05/18 19:24 IMPRESSION: NO ACUTE RADIOGRAPHIC FINDING IN THE CHEST. Qualifiers - * PATIENT BEING DISCHARGED WITH ANY OF THE FOLLOWING DIAGNOSIS: No
[2018-05-06] MEDS ORDERED: INSULIN DEGLUDEC SUBCUT SCH (22:00)
[2018-05-06] MEDS ORDERED: ATORVASTATIN CALCIUM 20 MG TABLET PO SCH (22:00)
== END 2018-05-06 14:45 | disposition home or self-care (01) | DRG 192 ==
LOC: ER 19:00 → EH 22:21 → 4N 05-06 00:27
PROVIDERS: ADMIT Emergency Medicine; ATTEND Emergency Medicine
DX: J44.1 Chronic obstructive pulmonary disease with (acute) exacerbation (principal); E78.5 Hyperlipidemia, unspecified; I10 Essential (primary) hypertension; E66.9 Obesity, unspecified; K21.9 Gastro-esophageal reflux disease without esophagitis; M19.90 Unspecified osteoarthritis, unspecified site; E11.621 Type 2 diabetes mellitus with foot ulcer; L97.521 Non-pressure chronic ulcer of other part of left foot limited to breakdown of skin; L97.511 Non-pressure chronic ulcer of other part of right foot limited to breakdown of skin; Z79.899 Other long term (current) drug therapy; G47.33 Obstructive sleep apnea (adult) (pediatric); Z79.01 Long term (current) use of anticoagulants; Z90.49 Acquired absence of other specified parts of digestive tract; Z87.891 Personal history of nicotine dependence; Z79.82 Long term (current) use of aspirin; Z79.4 Long term (current) use of insulin; Z85.828 Personal history of other malignant neoplasm of skin; S01.21XD Laceration without foreign body of nose, subsequent encounter; W19.XXXD Unspecified fall, subsequent encounter
CPT/HCPCS: 36415; 70450; 70486; 71045; 72125; 80048; 80053; 80061; 81001; 82803; 82962; 83036; 83605; 83735; 83880; 84439; 84443; 84481; 84484; 85025; 85610; 87040; 87086; 93005; 93010; 94640; 96365; 96366; 96375; 99291; J1644; J1815; J2920; J2930; J3475; J3490; J7620

== ENCOUNTER → 2018-06-01 | Outpatient (CLI) | payer MEDICARE, OTHER ==
--- NOTE | 2018-06-01 09:19 | RADIOLOGY REPORT (SQ) ---
EXAM DESCRIPTION: FOOT LEFT COMPLETE COMPLETED DATE/TIME: 06/01/2018 8:45 am REASON FOR STUDY: NON-PRS CHRONIC ULCER OTH PRT LEFT FOOT W FAT LAYER EXPOSED COMPARISON: None. NUMBER OF VIEWS: Three views left foot. LIMITATIONS: None. FINDINGS: Normal bone density. No fracture or bone lesion. Mild degenerative spurring in the midfo ot and anterior tibiotalar articulation. Prominent calcaneal bone spur and prominent calcification a long Achilles insertion. If the site of the reported plantar ulcer is not indicated. No bone erosio n or periostitis evident. OTHER: No other significant finding. IMPRESSION: DJD. Achilles enthesopathy. No fracture or bone destruction. TECHNICAL DOCUMENTATION: JOB ID: [id number] Reading location - IP/workstation name: [email or web address]
[2018-06-01 09:21] LABS: ABSOLUTE BASOPHILS # (AUTO) 0.1 10^3/uL (0.0-0.2); ABSOLUTE EOSINOPHILS # (AUTO) 0.4 10^3/uL (0.0-0.6); ABSOLUTE LYMPHOCYTES (AUTO) 1.5 10^3/uL (0.5-4.7); ABSOLUTE MONOCYTES (AUTO) 0.5 10^3/uL (0.1-1.4); ABSOLUTE NEUT (AUTO) 4.6 10^3/uL (1.7-8.2); BASOPHILS % (AUTO) 0.8 % (0-2); EOSINOPHILS % (AUTO) 6.1 % (0-6); HEMATOCRIT 38.4 % (37.9-51.0); HEMOGLOBIN 12.8 g/dL (13.5-17.0); LYMPHOCYTES % (AUTO) 20.9 % (13-45); MEAN CORPUSCULAR HEMOGLOBIN 28.4 pg (27.0-33.4); MEAN CORPUSCULAR HGB CONC 33.3 g/dL (32.0-36.0); MEAN CORPUSCULAR VOLUME 85 fl (80-97); MONOCYTES % (AUTO) 6.9 % (3-13); PLATELET COUNT 209 10^3/uL (150-450); RED CELL DISTRIBUTION WIDTH 17.2 % (11.5-14.0); SEGMENTED NEUTROPHILS % (AUTO) 65.3 % (42-78); TOTAL CELLS COUNTED % (AUTO) 100 %; WHITE BLOOD COUNT 7.1 10^3/uL (4.0-10.5)
[2018-06-01 09:50] LABS: ALANINE AMINOTRANSFERASE 34 U/L (21-72); ALBUMIN 3.6 g/dL (3.5-5.0); ALKALINE PHOSPHATASE 138 U/L (38-126); ANION GAP 9 (5-19); ASPARTATE AMINO TRANSFERASE 17 U/L (17-59); BILIRUBIN,DIRECT 0.2 mg/dL (0.0-0.4); BILIRUBIN,TOTAL 0.6 mg/dL (0.2-1.3); BLOOD UREA NITROGEN 18 mg/dL (7-20); C-REACTIVE PROTEIN 12.4 mg/L (<10.0); CALCIUM 9.4 mg/dL (8.4-10.2); CARBON DIOXIDE 29 mmol/L (22-30); CHLORIDE 105 mmol/L (98-107); GLUCOSE 319 mg/dL (75-110); POTASSIUM 4.5 mmol/L (3.6-5.0); SODIUM 142.6 mmol/L (137-145); TOTAL PROTEIN 5.8 g/dL (6.3-8.2)
[2018-06-01 09:59] LABS: ERYTHROCYTE SEDIMENTATION RATE 26 mm/hr (0-20)
== END ==
LOC: WC 08:22
PROVIDERS: ATTEND Preventive Medicine Undersea and Hyperbaric Medicine
DX: E11.621 Type 2 diabetes mellitus with foot ulcer (principal); L97.522 Non-pressure chronic ulcer of other part of left foot with fat layer exposed
CPT/HCPCS: 36415; 80053; 83036; 85025; 85652; 86140

== ENCOUNTER 2018-06-19 09:54 | Inpatient (IN) | payer MEDICARE, OTHER ==
[2018-06-19] MEDS ORDERED: FUROSEMIDE INJ/PF 20 MG/2 ML SDV IV ONE (10:16)
[2018-06-19] MEDS ORDERED: IPRATROPIUM/ALBUTEROL 0.5-2.5 MG/3 ML AMPUL NEB ONE (10:16)
[2018-06-19] MEDS ORDERED: METHYLPREDNISOLONE INJ 125 MG/2 ML SDV IV ONE (10:18)
--- NOTE | 2018-06-19 10:18 | ER Document Report ---
ED General - General Chief Complaint: Chest Pain Stated Complaint: SHORT OF BREATH Time Seen by Provider: 06/19/18 10:04 Mode of Arrival: Wheelchair Information source: Patient, [facility] Records Notes: 68-year-old male with history of COPD, hypertension, hyperlipidemia, type 2 diabetes, LAURIE, known first-degree heart block presents via private vehicle with complaint of shortness of breath that started earlier this morning. Patient states that he feels like he cannot take a deep breath and despite using his rescue inhaler. Patient denies any recent illness, increased cough or sputum production, fever, leg swelling, history of PE, DVT. He does admit to chronic intermittent chest pain that was worse this morning. Patient no longer smokes. Patient's primary care physician is Dr. Bass TRAVEL OUTSIDE OF THE [place] IN LAST 30 DAYS: No - HPI Onset: This morning Onset/Duration: Sudden Quality of pain: Pressure Associated symptoms: Chest pain, Nausea, Shortness of breath. denies: Chills, Nonproductive cough, Productive cough, Fever, Hurts to breath, Leg swelling, Sweating Exacerbated by: Movement Relieved by: Denies Similar symptoms previously: Yes Recently seen / treated by doctor: Yes - Related Data Allergies/Adverse Reactions: No Known Allergies Allergy (Verified 05/05/18 19:02) Past Medical History - General Information source: Patient - Social History Smoking Status: Former Smoker Frequency of alcohol use: None Drug Abuse: None Lives with: Spouse/Significant other Family History: COPD Patient has suicidal ideation: No Patient has homicidal ideation: No - Past Medical History Cardiac Medical History: Reports: Hx Hypercholesterolemia, Hx Hypertension Denies: Hx Coronary Artery Disease, Hx Heart Attack Pulmonary Medical History: Reports: Hx COPD, Hx Sleep Apnea - LAURIE uses CPAP at home Denies: Hx Asthma, Hx Bronchitis, Hx Pneumonia Neurological Medical History: Denies: Hx Cerebrovascular Accident, Hx Seizures Endocrine Medical History: Reports: Hx Diabetes Mellitus Type 2 - Insulin- dependent. 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 Denies: Hx Cirrhosis, Hx Hepatitis Musculoskeletal Medical History: Reports Hx Arthritis, Denies Hx Gout Skin Medical History: Denies Hx Eczema, Denies Hx Psoriasis Psychiatric Medical History: Denies: Hx Depression Infectious Medical History: Denies: Hx Hepatitis Past Surgical History: Reports: Hx Cholecystectomy, Hx Neurologic Surgery - right hip nerve stim., Hx Orthopedic Surgery - back stimulator - Immunizations Hx Diphtheria, Pertussis, Tetanus Vaccination: Yes Hx Pneumococcal Vaccination: 12/25/17 Review of Systems - Review of Systems Notes: REVIEW OF SYSTEMS: CONSTITUTIONAL : Denies fever, chills, or sweats. Denies recent illness. Denies weight loss, recent hospitalizations. EENT: Denies visual changes, eye pain. Denies sore throat, oral lesions, difficulty swallowing. CARDIOVASCULAR: Denies palpitations. Denies lower extremity edema. RESPIRATORY: Denies cough. Denies wheezing. GASTROINTESTINAL: Denies abdominal pain or distention. Denies nausea, vomiting, or diarrhea. Denies blood in vomitus, stools, or per rectum. Denies black, tarry stools. Denies constipation. GENITOURINARY: Denies difficulty urinating, painful urination, frequency, blood in urine, testicular pain or penile discharge. MUSCULOSKELETAL: Denies back or neck pain or stiffness. Denies joint pain or swelling. SKIN: Denies rash, lesions or sores. HEMATOLOGIC : Denies easy bruising or bleeding. LYMPHATIC: Denies swollen glands. NEUROLOGICAL: Denies confusion or altered mental status. Denies loss of consciousness. Denies dizziness or lightheadedness. Denies headache. Denies weakness or paralysis. Denies problems difficulty with ambulation, slurred speech. Denies sensory loss, numbness, or tingling. Denies seizures. PSYCHIATRIC: Denies anxiety or stress. Denies depression, suicidal ideation, or Physical Exam - Vital signs Vitals: Temp Pulse Resp BP Pulse Ox 99.3 F 116 H 26 H 136/38 H 89 L 06/19/18 09:57 06/19/18 09:57 06/19/18 09:57 06/19/18 09:57 06/19/18 09:57 - Notes Notes: PHYSICAL EXAMINATION: GENERAL: Morbidly obese, smells of urine, mild respiratory distress HEAD: Atraumatic, normocephalic. EYES: Pupils equal round and reactive to light, extraocular movements intact, sclera anicteric, conjunctiva are normal. ENT: Nares patent, oropharynx clear without exudates. Moist mucous membranes. NECK: Normal range of motion, supple without lymphadenopathy LUNGS: Coarse breath sounds bilateral lower lung cooley. Tachypnea, mild accessory muscle use. Patient is on nasal cannula and able to speak in full sentences. No wheezes rales or rhonchi. HEART: Tachycardic, regular rhythm. ABDOMEN: Soft, nontender, nondistended abdomen. No guarding, no rebound. No masses appreciated. Musculoskeletal: Normal range of motion, no pitting or edema. No cyanosis. NEUROLOGICAL: Cranial nerves grossly intact. Normal speech, normal gait. Normal sensory, motor exams PSYCH: Normal mood, normal affect. SKIN: Warm, Dry, normal turgor, no rashes or lesions noted. Course - Re-evaluation Re-evalutation: Laboratory 06/19/18 06/19/18 06/19/18 10:08 10:08 10:08 WBC 15.3 H RBC 4.94 Hgb 13.9 Hct 42.0 MCV 85 MCH 28.2 MCHC 33.2 RDW 17.5 H Plt Count 202 Seg Neutrophils % 87.5 H Lymphocytes % 6.3 L Monocytes % 4.8 Eosinophils % 1.2 Basophils % 0.2 Absolute Neutrophils 13.4 H Absolute Lymphocytes 1.0 Absolute Monocytes 0.7 Absolute Eosinophils 0.2 Absolute Basophils 0.0 VBG pH VBG pCO2 VBG HCO3 VBG Base Excess Sodium 141.0 Potassium 4.3 Chloride 105 Carbon Dioxide 26 Anion Gap 10 BUN 22 H Creatinine 0.92 Est GFR ( Amer) > 60 Est GFR (Non-Af Amer) > 60 Glucose 226 H Calcium 9.4 Total Bilirubin 1.0 Direct Bilirubin 0.2 Neonat Total Bilirubin Not Reportable Neonat Direct Bilirubin Not Reportable Neonat Indirect Bili Not Reportable AST 20 ALT 38 Alkaline Phosphatase 107 Creatine Kinase 61 CK-MB (CK-2) 1.81 Troponin I < 0.012 NT-Pro-B Natriuret Pep 41 Total Protein 5.9 L Albumin 3.7 Urine Color Urine Appearance Urine pH Ur Specific [place] Urine Protein Urine Glucose (UA) Urine Ketones Urine Blood Urine Nitrite Urine Bilirubin Urine Urobilinogen Ur Leukocyte Esterase Urine RBC (Auto) Squamous Epi Cells Auto Urine Mucus (Auto) Urine Ascorbic Acid 06/19/18 06/19/18 12:09 12:46 WBC RBC Hgb Hct MCV MCH MCHC RDW Plt Count Seg Neutrophils % Lymphocytes % Monocytes % Eosinophils % Basophils % Absolute Neutrophils Absolute Lymphocytes Absolute Monocytes Absolute Eosinophils Absolute Basophils VBG pH 7.33 VBG pCO2 50.1 VBG HCO3 25.9 VBG Base Excess -0.7 Sodium Potassium Chloride Carbon Dioxide Anion Gap BUN Creatinine Est GFR ( Amer) Est GFR (Non-Af Amer) Glucose Calcium Total Bilirubin Direct Bilirubin Neonat Total Bilirubin Neonat Direct Bilirubin Neonat Indirect Bili AST ALT Alkaline Phosphatase Creatine Kinase CK-MB (CK-2) Troponin I NT-Pro-B Natriuret Pep Total Protein Albumin Urine Color YELLOW Urine Appearance CLEAR Urine pH 5.0 Ur Specific [place] 1.023 Urine Protein NEGATIVE Urine Glucose (UA) >=500 H Urine Ketones NEGATIVE Urine Blood NEGATIVE Urine Nitrite NEGATIVE Urine Bilirubin NEGATIVE Urine Urobilinogen NEGATIVE Ur Leukocyte Esterase NEGATIVE Urine RBC (Auto) 0 Squamous Epi Cells Auto <1 Urine Mucus (Auto) RARE Urine Ascorbic Acid NEGATIVE Chest/Abdomen CTA 06/19/18 10:16 IMPRESSION: 1. Pulmonary emboli in branches of the left upper and lower lobe pulmonary arteries. No central PE. 2. Associated airspace disease consistent with infarction or infection. Venous Doppler Study 06/19/18 10:16 IMPRESSION: NO EVIDENCE DVT OR SVT IN THE LEFT LEG. Chest X-Ray 06/19/18 10:19 IMPRESSION: Left lower lobe pneumonia. 06/19/18 10:23 68-year-old male presents with complaint of shortness of breath. Vital signs reviewed upon arrival and patient is tachycardic, hypoxic, tachypneic and has increased work of breathing. Patient was given, breathing treatments, Solu- Medrol, magnesium, aspirin. 06/19/18 10:24 06/19/18 10:32 Bedside ultrasound was performed and patient has significant B-lines and both lung cooley which are consistent with interstitial edema. Portable chest x-ray was also obtained and patient has what appears to be a large left lower lobe pneumonia. Patient has not been recently hospitalized within the last 3 months. Patient will now receive IV Lasix and I will start ceftriaxone and doxycycline 06/19/18 12:50 CTA shows pulmonary emboli. Patient was given weight-based Lovenox. He has been accepted by the hospitalist for med telemetry. 06/20/18 09:40 - Vital Signs Vital signs: Temp Pulse Resp BP Pulse Ox 97.3 F 95 14 139/96 H 96 06/20/18 07:14 06/20/18 08:03 06/20/18 08:03 06/20/18 07:14 06/20/18 08:03 - Laboratory Result Diagrams: 06/20/18 06:52 06/20/18 06:52 Laboratory results interpreted by me: 06/19/18 06/19/18 06/19/18 10:08 10:08 12:46 WBC 15.3 H RDW 17.5 H Seg Neutrophils % 87.5 H Lymphocytes % 6.3 L Absolute Neutrophils 13.4 H BUN 22 H Glucose 226 H Total Protein 5.9 L Urine Glucose (UA) >=500 H - Diagnostic Test Radiology reviewed: Image reviewed - EKG Interpretation by Me EKG shows normal: Sinus rhythm Rate: Normal Rhythm: NSR Discharge - Discharge Clinical Impression: Hypoxia, Hyperglycemia, Tachycardia, Morbid obesity Pneumonia Qualifiers: Pneumonia type: due to unspecified organism Laterality: left Lung location: lower lobe of lung Qualified Code(s): J18.1 - Lobar pneumonia, unspecified organism Pulmonary embolism Qualifiers: Pulmonary embolism type: unspecified Chronicity: unspecified Acute cor pulmonale presence: without acute cor pulmonale Qualified Code(s): I26.99 - Other pulmonary embolism without acute cor pulmonale COPD (chronic obstructive pulmonary disease) Qualifiers: COPD type: unspecified COPD Qualified Code(s): J44.9 - Chronic obstructive pulmonary disease, unspecified Condition: Good Disposition: ADMITTED INPATIENT Admitting Provider: Hospitalist Unit Admitted: Telemetry
[2018-06-19] MEDS ORDERED: ONDANSETRON HCL INJ/PF 4 MG/2 ML SDV IV ONE (10:21)
[2018-06-19] MEDS ORDERED: ASPIRIN 81 MG TABLET, CHEWABLE PO ONE (10:24)
[2018-06-19 10:30] LABS: ABSOLUTE EOSINOPHILS # (AUTO) 0.2 10^3/uL (0.0-0.6); ABSOLUTE MONOCYTES (AUTO) 0.7 10^3/uL (0.1-1.4); ABSOLUTE NEUT (AUTO) 13.4 10^3/uL (1.7-8.2); BASOPHILS % (AUTO) 0.2 % (0-2); EOSINOPHILS % (AUTO) 1.2 % (0-6); HEMOGLOBIN 13.9 g/dL (13.5-17.0); LYMPHOCYTES % (AUTO) 6.3 % (13-45); MEAN CORPUSCULAR HEMOGLOBIN 28.2 pg (27.0-33.4); MEAN CORPUSCULAR HGB CONC 33.2 g/dL (32.0-36.0); MEAN CORPUSCULAR VOLUME 85 fl (80-97); MONOCYTES % (AUTO) 4.8 % (3-13); PLATELET COUNT 202 10^3/uL (150-450); RED BLOOD COUNT 4.94 10^6/uL (4.35-5.55); RED CELL DISTRIBUTION WIDTH 17.5 % (11.5-14.0); SEGMENTED NEUTROPHILS % (AUTO) 87.5 % (42-78); TOTAL CELLS COUNTED % (AUTO) 100 %; WHITE BLOOD COUNT 15.3 10^3/uL (4.0-10.5)
[2018-06-19] MEDS: MAGNESIUM SULFATE/D5W 1 GM/100 ML RTUPB IV SCH ×2 (10:31→11:15)
[2018-06-19] MEDS ORDERED: DOXYCYCLINE HYCLATE 100 MG TABLET PO ONE (10:36)
--- NOTE | 2018-06-19 10:44 | RADIOLOGY REPORT (SQ) ---
EXAM DESCRIPTION: CHEST SINGLE VIEW COMPLETED DATE/TIME: 06/19/2018 10:32 am REASON FOR STUDY: sob COMPARISON: 05/05/2018 NUMBER OF VIEWS: One view. TECHNIQUE: Single frontal radiographic image of the chest acquired. LIMITATIONS: None. FINDINGS: LUNGS AND PLEURA: Segmental airspace disease in the left lower lobe and possibly the lingu la. The right lung is clear. MEDIASTINUM AND HEART: Stable heart size and mediastinal structures. SUPPORT DEVICES: Appropriate location without change. BONY STRUCTURES: No acute findings. HARDWARE: None. OTHER: No other significant finding. IMPRESSION: Left lower lobe pneumonia. Reading location - IP/workstation name: [email or web address]
[2018-06-19 10:46] LABS: ALANINE AMINOTRANSFERASE 38 U/L (21-72); ALBUMIN 3.7 g/dL (3.5-5.0); ALKALINE PHOSPHATASE 107 U/L (38-126); ANION GAP 10 (5-19); ASPARTATE AMINO TRANSFERASE 20 U/L (17-59); BILIRUBIN,DIRECT 0.2 mg/dL (0.0-0.4); BLOOD UREA NITROGEN 22 mg/dL (7-20); CALCIUM 9.4 mg/dL (8.4-10.2); CARBON DIOXIDE 26 mmol/L (22-30); CHLORIDE 105 mmol/L (98-107); CREATINE KINASE 61 U/L (55-170); GLUCOSE 226 mg/dL (75-110); POTASSIUM 4.3 mmol/L (3.6-5.0); TOTAL PROTEIN 5.9 g/dL (6.3-8.2)
[2018-06-19 10:58] LABS: CREATINE KINASE MB 1.81 ng/mL (<4.55); NT PRO BNP 41 pg/mL (5-900)
[2018-06-19 11:00] LABS: TROPONIN I < 0.012 ng/mL
[2018-06-19] MEDS ORDERED: MAG HYDROX/AL HYDROX/SIMETH SUSP 30 ML UDCUP PO ONE (11:54)
[2018-06-19] MEDS ORDERED: METOCLOPRAMIDE HCL ORAL SOLN 10 MG/10 ML UDCUP PO ONE (11:54)
[2018-06-19] MEDS ORDERED: LIDOCAINE 2% VISCOUS SOLN 20 ML UDCUP PO ONE (11:54)
--- NOTE | 2018-06-19 11:54 | RADIOLOGY REPORT (SQ) ---
EXAM DESCRIPTION: CTA CHEST COMPLETED DATE/TIME: 06/19/2018 11:37 am REASON FOR STUDY: chest pain tachy sob COMPARISON: None. TECHNIQUE: CT scan of the chest performed using helical scanning technique with dynamic intravenous contrast injection. Images reviewed with lung, soft tissue and bone windows. Reconstructed coronal and sagittal MPR images reviewed. Additional 3 dimensional post-processing performed to develop Maximal Intensity Projection images (MO P). All images stored on PACS. All CT scanners at this facility use dose modulation, iterative reconstruction, and/or weight based d osing when appropriate to reduce radiation dose to as low as reasonably achievable (ALARA). [facility]: Dose Right [facility]: CareDose [facility]: Dose Right [facility]: Teradose 4D [facility]: VivoText CONTRAST TYPE AND DOSE: contrast/concentration: Isovue 350.00 mg/ml; Total Contrast Delivered: 90.0 ml; Total Saline Delivered: 110.0 ml Contrast bolus adequate for pulmonary arteries and aorta. RENAL FUNCTION: GFR > 60. RADIATION DOSE: CT Rad equipment meets quality standard of care and radiation dose reduction techniq ues were employed. CTDIvol: 33.1 - 38.3 mGy. DLP: 1617 mGy-cm. . LIMITATIONS: None. FINDINGS: LUNGS AND PLEURA: Segmental airspace disease left upper and left lower lobes. Relative sp aring of the left base. Right lung is clear. No effusions. AORTA AND GREAT VESSELS: No aneurysm. No dissection. HEART: No pericardial effusion. Mild coronary artery calcifications. PULMONARY ARTERIES: Filling defects in 2nd degree branches of the left upper and lower lobe pulmonary arteries series 3, image 73. No central PE. HILAR AND MEDIASTINAL STRUCTURES: No identified masses or abnormal nodes. HARDWARE: None in the chest. UPPER ABDOMEN: No significant findings. Limited exam. THYROID AND OTHER SOFT TISSUES: No masses. No adenopathy. BONES: No acute or significant finding. 3D MIPS: Confirm above findings. OTHER: No other significant finding. IMPRESSION: 1. Pulmonary emboli in branches of the left upper and lower lobe pulmonary arteries. No central PE. 2. Associated airspace disease consistent with infarction or infection. COMMENT: Quality ID # [id number]: Final reports with documentation of one or more dose reduction techniques (e.g., Automated exposure control, adjustment of the mA and/or kV according to patient size, use of iterative reconstruction technique) TECHNICAL DOCUMENTATION: JOB ID: [id number] [employer]- All Rights Reserved Reading location - IP/workstation name: [email or web address]
--- NOTE | 2018-06-19 12:13 | RADIOLOGY REPORT (SQ) ---
EXAM DESCRIPTION: VENOUS UNILATERAL LOWER COMPLETED DATE/TIME: 06/19/2018 12:05 pm REASON FOR STUDY: pain left leg / Hx clots COMPARISON: None. TECHNIQUE: Dynamic and static winkler scale and color images acquired of the left leg venous system. Se lected spectral images acquired with additional compression and augmentation maneuvers. The contralat eral common femoral vein and saphenofemoral junction were also imaged. Images stored on PACS. LIMITATIONS: None. FINDINGS: COMMON FEMORAL: Normal phasicity, compression and augmentation. No visualized echogenic ma terial on winkler scale. No defects on color images. FEMORAL: Normal compression and augmentation. No visualized echogenic material on winkler scale. No defe cts on color images. POPLITEAL: Normal compression, augmentation. No visualized echogenic material on winkler scale. No defec ts on color images. CALF VESSELS: Normal compression, augmentation. No visualized echogenic material on winkler scale. No de fects on color images. GSV and SSV: Normal compression, augmentation. No visualized echogenic material on winkler scale. No def ects on color images. ANY DEEP VENOUS INSUFFICIENCY: Not evaluated. ANY EVIDENCE OF POPLITEAL CYST: No. OTHER: No other significant finding. CONTRALATERAL COMMON FEMORAL VEIN AND SAPHENOFEMORAL JUNCTION: Normal phasicity, compression and augmentation. No visualized echogenic material on winkler scale. No de fects on color images. IMPRESSION: NO EVIDENCE DVT OR SVT IN THE LEFT LEG. TECHNICAL DOCUMENTATION: JOB ID: [id number] [employer]- All Rights Reserved Reading location - IP/workstation name: [email or web address]
[2018-06-19 12:21] LABS: VENOUS BLOOD BASE EXCESS -0.7 mmol/L; VENOUS BLOOD HCO3 25.9 mmol/L (20-32); VENOUS BLOOD PCO2 50.1 mmHg (35-63); VENOUS BLOOD PH 7.33 (7.30-7.42)
[2018-06-19] MEDS: ENOXAPARIN SODIUM INJ 150 MG/1 ML DISP.SYRIN SUBCUT SCH ×2 (12:59→22:52)
[2018-06-19] MEDS ORDERED: ACETAMINOPHEN 325 MG TABLET PO PRN (13:13)
[2018-06-19] MEDS ORDERED: IPRATROPIUM/ALBUTEROL 0.5-2.5 MG/3 ML AMPUL NEB PRN (13:13)
[2018-06-19] MEDS ORDERED: LEVALBUTEROL HCL NEB 0.63 MG/3 ML AMPUL NEB PRN (13:13)
[2018-06-19 13:14] LABS: APPEARANCE,URINE CLEAR; BILIRUBIN,URINE NEGATIVE (NEGATIVE); COLOR,URINE YELLOW; GLUCOSE, URINE >=500 mg/dL (NEGATIVE); KETONES,URINE NEGATIVE (NEGATIVE); LEUKOCYTE ESTERASE,URINE NEGATIVE (NEGATIVE); NITRITE,URINE NEGATIVE (NEGATIVE); PROTEIN,URINE NEGATIVE (NEGATIVE); URINE SPECIFIC GRAVITY 1.023; UROBILINOGEN,URINE NEGATIVE mg/dL (<2.0)
[2018-06-19] MEDS ORDERED: CEFTRIAXONE 1 GM/D5W RTU 1 GM/50 ML RTUPB IV ONE (14:00)
[2018-06-19] MEDS: FAMOTIDINE 20 MG TABLET PO SCH ×2 (14:37→21:06)
[2018-06-19] MEDS: GUAIFENESIN 600 MG TABLET.SA PO SCH ×2 (14:37→21:06)
[2018-06-19] MEDS ORDERED: ALBUTEROL SULFATE HFA (90 MCG/PUFF) 200 PUFF/8.5 GM MDI IH PRN (15:21)
[2018-06-19] MEDS: AZITHROMYCIN 500 MG in DEXTROSE 5%-WATER 250 ML IV SCH (15:41)
--- NOTE | 2018-06-19 15:50 | EKG REPORT ---
SEVERITY:- ABNORMAL ECG - SINUD TACHYCARDIA BORDERLINE INFERIOR Q WAVES : Confirmed by: Jos Palumbo MD 19-Jun-2018 15:49:56
--- NOTE | 2018-06-19 16:26 | PDOC H&P ---
History of Present Illness Admission Date/PCP: 06/19/18 12:57 LANI FLOOD DPM Patient complains of: shortness of breath History of Present Illness: LIONEL CHESTER is a 68 year old male with a PMH of COPD, HTN, HLD, NIDDM, LAURIE, first-degree heart block, restless leg syndrome. The patient presented to the hospital with a complaint of shortness of breath. He states his symptoms began at 0400 this morning after getting up to go to the bathroom. Patient reports he feels like he cannot take a deep breath he endorses using rescue inhaler, but states it offered no symptomatic relief, which prompted him to come to the hospital. The patient denies any recent illness, ill contacts, travel. The patient reports he has been compliant with all of his medications. Upon arrival to the emergency department the patient's vital signs were BP 136/38 HR 116 RR 26 SPO2 89% on RA T 99.3. CXR shows left lower lobe pneumonia. Laboratory studies indicative of leukocytosis (WBC 15). Remaining blood work, including chemistry, cardiac enzymes, BNP, and urinalysis all negative. The patient was treated with nebulizers, Solu-Medrol, magnesium, Rocephin and doxycycline. Bedside ultrasound was performed the patient had significant B- lines in both lung cooley, consistent with interstitial edema. Patient was treated with IV Lasix. Pulmonary Embolism Severity Index score 129 (very high) upon admission. CTA revealed pulmonary emboli in branches of left upper and lo wer lobe pulmonary arteries. No central PE. The patient was then treated with full dose Lovenox. Given the patient's cardiopulmonary pathology, multiple comorbidities and high risk for decompensation, plan to admit to hospitalist service. Past Medical History Cardiac Medical History: Reports: Hyperlipidema, Hypertension Denies: Coronary Artery Disease, Myocardial Infarction Pulmonary Medical History: Reports: Chronic Obstructive Pulmonary Disease (COPD), Sleep Apnea - LAURIE uses CPAP at home Denies: Asthma, Bronchitis, Pneumonia Neurological Medical History: Denies: Seizures Endocrine Medical History: Reports: Diabetes Mellitus Type 2 - Insulin-dependent Denies: Diabetes Mellitus Type 1, Hyperthyroidism, Hypothyroidism Malignancy Medical History: Reports: 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 GI Medical History: Reports: Gastroesophageal Reflux Disease Denies: Cirrhosis, Hepatitis Musculoskeltal Medical History: Reports: Arthritis Denies: Gout Skin Medical History: Denies: Eczema, Psoriasis Psychiatric Medical History: Denies: Depression Hematology: Denies: Anemia Past Surgical History Past Surgical History: Reports: Cholecystectomy, Orthopedic Surgery - back stimulator Social History Information Source: Patient Lives with: Spouse/Significant other Smoking Status: Former Smoker Frequency of Alcohol Use: Rare Hx Recreational Drug Use: No Drugs: None Hx Prescription Drug Abuse: No - Advance Directive Resuscitation Status: Full Code Family History Family History: CAD, COPD Parental Family History Reviewed: Yes Children Family History Reviewed: Yes Sibling(s) Family History Reviewed.: Yes Medication/Allergy Home Medications: Aclidinium [place] [Tudorza Pressair] 1 puff IH Q12 06/19/18 Albuterol Sulfate [Proair Hfa Inhalation Aerosol 8.5 gm Mdi] 2 puff IH Q4HP PRN 06/19/18 Aspirin [Adult Low Dose Aspirin EC] 81 mg PO DAILY 06/19/18 Atorvastatin Calcium [Lipitor 20 mg Tablet] 20 mg PO QHS 06/19/18 Cholecalciferol (Vitamin D3) [Vitamin D3 1000 Unit Tablet] 1,000 unit PO BID 06/19/18 Empagliflozin [Jardiance] 25 mg PO DAILY 06/19/18 Exenatide Microspheres [Bydureon Pen] 2 mg SQ WE@1000 06/19/18 Ezetimibe [Zetia 10 mg Tablet] 10 mg PO DAILY 06/19/18 Finasteride [Proscar 5 mg Tablet] 5 mg PO DAILY 06/19/18 Flaxseed Oil [Flaxseed] 1,000 mg PO DAILY 06/19/18 Fluticasone/Salmeterol [Advair 250-50 Diskus 14 Dose/Diskus] 1 puff IH Q12 06/19/18 Furosemide [Lasix 40 mg Tablet] 40 mg PO BID 06/19/18 Insulin Aspart [Novolog Flexpen] 10 unit SQ .SNACKS 06/19/18 Insulin Aspart [Novolog Flexpen] 40 unit SQ MEALS 06/19/18 Insulin Degludec [Tresiba] 160 unit SQ QHS 06/19/18 Isosorbide Mononitrate [Imdur 30 mg Tablet.er] 30 mg PO DAILY 06/19/18 Losartan Potassium [Cozaar 50 mg Tablet] 50 mg PO DAILY 06/19/18 Metoprolol Succinate [Toprol Xl] 12.5 mg PO DAILY 06/19/18 Mirabegron [Myrbetriq] 50 mg PO DAILY 06/19/18 Multivitamin [Daily Multiple Vitamin] 1 each PO DAILY 06/19/18 Omeprazole 40 mg PO Q6AM 06/19/18 Pramipexole Di-HCl [Mirapex] 1 mg PO DAILY 06/19/18 Pramipexole Di-HCl [Mirapex] 2 mg PO QHS 06/19/18 Pregabalin [Lyrica 75 mg Capsule] 75 mg PO Q12 06/19/18 Tamsulosin HCl [Flomax 0.4 mg Cap.sr] 0.4 mg PO BID 06/19/18 Allergies/Adverse Reactions: No Known Allergies Allergy (Verified 05/05/18 19:02) Review of Systems All systems: reviewed and no additional remarkable complaints except as stated Physical Exam Vital Signs: Temp Pulse Resp BP Pulse Ox 99.3 F 116 H 24 H 112/61 93 06/19/18 09:57 06/19/18 09:57 06/19/18 15:01 06/19/18 15:00 06/19/18 14:48 Intake & Output 06/18/18 06/19/18 06/20/18 06:59 06:59 06:59 Intake Total 200 Balance 200 Weight 136 kg General appearance: PRESENT: morbidly obese Eye exam: PRESENT: conjunctiva pink, PERRLA Mouth exam: PRESENT: moist, tongue midline Neck exam: PRESENT: full ROM Respiratory exam: PRESENT: clear to auscultation kana, symmetrical, unlabored Cardiovascular exam: PRESENT: tachycardia Pulses: PRESENT: normal radial pulses, normal dorsalis pedis pul Vascular exam: PRESENT: normal capillary refill GI/Abdominal exam: PRESENT: normal bowel sounds, soft. ABSENT: distended, tenderness Rectal exam: PRESENT: deferred Extremities exam: PRESENT: full ROM, pedal edema, +1 edema - B/L LOWER EXTREMITIES Musculoskeletal exam: PRESENT: ambulatory, full ROM Neurological exam: PRESENT: alert, awake, oriented to person, oriented to place, oriented to time, oriented to situation Psychiatric exam: PRESENT: appropriate affect Skin exam: PRESENT: dry, intact, normal color Results Laboratory Results: 06/19/18 10:08 06/19/18 10:08 06/19/18 06/19/18 06/19/18 10:08 10:08 12:09 WBC 15.3 H RBC 4.94 Hgb 13.9 Hct 42.0 MCV 85 MCH 28.2 MCHC 33.2 RDW 17.5 H Plt Count 202 Seg Neutrophils % 87.5 H Lymphocytes % 6.3 L Monocytes % 4.8 Eosinophils % 1.2 Basophils % 0.2 Absolute Neutrophils 13.4 H Absolute Lymphocytes 1.0 Absolute Monocytes 0.7 Absolute Eosinophils 0.2 Absolute Basophils 0.0 VBG pH 7.33 VBG pCO2 50.1 VBG HCO3 25.9 VBG Base Excess -0.7 Sodium 141.0 Potassium 4.3 Chloride 105 Carbon Dioxide 26 Anion Gap 10 BUN 22 H Creatinine 0.92 Est GFR ( Amer) > 60 Est GFR (Non-Af Amer) > 60 Glucose 226 H Calcium 9.4 Total Bilirubin 1.0 AST 20 ALT 38 Alkaline Phosphatase 107 Total Protein 5.9 L Albumin 3.7 Urine Color Urine Appearance Urine pH Ur Specific [place] Urine Protein Urine Glucose (UA) Urine Ketones Urine Blood Urine Nitrite Ur Leukocyte Esterase Urine RBC (Auto) 06/19/18 12:46 WBC RBC Hgb Hct MCV MCH MCHC RDW Plt Count Seg Neutrophils % Lymphocytes % Monocytes % Eosinophils % Basophils % Absolute Neutrophils Absolute Lymphocytes Absolute Monocytes Absolute Eosinophils Absolute Basophils VBG pH VBG pCO2 VBG HCO3 VBG Base Excess Sodium Potassium Chloride Carbon Dioxide Anion Gap BUN Creatinine Est GFR ( Amer) Est GFR (Non-Af Amer) Glucose Calcium Total Bilirubin AST ALT Alkaline Phosphatase Total Protein Albumin Urine Color YELLOW Urine Appearance CLEAR Urine pH 5.0 Ur Specific [place] 1.023 Urine Protein NEGATIVE Urine Glucose (UA) >=500 H Urine Ketones NEGATIVE Urine Blood NEGATIVE Urine Nitrite NEGATIVE Ur Leukocyte Esterase NEGATIVE Urine RBC (Auto) 0 06/19/18 06/19/18 10:08 10:08 Creatine Kinase 61 CK-MB (CK-2) 1.81 Troponin I < 0.012 NT-Pro-B Natriuret Pep 41 Impressions: Chest/Abdomen CTA 06/19/18 10:16 IMPRESSION: 1. Pulmonary emboli in branches of the left upper and lower lobe pulmonary arteries. No central PE. 2. Associated airspace disease consistent with infarction or infection. Venous Doppler Study 06/19/18 10:16 IMPRESSION: NO EVIDENCE DVT OR SVT IN THE LEFT LEG. Chest X-Ray 06/19/18 10:19 IMPRESSION: Left lower lobe pneumonia. Status: Imported from PACS Assessment & Plan - Diagnosis (1) Acute hypoxemic respiratory failure Is this a current diagnosis for this admission?: Yes Plan: Secondary to pneumonia, PE and COPD exacerbation CXR shows left lower lobe pneumonia CTA chest shows pulmonary emboli in branches of the left upper and left lower lobe pulmonary arteries No evidence of acidosis on VBG Supplemental oxygen via nasal cannula for SPO2>88% Azithromycin and Rocephin IV for community-acquired pneumonia Weight-based Lovenox for pulmonary embolism PRN nebulizers, Mucinex, steroids, scheduled inhalers for COPD exacerbation Continuous pulse oximetry (2) Pulmonary embolism Qualifiers: Pulmonary embolism type: unspecified Chronicity: unspecified Acute cor pulmonale presence: without acute cor pulmonale Qualified Code(s): I26.99 - Other pulmonary embolism without acute cor pulmonale Is this a current diagnosis for this admission?: Yes Plan: CTA shows pulmonary emboli in the branches of the left upper and lower pulmonary arteries No central PE Pulmonary Embolism Severity Index score 129 (very high) upon admission No History of PE or DVT Initiated weight based lovenox in ED Continue 135 mg Lovenox SC Q12 Will transition to PO eliquis prior to discharge Venous doppler negative for DVT (3) COPD (chronic obstructive pulmonary disease) Qualifiers: COPD type: unspecified COPD Qualified Code(s): J44.9 - Chronic obstructive pulmonary disease, unspecified Is this a current diagnosis for this admission?: Yes Plan: With exacerbation No wheezing upon presentation Requiring supplemental O2 to maintain SPO2>88% Does not wear O2 at home Solumedrol 125mg IV in ED Continue Solumedrol IV 40mg 48hr Duoneb q6h while awake and PRN Xopenex Scheduled Spiriva and serevent BID Mucinex Antibiotic coverage for PNA (listed above) Incentive spirometer Flutter valve Consider BIPAP if patient is unable to maintain SPO2>88% or if experiencing s/s of distress (4) Pneumonia Qualifiers: Pneumonia type: due to unspecified organism Laterality: left Lung location: lower lobe of lung Qualified Code(s): J18.1 - Lobar pneumonia, unspecified organism Is this a current diagnosis for this admission?: Yes Plan: LLL PNA on CXR and CTA No recent hospitalizations, plan to treat as community acquired PNA Azithromycin and Ceftriaxone IV - Appropriate treatment for inpatient/COPD/Non- ICU patient Sputum culture pending Remaining plan as above (5) Diabetes mellitus Qualifiers: Diabetes mellitus type: type 2 Diabetes mellitus prison insulin use: wi th prison use Diabetes mellitus complication status: without complication Qualified Code(s): E11.9 - Type 2 diabetes mellitus without complications; 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 Is this a current diagnosis for this admission?: Yes Plan: History of diabetes Accu-Cheks AC at bedtime Humalog sliding scale insulin Cardiac/diabetic diet Oral hyperglycemic agents currently on hold HgbA1c in AM (6) Hypertension Qualifiers: Hypertension type: essential hypertension Qualified Code(s): I10 - Essential (primary) hypertension Is this a current diagnosis for this admission?: Yes Plan: PMH HTN Resume home dose Toprol, Cozaar, Imdur, Lasix (7) HLD (hyperlipidemia) Is this a current diagnosis for this admission?: Yes Plan: PMH HLD Continue home dose zetia (8) Morbid obesity Is this a current diagnosis for this admission?: Yes Plan: Super morbidly obese Weight management with diet - Time Time Spent: 30 to 50 Minutes Medications reviewed and adjusted accordingly: Yes Anticipated discharge: Home - Inpatient Certification Based on my medical assessment, after consideration of the patient's co morbidities, presenting symptoms, or acuity I expect that the services needed warrant INPATIENT care.: Yes I certify that my determination is in accordance with my understanding of Medicare's requirements for reasonable and necessary INPATIENT services [42 CFR 412.3e].: Yes Medical Necessity: Need For Continuous Telemetry Monitoring, Need for Nebulizer Therapy and Monitoring of Response, Need for IV Antibiotics, Risk of Complication if Not Cared For in Hospital - Plan Summary Plan Summary: ANTIBIOTICS. NEBS. STEROIDS. LOVENOX.
[2018-06-19] MEDS ORDERED: INSULIN LISPRO 100 UNIT/ML 3 ML VIAL ONE ×2 (18:02→22:44)
[2018-06-19] MEDS: CHOLECALCIFEROL (D3) 1,000 UNIT TABLET PO SCH (18:05)
[2018-06-19] MEDS: FUROSEMIDE 40 MG TABLET PO SCH (18:05)
[2018-06-19] MEDS: TAMSULOSIN HCL 0.4 MG CAP.SR.24H PO SCH (18:05)
[2018-06-19] MEDS ORDERED: INSULIN LISPRO 100 UNIT/ML 3 ML VIAL SUBCUT ONE ×2 (18:30→23:00)
[2018-06-19] MEDS ORDERED: INSULIN REG, HUMAN 100 UNIT/ML 3 ML VIAL (PYX) ONE (19:59)
[2018-06-19] MEDS ORDERED: TEMAZEPAM 7.5 MG CAPSULE PO PRN ×2 (20:10→20:48)
[2018-06-19] MEDS ORDERED: INSULIN REG, HUMAN 100 UNIT/ML 3 ML VIAL (PYX) SUBCUT ONE ×2 (20:30→21:30)
[2018-06-19] MEDS: IPRATROPIUM/ALBUTEROL 0.5-2.5 MG/3 ML AMPUL NEB SCH (21:02)
[2018-06-19] MEDS: PREGABALIN 75 MG CAPSULE PO SCH (21:10)
[2018-06-19] MEDS: METHYLPREDNISOLONE INJ 40 MG/1 ML SDV IV SCH (21:10)
[2018-06-19] MEDS: ATORVASTATIN CALCIUM 20 MG TABLET PO SCH (21:10)
[2018-06-19] MEDS ORDERED: PRAMIPEXOLE DI-HCL 0.25 MG TABLET ONE (21:19)
[2018-06-19] MEDS ORDERED: ROPINIROLE HCL 1 MG TABLET ONE (21:19)
[2018-06-19] MEDS ORDERED: PRAMIPEXOLE DI-HCL 0.5 MG TABLET ONE (21:31)
[2018-06-19] MEDS ORDERED: (PENDING PHARMACY ID) (Aclidinium Bromide [Tudorza Pressair] 1 PUFF) IH SCH (22:00)
[2018-06-19] MEDS: PRAMIPEXOLE DI-HCL 0.5 MG TABLET PO SCH (22:29)
[2018-06-19] MEDS: ROPINIROLE HCL 1 MG TABLET PO SCH (22:29)
[2018-06-19] MEDS ORDERED: INSULIN GLARGINE,HUM.REC.ANLOG 300 UNIT/3 ML INSULN.PEN SUBCUT ONE (23:00)
[2018-06-20] MEDS: LANSOPRAZOLE 30 MG TAB.RAP.DR PO SCH (05:36)
[2018-06-20] MEDS: METHYLPREDNISOLONE INJ 40 MG/1 ML SDV IV SCH ×3 (05:36→23:14)
[2018-06-20 07:23] LABS: HEMATOCRIT 42.1 % (37.9-51.0); HEMOGLOBIN 13.8 g/dL (13.5-17.0); MEAN CORPUSCULAR HEMOGLOBIN 27.9 pg (27.0-33.4); MEAN CORPUSCULAR HGB CONC 32.8 g/dL (32.0-36.0); MEAN CORPUSCULAR VOLUME 85 fl (80-97); PLATELET COUNT 183 10^3/uL (150-450); RED BLOOD COUNT 4.95 10^6/uL (4.35-5.55); RED CELL DISTRIBUTION WIDTH 17.2 % (11.5-14.0); WHITE BLOOD COUNT 17.6 10^3/uL (4.0-10.5)
[2018-06-20] MEDS: INSULIN LISPRO 100 UNIT/ML 3 ML VIAL SUBCUT SCH ×7 (07:37→23:16)
[2018-06-20 07:46] LABS: ALANINE AMINOTRANSFERASE 25 U/L (21-72); ALKALINE PHOSPHATASE 90 U/L (38-126); ANION GAP 10 (5-19); ASPARTATE AMINO TRANSFERASE 16 U/L (17-59); BILIRUBIN,DIRECT 0.3 mg/dL (0.0-0.4); BILIRUBIN,TOTAL 0.8 mg/dL (0.2-1.3); BLOOD UREA NITROGEN 27 mg/dL (7-20); CALCIUM 9.5 mg/dL (8.4-10.2); CARBON DIOXIDE 28 mmol/L (22-30); CHLORIDE 103 mmol/L (98-107); GLUCOSE 257 mg/dL (75-110); POTASSIUM 4.6 mmol/L (3.6-5.0); SODIUM 140.9 mmol/L (137-145); TOTAL PROTEIN 6.4 g/dL (6.3-8.2)
[2018-06-20] MEDS: IPRATROPIUM/ALBUTEROL 0.5-2.5 MG/3 ML AMPUL NEB SCH ×3 (08:03→19:49)
[2018-06-20] MEDS ORDERED: ALBUTEROL SULFATE HFA (90 MCG/PUFF) 200 PUFF/8.5 GM MDI IH PRN (08:26)
[2018-06-20] MEDS ORDERED: INSULIN GLARGINE,HUM.REC.ANLOG 300 UNIT/3 ML INSULN.PEN SUBCUT SCH (10:00)
[2018-06-20] MEDS ORDERED: (PENDING PHARMACY ID) (Empagliflozin [Jardiance] 25 MG) PO SCH (10:00)
[2018-06-20] MEDS ORDERED: (PENDING PHARMACY ID) (Flaxseed Oil [Flaxseed] 1,000 MG) PO SCH (10:00)
[2018-06-20] MEDS ORDERED: (PENDING PHARMACY ID) (Mirabegron [Myrbetriq] 50 MG) PO SCH (10:00)
[2018-06-20] MEDS: LOSARTAN POTASSIUM 50 MG TABLET PO SCH (11:13)
[2018-06-20] MEDS: TAMSULOSIN HCL 0.4 MG CAP.SR.24H PO SCH ×2 (11:13→18:16)
[2018-06-20] MEDS: ASPIRIN 81 MG TABLET, ENT COATED PO SCH (11:13)
[2018-06-20] MEDS: ISOSORBIDE MONONITRATE 30 MG TAB.ER.24H PO SCH (11:14)
[2018-06-20] MEDS: GUAIFENESIN 600 MG TABLET.SA PO SCH ×2 (11:14→23:14)
[2018-06-20] MEDS: PRAMIPEXOLE DI-HCL 0.5 MG TABLET PO SCH ×2 (11:14→23:15)
[2018-06-20] MEDS: FUROSEMIDE 40 MG TABLET PO SCH ×2 (11:14→18:16)
[2018-06-20] MEDS: PREGABALIN 75 MG CAPSULE PO SCH ×2 (11:14→23:14)
[2018-06-20] MEDS: FINASTERIDE 5 MG TABLET PO SCH (11:15)
[2018-06-20] MEDS: CEFTRIAXONE 1 GM/D5W RTU 1 GM/50 ML RTUPB IV SCH (11:15)
[2018-06-20] MEDS: MULTIVITAMIN TABLET PO SCH (11:15)
[2018-06-20] MEDS: FAMOTIDINE 20 MG TABLET PO SCH ×2 (11:15→23:14)
[2018-06-20] MEDS: METOPROLOL SUCCINATE 25 MG TAB.SR.24H PO SCH (11:15)
[2018-06-20] MEDS: INSULIN GLARGINE,HUM.REC.ANLOG 1,000 UNIT/10 ML UNIT SUBCUT SCH ×2 (11:16→23:12)
[2018-06-20] MEDS: EZETIMIBE 10 MG TABLET PO SCH (11:16)
[2018-06-20] MEDS: CHOLECALCIFEROL (D3) 1,000 UNIT TABLET PO SCH ×2 (11:16→18:16)
[2018-06-20] MEDS: AZITHROMYCIN 500 MG in DEXTROSE 5%-WATER 250 ML IV SCH (12:16)
[2018-06-20] MEDS: ENOXAPARIN SODIUM INJ 150 MG/1 ML DISP.SYRIN SUBCUT SCH ×2 (12:17→23:17)
--- NOTE | 2018-06-20 22:53 | PDOC PROGRESS REPORT ---
Subjective Progress Note for:: 06/20/18 Subjective:: LIONEL CHESTER is a 68 year old male with a PMH of COPD, HTN, HLD, NIDDM, LAURIE, first-degree heart block, restless leg syndrome. He is admitted to [facility] for PNA and PE. The patient was started on full dose lovenox and iv antibiotics. The patient was seen this morning on rounds. He is resting comfortably in bed on supplemental oxygen with family at the bedside. Nursing staff reports they are unable to wean. Of note, the patient does not wear O2 at home. Reason For Visit: PNEUMONIA,PULMONARY EMBOLISM Physical Exam Vital Signs: Temp Pulse Resp BP Pulse Ox 97.4 F 86 18 115/82 93 06/20/18 14:54 06/20/18 20:19 06/20/18 20:19 06/20/18 14:54 06/20/18 20: Pulse Oximeter Continuous Start: 06/19/18 13:15 Freq: RTQ4 Status: Active Protocol: Document 06/20/18 20:19 NSM (Rec: 06/20/18 20:21 NSM [id number]) Pulse Oximetry Assessment Oxygen Saturation (92-100) 93 Oxygen Flow Rate (L/min) 1 Oxygen Delivery Method Nasal Cannula Fraction of Inspired Oxygen (FIO2) 24 Equipment Usage Equipment in Use Continuous SpO2 Machine # [id number] Intake & Output 06/19/18 06/20/18 06/21/18 06:59 06:59 06:59 Intake Total 2066 1200 Output Total 400 Balance 1666 1200 Weight 119.8 kg General appearance: PRESENT: morbidly obese Eye exam: PRESENT: conjunctiva pink, PERRLA Mouth exam: PRESENT: moist, tongue midline Teeth exam: PRESENT: poor dentation Respiratory exam: PRESENT: clear to auscultation kana, symmetrical, unlabored - requiring nasal cannula Cardiovascular exam: PRESENT: RRR, other - 1st degree heart block Pulses: PRESENT: normal radial pulses, normal dorsalis pedis pul Vascular exam: PRESENT: normal capillary refill GI/Abdominal exam: PRESENT: soft. ABSENT: distended, tenderness Rectal exam: PRESENT: deferred Extremities exam: PRESENT: full ROM Musculoskeletal exam: PRESENT: ambulatory, full ROM Neurological exam: PRESENT: alert, awake, oriented to person, oriented to place, oriented to time, oriented to situation Psychiatric exam: PRESENT: appropriate affect Skin exam: PRESENT: dry, intact, normal color Results Laboratory Results: 06/20/18 06:52 06/20/18 06:52 06/20/18 06/20/18 06/20/18 06:52 06:52 10:55 WBC 17.6 H RBC 4.95 Hgb 13.8 Hct 42.1 MCV 85 MCH 27.9 MCHC 32.8 RDW 17.2 H Plt Count 183 Sodium 140.9 Potassium 4.6 Chloride 103 Carbon Dioxide 28 Anion Gap 10 BUN 27 H Creatinine 0.94 Est GFR ( Amer) > 60 Est GFR (Non-Af Amer) > 60 Glucose 257 H Calcium 9.5 Total Bilirubin 0.8 AST 16 L ALT 25 Alkaline Phosphatase 90 Total Protein 6.4 Albumin 4.0 Stool Occult Blood POSITIVE 06/19/18 06/19/18 06/20/18 10:08 10:08 06:52 Creatine Kinase 61 CK-MB (CK-2) 1.81 Troponin I < 0.012 NT-Pro-B Natriuret Pep 41 739 Impressions: Chest/Abdomen CTA 06/19/18 10:16 IMPRESSION: 1. Pulmonary emboli in branches of the left upper and lower lobe pulmonary arteries. No central PE. 2. Associated airspace disease consistent with infarction or infection. Venous Doppler Study 06/19/18 10:16 IMPRESSION: NO EVIDENCE DVT OR SVT IN THE LEFT LEG. Chest X-Ray 06/19/18 10:19 IMPRESSION: Left lower lobe pneumonia. Assessment & Plan - Diagnosis (1) Acute hypoxemic respiratory failure Is this a current diagnosis for this admission?: Yes Plan: Secondary to pneumonia, PE and COPD exacerbation CXR shows left lower lobe pneumonia CTA chest shows pulmonary emboli in branches of the left upper and left lower lobe pulmonary arteries No evidence of acidosis on VBG Supplemental oxygen via nasal cannula for SPO2>88% Azithromycin and Rocephin IV for community-acquired pneumonia Weight-based Lovenox for pulmonary embolism PRN nebulizers, Mucinex, steroids, scheduled inhalers for COPD exacerbation Continuous pulse oximetry Plan to discharge home on po antibiotics and po anticoagulation (2) Pulmonary embolism Qualifiers: Pulmonary embolism type: unspecified Chronicity: unspecified Acute cor p ulmonale presence: without acute cor pulmonale Qualified Code(s): I26.99 - Other pulmonary embolism without acute cor pulmonale Is this a current diagnosis for this admission?: Yes Plan: CTA shows pulmonary emboli in the branches of the left upper and lower pulmonary arteries No central PE Pulmonary Embolism Severity Index score 129 (very high) upon admission No History of PE or DVT Initiated weight based lovenox in ED Continue 135 mg Lovenox SC Q12 Will transition to PO eliquis prior to discharge Venous doppler negative for DVT (3) COPD (chronic obstructive pulmonary disease) Qualifiers: COPD type: unspecified COPD Qualified Code(s): J44.9 - Chronic obstructive pulmonary disease, unspecified Is this a current diagnosis for this admission?: Yes Plan: With exacerbation No wheezing upon presentation Requiring supplemental O2 to maintain SPO2>88% Does not wear O2 at home Solumedrol 125mg IV in ED Continue Solumedrol IV 40mg 48hr Duoneb q6h while awake and PRN Xopenex Scheduled Spiriva and serevent BID Mucinex Antibiotic coverage for PNA (listed above) Incentive spirometer Flutter valve Consider BIPAP if patient is unable to maintain SPO2>88% or if experiencing s/s of distress (4) Pneumonia Qualifiers: Pneumonia type: due to unspecified organism Laterality: left Lung lo cation: lower lobe of lung Qualified Code(s): J18.1 - Lobar pneumonia, unspecified organism Is this a current diagnosis for this admission?: Yes Plan: LLL PNA on CXR and CTA No recent hospitalizations, plan to treat as community acquired PNA Azithromycin and Ceftriaxone IV - Appropriate treatment for inpatient/COPD/Non- ICU patient Sputum culture pending Remaining plan as above (5) Diabetes mellitus Qualifiers: Diabetes mellitus type: type 2 Diabetes mellitus senior living insulin use: with terminal makeup operator use Diabetes mellitus complication status: without complication Qualified Code(s): E11.9 - Type 2 diabetes mellitus without complications; 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 Is this a current diagnosis for this admission?: Yes Plan: History of diabetes Accu-Cheks AC at bedtime Humalog sliding scale insulin Cardiac/diabetic diet Oral hyperglycemic agents currently on hold HgbA1c 9.0% (6) Hypertension Qualifiers: Hypertension type: essential hypertension Qualified Code(s): I10 - Essential (primary) hypertension Is this a current diagnosis for this admission?: Yes Plan: PMH HTN Resume home dose Toprol, Cozaar, Imdur, Lasix (7) HLD (hyperlipidemia) Is this a current diagnosis for this admission?: Yes Plan: PMH HLD Continue home dose zetia (8) Morbid obesity Is this a current diagnosis for this admission?: Yes Plan: Super morbidly obese Weight management with diet - Time Time Spent with patient: 15-24 minutes Medications reviewed and adjusted accordingly: Yes Anticipated discharge: Home Within: within 48 hours - Inpatient Certification Based on my medical assessment, after consideration of the patient's comorbidities, presenting symptoms, or acuity I expect that the services needed warrant INPATIENT care.: Yes I certify that my determination is in accordance with my understanding of Medicare's requirements for reasonable and necessary INPATIENT services [42 CFR 412.3e].: Yes Medical Necessity: Need for Nebulizer Therapy and Monitoring of Response, Risk of Complication if Not Cared For in Hospital
[2018-06-20] MEDS: ATORVASTATIN CALCIUM 20 MG TABLET PO SCH (23:14)
[2018-06-20] MEDS: CALCIUM CARBONATE 500 MG TAB.CHEW PO PRN (23:14)
[2018-06-20] MEDS: ROPINIROLE HCL 1 MG TABLET PO SCH (23:16)
[2018-06-21] MEDS: METHYLPREDNISOLONE INJ 40 MG/1 ML SDV IV SCH ×3 (05:36→21:58)
[2018-06-21] MEDS: LANSOPRAZOLE 30 MG TAB.RAP.DR PO SCH (05:36)
[2018-06-21] MEDS: IPRATROPIUM/ALBUTEROL 0.5-2.5 MG/3 ML AMPUL NEB SCH ×3 (07:59→20:28)
[2018-06-21] MEDS: CALCIUM CARBONATE 500 MG TAB.CHEW PO PRN ×2 (08:33→22:00)
[2018-06-21] MEDS: INSULIN LISPRO 100 UNIT/ML 3 ML VIAL SUBCUT SCH ×7 (08:40→21:56)
[2018-06-21] MEDS: CEFTRIAXONE 1 GM/D5W RTU 1 GM/50 ML RTUPB IV SCH (10:04)
[2018-06-21] MEDS: INSULIN GLARGINE,HUM.REC.ANLOG 1,000 UNIT/10 ML UNIT SUBCUT SCH ×2 (10:04→21:57)
[2018-06-21] MEDS: ISOSORBIDE MONONITRATE 30 MG TAB.ER.24H PO SCH (10:05)
[2018-06-21] MEDS: METOPROLOL SUCCINATE 25 MG TAB.SR.24H PO SCH (10:05)
[2018-06-21] MEDS: LOSARTAN POTASSIUM 50 MG TABLET PO SCH (10:05)
[2018-06-21] MEDS: FUROSEMIDE 40 MG TABLET PO SCH ×2 (10:05→17:20)
[2018-06-21] MEDS: EZETIMIBE 10 MG TABLET PO SCH (10:05)
[2018-06-21] MEDS: ASPIRIN 81 MG TABLET, ENT COATED PO SCH (10:05)
[2018-06-21] MEDS: GUAIFENESIN 600 MG TABLET.SA PO SCH ×2 (10:05→21:57)
[2018-06-21] MEDS: FAMOTIDINE 20 MG TABLET PO SCH ×2 (10:05→21:57)
[2018-06-21] MEDS: CHOLECALCIFEROL (D3) 1,000 UNIT TABLET PO SCH ×2 (10:06→17:20)
[2018-06-21] MEDS: TAMSULOSIN HCL 0.4 MG CAP.SR.24H PO SCH ×2 (10:06→17:20)
[2018-06-21] MEDS: MULTIVITAMIN TABLET PO SCH (10:06)
[2018-06-21] MEDS: PREGABALIN 75 MG CAPSULE PO SCH ×2 (10:06→21:57)
[2018-06-21] MEDS: ENOXAPARIN SODIUM INJ 150 MG/1 ML DISP.SYRIN SUBCUT SCH (10:07)
[2018-06-21] MEDS: AZITHROMYCIN 500 MG in DEXTROSE 5%-WATER 250 ML IV SCH (10:08)
[2018-06-21] MEDS: PRAMIPEXOLE DI-HCL 0.5 MG TABLET PO SCH ×2 (10:09→22:52)
[2018-06-21] MEDS: FINASTERIDE 5 MG TABLET PO SCH (10:12)
[2018-06-21 15:20] LABS: HEMATOCRIT 38.2 % (37.9-51.0); HEMOGLOBIN 12.8 g/dL (13.5-17.0); MEAN CORPUSCULAR HEMOGLOBIN 28.3 pg (27.0-33.4); MEAN CORPUSCULAR HGB CONC 33.4 g/dL (32.0-36.0); MEAN CORPUSCULAR VOLUME 85 fl (80-97); PLATELET COUNT 191 10^3/uL (150-450); RED BLOOD COUNT 4.51 10^6/uL (4.35-5.55); WHITE BLOOD COUNT 16.2 10^3/uL (4.0-10.5)
[2018-06-21 16:00] LABS: ANION GAP 13 (5-19); BLOOD UREA NITROGEN 40 mg/dL (7-20); CALCIUM 9.4 mg/dL (8.4-10.2); CARBON DIOXIDE 22 mmol/L (22-30); CHLORIDE 102 mmol/L (98-107); GLUCOSE 374 mg/dL (75-110); POTASSIUM 4.7 mmol/L (3.6-5.0); SODIUM 136.6 mmol/L (137-145)
[2018-06-21] MEDS ORDERED: APIXABAN 5 MG TABLET PO SCH (18:00)
[2018-06-21] MEDS ORDERED: APIXABAN 5 MG TABLET PO ONE (19:05)
--- NOTE | 2018-06-21 19:11 | PDOC PROGRESS REPORT ---
Subjective Progress Note for:: 06/21/18 Reason For Visit: PNEUMONIA,PULMONARY EMBOLISM Physical Exam Vital Signs: Temp Pulse Resp BP Pulse Ox 97.3 F 90 18 113/47 L 94 06/21/18 15:24 06/21/18 15:24 06/21/18 15:24 06/21/18 15:24 06/21/18 15:24 Pulse Oximeter Continuous Start: 06/19/18 13:15 Freq: RTQ4 Status: Complete Protocol: Document 06/21/18 13:40 [facility] [place] (Rec: 06/21/18 13:40 [facility] [place] [id number]) Pulse Oximetry Assessment Equipment Usage Equipment Discontinued Continuous SpO2 Machine # [id number] Additional RT Notes Other order to dc Intake & Output 06/20/18 06/21/18 06/22/18 06:59 06:59 06:59 Intake Total 2066 1824 1100 Output Total 400 Balance 1666 1824 1100 Weight 119.8 kg 130 kg General appearance: PRESENT: no acute distress, cooperative, disheveled, morbidly obese, well-developed, well-nourished Head exam: PRESENT: atraumatic, normocephalic Eye exam: PRESENT: conjunctiva pink, EOMI, PERRLA. ABSENT: scleral icterus Mouth exam: PRESENT: moist, tongue midline Teeth exam: PRESENT: poor dentation Neck exam: ABSENT: carotid bruit, JVD, lymphadenopathy, thyromegaly Respiratory exam: PRESENT: clear to auscultation kana, symmetrical, unlabored, other - supplemental oxygen via NC. ABSENT: rales, rhonchi, wheezes Cardiovascular exam: PRESENT: RRR. ABSENT: diastolic murmur, rubs, systolic murmur Pulses: PRESENT: normal dorsalis pedis pul Vascular exam: PRESENT: normal capillary refill GI/Abdominal exam: PRESENT: normal bowel sounds, soft. ABSENT: distended, guarding, mass, organolmegaly, rebound, tenderness Rectal exam: PRESENT: deferred Extremities exam: PRESENT: full ROM. ABSENT: calf tenderness, clubbing, pedal edema Neurological exam: PRESENT: alert, awake, oriented to person, oriented to place, oriented to time, oriented to situation, CN II-XII grossly intact. ABSENT: motor sensory deficit Psychiatric exam: PRESENT: appropriate affect, normal mood. ABSENT: homicidal ideation, suicidal ideation Skin exam: PRESENT: dry, intact, warm. ABSENT: cyanosis, rash Results Laboratory Results: 06/21/18 14:33 06/21/18 14:33 06/21/18 06/21/18 14:33 14:33 WBC 16.2 H RBC 4.51 Hgb 12.8 L Hct 38.2 MCV 85 MCH 28.3 MCHC 33.4 RDW 17.0 H Plt Count 191 Sodium 136.6 L Potassium 4.7 Chloride 102 Carbon Dioxide 22 Anion Gap 13 BUN 40 H Creatinine 0.94 Est GFR ( Amer) > 60 Est GFR (Non-Af Amer) > 60 Glucose 374 H Calcium 9.4 06/19/18 06/19/18 06/20/18 10:08 10:08 06:52 Creatine Kinase 61 CK-MB (CK-2) 1.81 Troponin I < 0.012 NT-Pro-B Natriuret Pep 41 739 Impressions: Chest/Abdomen CTA 06/19/18 10:16 IMPRESSION: 1. Pulmonary emboli in branches of the left upper and lower lobe pulmonary arteries. No central PE. 2. Associated airspace disease consistent with infarction or infection. Venous Doppler Study 06/19/18 10:16 IMPRESSION: NO EVIDENCE DVT OR SVT IN THE LEFT LEG. Chest X-Ray 06/19/18 10:19 IMPRESSION: Left lower lobe pneumonia. Assessment & Plan - Diagnosis (1) Acute hypoxemic respiratory failure Is this a current diagnosis for this admission?: Yes Plan: Acute respiratory failure with hypoxia secondary to pneumonia, pulmonary embolus, and COPD. CXR shows left lower lobe pneumonia CTA chest shows pulmonary emboli in branches of the left upper and left lower lobe pulmonary arteries No evidence of acidosis on VBG Patient has been admitted to the medical floor and continuous cardiac telemetry. He is provided supplemental oxygen to maintain sats >88% He has been started on IV azithromycin and Rocephin for empiric coverage of community-acquired pneumonia. Weight-based Lovenox for pulmonary embolism; transition to p.o. Eliquis today. As needed nebulizers. IV Solu-Medrol. Mucinex twice daily. Incentive spirometer and flutter valve to bedside. (2) COPD (chronic obstructive pulmonary disease) Qualifiers: COPD type: unspecified COPD Qualified Code(s): J44.9 - Chronic obstructive pulmonary disease, unspecified Is this a current diagnosis for this admission?: Yes Plan: Continue supplemental oxygen as needed to maintain saturations >88%. Continue scheduled Spiriva and Serevent. Twice daily Mucinex. Antibiotic coverage for pneumonia as above. IV Solu-Medrol; begin weaning tomorrow. Incentive spirometer and flutter valve to bedside. (3) Pneumonia Qualifiers: Pneumonia type: due to unspecified organism Laterality: left Lung location: lower lobe of lung Qualified Code(s): J18.1 - Lobar pneumonia, unspecified organism Is this a current diagnosis for this admission?: Yes Plan: LLL PNA on CXR and CTA No recent hospitalizations, plan to treat as community acquired PNA Blood cultures are negative at 48 hours. Azithromycin and Ceftriaxone IV - Appropriate treatment for inpatient/COPD/Non- ICU patient Remaining plan as above. (4) Pulmonary embolism Qualifiers: Pulmonary embolism type: unspecified Chronicity: unspecified Acute cor pulmonale presence: without acute cor pulmonale Qualified Code(s): I26.99 - Other pulmonary embolism without acute cor pulmonale Is this a current diagnosis for this admission?: Yes Plan: CTA shows pulmonary emboli in the branches of the left upper and lower pulmonary arteries No central PE Pulmonary Embolism Severity Index score 129 (very high) upon admission No History of PE or DVT Venous doppler negative for DVT Initially placed on weight-based Lovenox; have transition to p.o. Eliquis in anticipation of discharge in the next 24-48 hours. Remaining plan as above. (5) Diabetes mellitus Qualifiers: Diabetes mellitus type: type 2 Diabetes mellitus terminal superintendent insulin use: with fpc use Diabetes mellitus complication status: without complication Qualified Code(s): E11.9 - Type 2 diabetes mellitus without complications; Z79.4 - long-term (current) use of insulin Is this a current diagnosis for this admission?: Yes Plan: A1c 9% Oral antidiabetic agents on hold while admitted. He is placed on a cardiac/consistent carb diet with Accu-Cheks before meals and at bedtime with Humalog for sliding scale coverage. Hypoglycemia protocol in place. Registered dietitian is consulted. (6) Hypertension Qualifiers: Hypertension type: essential hypertension Qualified Code(s): I10 - Essential (primary) hypertension Is this a current diagnosis for this admission?: Yes Plan: PMH HTN; normotensive at present Continue home dose Toprol, Cozaar, Imdur, Lasix Cardiac diet (7) HLD (hyperlipidemia) Is this a current diagnosis for this admission?: Yes Plan: Continue home dose Zetia. Cardiac diet. (8) Morbid obesity Is this a current diagnosis for this admission?: Yes Plan: Super morbid obesity; BMI 41.1 Dietary discretion is advised. Registered dietitian is consulted. - Time Time Spent with patient: 15-24 minutes Medications reviewed and adjusted accordingly: Yes Anticipated discharge: Home Within: within 48 hours
[2018-06-21] MEDS: ATORVASTATIN CALCIUM 20 MG TABLET PO SCH (21:57)
[2018-06-21] MEDS: ROPINIROLE HCL 1 MG TABLET PO SCH (21:58)
[2018-06-22] MEDS: LANSOPRAZOLE 30 MG TAB.RAP.DR PO SCH (05:07)
[2018-06-22] MEDS: METHYLPREDNISOLONE INJ 40 MG/1 ML SDV IV SCH ×2 (05:07→13:16)
[2018-06-22 05:34] LABS: HEMATOCRIT 37.9 % (37.9-51.0); HEMOGLOBIN 12.5 g/dL (13.5-17.0); MEAN CORPUSCULAR HEMOGLOBIN 27.8 pg (27.0-33.4); MEAN CORPUSCULAR HGB CONC 32.9 g/dL (32.0-36.0); MEAN CORPUSCULAR VOLUME 85 fl (80-97); PLATELET COUNT 175 10^3/uL (150-450); RED BLOOD COUNT 4.48 10^6/uL (4.35-5.55)
[2018-06-22 05:53] LABS: ANION GAP 9 (5-19); BLOOD UREA NITROGEN 37 mg/dL (7-20); CALCIUM 9.3 mg/dL (8.4-10.2); CARBON DIOXIDE 27 mmol/L (22-30); CHLORIDE 104 mmol/L (98-107); GLUCOSE 233 mg/dL (75-110); POTASSIUM 4.7 mmol/L (3.6-5.0)
[2018-06-22] MEDS: INSULIN LISPRO 100 UNIT/ML 3 ML VIAL SUBCUT SCH ×4 (08:10→12:02)
[2018-06-22] MEDS: IPRATROPIUM/ALBUTEROL 0.5-2.5 MG/3 ML AMPUL NEB SCH ×2 (08:58→14:03)
[2018-06-22] MEDS: CHOLECALCIFEROL (D3) 1,000 UNIT TABLET PO SCH (09:31)
[2018-06-22] MEDS: ISOSORBIDE MONONITRATE 30 MG TAB.ER.24H PO SCH (09:31)
[2018-06-22] MEDS: FAMOTIDINE 20 MG TABLET PO SCH (09:31)
[2018-06-22] MEDS: EZETIMIBE 10 MG TABLET PO SCH (09:31)
--- NOTE | 2018-06-22 09:31 | EKG REPORT ---
SEVERITY:- ABNORMAL ECG - SINUS TACHYCARDIA LAD, CONSIDER LEFT ANTERIOR FASCICULAR BLOCK : Confirmed by: Indy Root 22-Jun-2018 09:30:57
[2018-06-22] MEDS: METOPROLOL SUCCINATE 25 MG TAB.SR.24H PO SCH (09:32)
[2018-06-22] MEDS: TAMSULOSIN HCL 0.4 MG CAP.SR.24H PO SCH (09:32)
[2018-06-22] MEDS: LOSARTAN POTASSIUM 50 MG TABLET PO SCH (09:33)
[2018-06-22] MEDS: FUROSEMIDE 40 MG TABLET PO SCH (09:33)
[2018-06-22] MEDS: MULTIVITAMIN TABLET PO SCH (09:33)
[2018-06-22] MEDS: PREGABALIN 75 MG CAPSULE PO SCH (09:33)
[2018-06-22] MEDS: ASPIRIN 81 MG TABLET, ENT COATED PO SCH (09:33)
[2018-06-22] MEDS: INSULIN GLARGINE,HUM.REC.ANLOG 1,000 UNIT/10 ML UNIT SUBCUT SCH (09:33)
[2018-06-22] MEDS: PRAMIPEXOLE DI-HCL 0.5 MG TABLET PO SCH (09:35)
[2018-06-22] MEDS: CEFTRIAXONE 1 GM/D5W RTU 1 GM/50 ML RTUPB IV SCH (09:36)
[2018-06-22] MEDS: FINASTERIDE 5 MG TABLET PO SCH (09:37)
[2018-06-22] MEDS ORDERED: GUAIFENESIN 600 MG TABLET.SA PO SCH (10:00)
[2018-06-22] MEDS ORDERED: APIXABAN 5 MG TABLET PO SCH (10:00)
[2018-06-22] MEDS ORDERED: (PENDING PHARMACY ID) (Exenatide Microspheres [Bydureon Pen] 2 MG) SQ SCH (10:00)
[2018-06-22] MEDS: AZITHROMYCIN 500 MG in DEXTROSE 5%-WATER 250 ML IV SCH (10:22)
[2018-06-22] MEDS: CALCIUM CARBONATE 500 MG TAB.CHEW PO PRN (11:20)
--- NOTE | 2018-06-22 14:31 | PDOC DISCHARGE SUMMARY ---
General - Admit/Disc Date/PCP Admission Date/Primary Care Provider: 06/19/18 12:57 LANI REMIGIOGEOVANNI [place] Discharge Date: 06/22/18 - Discharge Diagnosis (1) Acute left lung PE Is this a current diagnosis for this admission?: Yes (2) Left lower lobe pneumonia Is this a current diagnosis for this admission?: Yes (3) COPD (chronic obstructive pulmonary disease) Is this a current diagnosis for this admission?: Yes (4) HLD (hyperlipidemia) Is this a current diagnosis for this admission?: Yes (5) Morbid obesity Is this a current diagnosis for this admission?: Yes (6) Type 2 diabetes mellitus Is this a current diagnosis for this admission?: Yes (7) Obstructive sleep apnea Is this a current diagnosis for this admission?: Yes (8) Hx of squamous cell carcinoma of skin Is this a current diagnosis for this admission?: Yes - Additional Information Resuscitation Status: Full Code Prescriptions: Apixaban [Eliquis 5 mg Tablet] 10 mg PO BID 5 Days #20 tablet Apixaban [Eliquis 5 mg Tablet] 5 mg PO BID 30 Days #60 tablet Levofloxacin [Levaquin 500 mg Tablet] 500 mg PO DAILY #5 tablet Prednisone [Deltasone 20 mg Tablet] 40 mg PO DAILY 5 Days #10 tablet Home Medications: Aclidinium [place] [Tudorza Pressair] 1 puff IH Q12 06/19/18 Albuterol Sulfate [Proair HFA Inhalation Aerosol 8.5 gm MDI] 2 puff IH Q4HP PRN 06/19/18 Aspirin [Adult Low Dose Aspirin EC] 81 mg PO DAILY 06/19/18 Atorvastatin Calcium [Lipitor 20 mg Tablet] 20 mg PO QHS 06/19/18 Cholecalciferol (Vitamin D3) [Vitamin D3 1000 Unit Tablet] 1,000 unit PO BID 0 06/19/18 Empagliflozin [Jardiance] 25 mg PO DAILY 06/19/18 Exenatide Microspheres [Bydureon Pen] 2 mg SQ WE@1000 06/19/18 Ezetimibe [Zetia 10 mg Tablet] 10 mg PO DAILY 06/19/18 Finasteride [Proscar 5 mg Tablet] 5 mg PO DAILY 06/19/18 Flaxseed Oil [Flaxseed] 1,000 mg PO DAILY 06/19/18 Fluticasone/Salmeterol [Advair 250-50 Diskus 14 Dose/Diskus] 1 puff IH Q12 06/19/18 Furosemide [Lasix 40 mg Tablet] 40 mg PO BID 06/19/18 Insulin Aspart [Novolog Flexpen] 10 unit SQ .SNACKS 06/19/18 Insulin Aspart [Novolog Flexpen] 40 unit SQ MEALS 06/19/18 Insulin Degludec [Tresiba] 160 unit SQ QHS 06/19/18 Isosorbide Mononitrate [Imdur 30 mg Tablet.er] 30 mg PO DAILY 06/19/18 Losartan Potassium [Cozaar 50 mg Tablet] 50 mg PO DAILY 06/19/18 Metoprolol Succinate [Toprol Xl] 12.5 mg PO DAILY 06/19/18 Mirabegron [Myrbetriq] 50 mg PO DAILY 06/19/18 Multivitamin [Daily Multiple Vitamin] 1 each PO DAILY 06/19/18 Omeprazole 40 mg PO Q6AM 06/19/18 Pramipexole Di-HCl [Mirapex] 1 mg PO DAILY 06/19/18 Pramipexole Di-HCl [Mirapex] 2 mg PO QHS 06/19/18 Pregabalin [Lyrica 75 mg Capsule] 75 mg PO Q12 06/19/18 Tamsulosin HCl [Flomax 0.4 mg Cap.sr] 0.4 mg PO BID 06/19/18 Apixaban [Eliquis 5 mg Tablet] 5 mg PO BID 30 Days #60 tablet 06/22/18 Apixaban [Eliquis 5 mg Tablet] 10 mg PO BID 5 Days #20 tablet 06/22/18 Levofloxacin [Levaquin 500 mg Tablet] 500 mg PO DAILY #5 tablet 06/22/18 Prednisone [Deltasone 20 mg Tablet] 40 mg PO DAILY 5 Days #10 tablet 06/22/18 History of Present Illness History of Present Illness: LIONEL CHESTER is a 68 year old male with a PMH of COPD, HTN, HLD, NIDDM, LAURIE, first-degree heart block, restless leg syndrome. The patient presented to the hospital with a complaint of shortness of breath. He states his symptoms began at 0400 this morning after getting up to go to the bathroom. Patient reports he feels like he cannot take a deep breath he endorses using rescue inhaler, but states it offered no symptomatic relief, which prompted him to come to the hospital. The patient denies any recent illness, ill contacts, travel. The patient reports he has been compliant with all of his medications. Upon arrival to the emergency department the patient's vital signs were BP 136/38 HR 116 RR 26 SPO2 89% on RA T 99.3. CXR shows left lower lobe pneumonia. Laboratory studies indicative of leukocytosis (WBC 15). Remaining blood work, including chemistry, cardiac enzymes, BNP, and urinalysis all negative. The pat ient was treated with nebulizers, Solu-Medrol, magnesium, Rocephin and doxycycline. Bedside ultrasound was performed the patient had significant B- lines in both lung cooley, consistent with interstitial edema. Patient was treated with IV Lasix. Pulmonary Embolism Severity Index score 129 (very high) upon admission. CTA revealed pulmonary emboli in branches of left upper and lower lobe pulmonary arteries. No central PE. The patient was then treated with full dose Lovenox. Given the patient's cardiopulmonary pathology, multiple comorbidities and high risk for decompensation, plan to admit to hospitalist service. Hospital Course Hospital Course: Is 68 years old male patient with past medical history of hypertension, hyperlipidemia, COPD, type 2 diabetes mellitus, hypothyroidism, obstructive sleep apnea and history of squamous cell carcinoma of the skin presented with chief complaint of shortness of breath. He CT scan of the chest with contrast revealed pulmonary emboli in the branches of the left upper and lower pulmonary arteries and his chest x-ray reported as left lower lobe pneumonia. Patient initially started on Lovenox for his embolism and transition to Eliquis. For his pneumonia patient has been treated with Zithromax and ceftriaxone. This morning I seen patient sitting on chair he is awake alert oriented and his vital signs are within normal limits and patient is stable enough to be discharged today. I will send him home with Eliquis 10 mg p.o. twice daily for 5 days followed by Eliquis 5 mg twice a day for 30 days and for his pneumonia and will send him Levaquin 500 mg for 5 days. 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 End of dictation. Physical Exam Vital Signs: Temp Pulse Resp BP Pulse Ox 97.7 F 75 14 141/72 H 93 06/22/18 11:24 06/22/18 14:04 06/22/18 14:04 06/22/18 11:24 06/22/18 14:04 Pulse Oximeter Continuous Start: 06/19/18 13:15 Freq: RTQ4 Status: Complete Protocol: Document 06/21/18 13:40 [facility] [place] (Rec: 06/21/18 13:40 [facility] [place] [id number]) Pulse Oximetry Assessment Equipment Usage Equipment Discontinued Continuous SpO2 Machine # N [id number] Additional RT Notes Other order to dc Intake & Output 06/21/18 06/22/18 06/23/18 06:59 06:59 06:59 Intake Total 1824 2258 300 Balance 1824 2258 300 Weight 130 kg 135 kg 135 kg General appearance: PRESENT: no acute distress Head exam: PRESENT: atraumatic, normocephalic Eye exam: PRESENT: conjunctiva pink Mouth exam: PRESENT: moist Neck exam: ABSENT: carotid bruit, JVD, lymphadenopathy, thyromegaly Respiratory exam: PRESENT: clear to auscultation kana. ABSENT: rales, rhonchi, wheezes Cardiovascular exam: PRESENT: RRR. ABSENT: diastolic murmur, rubs, systolic murmur Neurological exam: PRESENT: alert, awake, oriented to time, oriented to situation Results Laboratory Results: 06/22/18 04:44 06/22/18 04:44 06/21/18 06/21/18 06/22/18 14:33 14:33 04:44 WBC 16.2 H 13.0 H RBC 4.51 4.48 Hgb 12.8 L 12.5 L Hct 38.2 37.9 MCV 85 85 MCH 28.3 27.8 MCHC 33.4 32.9 RDW 17.0 H 17.0 H Plt Count 191 175 Sodium 136.6 L Potassium 4.7 Chloride 102 Carbon Dioxide 22 Anion Gap 13 BUN 40 H Creatinine 0.94 Est GFR ( Amer) > 60 Est GFR (Non-Af Amer) > 60 Glucose 374 H Calcium 9.4 Stool Occult Blood 06/22/18 06/22/18 04:44 06:30 WBC RBC Hgb Hct MCV MCH MCHC RDW Plt Count Sodium 140.0 Potassium 4.7 Chloride 104 Carbon Dioxide 27 Anion Gap 9 BUN 37 H Creatinine 0.83 Est GFR ( Amer) > 60 Est GFR (Non-Af Amer) > 60 Glucose 233 H Calcium 9.3 Stool Occult Blood NEGATIVE 06/19/18 06/19/18 06/20/18 10:08 10:08 06:52 Creatine Kinase 61 CK-MB (CK-2) 1.81 Troponin I < 0.012 NT-Pro-B Natriuret Pep 41 739 Impressions: Chest/Abdomen CTA 06/19/18 10:16 IMPRESSION: 1. Pulmonary emboli in branches of the left upper and lower lobe pulmonary arteries. No central PE. 2. Associated airspace disease consistent with infarction or infection. Venous Doppler Study 06/19/18 10:16 IMPRESSION: NO EVIDENCE DVT OR SVT IN THE LEFT LEG. Chest X-Ray 06/19/18 10:19 IMPRESSION: Left lower lobe pneumonia. Qualifiers - * PATIENT BEING DISCHARGED WITH ANY OF THE FOLLOWING DIAGNOSIS: No
[2018-06-22 14:44] VITALS: BP 147/56
== END 2018-06-22 15:40 | disposition home or self-care (01) | DRG 193 ==
LOC: ER 09:54 → EH 12:57 → 4S 17:41
PROVIDERS: ADMIT Internal Medicine; ATTEND Internal Medicine
PROC: 3E0F3GC Introduction of Other Therapeutic Substance into Respiratory Tract, Percutaneous Approach (ICD-10-PCS; principal; 2018-06-19)
DX: J18.1 Lobar pneumonia, unspecified organism (principal); I26.99 Other pulmonary embolism without acute cor pulmonale; J44.0 Chronic obstructive pulmonary disease with (acute) lower respiratory infection; J44.1 Chronic obstructive pulmonary disease with (acute) exacerbation; Z68.41 Body mass index [BMI] 40.0-44.9, adult; E66.01 Morbid (severe) obesity due to excess calories; I10 Essential (primary) hypertension; E78.5 Hyperlipidemia, unspecified; E11.9 Type 2 diabetes mellitus without complications; G47.33 Obstructive sleep apnea (adult) (pediatric); I44.0 Atrioventricular block, first degree; G25.81 Restless legs syndrome; K21.9 Gastro-esophageal reflux disease without esophagitis; M19.90 Unspecified osteoarthritis, unspecified site; R00.0 Tachycardia, unspecified; Z85.828 Personal history of other malignant neoplasm of skin; Z87.891 Personal history of nicotine dependence; Z79.82 Long term (current) use of aspirin; Z79.4 Long term (current) use of insulin; Z79.01 Long term (current) use of anticoagulants; Z83.6 Family history of other diseases of the respiratory system; Z82.49 Family history of ischemic heart disease and other diseases of the circulatory system
CPT/HCPCS: 36415; 71045; 71275; 80048; 80053; 81001; 82272; 82550; 82553; 82803; 82962; 83036; 83880; 84484; 85025; 85027; 87040; 87070; 87205; 93005; 93010; 93971; 94640; 94667; 94668; 94762; 94799; 96365; 96375; 99285; J0456; J0696; J1815; J1940; J2405; J2920; J2930; J3475; J3490; J7060; J7620

== ENCOUNTER 2018-07-31 17:02 | Emergency (ER) | payer MEDICARE, OTHER ==
[2018-07-31] MEDS ORDERED: IPRATROPIUM/ALBUTEROL 0.5-2.5 MG/3 ML AMPUL NEB ONE (17:24)
[2018-07-31] MEDS ORDERED: MAGNESIUM SULFATE/D5W 1 GM/100 ML RTUPB IV ONE ×2 (17:24→17:25)
--- NOTE | 2018-07-31 17:27 | ER Document Report ---
ED Medical Screen (RME) - General Chief Complaint: Chest Pain Stated Complaint: SHORT OF BREATH/CHEST PAIN Time Seen by Provider: 07/31/18 17:20 Primary Care Provider: LANI FLOOD DPM [Primary Care Provider] - Follow up as needed TRAVEL OUTSIDE OF THE [place] IN LAST 30 DAYS: No - HPI Notes: 07/31/18 17:25 Patient is a 68-year-old male with a history of hypertension, insulin-dependent diabetes, COPD, obesity who presents emergency department complaining of dry cough, shortness of breath, intermittent wheezing, and substernal chest pain that began this morning. Patient states that he does not believe this to be cardiac, but rather his COPD. He is eating and drinking without difficulty. He is urinating normally and having normal bowel movements. Patient initially pres ented hypoxic in the upper 80s on room air and was subsequently placed on oxygen via nasal cannula and is maintaining around 90-91%. Patient states that his normal is closer to 94% on room air and does not have or use oxygen at home. Denies YIN, fever, neck pain, Abd pain, or rash. I have treated and performed a rapid initial assessment of this patient. A comprehensive ED assessment and evaluation of the patient, analysis of test results and completion of medical decision making process will be conducted by additional ED providers. PHYSICAL EXAMINATION: GENERAL: Well-appearing, well-nourished and in no acute distress. A&Ox4. Answers questions appropriately. LUNGS: There is some noted diminishment bilaterally with scant wheeze. No retractions. HEART: Regular rate and rhythm without murmurs, rubs, gallops. Extremities: 1-2+ pitting edema bilateral lower extremities NEUROLOGICAL: Normal speech, normal gait. PSYCH: Normal mood, normal affect. - Related Data Allergies/Adverse Reactions: No Known Allergies Allergy (Verified 05/05/18 19:02) Past Medical History - Past Medical History Cardiac Medical History: Reports: Hx Hypercholesterolemia, Hx Hypertension Denies: Hx Coronary Artery Disease, Hx Heart Attack Pulmonary Medical History: Reports: Hx COPD, Hx Sleep Apnea - LAURIE uses CPAP at home Denies: Hx Asthma, Hx Bronchitis, Hx Pneumonia Neurological Medical History: Denies: Hx Cerebrovascular Accident, Hx Seizures Endocrine Medical History: Reports: Hx Diabetes Mellitus Type 2 - Insulin- dependent. 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 Denies: Hx Cirrhosis, Hx Hepatitis Musculoskeltal Medical History: Reports Hx Arthritis, Denies Hx Gout Skin Medical History: Denies Hx Eczema, Denies Hx Psoriasis Psychiatric Medical History: Denies: Hx Depression Infectious Medical History: Denies: Hx Hepatitis Past Surgical History: Reports: Hx Cholecystectomy, Hx Neurologic Surgery - right hip nerve stim., Hx Orthopedic Surgery - back stimulator - Immunizations Hx Diphtheria, Pertussis, Tetanus Vaccination: Yes History of Influenza Vaccine for 01/2017 - 06/2017 Season: Yes Influenza Administration Date for 01/2017 - 06/2017 Season: 01/24/18 Doctor's Discharge - Discharge Referrals: LANI FLOOD DPM [Primary Care Provider] - Follow up as needed
[2018-07-31 17:59] LABS: ABSOLUTE BASOPHILS # (AUTO) 0.1 10^3/uL (0.0-0.2); ABSOLUTE EOSINOPHILS # (AUTO) 0.1 10^3/uL (0.0-0.6); ABSOLUTE LYMPHOCYTES (AUTO) 1.6 10^3/uL (0.5-4.7); ABSOLUTE MONOCYTES (AUTO) 0.6 10^3/uL (0.1-1.4); ABSOLUTE NEUT (AUTO) 9.3 10^3/uL (1.7-8.2); BASOPHILS % (AUTO) 0.5 % (0-2); EOSINOPHILS % (AUTO) 0.9 % (0-6); HEMATOCRIT 38.7 % (37.9-51.0); HEMOGLOBIN 12.8 g/dL (13.5-17.0); LYMPHOCYTES % (AUTO) 13.4 % (13-45); MEAN CORPUSCULAR HEMOGLOBIN 28.1 pg (27.0-33.4); MEAN CORPUSCULAR HGB CONC 33.1 g/dL (32.0-36.0); MEAN CORPUSCULAR VOLUME 85 fl (80-97); MONOCYTES % (AUTO) 5.3 % (3-13); PLATELET COUNT 221 10^3/uL (150-450); RED BLOOD COUNT 4.55 10^6/uL (4.35-5.55); RED CELL DISTRIBUTION WIDTH 16.5 % (11.5-14.0); SEGMENTED NEUTROPHILS % (AUTO) 79.9 % (42-78); TOTAL CELLS COUNTED % (AUTO) 100 %; WHITE BLOOD COUNT 11.6 10^3/uL (4.0-10.5)
[2018-07-31 18:25] LABS: ALANINE AMINOTRANSFERASE 30 U/L (21-72); ALBUMIN 3.5 g/dL (3.5-5.0); ALKALINE PHOSPHATASE 104 U/L (38-126); ANION GAP 10 (5-19); ASPARTATE AMINO TRANSFERASE 21 U/L (17-59); BILIRUBIN,DIRECT 0.3 mg/dL (0.0-0.4); BILIRUBIN,TOTAL 0.8 mg/dL (0.2-1.3); BLOOD UREA NITROGEN 21 mg/dL (7-20); CALCIUM 9.4 mg/dL (8.4-10.2); CARBON DIOXIDE 24 mmol/L (22-30); CHLORIDE 105 mmol/L (98-107); GLUCOSE 279 mg/dL (75-110); POTASSIUM 3.9 mmol/L (3.6-5.0); SODIUM 139.4 mmol/L (137-145); TOTAL PROTEIN 5.9 g/dL (6.3-8.2)
[2018-07-31 18:37] LABS: NT PRO BNP 68 pg/mL (5-900)
[2018-07-31 19:33] LABS: TROPONIN I < 0.012 ng/mL
[2018-07-31] MEDS ORDERED: MAGNESIUM SULFATE/D5W 2 GM/200 ML RTUPB IV ONE (19:48)
--- NOTE | 2018-07-31 20:58 | RADIOLOGY REPORT (SQ) ---
EXAM DESCRIPTION: XR CHEST 1 VIEW COMPLETED DATE/TME: 07/31/2018 17:24 CLINICAL HISTORY: SOB/CP COMPARISON: June 19, 2018 FINDINGS: Cardiac silhouette is unchanged compared with the prior exam. EKG leads project over the chest. Dorsal stimulating catheters ends at the mid thoracic level. There is no focal parenchymal or pleural disease. There is no acute osseous process visualized. IMPRESSION: No evidence of acute cardiopulmonary disease.
--- NOTE | 2018-07-31 21:16 | EKG REPORT ---
SEVERITY:- ABNORMAL ECG - SINUS TACHYCARDIA LAD, CONSIDER LEFT ANTERIOR FASCICULAR BLOCK INCOMPLETE RBBB LOW VOLTAGE EKG : Confirmed by: Jos Palumbo MD 31-Jul-2018 21:16:20
[2018-07-31 23:10] VITALS: BP 115/53
--- NOTE | 2018-07-31 23:25 | ER Document Report ---
Entered by TERRELL DICKINSON SCRIBE 07/31/182033 Acting as scribe for:SAHARA CARUSO DO ED Respiratory Problem - General Chief Complaint: Chest Pain Stated Complaint: SHORT OF BREATH/CHEST PAIN Time Seen by Provider: 07/31/18 17:20 Mode of Arrival: Ambulatory Information source: Patient Notes: 68-year-old male who presents to the emergency department today with complaints of increasing shortness of breath which began this morning. Patient states that he vomited last night and he believes he might have aspirated on that. Patient states he had a heavy coughing spell right after this potential aspiration with shortness of breath that began shortly after. Patient denies a history of CHF. TRAVEL OUTSIDE OF THE [place] IN LAST 30 DAYS: No - Related Data Allergies/Adverse Reactions: No Known Allergies Allergy (Verified 05/05/18 19:02) Past Medical History - General Information source: Patient - Social History Smoking Status: Former Smoker Cigarette use (# per day): No Frequency of alcohol use: None Drug Abuse: None Lives with: Family Family History: Reviewed & Not Pertinent, COPD Patient has suicidal ideation: No Patient has homicidal ideation: No - Past Medical History Cardiac Medical History: Reports: Hx Hypercholesterolemia, Hx Hypertension Pulmonary Medical History: Reports: Hx COPD, Hx Sleep Apnea - LAURIE uses CPAP at home Endocrine Medical History: Reports: Hx Diabetes Mellitus Type 2 - Insulin- dependent Malignancy Medical History: Reports Hx Skin Cancer - Squamous cell carcinoma l eft arm GI Medical History: Reports: Hx Gastroesophageal Reflux Disease Musculoskeletal Medical History: Reports Hx Arthritis Past Surgical History: Reports: Hx Cholecystectomy, Hx Neurologic Surgery - right hip nerve stim., Hx Orthopedic Surgery - back stimulator - Immunizations Hx Diphtheria, Pertussis, Tetanus Vaccination: Yes Hx Pneumococcal Vaccination: 12/25/17 Review of Systems - Review of Systems Constitutional: No symptoms reported EENT: No symptoms reported Cardiovascular: No symptoms reported Respiratory: See HPI, Short of breath, Wheezing Gastrointestinal: No symptoms reported Genitourinary: No symptoms reported Male Genitourinary: No symptoms reported Musculoskeletal: No symptoms reported Skin: No symptoms reported Hematologic/Lymphatic: No symptoms reported Neurological/Psychological: No symptoms reported -: Yes All other systems reviewed and negative Physical Exam - Vital signs Vitals: Temp Pulse Resp BP Pulse Ox 98.5 F 104 H 20 132/57 H 89 L 07/31/18 17:27 07/31/18 17:27 07/31/18 17:27 07/31/18 17:27 07/31/18 17:27 - Notes Notes: PHYSICAL EXAM GENERAL: Alert, interacts well. No acute distress. Obese. HEAD: Normocephalic, atraumatic. EYES: Pupils equal, round, and reactive to light. Extraocular movements intact. ENT: Oral mucosa moist, tongue midline. NECK: Full range of motion. Supple. Trachea midline. LUNGS: Clear to auscultation bilaterally, no wheezing after breathing treatments given in triage. No respiratory distress. HEART: Regular rate and rhythm. No murmurs, gallops, or rubs. ABDOMEN: Soft, non-tender. Non-distended. Bowel sounds present in all 4 quadrants. No guarding, rigidity, or rebound. EXTREMITIES: Moves all 4 extremities spontaneously. No edema, radial and dorsalis pedis pulses 2/4 bilaterally. No cyanosis. NEUROLOGICAL: Alert and oriented x3. Normal speech. PSYCH: Normal affect, normal mood. SKIN: Warm, dry, normal turgor. No rashes or lesions noted. Course - Re-evaluation Re-evalutation: 07/31/18 20:44 07/31/18 22:56 CBC shows leukocytosis 11.6, mild anemia with hemoglobin 12.8, CMP shows elevated glucose otherwise unremarkable, cardiac enzymes negative, proBNP normal, chest x-ray shows no acute process, EKG is nonischemic. Patient is able to ambulate around the emergency department with his pulse ox ranging between 96 and 100%. I suspect the desaturation while lying in bed has to do with his body habitus and the reason why he needs CPAP in the first place. No indication of demand hypoxia. Patient is completely wheeze free after magne sium and breathing treatments will be started on steroids and discharged home. - Vital Signs Vital signs: Temp Pulse Resp BP Pulse Ox 98.5 F 104 H 20 104/81 95 07/31/18 17:27 07/31/18 17:27 07/31/18 21:00 07/31/18 20:01 07/31/18 21:00 - Laboratory Result Diagrams: 07/31/18 17:45 07/31/18 17:45 Laboratory results interpreted by me: 07/31/18 07/31/18 17:45 17:45 WBC 11.6 H Hgb 12.8 L RDW 16.5 H Seg Neutrophils % 79.9 H Absolute Neutrophils 9.3 H BUN 21 H Glucose 279 H Total Protein 5.9 L - EKG Interpretation by Me Additional EKG results interpreted by me: 07/31/18 22:57 EKG shows sinus tachycardia at a rate of 107, left anterior hemiblock, poor R wave progression, no ST segment elevations or depressions per my interpretation. Discharge - Discharge Clinical Impression: COPD exacerbation Condition: Stable Disposition: HOME, SELF-CARE Additional Instructions: Use your inhalers every 4 hours while you are awake for the next 2 days after that you may use them only as needed. Take the steroids as directed until they are gone. Return to the emergency department for any new or concerning symptoms. Prescriptions: Prednisone [Deltasone 20 mg Tablet] 2 tab PO DAILY 5 Days tablet I personally performed the services described in the documentation, reviewed and edited the documentation which was dictated to the scribe in my presence, and it accurately records my words and actions.
== END 2018-07-31 23:19 | disposition home or self-care (01) ==
LOC: ER 17:02
DX: J44.1 Chronic obstructive pulmonary disease with (acute) exacerbation (principal); R07.9 Chest pain, unspecified; R06.02 Shortness of breath; R05 Cough; Z87.891 Personal history of nicotine dependence; I10 Essential (primary) hypertension; E11.9 Type 2 diabetes mellitus without complications; Z79.4 Long term (current) use of insulin
CPT/HCPCS: 93005; 94640; 99284; 96365; 36415; 85025; 80053; 84484; 83880; 71045; 93010; J3475; A9270; J7620

== ENCOUNTER 2018-11-07 00:16 | Emergency (ER) | payer MEDICARE, OTHER ==
[2018-11-07] MEDS ORDERED: ASPIRIN 81 MG TABLET, CHEWABLE PO ONE (02:16)
--- NOTE | 2018-11-07 02:18 | ER Document Report ---
ED Respiratory Problem - General Chief Complaint: Shortness Of Breath Stated Complaint: SHORTNESS OF BREATH Time Seen by Provider: 11/07/18 01:44 Primary Care Provider: ROSANGELA AMOR MD [EMERITUS] - Follow up as needed KONSTANTIN CAT MD [NO LOCAL MD] - Follow up as needed Mode of Arrival: Ambulatory Information source: Patient TRAVEL OUTSIDE OF THE [place] IN LAST 30 DAYS: No - HPI Patient complains to provider of: COPD, Short of breath Onset: This afternoon Duration: Better Quality of pain: No pain Severity: None Pain Level: Denies Short of Breath: Mild Chest pain/discomfort: Intermittent At home treatment: Bronchodilators Associated symptoms: None Similar symptoms previously: Yes Recently seen / treated by doctor: No - Related Data Allergies/Adverse Reactions: No Known Allergies Allergy (Verified 05/05/18 19:02) Past Medical History - General Information source: Patient - Social History Smoking Status: Former Smoker Chew tobacco use (# tins/day): No Frequency of alcohol use: None Drug Abuse: None Family History: Reviewed & Not Pertinent, COPD Patient has suicidal ideation: No Patient has homicidal ideation: No - Past Medical History Cardiac Medical History: Reports: Hx Hypercholesterolemia, Hx Hypertension Denies: Hx Coronary Artery Disease, Hx Heart Attack Pulmonary Medical History: Reports: Hx COPD, Hx Sleep Apnea - LAURIE uses CPAP at home Denies: Hx Asthma, Hx Bronchitis, Hx Pneumonia Neurological Medical History: Denies: Hx Cerebrovascular Accident, Hx Seizures Endocrine Medical History: Reports: Hx Diabetes Mellitus Type 2 - Insulin- dependent. 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 Denies: Hx Cirrhosis, Hx Hepatitis Musculoskeletal Medical History: Reports Hx Arthritis, Denies Hx Gout Skin Medical History: Denies Hx Eczema, Denies Hx Psoriasis Psychiatric Medical History: Denies: Hx Depression Infectious Medical History: Denies: Hx Hepatitis Past Surgical History: Reports: Hx Cholecystectomy, Hx Neurologic Surgery - right hip nerve stim., Hx Orthopedic Surgery - back stimulator - Immunizations Hx Diphtheria, Pertussis, Tetanus Vaccination: Yes Hx Pneumococcal Vaccination: 12/25/17 Review of Systems - Review of Systems Constitutional: No symptoms reported EENT: No symptoms reported Cardiovascular: No symptoms reported Respiratory: Short of breath Gastrointestinal: No symptoms reported Genitourinary: No symptoms reported Male Genitourinary: No symptoms reported Musculoskeletal: Leg swelling Skin: No symptoms reported Hematologic/Lymphatic: No symptoms reported Neurological/Psychological: No symptoms reported -: Yes All other systems reviewed and negative Physical Exam - Vital signs Vitals: Temp Pulse Resp BP Pulse Ox 97.6 F 96 19 138/76 H 96 11/07/18 00:34 11/07/18 00:34 11/07/18 00:34 11/07/18 00:34 11/07/18 00:34 Interpretation: Normal - General General appearance: Appears well, Alert In distress: None - HEENT Head: Normocephalic, Atraumatic Eyes: Normal Pupils: PERRL - Respiratory Respiratory status: No respiratory distress Chest status: Nontender Breath sounds: Wheezing Chest palpation: Normal - Cardiovascular Rhythm: Regular Heart sounds: Normal auscultation Murmur: No - Abdominal Inspection: Normal Distension: No distension Bowel sounds: Normal Tenderness: Nontender Organomegaly: No organomegaly - Back Back: Normal, Nontender - Extremities General upper extremity: Normal inspection, Nontender, Normal color, Normal ROM, Normal temperature General lower extremity: Normal inspection, Nontender, Normal color, Normal ROM, Normal temperature, Normal weight bearing. No: Chris's sign - Neurological Neuro grossly intact: Yes Cognition: Normal Orientation: AAOx4 [place] Coma Scale Eye Opening: Spontaneous [place] Coma Scale Verbal: Oriented [place] Coma Scale Motor: Obeys Commands [place] Coma Scale Total: 15 Speech: Normal Motor strength normal: LUE, RUE, LLE, RLE Sensory: Normal - Psychological Associated symptoms: Normal affect, Normal mood - Skin Skin Temperature: Warm Skin Moisture: Dry Skin Color: Normal Course - Re-evaluation Re-evalutation: 11/07/18 04:33 On re-evaluation, she inserted he is doing much better after receiving the breathing treatments and steroid. He said his shortness of breath has resolved. 11/07/18 04:59 I re-evaluated the patient after receiving his ABG results. I walked him around the ED and after walking him around his O2 sat on room air is 99%. He is not tachycardic or tachypneic. Patient wants to go home and he does not want to be admitted. He said he will follow-up with his doctor tomorrow morning Dr. Amor. I advised him to talk to his doctor regarding the possibility of having home oxygen to be used as needed at home. Vital signs are stable after walking around the ED. I will go ahead and discharge him home per patient request to follow-up with his doctor tomorrow morning. Patient also said he has over his medications at home and he does not need any prescription. - Vital Signs Vital signs: Temp Pulse Resp BP Pulse Ox 97.6 F 96 18 147/67 H 100 11/07/18 00:34 11/07/18 00:34 11/07/18 04:55 11/07/18 04:55 11/07/18 04:55 - Laboratory Result Diagrams: 11/07/18 01:40 11/07/18 01:40 Laboratory results interpreted by me: 11/07/18 11/07/18 11/07/18 01:40 01:40 02:25 Hgb 13.0 L RDW 16.7 H ABG pO2 ABG HCO3 ABG Total CO2 Direct Bilirubin 0.5 H Total Protein 6.2 L Urine Glucose (UA) >=500 H 11/07/18 04:07 Hgb RDW ABG pO2 70.8 L ABG HCO3 26.2 H ABG Total CO2 27.5 H Direct Bilirubin Total Protein Urine Glucose (UA) - Diagnostic Test Radiology reviewed: Reports reviewed Radiology results interpreted by me: 11/07/18 03:36 Chest x-ray is negative. - EKG Interpretation by Nv EKG shows normal: Sinus rhythm Rate: Normal Rhythm: NSR [place]/QRS: Left axis deviation, LAHB/LAFB Heart block present: 1st Degree When compared to previous EKG there are: Changes noted Additional EKG results interpreted by me: 11/07/18 03:37 And new first-degree AV block is noted when compared to old EKG on July 31. Otherwise no other changes noted. No STEMI. Discharge - Discharge Clinical Impression: COPD exacerbation Condition: Stable Disposition: HOME, SELF-CARE Instructions: Chronic Obstructive Lung Disease ([facility]) Additional Instructions: Please follow-up with your regular doctor tomorrow morning Dr. Amor regarding your COPD and shortness of breath. Ask your regular doctor about the possibility of giving you a home oxygen to be used as needed at home. Return to the emergency room if your condition worsens. Referrals: ROSANGELA AMOR MD [EMERITUS] - Follow up as needed KONSTANTIN CAT MD [NO LOCAL MD] - Follow up as needed
[2018-11-07 02:46] LABS: ABSOLUTE BASOPHILS # (AUTO) 0.1 10^3/uL (0.0-0.2); ABSOLUTE EOSINOPHILS # (AUTO) 0.3 10^3/uL (0.0-0.6); ABSOLUTE MONOCYTES (AUTO) 0.7 10^3/uL (0.1-1.4); ABSOLUTE NEUT (AUTO) 6.1 10^3/uL (1.7-8.2); BASOPHILS % (AUTO) 0.6 % (0-2); EOSINOPHILS % (AUTO) 2.9 % (0-6); LYMPHOCYTES % (AUTO) 22.3 % (13-45); MEAN CORPUSCULAR HEMOGLOBIN 27.6 pg (27.0-33.4); MEAN CORPUSCULAR HGB CONC 32.5 g/dL (32.0-36.0); MEAN CORPUSCULAR VOLUME 85 fl (80-97); MONOCYTES % (AUTO) 7.3 % (3-13); PLATELET COUNT 212 10^3/uL (150-450); RED BLOOD COUNT 4.71 10^6/uL (4.35-5.55); RED CELL DISTRIBUTION WIDTH 16.7 % (11.5-14.0); SEGMENTED NEUTROPHILS % (AUTO) 66.9 % (42-78); TOTAL CELLS COUNTED % (AUTO) 100 %; WHITE BLOOD COUNT 9.1 10^3/uL (4.0-10.5)
[2018-11-07 02:54] LABS: ALANINE AMINOTRANSFERASE 25 U/L (21-72); ALBUMIN 3.8 g/dL (3.5-5.0); ALKALINE PHOSPHATASE 122 U/L (38-126); ANION GAP 12 (5-19); ASPARTATE AMINO TRANSFERASE 35 U/L (17-59); BILIRUBIN,DIRECT 0.5 mg/dL (0.0-0.4); BILIRUBIN,TOTAL 0.7 mg/dL (0.2-1.3); BLOOD UREA NITROGEN 16 mg/dL (7-20); CALCIUM 9.5 mg/dL (8.4-10.2); CARBON DIOXIDE 27 mmol/L (22-30); CHLORIDE 105 mmol/L (98-107); GLUCOSE 101 mg/dL (75-110); POTASSIUM 3.7 mmol/L (3.6-5.0); SODIUM 143.6 mmol/L (137-145); TOTAL PROTEIN 6.2 g/dL (6.3-8.2)
--- NOTE | 2018-11-07 02:57 | RADIOLOGY REPORT (SQ) ---
EXAM DESCRIPTION: XR CHEST 1 VIEW COMPLETED DATE/TME: 11/07/2018 02:17 EXAM DESCRIPTION: Single view of the chest CLINICAL HISTORY: SOB COMPARISON: 07/31/2018 FINDINGS: Single frontal view of the chest. Cardiomediastinal silhouette: Normal size and contour. Lungs: No consolidation, pneumothorax, or pleural effusion. Leads overlie the chest. Bones: No acute osseous abnormality. Dorsal generator leads. Degenerative change of the spine. Upper abdomen: No abnormality identified. IMPRESSION: 1. No acute pulmonary process identified.
[2018-11-07 03:05] LABS: CREATINE KINASE MB 2.16 ng/mL (<4.55); NT PRO BNP 56 pg/mL (5-900)
[2018-11-07 03:06] LABS: TROPONIN I < 0.012 ng/mL
[2018-11-07 03:18] LABS: APPEARANCE,URINE CLEAR; BILIRUBIN,URINE NEGATIVE (NEGATIVE); COLOR,URINE YELLOW; GLUCOSE, URINE >=500 mg/dL (NEGATIVE); KETONES,URINE NEGATIVE (NEGATIVE); LEUKOCYTE ESTERASE,URINE NEGATIVE (NEGATIVE); NITRITE,URINE NEGATIVE (NEGATIVE); PROTEIN,URINE NEGATIVE (NEGATIVE); URINE SPECIFIC GRAVITY 1.018; UROBILINOGEN,URINE NEGATIVE mg/dL (<2.0)
[2018-11-07] MEDS ORDERED: IPRATROPIUM/ALBUTEROL 0.5-2.5 MG/3 ML AMPUL NEB ONE (03:33)
[2018-11-07] MEDS ORDERED: METHYLPREDNISOLONE INJ 125 MG/2 ML SDV IV ONE (03:33)
[2018-11-07 04:41] LABS: ARTERIAL BLOOD BASE EXCESS 1.5 mmol/L; ARTERIAL BLOOD H2CO3 1.26 mmol/L (1.05-1.35); ARTERIAL BLOOD HCO3 26.2 mmol/L (20-24); ARTERIAL BLOOD O2 SATURATION 94.5 % (94-98); ARTERIAL BLOOD PCO2 41.8 mmHg (35-45); ARTERIAL BLOOD PH 7.42 (7.35-7.45); ARTERIAL BLOOD PO2 70.8 mmHg (80-100); ARTERIAL BLOOD TOTAL CO2 27.5 mmol/L (23-27)
[2018-11-07 04:42] LABS: ARTERIAL BLOOD FIO2 ROOM AIR
[2018-11-07 04:58] VITALS: BP 147/67
--- NOTE | 2018-11-08 18:45 | EKG REPORT ---
SEVERITY:- ABNORMAL ECG - SINUS RHYTHM FIRST DEGREE AV BLOCK LAD, CONSIDER LEFT ANTERIOR FASCICULAR BLOCK : Confirmed by: Jos Palumbo MD 08-Nov-2018 18:45:10
== END 2018-11-07 05:15 | disposition home or self-care (01) ==
LOC: ER 00:16
DX: J44.1 Chronic obstructive pulmonary disease with (acute) exacerbation (principal); E78.00 Pure hypercholesterolemia, unspecified; I10 Essential (primary) hypertension; E11.9 Type 2 diabetes mellitus without complications; Z79.84 Long term (current) use of oral hypoglycemic drugs; Z90.49 Acquired absence of other specified parts of digestive tract
CPT/HCPCS: 93005; 94640; 99285; 96374; 36415; 82553; 82803; 85025; 80053; 81001; 84484; 83880; 71045; 93010; J2930; A9270; J7620

== ENCOUNTER 2019-02-13 10:41 | Observation (INO) | payer MEDICARE, OTHER ==
--- NOTE | 2019-02-13 11:38 | ER Document Report ---
ED Medical Screen (RME) - General Chief Complaint: Chest Pain Stated Complaint: CHEST TIGHTNESS Time Seen by Provider: 02/13/19 11:32 Primary Care Provider: DEVIN VILLAVICENCIO DO [Primary Care Provider] - Follow up as needed Mode of Arrival: Ambulatory Information source: Patient Notes: 68-year-old male presented to ED for chest pain. He states the chest pain started last night. He states he does have a history of COPD and pulmonary emboli. Have a history of elevated blood pressure and cholesterol. He is on cardiac meds also. He has had a previous cardiac cath 2 years ago and did not get any stents he said he did have some blockage but not enough to warrant a stent. 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 Andrews and Ti Hillman. His mechanical oxidizer is Dr. Morales and Elijah. His urologist is to Dr Yeung in [place]. his primary care. He states when he left home this morning his temperature was 99.8. I have greeted and performed a rapid initial assessment of this patient. A comprehensive ED assessment and evaluation of the patient, analysis of test results and completion of medical decision making process will be conducted by an additional ED providers. TRAVEL OUTSIDE OF THE [place] IN LAST 30 DAYS: No - Related Data Allergies/Adverse Reactions: No Known Allergies Allergy (Verified 05/05/18 19:02) Past Medical History - Social History Frequency of alcohol use: None Drug Abuse: None - Past Medical History Cardiac Medical History: Reports: Hx Hypercholesterolemia, Hx Hypertension Denies: Hx Coronary Artery Disease, Hx Heart Attack Pulmonary Medical History: Reports: Hx COPD, Hx Sleep Apnea - LAURIE uses CPAP at home Denies: Hx Asthma, Hx Bronchitis, Hx Pneumonia Neurological Medical History: Denies: Hx Cerebrovascular Accident, Hx Seizures Endocrine Medical History: Reports: Hx Diabetes Mellitus Type 2 - Insulin- dependent. 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 Denies: Hx Cirrhosis, Hx Hepatitis Musculoskeltal Medical History: Reports Hx Arthritis, Denies Hx Gout Skin Medical History: Denies Hx Eczema, Denies Hx Psoriasis Psychiatric Medical History: Denies: Hx Depression Infectious Medical History: Denies: Hx Hepatitis Past Surgical History: Reports: Hx Cholecystectomy, Hx Neurologic Surgery - right hip nerve stim., Hx Orthopedic Surgery - back stimulator - Immunizations Hx Diphtheria, Pertussis, Tetanus Vaccination: Yes Physical Exam - Vital signs Vitals: Temp Pulse Resp BP Pulse Ox 98.4 F 107 H 22 H 138/53 H 90 L 02/13/19 11:01 02/13/19 11:01 02/13/19 11:01 02/13/19 11:01 02/13/19 11:01 Course - Vital Signs Vital signs: Temp Pulse Resp BP Pulse Ox 98.4 F 107 H 27 H 138/53 H 90 L 02/13/19 11:01 02/13/19 11:01 02/13/19 11:28 02/13/19 11:01 02/13/19 11:01 Doctor's Discharge - Discharge Referrals: DEVIN VILLAVICENCIO DO [Primary Care Provider] - Follow up as needed
[2019-02-13 11:43] LABS: INTERNATIONAL RATION (INR) 0.98
[2019-02-13 11:44] LABS: PARTIAL THROMBOPLASTIN TIME 28.1 SEC (23.5-35.8)
[2019-02-13 11:45] LABS: HEMOGLOBIN 15.4 g/dL (13.5-17.0); MEAN CORPUSCULAR HEMOGLOBIN 26.9 pg (27.0-33.4); MEAN CORPUSCULAR HGB CONC 32.1 g/dL (32.0-36.0); MEAN CORPUSCULAR VOLUME 84 fl (80-97); PLATELET COUNT 212 10^3/uL (150-450); RED BLOOD COUNT 5.72 10^6/uL (4.35-5.55); RED CELL DISTRIBUTION WIDTH 17.5 % (11.5-14.0); WHITE BLOOD COUNT 17.8 10^3/uL (4.0-10.5)
[2019-02-13 11:58] LABS: ALBUMIN 3.8 g/dL (3.5-5.0); ALKALINE PHOSPHATASE 106 U/L (38-126); ANION GAP 7 (5-19); ASPARTATE AMINO TRANSFERASE 23 U/L (17-59); BILIRUBIN,DIRECT 0.2 mg/dL (0.0-0.4); BILIRUBIN,TOTAL 1.3 mg/dL (0.2-1.3); BLOOD UREA NITROGEN 11 mg/dL (7-20); CALCIUM 9.4 mg/dL (8.4-10.2); CARBON DIOXIDE 30 mmol/L (22-30); CHLORIDE 107 mmol/L (98-107); CREATINE KINASE 66 U/L (55-170); GLUCOSE 99 mg/dL (75-110); POTASSIUM 4.1 mmol/L (3.6-5.0); TOTAL PROTEIN 6.3 g/dL (6.3-8.2)
[2019-02-13 12:08] LABS: ABSOLUTE LYMPHOCYTES# (MANUAL) 1.1 10^3/uL (0.5-4.7); ABSOLUTE MONOCYTES # (MANUAL) 0.7 10^3/uL (0.1-1.4); BASOPHILS % (MANUAL) 0 % (0-2); EOSINOPHILS % (MANUAL) 0 % (0-6); LYMPHOCYTES % (MANUAL) 5 % (13-45); MONOCYTES % (MANUAL) 4 % (3-13); SEGMENTED NEUTROPHILS % (MAN) 90 % (42-78); TOTAL CELLS COUNTED 100
[2019-02-13 12:09] LABS: ANISOCYTOSIS 1+; PLATELET COMMENT ADEQUATE; POLYCHROMASIA SLIGHT
[2019-02-13 12:16] LABS: CREATINE KINASE MB 3.59 ng/mL (<4.55)
[2019-02-13] MEDS ORDERED: IPRATROPIUM/ALBUTEROL 0.5-2.5 MG/3 ML AMPUL NEB ONE (12:17)
[2019-02-13 12:19] LABS: TROPONIN I < 0.012 ng/mL
[2019-02-13] MEDS ORDERED: METHYLPREDNISOLONE INJ 125 MG/2 ML SDV IV ONE (12:22)
[2019-02-13] MEDS ORDERED: NORMAL SALINE 1000 ML 500 ML IV ONE (12:23)
[2019-02-13] MEDS: MAGNESIUM SULFATE/D5W 1 GM/100 ML RTUPB IV SCH ×2 (12:35→13:23)
--- NOTE | 2019-02-13 12:59 | ER Document Report ---
Entered by TERRELL DICKINSON SCRIBE 02/13/19 1221 Acting as scribe for:ALEXANDRA PALMER MD ED Respiratory Problem - General Chief Complaint: Chest Pain Stated Complaint: CHEST TIGHTNESS Time Seen by Provider: 02/13/19 11:32 Primary Care Provider: DEVIN VILLAVICENCIO DO [Primary Care Provider] - Follow up as needed Mode of Arrival: Ambulatory Information source: Patient Notes: 68-year-old male presents to the emergency department today with complaints of shortness of breath with an associated productive cough. Patient states that he has at home inhalers and nebulizers and has been using them with no relief. Patient states he usually uses his inhaler daily regardless of his respiratory status. Patient states he tried one breathing treatment prior to arrival today with no change in respiratory status. Patient was diagnosed with a left lung pulmonary embolus in May 2018 and is on Eliquis. TRAVEL OUTSIDE OF THE [place] IN LAST 30 DAYS: No - Related Data Allergies/Adverse Reactions: No Known Allergies Allergy (Verified 05/05/18 19:02) Past Medical History - General Information source: Patient - Social History Smoking Status: Never Smoker Cigarette use (# per day): No Chew tobacco use (# tins/day): No Smoking Education Provided: No Frequency of alcohol use: None Drug Abuse: None Lives with: Family Family History: Reviewed & Not Pertinent, COPD Patient has suicidal ideation: No Patient has homicidal ideation: No - Past Medical History Cardiac Medical History: Reports: Hx Hypercholesterolemia, Hx Hypertension, Hx Pulmonary Embolism - October 2018 Pulmonary Medical History: Reports: Hx COPD, Hx Sleep Apnea - LAURIE uses CPAP at home Endocrine Medical History: Reports: Hx Diabetes Mellitus Type 2 - Insulin- dependent Malignancy Medical History: Reports 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 GI Medical History: Reports: Hx Gastroesophageal Reflux Disease Musculoskeletal Medical History: Reports Hx Arthritis Past Surgical History: Reports: Hx Cholecystectomy, Hx Neurologic Surgery - right hip nerve stim. - Immunizations Hx Diphtheria, Pertussis, Tetanus Vaccination: Yes Hx Pneumococcal Vaccination: 12/25/17 Review of Systems - Review of Systems Constitutional: No symptoms reported EENT: No symptoms reported Cardiovascular: No symptoms reported Respiratory: See HPI, Cough, Short of breath, Wheezing Gastrointestinal: No symptoms reported Genitourinary: No symptoms reported Male Genitourinary: No symptoms reported Musculoskeletal: No symptoms reported Skin: No symptoms reported Hematologic/Lymphatic: No symptoms reported Neurological/Psychological: No symptoms reported -: Yes All other systems reviewed and negative Physical Exam - Vital signs Vitals: Temp Pulse Resp BP Pulse Ox 98.4 F 107 H 22 H 138/53 H 90 L 02/13/19 11:01 02/13/19 11:01 02/13/19 11:01 02/13/19 11:01 02/13/19 11:01 - Notes Notes: Physical Exam: General: Alert, appears short of breath, tripoding. Looks tired. HEENT: Normocephalic. Atraumatic. PERRL. Extraocular movements intact. Oropharynx clear. Neck: Supple. Non-tender. Respiratory: Mild to moderate respiratory distress. Tachypneic. Tripoding. Wheezing and rhonchi bilaterally. Cardiovascular: Regular rate and rhythm. Abdominal: Obese. Non-tender. No distension. Normal Bowel Sounds. Back: No gross abnormalities. Extremities: Moves all four extremities. Upper extremities: Normal inspection. Normal ROM. Lower extremities: Normal inspection. No edema. Calves are soft and nontender with some mild varicosities. Normal ROM. Neurological: Normal cognition. AAOx4. Normal speech. Psychological: Normal affect. Normal Mood. Skin: Warm. Dry. Normal color. Course - Re-evaluation Re-evalutation: 02/13/19 13:16 This time the patient is a little more comfortable. He is laying on his side on nasal cannula oxygen. He is not tachycardic. His pulse ox is 94% on 2 L nasal cannula. He does have some retracting and does have a late prolonged expiratory wheeze. - Vital Signs Vital signs: Temp Pulse Resp BP Pulse Ox 98.4 F 107 H 20 135/63 H 94 02/13/19 11:01 02/13/19 11:01 02/13/19 12:02 02/13/19 13:02 02/13/19 12:20 - Laboratory Result Diagrams: 02/13/19 11:22 02/13/19 11:22 Laboratory results interpreted by me: 02/13/19 11:22 WBC 17.8 H RBC 5.72 H MCH 26.9 L RDW 17.5 H Seg Neuts % (Manual) 90 H Lymphocytes % (Manual) 5 L Abs Neuts (Manual) 16.0 H - Diagnostic Test Radiology reviewed: Image reviewed, Reports reviewed - Chest x-ray shows left upper lobe infiltrate anteriorly, lingular infiltrate, and left lower lobe infiltrate - EKG Interpretation by Me EKG shows normal: Sinus rhythm, [place], Intervals, QRS Complexes, ST-T Waves Rate: Normal - 85 [place]/QRS: Left axis deviation, LAHB/LAFB Heart block present: 1st Degree When compared to previous EKG there are: No significant change - Consults ARCADIO Vanegas Time consulted: 14:20 Consulted provider: will come to ER Critical Care Note - Critical Care Note Total time excluding time spent on procedures (mins): 35 Discharge - Discharge Clinical Impression: COPD exacerbation, Hypoxia Pneumonia Qualifiers: Pneumonia type: due to unspecified organism Laterality: left Lung location: unspecified part of lung Qualified Code(s): J18.9 - Pneumonia, unspecified organism Type 2 diabetes mellitus Qualifiers: Diabetes mellitus nursing home insulin use: with terminal clerk use Diabetes mellitus complication status: without complication Qualified Code(s): E11.9 - Type 2 diabetes mellitus without complications; Z79.4 - intermediate card tender (current) use of insulin Dyspnea Qualifiers: Dyspnea type: unspecified Qualified Code(s): R06.00 - Dyspnea, unspecified Condition: Stable Disposition: ADMITTED INPATIENT Admitting Provider: Zari (Hospitalist) Unit Admitted: Telemetry Referrals: DEVIN VILLAVICENCIO DO [Primary Care Provider] - Follow up as needed Scribe Attestation: 02/13/19 13:24 I personally performed the services described in the documentation, reviewed and edited the documentation which was dictated to the scribe in my presence, and it accurately records my words and actions. I personally performed the services described in the documentation, reviewed and edited the documentation which was dictated to the scribe in my presence, and it accurately records my words and actions.
[2019-02-13] MEDS ORDERED: ALBUTEROL SULFATE 0.083% NEB 2.5 MG/3 ML AMPUL NEB ONE ×2 (13:15→13:20)
[2019-02-13] MEDS ORDERED: LEVOFLOXACIN 750 MG/D5W RTU 750 MG/150 ML RTUPB IV ONE (14:13)
--- NOTE | 2019-02-13 14:16 | RADIOLOGY REPORT (SQ) ---
EXAM DESCRIPTION: CHEST 2 VIEWS COMPLETED DATE/TIME: 02/13/2019 1:58 pm REASON FOR STUDY: chest pain copd hx of pe COMPARISON: 11/07/2018. EXAM PARAMETERS: NUMBER OF VIEWS: two views TECHNIQUE: Digital Frontal and Lateral radiographic views of the chest acquired. RADIATION DOSE: NA LIMITATIONS: none FINDINGS: LUNGS AND PLEURA: Infiltrate in the lingula and left lower lobe. Right lung clear. No pl eural effusion. No pneumothorax. MEDIASTINUM AND HILAR STRUCTURES: No masses or contour abnormalities. HEART AND VASCULAR STRUCTURES: Heart normal size. No evidence for failure. BONES: No acute findings. HARDWARE: Spinal stimulator electrodes. OTHER: No other significant finding. IMPRESSION: LEFT LUNG INFILTRATE CONSISTENT WITH PNEUMONIA. TECHNICAL DOCUMENTATION: JOB ID: [id number] [employer]- All Rights Reserved Reading location - IP/workstation name: [email or web address]
[2019-02-13] MEDS ORDERED: NORMAL SALINE 1000 ML 1,000 ML IV PRN (15:16)
[2019-02-13] MEDS ORDERED: ACETAMINOPHEN 325 MG TABLET PO PRN (15:16)
[2019-02-13] MEDS ORDERED: LORAZEPAM 1 MG TABLET PO PRN (15:27)
[2019-02-13] MEDS ORDERED: ALBUTEROL SULFATE HFA (90 MCG/PUFF) 200 PUFF/8.5 GM MDI IH PRN (15:27)
--- NOTE | 2019-02-13 15:39 | PDOC H&P ---
History of Present Illness Admission Date/PCP: 02/13/19 14:32 DEVIN VILLAVICENCIO DO History of Present Illness: LIONEL CHESTER is a 68 year old male last night developed fever and chills increased shortness of breath. Patient noted treatment for upper respiratory illness back on January 28. He was getting some better for a couple days and then last night once again increased shortness of breath fever and chills. Patient has a story of COPD for at least one year now.. 3 months ago patient was diagnosed with a PE and placed on Eliquis. Patient stopped smoking in 2013. She has a history of skin cancer No drug allergies. Past Medical History Cardiac Medical History: Reports: Hyperlipidema, Hypertension, Pulmonary Embolism - October 2018 Denies: Coronary Artery Disease, Myocardial Infarction Pulmonary Medical History: Reports: Chronic Obstructive Pulmonary Disease (COPD), Sleep Apnea - LAURIE uses CPAP at home Denies: Asthma, Bronchitis, Pneumonia Neurological Medical History: Denies: Seizures Endocrine Medical History: Reports: Diabetes Mellitus Type 2 - Insulin-dependent Denies: Diabetes Mellitus Type 1, Hyperthyroidism, Hypothyroidism Malignancy Medical History: Reports: 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 GI Medical History: Reports: Gastroesophageal Reflux Disease Denies: Cirrhosis, Hepatitis Musculoskeltal Medical History: Reports: Arthritis Denies: Gout Skin Medical History: Denies: Eczema, Psoriasis Psychiatric Medical History: Denies: Depression Hematology: Denies: Anemia Past Surgical History Past Surgical History: Reports: Cholecystectomy, Orthopedic Surgery - back stimulator Social History Lives with: Family Smoking Status: Never Smoker Frequency of Alcohol Use: Rare Hx Recreational Drug Use: No Drugs: None Hx Prescription Drug Abuse: No - Advance Directive Resuscitation Status: Full Code Family History Family History: Reviewed & Not Pertinent, COPD Parental Family History Reviewed: No Children Family History Reviewed: No Sibling(s) Family History Reviewed.: No Medication/Allergy Home Medications: Albuterol Sulfate [Proair HFA Inhalation Aerosol 8.5 gm MDI] 2 puff IH Q4HP PRN 06/19/18 Atorvastatin Calcium [Lipitor 20 mg Tablet] 20 mg PO QHS 06/19/18 Cholecalciferol (Vitamin D3) [Vitamin D3 1000 Unit Tablet] 1,000 unit PO BID 06/19/18 Exenatide Microspheres [Bydureon Pen] 2 mg SQ WE@1000 06/19/18 Finasteride [Proscar 5 mg Tablet] 5 mg PO DAILY 06/19/18 Fluticasone/Salmeterol [Advair 250-50 Diskus 14 Dose/Diskus] 1 puff IH Q12 06/19/18 Furosemide [Lasix 40 mg Tablet] 40 mg PO BID 06/19/18 Isosorbide Mononitrate [Imdur 30 mg Tablet.er] 30 mg PO DAILY 06/19/18 Metoprolol Succinate [Toprol Xl] 12.5 mg PO DAILY 06/19/18 Mirabegron [Myrbetriq] 50 mg PO DAILY 06/19/18 Omeprazole 40 mg PO Q6AM 06/19/18 Pregabalin [Lyrica 75 mg Capsule] 75 mg PO Q8 06/19/18 Tamsulosin HCl [Flomax 0.4 mg Cap.sr] 0.4 mg PO BID 06/19/18 Apixaban [Eliquis 5 mg Tablet] 5 mg PO BID 30 Days #60 tablet 06/22/18 Insulin Regular, Human [Humulin R U-500 Kwikpen] 150 unit SQ Q12 02/13/19 Lorazepam [Ativan 1 mg Tablet] 1 mg PO Q12HP PRN 02/13/19 Losartan Potassium [Cozaar 25 mg Tablet] 25 mg PO DAILY 02/13/19 Potassium Chloride [Klor-Con 10 Meq Capsule ER] 10 meq PO DAILY 02/13/19 Pramipexole Di-HCl [Mirapex 0.5 Mg Tablet] 0.5 mg PO DAILY 02/13/19 Pramipexole Di-HCl [Mirapex 0.5 Mg Tablet] 1 mg PO QHS 02/13/19 Allergies/Adverse Reactions: No Known Allergies Allergy (Verified 05/05/18 19:02) Physical Exam Vital Signs: Temp Pulse Resp BP Pulse Ox 98.4 F 107 H 20 135/63 H 94 02/13/19 11:01 02/13/19 11:01 02/13/19 12:02 02/13/19 13:02 02/13/19 12:20 Intake & Output 02/12/19 02/13/19 02/14/19 06:59 06:59 06:59 Intake Total 680 Balance 680 Weight 133.81 kg General appearance: PRESENT: no acute distress, other - Patient states she is actually feeling better now since his had pulmonary treatment in the ER Respiratory exam: PRESENT: rales - Scattered in all lung cooley Cardiovascular exam: PRESENT: RRR. ABSENT: diastolic murmur, rubs, systolic murmur Extremities exam: PRESENT: pedal edema, +2 edema Neurological exam: PRESENT: alert, awake, oriented to person, oriented to place, oriented to time, oriented to situation Psychiatric exam: PRESENT: appropriate affect, normal mood. ABSENT: homicidal ideation, suicidal ideation Skin exam: PRESENT: other - Multiple nevi all over his back Results Laboratory Results: 02/13/19 11:22 02/13/19 11:22 02/13/19 02/13/19 02/13/19 11:22 11:22 11:22 WBC 17.8 H RBC 5.72 H Hgb 15.4 Hct 48.0 MCV 84 MCH 26.9 L MCHC 32.1 RDW 17.5 H Plt Count 212 Seg Neutrophils % Not Reportable Sodium 144.1 Potassium 4.1 Chloride 107 Carbon Dioxide 30 Anion Gap 7 BUN 11 Creatinine 0.78 Est GFR ( Amer) > 60 Glucose 99 Calcium 9.4 Magnesium 1.8 Total Bilirubin 1.3 AST 23 Alkaline Phosphatase 106 Total Protein 6.3 Albumin 3.8 TSH 0.54 02/13/19 02/13/19 11:22 11:22 Creatine Kinase 66 CK-MB (CK-2) 3.59 Troponin I < 0.012 Impressions: Chest X-Ray 02/13/19 11:33 IMPRESSION: LEFT LUNG INFILTRATE CONSISTENT WITH PNEUMONIA. Assessment and Plan - Diagnosis (1) COPD exacerbation Is this a current diagnosis for this admission?: Yes (2) Hypoxia Is this a current diagnosis for this admission?: Yes (3) Pneumonia Qualifiers: Pneumonia type: due to unspecified organism Laterality: left Lung location: unspecified part of lung Qualified Code(s): J18.9 - Pneumonia, unspecified organism Is this a current diagnosis for this admission?: Yes (4) Type 2 diabetes mellitus Qualifiers: Diabetes mellitus fdc insulin use: with director long term care use Diabetes mellitus complication status: without complication Qualified Code(s): E11.9 - Type 2 diabetes mellitus without complications; 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 Is this a current diagnosis for this admission?: Yes (5) Diabetes mellitus Qualifiers: Diabetes mellitus type: type 2 Diabetes mellitus director long term care insulin use: with director long term care use Diabetes mellitus complication status: without complication Qualified Code(s): E11.9 - Type 2 diabetes mellitus without complications; 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 Nebulizer treatments. Resume patient's home meds such his insulin and antihypertensives. I informed patient he probably in the hospital about 5 days Currently stable, she presented his O2 sat was 90% it is now 94% on 2 L nasal cannula - Time Time Spent with patient: 35 or more minutes
--- NOTE | 2019-02-13 16:53 | EKG REPORT ---
SEVERITY:- ABNORMAL ECG - SINUS OR TACHYCARDIA WITHFIRST DEGREE AV BLOCK LEFT ANTERIOR FASCICULAR BLOCK LOW VOLTAGE IN FRONTAL LEADS : Confirmed by: Tatiana Oquendo MD 13-Feb-2019 16:51:54
[2019-02-13] MEDS: APIXABAN 5 MG TABLET PO SCH (18:08)
[2019-02-13] MEDS: FUROSEMIDE 40 MG TABLET PO SCH (18:08)
[2019-02-13] MEDS: CHOLECALCIFEROL (D3) 1,000 UNIT (25 MCG) TABLET PO SCH (18:08)
[2019-02-13] MEDS: TAMSULOSIN HCL 0.4 MG CAP.SR.24H PO SCH (18:08)
[2019-02-13] MEDS: CEFTRIAXONE 1 GM/D5W RTU 1 GM/50 ML RTUPB IV SCH (18:10)
[2019-02-13] MEDS ORDERED: INSULIN REGULAR HUMAN 150 UNIT SQ SCH (22:00)
[2019-02-13] MEDS ORDERED: (PENDING PHARMACY ID) (Fluticasone/Salmeterol 1 PUFF) IH SCH (22:00)
[2019-02-13] MEDS ORDERED: ATORVASTATIN CALCIUM 20 MG TABLET PO SCH (22:00)
[2019-02-13] MEDS ORDERED: PRAMIPEXOLE DI-HCL 0.5 MG TABLET PO SCH (22:00)
[2019-02-13] MEDS: GUAIFENESIN 600 MG TABLET.SA PO SCH (22:18)
[2019-02-13] MEDS: PREGABALIN 75 MG CAPSULE PO SCH (22:19)
[2019-02-13] MEDS: FAMOTIDINE 20 MG TABLET PO SCH (22:19)
[2019-02-13] MEDS ORDERED: INSULIN LISPRO 100 UNIT/ML 3 ML VIAL ONE (23:29)
[2019-02-13] MEDS ORDERED: DEXTROSE 50%-WATER SYRINGE 25 GM/50 ML DOSE IV PRN (23:30)
[2019-02-13] MEDS ORDERED: DEXTROSE 40% GEL 15 GM TUBE X 2 PO PRN (23:30)
[2019-02-13] MEDS ORDERED: DEXTROSE 50%-WATER SYRINGE 12.5 GM/25 ML DOSE IV PRN (23:30)
[2019-02-13] MEDS ORDERED: GLUCAGON,HUMAN RECOMB 1 MG INJ IM PRN (23:30)
[2019-02-13] MEDS ORDERED: DEXTROSE 40% GEL 15 GM TUBE PO PRN (23:30)
[2019-02-13] MEDS ORDERED: INSULIN LISPRO 100 UNIT/ML 3 ML VIAL SUBCUT ONE (23:59)
[2019-02-14 05:18] LABS: HEMATOCRIT 42.4 % (37.9-51.0); HEMOGLOBIN 13.7 g/dL (13.5-17.0); MEAN CORPUSCULAR HGB CONC 32.3 g/dL (32.0-36.0); MEAN CORPUSCULAR VOLUME 84 fl (80-97); PLATELET COUNT 195 10^3/uL (150-450); RED BLOOD COUNT 5.08 10^6/uL (4.35-5.55); RED CELL DISTRIBUTION WIDTH 17.7 % (11.5-14.0); WHITE BLOOD COUNT 10.6 10^3/uL (4.0-10.5)
[2019-02-14] MEDS: PREGABALIN 75 MG CAPSULE PO SCH (05:25)
[2019-02-14 05:35] LABS: ANION GAP 9 (5-19); BLOOD UREA NITROGEN 19 mg/dL (7-20); CALCIUM 8.9 mg/dL (8.4-10.2); CARBON DIOXIDE 25 mmol/L (22-30); CHLORIDE 105 mmol/L (98-107); GLUCOSE 298 mg/dL (75-110); POTASSIUM 4.1 mmol/L (3.6-5.0)
[2019-02-14 06:04] LABS: ABSOLUTE LYMPHOCYTES# (MANUAL) 0.3 10^3/uL (0.5-4.7); ABSOLUTE MONOCYTES # (MANUAL) 0.2 10^3/uL (0.1-1.4); ANISOCYTOSIS 1+; BAND NEUTROPHILS % (MANUAL) 1 % (3-5); BASOPHILS % (MANUAL) 0 % (0-2); EOSINOPHILS % (MANUAL) 0 % (0-6); LYMPHOCYTES % (MANUAL) 3 % (13-45); MONOCYTES % (MANUAL) 2 % (3-13); PLATELET COMMENT ADEQUATE; SEGMENTED NEUTROPHILS % (MAN) 94 % (42-78); TOTAL CELLS COUNTED 100
[2019-02-14] MEDS ORDERED: INFLUENZA QUAD (6MOS+) 2019-20 VAC 0.5 ML SYR IM ONE (08:00)
[2019-02-14] MEDS: CHOLECALCIFEROL (D3) 1,000 UNIT (25 MCG) TABLET PO SCH (09:17)
[2019-02-14] MEDS: GUAIFENESIN 600 MG TABLET.SA PO SCH (09:18)
[2019-02-14] MEDS: TAMSULOSIN HCL 0.4 MG CAP.SR.24H PO SCH (09:18)
[2019-02-14] MEDS: APIXABAN 5 MG TABLET PO SCH (09:18)
[2019-02-14] MEDS: FUROSEMIDE 40 MG TABLET PO SCH (09:18)
[2019-02-14] MEDS: FAMOTIDINE 20 MG TABLET PO SCH (09:18)
[2019-02-14] MEDS: CEFTRIAXONE 1 GM/D5W RTU 1 GM/50 ML RTUPB IV SCH (09:19)
[2019-02-14] MEDS: INSULIN LISPRO 100 UNIT/ML 3 ML VIAL SUBCUT SCH ×2 (09:19→12:42)
[2019-02-14] MEDS ORDERED: (PENDING PHARMACY ID) (Mirabegron [Myrbetriq] 50 MG) PO SCH (10:00)
[2019-02-14] MEDS ORDERED: FINASTERIDE 5 MG TABLET PO SCH (10:00)
[2019-02-14] MEDS ORDERED: ISOSORBIDE MONONITRATE 30 MG TAB.ER.24H PO SCH (10:00)
[2019-02-14] MEDS ORDERED: FLUTICASONE/VILANTEROL 200-25 MCG/DOSE IH SCH (10:00)
[2019-02-14] MEDS ORDERED: POTASSIUM CHLORIDE 10 MEQ CAPSULE.ER PO SCH (10:00)
[2019-02-14] MEDS ORDERED: LOSARTAN POTASSIUM 25 MG TABLET PO SCH (10:00)
[2019-02-14] MEDS ORDERED: LEVOFLOXACIN 500 MG/D5W RTU 500 MG/100 ML RTUPB IV SCH (10:00)
[2019-02-14] MEDS ORDERED: METOPROLOL SUCCINATE 25 MG TAB.SR.24H PO SCH (10:00)
[2019-02-14] MEDS ORDERED: PRAMIPEXOLE DI-HCL 0.5 MG TABLET PO SCH (10:00)
[2019-02-14 12:43] VITALS: BP 138/53
--- NOTE | 2019-02-15 20:56 | PDOC DISCHARGE SUMMARY ---
Impression - Admit/DC Date/PCP Admission Date/Primary Care Provider: 02/13/19 14:32 DEVIN VILLAVICENCIO DO Discharge Date: 02/14/19 - Discharge Diagnosis (1) Acute hypoxemic respiratory failure Is this a current diagnosis for this admission?: Yes (2) COPD exacerbation Is this a current diagnosis for this admission?: Yes (3) HLD (hyperlipidemia) Is this a current diagnosis for this admission?: Yes (4) Morbid obesity Is this a current diagnosis for this admission?: Yes (5) Obstructive sleep apnea Is this a current diagnosis for this admission?: Yes (6) Pneumonia Is this a current diagnosis for this admission?: Yes (7) Type 2 diabetes mellitus Is this a current diagnosis for this admission?: Yes - Additional Information Resuscitation Status: Full Code Discharge Diet: Diabetic Discharge Activity: Activity As Tolerated, Balance Activity w/Rest, Slowly Increase Activity Referrals: DEVIN VILLAVICENCIO DO [Primary Care Provider] - Follow up as needed ROSANGELA PEREZ MD [HONORARY] - 02/21/19 2:00 pm Prescriptions: Prednisone [Deltasone 20 mg Tablet] 60 mg PO DAILY #15 tablet Levofloxacin [Levaquin 750 mg Tablet] 750 mg PO DAILY #5 tablet Guaifenesin [Mucinex Sr 600 mg Tablet.sa] 600 mg PO Q12 #14 tablet. Home Medications: Albuterol Sulfate [Proair HFA Inhalation Aerosol 8.5 gm MDI] 2 puff IH Q4HP PRN 06/19/18 Atorvastatin Calcium [Lipitor 20 mg Tablet] 20 mg PO QHS 06/19/18 Cholecalciferol (Vitamin D3) [Vitamin D3 1000 Unit Tablet] 1,000 unit PO BID 06/19/18 Exenatide Microspheres [Bydureon Pen] 2 mg SQ WE@1000 06/19/18 Finasteride [Proscar 5 mg Tablet] 5 mg PO DAILY 06/19/18 Fluticasone/Salmeterol [Advair 250-50 Diskus 14 Dose/Diskus] 1 puff IH Q12 06/19/18 Furosemide [Lasix 40 mg Tablet] 40 mg PO BID 06/19/18 Isosorbide Mononitrate [Imdur 30 mg Tablet.er] 30 mg PO DAILY 06/19/18 Metoprolol Succinate [Toprol Xl] 12.5 mg PO DAILY 06/19/18 Mirabegron [Myrbetriq] 50 mg PO DAILY 06/19/18 Omeprazole 40 mg PO Q6AM 06/19/18 Pregabalin [Lyrica 75 mg Capsule] 75 mg PO Q8 06/19/18 Tamsulosin HCl [Flomax 0.4 mg Cap.sr] 0.4 mg PO BID 06/19/18 Apixaban [Eliquis 5 mg Tablet] 5 mg PO BID 30 Days #60 tablet 06/22/18 Insulin Regular, Human [Humulin R U-500 Kwikpen] 150 unit SQ Q12 02/13/19 Lorazepam [Ativan 1 mg Tablet] 1 mg PO Q12HP PRN 02/13/19 Losartan Potassium [Cozaar 25 mg Tablet] 25 mg PO DAILY 02/13/19 Potassium Chloride [Klor-Con 10 Meq Capsule ER] 10 meq PO DAILY 02/13/19 Pramipexole Di-HCl [Mirapex 0.5 mg Tablet] 0.5 mg PO DAILY 02/13/19 Pramipexole Di-HCl [Mirapex 0.5 mg Tablet] 1 mg PO QHS 02/13/19 Acetaminophen [Tylenol 325 mg Tablet] 650 mg PO Q4HP PRN tablet 02/14/19 Guaifenesin [Mucinex Sr 600 mg Tablet.sa] 600 mg PO Q12 #14 tablet.sa 02/14/19 Levofloxacin [Levaquin 750 mg Tablet] 750 mg PO DAILY #5 tablet 02/14/19 Prednisone [Deltasone 20 mg Tablet] 60 mg PO DAILY #15 tablet 02/14/19 History of Present Illiness History of Present Illness: Per H&P by Nico Gibson PA-C: LIONEL CHESTER is a 68 year old male last night developed fever and chills increased shortness of breath. Patient noted treatment for upper respiratory illness back on January 28. He was getting some better for a couple days and then last night once again increased shortness of breath fever and chills. Patient has a story of COPD for at least one year now.. 3 months ago patient was diagnosed with a PE and placed on Eliquis. Patient stopped smoking in 2013. She has a history of skin cancer No drug allergies. Hospital Course Hospital Course: The patient was admitted to [facility] on continuous cardiac telemetry. He was empirically placed on IV Rocephin and azithromycin for treatment of community- acquired pneumonia. He has been provided a Solu-Medrol dose while in the emergency department with no further steroids. He was supported with supplemental oxygen, scheduled and as needed nebulizer treatments, and pulmonary toilet. The patient rapidly improved and by the following day he was ambulatory on room air without increased work of breathing, with clear lung sounds, and requesting to be discharged home. As the patient was clinically improved, afebrile with otherwise normal vital signs, and with a significant downward trend in WBCs (from 17-10), I felt that it was safe for the patient to discharge home. The patient was discharged home with a prescription for Levaquin, Mucinex, and prednisone. He was instructed to fill his prednisone only if he developed wheezing, or worsening shortness of breath and lower to COPD exacerbations in the past. The patient confirms that he has an functional nebulizer machine at home with plenty of medication if required. He is instructed to follow-up with his primary care provider within 1 week and to return to the emergency department as needed for concerning symptoms. Physical Exam Vital Signs: Temp Pulse Resp BP Pulse Ox 98.1 F 76 16 138/53 H 96 02/14/19 12:42 02/14/19 12:42 02/14/19 12:42 02/14/19 12:42 02/14/19 12:42 Intake & Output 02/13/19 02/14/19 02/15/19 06:59 06:59 06:59 Intake Total 1870 150 Balance 1870 150 Weight 79.5 kg General appearance: PRESENT: no acute distress, cooperative, obese, well- developed, well-nourished Head exam: PRESENT: atraumatic, normocephalic Eye exam: PRESENT: conjunctiva pink, EOMI, PERRLA. ABSENT: scleral icterus Mouth exam: PRESENT: moist, tongue midline Respiratory exam: PRESENT: clear to auscultation kana, symmetrical, unlabored, other - Amatory on room air. ABSENT: rales, rhonchi, wheezes Cardiovascular exam: PRESENT: RRR, +S1, +S2. ABSENT: diastolic murmur, rubs, systolic murmur Pulses: PRESENT: normal dorsalis pedis pul Vascular exam: PRESENT: normal capillary refill GI/Abdominal exam: PRESENT: normal bowel sounds, soft. ABSENT: distended, guarding, mass, organolmegaly, rebound, tenderness Rectal exam: PRESENT: deferred Extremities exam: PRESENT: full ROM. ABSENT: calf tenderness, clubbing, pedal edema Musculoskeletal exam: PRESENT: ambulatory Neurological exam: PRESENT: alert, awake, oriented to person, oriented to place, oriented to time, oriented to situation, CN II-XII grossly intact. ABSENT: motor sensory deficit Psychiatric exam: PRESENT: appropriate affect, normal mood. ABSENT: homicidal ideation, suicidal ideation Skin exam: PRESENT: dry, intact, warm. ABSENT: cyanosis, rash Results Laboratory Results: WBC 10.6 10^3/uL (4.0-10.5) H 02/14/19 04:00 RBC 5.08 10^6/uL (4.35-5.55) 02/14/19 04:00 Hgb 13.7 g/dL (13.5-17.0) 02/14/19 04:00 Hct 42.4 % (37.9-51.0) 02/14/19 04:00 MCV 84 fl (80-97) 02/14/19 04:00 MCH 27.0 pg (27.0-33.4) 02/14/19 04:00 MCHC 32.3 g/dL (32.0-36.0) 02/14/19 04:00 RDW 17.7 % (11.5-14.0) H 02/14/19 04:00 Plt Count 195 10^3/uL (150-450) 02/14/19 04:00 Lymph % (Auto) Not Reportable 02/14/19 04:00 [place] % (Auto) Not Reportable 02/14/19 04:00 Eos % (Auto) Not Reportable 02/14/19 04:00 Baso % (Auto) Not Reportable 02/14/19 04:00 Absolute Neuts (auto) Not Reportable 02/14/19 04:00 Absolute Lymphs (auto) Not Reportable 02/14/19 04:00 Absolute Monos (auto) Not Reportable 02/14/19 04:00 Absolute Eos (auto) Not Reportable 02/14/19 04:00 Absolute Basos (auto) Not Reportable 02/14/19 04:00 Total Counted 100 02/14/19 04:00 Seg Neutrophils % Not Reportable 02/14/19 04:00 Seg Neuts % (Manual) 94 % (42-78) H 02/14/19 04:00 Band Neutrophils % 1 % (3-5) L 02/14/19 04:00 Lymphocytes % (Manual) 3 % (13-45) L 02/14/19 04:00 Atypical Lymphs % 1 % (0) 02/13/19 11:22 Monocytes % (Manual) 2 % (3-13) L 02/14/19 04:00 Eosinophils % (Manual) 0 % (0-6) 02/14/19 04:00 Basophils % (Manual) 0 % (0-2) 02/14/19 04:00 Abs Neuts (Manual) 10.1 10^3/uL (1.7-8.2) H 02/14/19 04:00 Abs Lymphs (Manual) 0.3 10^3/uL (0.5-4.7) L 02/14/19 04:00 Abs Monocytes (Manual) 0.2 10^3/uL (0.1-1.4) 02/14/19 04:00 Absolute Eos (Manual) 0.0 10^3/uL (0.0-0.6) 02/14/19 04:00 Abs Basophils (Manual) 0.0 10^3/uL (0.0-0.2) 02/14/19 04:00 Platelet Comment ADEQUATE 02/14/19 04:00 Polychromasia SLIGHT 02/13/19 11:22 Anisocytosis 1+ 02/14/19 04:00 PT 13.0 SEC (11.4-15.4) 02/13/19 11:22 INR 0.98 02/13/19 11:22 APTT 28.1 SEC (23.5-35.8) 02/13/19 11:22 Sodium 138.8 mmol/L (137-145) 02/14/19 04:00 Potassium 4.1 mmol/L (3.6-5.0) 02/14/19 04:00 Chloride 105 mmol/L (98-107) 02/14/19 04:00 Carbon Dioxide 25 mmol/L (22-30) 02/14/19 04:00 Anion Gap 9 (5-19) 02/14/19 04:00 BUN 19 mg/dL (7-20) 02/14/19 04:00 Creatinine 0.97 mg/dL (0.52-1.25) 02/14/19 04:00 Est GFR ( Amer) > 60 (>60) 02/14/19 04:00 Est GFR (MDRD) Non-Af > 60 (>60) 02/14/19 04:00 Glucose 298 mg/dL (75-110) H 02/14/19 04:00 POC Glucose 264 mg/dL (70-110) H 02/14/19 07:41 Hemoglobin A1c % 6.8 % (4.7-6.0) H 02/14/19 04:00 Calcium 8.9 mg/dL (8.4-10.2) 02/14/19 04:00 Magnesium 1.8 mg/dL (1.6-2.3) 02/13/19 11:22 Total Bilirubin 1.3 mg/dL (0.2-1.3) 02/13/19 11:22 Direct Bilirubin 0.2 mg/dL (0.0-0.4) 02/13/19 11:22 Neonat Total Bilirubin Not Reportable 02/13/19 11:22 Neonat Direct Bilirubin Not Reportable 02/13/19 11:22 Neonat Indirect Bili Not Reportable 02/13/19 11:22 AST 23 U/L (17-59) 02/13/19 11:22 ALT 27 U/L (<50) 02/13/19 11:22 Alkaline Phosphatase 106 U/L (38-126) 02/13/19 11:22 Creatine Kinase 66 U/L (55-170) 02/13/19 11:22 CK-MB (CK-2) 3.59 ng/mL (<4.55) 02/13/19 11:22 Troponin I < 0.012 ng/mL 02/13/19 11:22 NT-Pro-B Natriuret Pep 83 pg/mL (5-900) 02/13/19 11:22 Total Protein 6.3 g/dL (6.3-8.2) 02/13/19 11:22 Albumin 3.8 g/dL (3.5-5.0) 02/13/19 11:22 TSH 0.54 uIU/mL (0.47-4.68) 02/13/19 11:22 02/13/19 02/13/19 11:22 11:22 CK-MB (CK-2) 3.59 Troponin I < 0.012 NT-Pro-B Natriuret Pep 83 Impressions: Chest X-Ray 02/13/19 11:33 IMPRESSION: LEFT LUNG INFILTRATE CONSISTENT WITH PNEUMONIA. Plan Plan of Treatment: Follow up with primary care provider within 1 week. Compete antibiotics. Patient is instructed to start prednisone if he begin wheezing or having COPD symptoms worse than his baseline. Avoid known respiratory triggers (smoking, dust, pollen, pet dander). Return to the emergency department as needed for concerning symptoms. Time Spent: Less than 30 Minutes Stroke Is this a Stroke Patient?: No Acute Heart Failure - Is this a Heart Failure Patient?: No
== END 2019-02-14 13:05 | disposition home or self-care (01) ==
LOC: ER 10:41 → EH 14:32 → INTOOBSV 14:32 → 3W 17:35
PROVIDERS: ADMIT Internal Medicine; ATTEND Internal Medicine
DX: J96.01 Acute respiratory failure with hypoxia (principal); J44.1 Chronic obstructive pulmonary disease with (acute) exacerbation; J18.9 Pneumonia, unspecified organism; G47.33 Obstructive sleep apnea (adult) (pediatric); E78.5 Hyperlipidemia, unspecified; E66.01 Morbid (severe) obesity due to excess calories; E11.9 Type 2 diabetes mellitus without complications; K21.9 Gastro-esophageal reflux disease without esophagitis; D22.5 Melanocytic nevi of trunk; I10 Essential (primary) hypertension; M19.90 Unspecified osteoarthritis, unspecified site; Z79.51 Long term (current) use of inhaled steroids; Z86.711 Personal history of pulmonary embolism; Z79.02 Long term (current) use of antithrombotics/antiplatelets; Z87.891 Personal history of nicotine dependence; Z85.828 Personal history of other malignant neoplasm of skin; Z79.4 Long term (current) use of insulin; Z97.8 Presence of other specified devices; Z23 Encounter for immunization
CPT/HCPCS: 93005; 94640 ×2; 99291; 96361; 96375; 96365; 36415 ×2; 87040; 82553; 82962 ×2; 82550; 83735; 84443; 85025 ×2; 85610; 85730; 80048; 80053; 84484; 83036; 83880; 71046; 90686; 93010; J1956 ×2; A9270 ×25; J2930; J3475; J3490 ×3; J7030 ×2; J0696 ×2; J1815; J7620

== ENCOUNTER 2019-02-18 13:00 | Emergency (ER) | payer MEDICARE, OTHER ==
--- NOTE | 2019-02-18 13:16 | ER Document Report ---
ED Medical Screen (RME) - General Stated Complaint: GENERAL WEAKNESS Time Seen by Provider: 02/18/19 13:10 Primary Care Provider: DEVIN VILLAVICENCIO DO [Primary Care Provider] - Follow up as needed Mode of Arrival: Wheelchair Information source: Patient Notes: Patient presents complaining of dizziness in which she feels lightheaded off and on for the past 3 weeks. Patient states today that he felt like he was going to pass out. Patient states he has had chest pain off and on but attributes this to recent pneumonia. Patient tachypneic in triage. Patient was recently discharged from the hospital with pneumonia. hx: PE, diabetes, COPD, restless leg syndrome I have greeted and performed a rapid initial assessment of this patient. A comprehensive ED assessment and evaluation of the patient, analysis of test results and completion of the medical decision making process will be conducted by additional ED providers. TRAVEL OUTSIDE OF THE [place] IN LAST 30 DAYS: No - Related Data Allergies/Adverse Reactions: No Known Allergies Allergy (Verified 05/05/18 19:02) Past Medical History - Past Medical History Cardiac Medical History: Reports: Hx Hypercholesterolemia, Hx Hypertension, Hx Pulmonary Embolism - October 2018 Denies: Hx Coronary Artery Disease, Hx Heart Attack Pulmonary Medical History: Reports: Hx COPD, Hx Sleep Apnea - LAURIE uses CPAP at home Denies: Hx Asthma, Hx Bronchitis, Hx Pneumonia Neurological Medical History: Denies: Hx Cerebrovascular Accident, Hx Seizures Endocrine Medical History: Reports: Hx Diabetes Mellitus Type 2 - Insulin- dependent. 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 Denies: Hx Cirrhosis, Hx Hepatitis Musculoskeltal Medical History: Reports Hx Arthritis, Denies Hx Gout Skin Medical History: Denies Hx Eczema, Denies Hx Psoriasis Psychiatric Medical History: Denies: Hx Depression Infectious Medical History: Denies: Hx Hepatitis Past Surgical History: Reports: Hx Cholecystectomy, Hx Neurologic Surgery - right hip nerve stim., Hx Orthopedic Surgery - back stimulator - Immunizations Hx Diphtheria, Pertussis, Tetanus Vaccination: Yes Physical Exam - Vital signs Vitals: Temp Pulse Resp BP Pulse Ox 97.6 F 99 16 120/95 H 93 02/18/19 13:06 02/18/19 13:06 02/18/19 13:06 02/18/19 13:06 02/18/19 13:06 - Respiratory Respiratory status: Tachypnea Chest status: Nontender - Cardiovascular Rhythm: Regular Heart sounds: S1 appreciated, S2 appreciated Course - Vital Signs Vital signs: Temp Pulse Resp BP Pulse Ox 97.6 F 99 16 120/95 H 93 02/18/19 13:06 02/18/19 13:06 02/18/19 13:06 02/18/19 13:06 02/18/19 13:06 Doctor's Discharge - Discharge Referrals: DEVIN VILLAVICENCIO DO [Primary Care Provider] - Follow up as needed
--- NOTE | 2019-02-18 13:57 | RADIOLOGY REPORT (SQ) ---
EXAM DESCRIPTION: CHEST 2 VIEWS COMPLETED DATE/TIME: 02/18/2019 1:46 pm REASON FOR STUDY: sob, near syncope COMPARISON: 02/13/2019 EXAM PARAMETERS: NUMBER OF VIEWS: two views TECHNIQUE: Digital Frontal and Lateral radiographic views of the chest acquired. RADIATION DOSE: NA LIMITATIONS: none FINDINGS: Significant interval improvement in heterogeneous opacity of the left lung base, consisten t with improved infection or aspiration. No new airspace opacity. IMPRESSION: Significant interval improvement in heterogeneous opacity of the left lung base, consist ent with improved infection or aspiration. No new airspace opacity. TECHNICAL DOCUMENTATION: JOB ID: [id number] [employer]- All Rights Reserved Reading location - IP/workstation name: [email or web address]
[2019-02-18 14:26] LABS: ABSOLUTE EOSINOPHILS # (AUTO) 0.2 10^3/uL (0.0-0.6); ABSOLUTE LYMPHOCYTES (AUTO) 1.4 10^3/uL (0.5-4.7); ABSOLUTE MONOCYTES (AUTO) 0.4 10^3/uL (0.1-1.4); BASOPHILS % (AUTO) 0.7 % (0-2); HEMOGLOBIN 14.1 g/dL (13.5-17.0); TOTAL CELLS COUNTED % (AUTO) 100 %; WHITE BLOOD COUNT 5.9 10^3/uL (4.0-10.5)
[2019-02-18 14:31] LABS: ABSOLUTE NEUT (AUTO) 3.8 10^3/uL (1.7-8.2); EOSINOPHILS % (AUTO) 3.1 % (0-6); HEMATOCRIT 42.3 % (37.9-51.0); LYMPHOCYTES % (AUTO) 23.8 % (13-45); MEAN CORPUSCULAR HEMOGLOBIN 27.3 pg (27.0-33.4); MEAN CORPUSCULAR HGB CONC 33.3 g/dL (32.0-36.0); MEAN CORPUSCULAR VOLUME 82 fl (80-97); MONOCYTES % (AUTO) 7.1 % (3-13); PLATELET COUNT 186 10^3/uL (150-450); RED BLOOD COUNT 5.17 10^6/uL (4.35-5.55); RED CELL DISTRIBUTION WIDTH 17.2 % (11.5-14.0); SEGMENTED NEUTROPHILS % (AUTO) 65.3 % (42-78)
[2019-02-18 14:46] LABS: ALBUMIN 3.3 g/dL (3.5-5.0); ALKALINE PHOSPHATASE 90 U/L (38-126); ANION GAP 7 (5-19); ASPARTATE AMINO TRANSFERASE 19 U/L (17-59); BILIRUBIN,DIRECT 0.1 mg/dL (0.0-0.4); BILIRUBIN,TOTAL 0.8 mg/dL (0.2-1.3); BLOOD UREA NITROGEN 21 mg/dL (7-20); CALCIUM 9.4 mg/dL (8.4-10.2); CARBON DIOXIDE 30 mmol/L (22-30); CHLORIDE 105 mmol/L (98-107); POTASSIUM 3.7 mmol/L (3.6-5.0); TOTAL PROTEIN 5.7 g/dL (6.3-8.2)
[2019-02-18] MEDS ORDERED: NITROGLYCERIN 0.4 MG/TAB 25 TAB/BOTTLE SL ONE (14:47)
[2019-02-18 14:48] LABS: GLUCOSE 57 mg/dL (75-110)
[2019-02-18 14:51] LABS: APPEARANCE,URINE SLIGHTLY-CLOUDY; BILIRUBIN,URINE NEGATIVE (NEGATIVE); COLOR,URINE YELLOW; GLUCOSE, URINE >=500 mg/dL (NEGATIVE); KETONES,URINE NEGATIVE (NEGATIVE); PROTEIN,URINE NEGATIVE (NEGATIVE); UROBILINOGEN,URINE NEGATIVE mg/dL (<2.0)
[2019-02-18 14:57] LABS: NT PRO BNP 63 pg/mL (<125)
[2019-02-18 14:58] LABS: TROPONIN I < 0.012 ng/mL
[2019-02-18] MEDS ORDERED: NORMAL SALINE 1000 ML 1,000 ML IV ONE (15:43)
--- NOTE | 2019-02-18 19:47 | ER Document Report ---
ED Dizziness/Weakness - General Chief Complaint: Near Syncope Stated Complaint: GENERAL WEAKNESS Time Seen by Provider: 02/18/19 13:10 Primary Care Provider: DEVIN VILLAVICENCIO DO [NO LOCAL MD] - Follow up as needed Mode of Arrival: Wheelchair Notes: RME NOTE: Patient presents complaining of dizziness in which she feels lightheaded off and on for the past 3 weeks. Patient states today that he felt like he was going to pass out. Patient states he has had chest pain off and on but attributes this to recent pneumonia. Patient tachypneic in triage. Patient was recently discharged from the hospital with pneumonia. MY HPI: Patient is a 68-year-old male history of COPD, diabetes, pulmonary embolus on Eliquis, sleep apnea presents to the emergency department with generalized dizziness and weakness. Patient states he was at this facility today to visit his who is admitted. States when he was trying to get out of the car he felt "tunnel vision." States he felt as though he was going to pass out so he sat down. States that he presents to the emergency department for evaluation. Patient is denying a headache. States at this time he does have a dull 2 out of 10 pressure in the center of his chest. Patient also voices he thinks it is the way he is laying in bed. Patient voices no fever, no nausea, no vomiting, no diarrhea. States he continues with a dry cough but also voices that it has "gotten so much better." Patient voices he is still on antibiotics for the pneumonia. States he did not take the prednisone as prescribed because he "did not think I needed it." States he has not used albuterol treatments in the last 3 days. Upon my assessment patient is lying almost flat in bed, does appear to be uncomfortable with the pillow behind his neck. Patient's oxygen saturations were noted to be low by nursing staff 02 via [facility]. Patient voices he does have sleep apnea and typically wears CPAP at night. I have readjusted the patient at bedside. He is now sitting up and voices he is no longer short of breath, no longer has CP. His oxygen saturation has come back to baseline around 95%. TRAVEL OUTSIDE OF THE [place] IN LAST 30 DAYS: No - Related Data Allergies/Adverse Reactions: No Known Allergies Allergy (Verified 05/05/18 19:02) Home Medications: Eliquis, Mirapex, Jardence, Losartan, Potassium Past Medical History - General Information source: Patient - Social History Smoking Status: Former Smoker Family History: Reviewed & Not Pertinent, COPD Patient has suicidal ideation: No Patient has homicidal ideation: No - Past Medical History Cardiac Medical History: Reports: Hx Hypercholesterolemia, Hx Hypertension, Hx Pulmonary Embolism - October 2018 Denies: Hx Coronary Artery Disease, Hx Heart Attack Pulmonary Medical History: Reports: Hx COPD, Hx Sleep Apnea - LAURIE uses CPAP at home Denies: Hx Asthma, Hx Bronchitis, Hx Pneumonia Neurological Medical History: Denies: Hx Cerebrovascular Accident, Hx Seizures Endocrine Medical History: Reports: Hx Diabetes Mellitus Type 2 - Insulin- dependent. Denies: Hx Diabetes Mellitus Type 1, Hx Hyperthyroidism, Hx Hypothyroidism Renal/ Medical History: Denies: Hx Peritoneal Dialysis Malignancy Medical History: Reports Hx Skin Cancer - Squamous cell carcinoma l eft arm GI Medical History: Reports: Hx Gastroesophageal Reflux Disease. Denies: Hx Cirrhosis, Hx Hepatitis Musculoskeletal Medical History: Reports Hx Arthritis, Denies Hx Gout Skin Medical History: Denies Hx Eczema, Denies Hx Psoriasis Psychiatric Medical History: Denies: Hx Depression Infectious Medical History: Denies: Hx Hepatitis Past Surgical History: Reports: Hx Cholecystectomy, Hx Neurologic Surgery - right hip nerve stim., Hx Orthopedic Surgery - back stimulator - Immunizations Hx Diphtheria, Pertussis, Tetanus Vaccination: Yes Hx Pneumococcal Vaccination: 12/25/17 Review of Systems - Review of Systems Constitutional: denies: Fever EENT: See HPI Cardiovascular: See HPI Respiratory: See HPI Gastrointestinal: No symptoms reported Genitourinary: No symptoms reported Male Genitourinary: No symptoms reported Musculoskeletal: No symptoms reported Skin: No symptoms reported Hematologic/Lymphatic: No symptoms reported Neurological/Psychological: See HPI Physical Exam - Vital signs Vitals: Resp BP 24 H 164/96 H 02/18/19 12:37 02/18/19 12:37 - Notes Notes: GENERAL: Alert, interacts well. No acute distress. HEAD: Normocephalic, atraumatic. EYES: Pupils equal, round, and reactive to light. Extraocular movements intact. ENT: Oral mucosa moist, tongue midline. NECK: Full range of motion. Supple. Trachea midline. LUNGS: Clear to auscultation bilaterally, no wheezes, rales, or rhonchi. No respiratory distress. HEART: Regular rate and rhythm. No murmur ABDOMEN: Soft, non-tender. Non-distended. Bowel sounds present in all 4 quadrants. EXTREMITIES: Moves all 4 extremities spontaneously. Nonpitting edema noted bilateral lower extremities. Patient voices this is baseline. normal radial and dorsalis pedis pulses bilaterally. No cyanosis. 5 out of 5 strength noted all 4 extremities. BACK: no cervical, thoracic, lumbar midline tenderness. No saddle anesthesia, normal distal neurovascular exam. NEUROLOGICAL: Alert and oriented x3. Normal speech. cranial nerves II through XII grossly intact PSYCH: Normal affect, normal mood. SKIN: Warm, dry, normal turgor. No rashes or lesions noted. NIH scale 0. Course - Re-evaluation Re-evalutation: Laboratory 02/18/19 02/18/19 02/18/19 14:11 14:11 14:11 WBC 5.9 RBC 5.17 Hgb 14.1 Hct 42.3 MCV 82 MCH 27.3 MCHC 33.3 RDW 17.2 H Plt Count 186 Lymph % (Auto) 23.8 [place] % (Auto) 7.1 Eos % (Auto) 3.1 Baso % (Auto) 0.7 Absolute Neuts (auto) 3.8 Absolute Lymphs (auto) 1.4 Absolute Monos (auto) 0.4 Absolute Eos (auto) 0.2 Absolute Basos (auto) 0.0 Seg Neutrophils % 65.3 Sodium 142.0 Potassium 3.7 Chloride 105 Carbon Dioxide 30 Anion Gap 7 BUN 21 H Creatinine 1.15 Est GFR ( Amer) > 60 Est GFR (MDRD) Non-Af > 60 Glucose 57 L POC Glucose Calcium 9.4 Magnesium 2.1 Total Bilirubin 0.8 Direct Bilirubin 0.1 Neonat Total Bilirubin Not Reportable Neonat Direct Bilirubin Not Reportable Neonat Indirect Bili Not Reportable AST 19 ALT 29 Alkaline Phosphatase 90 Troponin I < 0.012 NT-Pro-B Natriuret Pep 63 Total Protein 5.7 L Albumin 3.3 L Urine Color Urine Appearance Urine pH Ur Specific [place] Urine Protein Urine Glucose (UA) Urine Ketones Urine Blood Urine Nitrite (Reflex) Urine Bilirubin Urine Urobilinogen Leukocyte Esterase Rfl Urine WBC (Reflex) Squamous Epi Cells Auto Urine Mucus (Auto) Urine Ascorbic Acid 02/18/19 02/18/19 02/18/19 14:20 16:01 18:38 WBC RBC Hgb Hct MCV MCH MCHC RDW Plt Count Lymph % (Auto) [place] % (Auto) Eos % (Auto) Baso % (Auto) Absolute Neuts (auto) Absolute Lymphs (auto) Absolute Monos (auto) Absolute Eos (auto) Absolute Basos (auto) Seg Neutrophils % Sodium Potassium Chloride Carbon Dioxide Anion Gap BUN Creatinine Est GFR ( Amer) Est GFR (MDRD) Non-Af Glucose POC Glucose 99 Calcium Magnesium Total Bilirubin Direct Bilirubin Neonat Total Bilirubin Neonat Direct Bilirubin Neonat Indirect Bili AST ALT Alkaline Phosphatase Troponin I < 0.012 NT-Pro-B Natriuret Pep Total Protein Albumin Urine Color YELLOW Urine Appearance SLIGHTLY-CLOUDY Urine pH 5.0 Ur Specific [place] 1.020 Urine Protein NEGATIVE Urine Glucose (UA) >=500 H Urine Ketones NEGATIVE Urine Blood NEGATIVE Urine Nitrite (Reflex) NEGATIVE Urine Bilirubin NEGATIVE Urine Urobilinogen NEGATIVE Leukocyte Esterase Rfl NEGATIVE Urine WBC (Reflex) 1 Squamous Epi Cells Auto <1 Urine Mucus (Auto) FEW Urine Ascorbic Acid NEGATIVE 02/18/19 19:25 WBC RBC Hgb Hct MCV MCH MCHC RDW Plt Count Lymph % (Auto) [place] % (Auto) Eos % (Auto) Baso % (Auto) Absolute Neuts (auto) Absolute Lymphs (auto) Absolute Monos (auto) Absolute Eos (auto) Absolute Basos (auto) Seg Neutrophils % Sodium Potassium Chloride Carbon Dioxide Anion Gap BUN Creatinine Est GFR ( Amer) Est GFR (MDRD) Non-Af Glucose POC Glucose 110 Calcium Magnesium Total Bilirubin Direct Bilirubin Neonat Total Bilirubin Neonat Direct Bilirubin Neonat Indirect Bili AST ALT Alkaline Phosphatase Troponin I NT-Pro-B Natriuret Pep Total Protein Albumin Urine Color Urine Appearance Urine pH Ur Specific Benge Urine Protein Urine Glucose (UA) Urine Ketones Urine Blood Urine Nitrite (Reflex) Urine Bilirubin Urine Urobilinogen Leukocyte Esterase Rfl Urine WBC (Reflex) Squamous Epi Cells Auto Urine Mucus (Auto) Urine Ascorbic Acid Chest X-Ray 02/18/19 13:13 IMPRESSION: Significant interval improvement in heterogeneous opacity of the left lung base, consistent with improved infection or aspiration. No new airspace opacity. Patient's initial blood sugar was noted to be 57. He was treated with oral food and drink. Once patient was readjusted in bed he no longer had any respiratory distress or chest pain. After eating, patient's blood sugar did returned to normal, 110. Patient is now sitting on the edge of the bed states "I feel fine." States he does feel a lot better after eating. Patient's denying any tunnel vision, blurred vision, headache. Continues to deny any chest pain or shortness of breath. Patient has had delta negative troponins in the emergency department. I discussed with him his symptoms of tunnel vision, weakness are likely due to his hypoglycemia but he should follow-up with his primary care provider in the next 12 to 24 hours. I have also discussed with him at length he needs to keep a closer eye on his blood sugars until he follows up with primary care provider. Patient voices he did take his blood sugar this morning and it was 167. Sitting in bed patient is noted to have an oxygen saturation of 96% on room air, pulse 94, blood pressure 121/60, respiratory rate at 20. Patient was also ambulated in the emergency department. See PCT notes for same. States patient's pulse oxygenation never dropped below 93%. Patient again voices he does feel "so much better." Denied any tunnel vision or lightheadedness while walking. Patient stable for discharge. - Vital Signs Vital signs: Temp Pulse Resp BP Pulse Ox 97.6 F 99 23 H 125/42 L 97 02/18/19 13:06 02/18/19 13:06 02/18/19 19:01 02/18/19 19:01 02/18/19 19:01 - Laboratory Result Diagrams: 02/18/19 14:11 02/18/19 14:11 Laboratory results interpreted by me: 02/18/19 02/18/19 02/18/19 14:11 14:11 14:20 RDW 17.2 H BUN 21 H Glucose 57 L Total Protein 5.7 L Albumin 3.3 L Urine Glucose (UA) >=500 H Discharge - Discharge Clinical Impression: Hypoglycemia Condition: Stable Disposition: HOME, SELF-CARE Instructions: Hypoglycemia ([facility]) Additional Instructions: As we discussed you have been seen and treated in the emergency department for your low blood sugar. Please make sure you are keeping a close eye on your blood sugars for the next couple of days. Please also make sure you follow-up with your primary care provider in the next 12 to 24 hours. Please immediately return to the emergency department should you have any other concerns. Referrals: RESTELLI,DEVIN, DO [NO LOCAL MD] - Follow up as needed
[2019-02-18 20:03] VITALS: BP 125/59
--- NOTE | 2019-02-18 21:26 | EKG REPORT ---
SEVERITY:- ABNORMAL ECG - SINUS RHYTHM LEFT ANTERIOR FASCICULAR BLOCK CONSIDER RIGHT VENTRICULAR HYPERTROPHY CONSIDER ANTERIOR INFARCT : Confirmed by: Tatiana Oquendo MD 18-Feb-2019 21:26:10
== END 2019-02-18 20:03 | disposition home or self-care (01) ==
LOC: ER 13:00
DX: E11.649 Type 2 diabetes mellitus with hypoglycemia without coma (principal); R42 Dizziness and giddiness; R53.1 Weakness; R05 Cough; R07.9 Chest pain, unspecified; R06.82 Tachypnea, not elsewhere classified; J44.9 Chronic obstructive pulmonary disease, unspecified; Z86.711 Personal history of pulmonary embolism; Z79.01 Long term (current) use of anticoagulants; Z87.891 Personal history of nicotine dependence; I10 Essential (primary) hypertension
CPT/HCPCS: 93005; 36415; 82962; 83735; 85025; 80053; 81001; 84484; 83880; 71046; 93010; J7030; 96360; 96361; 99284

== ENCOUNTER → 2019-07-06 | Outpatient (CLI) | payer MEDICARE, OTHER ==
--- NOTE | 2019-07-06 09:40 | RADIOLOGY REPORT (SQ) ---
EXAM DESCRIPTION: SHELLEYIE SWALLOW COMPLETED DATE/TIME: 07/06/2019 9:27 am REASON FOR STUDY: DYSPHAGIA (R13.12) R13.12 DYSPHAGIA, OROPHARYNGEAL PHASE R13.13 DYSPHAGIA, PHARY NGEAL PHASE R13.11 DYSPHAGIA, ORAL PHASE CHOKING AND COUGHING WITH MEALS COMPARISON: None. TECHNIQUE: Videofluoroscopic swallowing examination was performed in conjunction with speech patholo gy. Videofluoroscopic imaging was obtained and reviewed and these are the findings: RADIATION DOSE: 1 minutes 16 seconds of fluoroscopy was used. 1 images saved to PACS. LIMITATIONS: None FINDINGS: The patient was brought into the fluoro room and placed upright on a modified barium swall ow chair. The patient was then given multiple consistencies mixed with barium to swallow under live fluoroscopic video guidance. According to the Speech Pathologist there was no penetration or aspirat ion. IMPRESSION: NO EVIDENCE OF PENETRATION OR ASPIRATION. PLEASE SEE SPEECH PATHOLOGIST REPORT FOR OTHER FINDINGS AND RECOMMENDATIONS. COMMENT: Quality ID [id number]: Final reports for procedures using fluoroscopy that document radiation exp osure indices, or exposure time and number of fluorographic images (if radiation exposure indices are not available) TECHNICAL DOCUMENTATION: JOB ID: [id number] 2010 [employer]- All Rights Reserved Reading location - IP/workstation name: [email or web address] [id number]
--- NOTE | 2019-07-06 17:14 | ST Modified Barium Swallow ---
Recommendation - Recommendations Recommendations: Patient to follow up with current therapy. No aspiration or penetration seen. Valleculae residue still present, similar to last study. Medical Diagnoses - Medical Diagnoses Medical Diagnosis Description & ICD-10 Code(s): Dysphagia R13.12 Other Medical Diagnoses/Co-Morbidities: Pt reports medical history significant for COPD, DM, lower back pain ST Modified Barium Swallow - General Date: 07/06/19 Referring Physician: Nicki Cole NP Risks/Precautions: Aspiration - History -: Medical - per outpatient evaluation: Noted past medical history including diabetes, hypertension, pulmonary embolism, COPD, obstructive sleep apnea, coronary artery disease. Also noted complex gastrointestinal history including 2014 endoscopy showing gastritis, 2016 endoscopy showing mild lower esophageal hypertonicity status post dilation, barium swallow 2019 showing prominent tertiary contactions of the esophagus creating corkscrew appearance. Patient attended independently and acted as own historian. Patient reports completed Barium Swallow, Modified Barium Swallow Study, and has upcoming endoscopy & esophageal manometry. Modified Barium Swallow Study performed at [facility] 05/15/2019 with recommendation for speech therapy to treat dysphagia. Patient reports swallow problems began about 5-6 years ago. Patient reports "it won't go down" reported sticking at level of larynx. Patient reports 40 pound weight loss in last 6 months - however reports "I know it's stress", reports lost in March. Patient reports has not fallen in last 6 months but did trip and fall within last 12 months. Patient reports does usually use cane or scooter for long distances but will walk without cane for "short distances". Patient is retired & lives alone. Patient has been in dysphagia treatment. Medications: Albuterol inhaler, Motrin, Lyrica, Mirapex, Lossartan, Vitamin D, Flaxseed Oil, Tudorza Inhaler, Tamsulosin, Zetia, Lipitor, Advair, Multivitamin, Lorazepam, Humulin, [place], Myrbetiq, Potassium, Isoorbide Mononitrate, Omeprazole, Omeprazole Weekly, Metoprolol, Eliquis Allergies: None reported. - Functional Status Prior Functional Status: INDEPENDENT: feeding Current Functional Limitations: feeding - globus - Subjective Patient/caregiver goal(s): better swallow Cognitive-Linguistic Function: WNL Speech Intelligibility: WNL Current Nutritional Means: PO Current PO diet: Regular Current symptoms: Weight loss, Coughing Pain: Patient reports, 3/5 - back pain, chronic - Objective Assessment: Upright, Left Lateral - Food Trials Used Food trials used: Thin liquids, Pureed, Regular The patient: Was Able to Self Feed - Oral-Motor Skills Dentition: Full Velo-pharyngeal function: Unremarkable Laryngeal Function: clear voicing - Assessment Oral prep: Normal Labial closure: Adequate Leakage: None Mastication: Adequate Lingual Movement: Normal Oral stage: Normal for this Procedure - Pharyngeal Stage Initiation of Pharyngeal Stage Reflex: Normal Decreased laryngeal elevation: No Reduced Velopharyngeal Closure: no Reduced pressure generation: Yes reduced tongue-based retraction: No Pre-swallow pooling in valleculae: None Pre-Swallow pooling in pyriforms: None Reduced Thyro-Hyoid approximation: No Reduced epiglottic excursion: No Reduced pharyngeal peristalsis/contraction: No Multiple Swallows with: Cleared w/ Liquid Assist Post-swallow residulas vallecular: Significant - with regular solid Post-Swallow residuals in pyriforms: None - Fall Risk Assessment Medications/Conditions that increase fall risks include: Antidepressants, sedatives, anti-arrhythmic, diuretic, benzodiazipenes, neuroleptics. BP regulation problems, cardiac problems, balance or gait deficits, neurological problems. Is patient considered at risk for falls: no Fall Risk Actions Taken: No action needed - Behavioral Observations During evaluation process patient: was cooperative, able to answer questions, provided medical history - Treatment / Educational Needs: Treatment/Education Needs: Treatment consisted of patient education on the role of the Speech Pathologist. Patient's plan of care and golas were communicated as well as scheduling and attendance policies. Recommendations for initial home program were shared. Patient demonstrated understanding and verbalized agreement. - Impression/Summary Laryngeal Penetration: No Tracheal Aspiration: no Patient presents with: Pharyngeal stage dysph. - mild Risk of Aspiration: Minimal Evaluation and Findings: Patient demonstrates valleculae residue, which increase s as texture of bolus increases. However, overall functional movement of structures seen. Residue cleared with liquid wash. - Recommendations Solid diet recommendations: Regular Liquid Diet Modification: Thin Dysphagia therapy with RESEARCH PROFESSOR OF BIOSTATISTICS: f/u with current thera. Recommended techniques: Fully Upright During Meal, Alternate Bites/Sips Information, Precautions and Recommendations: Patient (Written), Patient (Verbal) - Time Total Time: 30 - Plan of Care Strategies to optimize patient understanding include:: ongoing assessment of educational needs, implementation of educational strategies, and re-education. - - -: Thank you for the opportunity to work with this patient and his/her family. Should you have any questions about this patient's plan or progress, I can be reached at [phone]. [facility]. Impairment Category - Swallowing Current G8996: CI 1-19% Impaired Goal G8997: CI 1-19% Impaired Discharge G8998: CI 1-19% Impaired
== END ==
LOC: RAD 08:01
PROVIDERS: ATTEND Nurse Practitioner
DX: R13.12 Dysphagia, oropharyngeal phase (principal); R13.14 Dysphagia, pharyngoesophageal phase
CPT/HCPCS: 74230

== ENCOUNTER 2019-07-20 14:27 | Inpatient (IN) | payer MEDICARE ==
[2019-07-20 14:55] LABS: ABSOLUTE BASOPHILS # (AUTO) 0.1 10^3/uL (0.0-0.2); ABSOLUTE EOSINOPHILS # (AUTO) 0.2 10^3/uL (0.0-0.6); ABSOLUTE LYMPHOCYTES (AUTO) 1.5 10^3/uL (0.5-4.7); ABSOLUTE MONOCYTES (AUTO) 0.7 10^3/uL (0.1-1.4); ABSOLUTE NEUT (AUTO) 8.8 10^3/uL (1.7-8.2); BASOPHILS % (AUTO) 0.7 % (0-2); EOSINOPHILS % (AUTO) 1.8 % (0-6); HEMATOCRIT 39.8 % (37.9-51.0); HEMOGLOBIN 13.1 g/dL (13.5-17.0); LYMPHOCYTES % (AUTO) 13.1 % (13-45); MEAN CORPUSCULAR HEMOGLOBIN 27.5 pg (27.0-33.4); MEAN CORPUSCULAR VOLUME 83 fl (80-97); MONOCYTES % (AUTO) 5.8 % (3-13); PLATELET COUNT 170 10^3/uL (150-450); RED BLOOD COUNT 4.77 10^6/uL (4.35-5.55); RED CELL DISTRIBUTION WIDTH 19.1 % (11.5-14.0); SEGMENTED NEUTROPHILS % (AUTO) 78.6 % (42-78); TOTAL CELLS COUNTED % (AUTO) 100 %; WHITE BLOOD COUNT 11.2 10^3/uL (4.0-10.5)
--- NOTE | 2019-07-20 15:18 | RADIOLOGY REPORT (SQ) ---
EXAM DESCRIPTION: CHEST SINGLE VIEW COMPLETED DATE/TIME: 07/20/2019 3:05 pm REASON FOR STUDY: Shortness of Breath COMPARISON: 02/18/2019 EXAM PARAMETERS: NUMBER OF VIEWS: One view. TECHNIQUE: Single frontal radiographic view of the chest acquired. RADIATION DOSE: NA LIMITATIONS: None. FINDINGS: LUNGS AND PLEURA: Increasing left basilar infiltrate when compared to January 2019. Right lung field remains clear. Probable small left effusion. MEDIASTINUM AND HILAR STRUCTURES: No masses. Contour normal. HEART AND VASCULAR STRUCTURES: Heart normal in size. Normal vasculature. BONES: No acute findings. HARDWARE: None in the chest. OTHER: No other significant finding. IMPRESSION: There is been an increase in left basilar airspace disease when compared to 2018. Most likely pneumonia. TECHNICAL DOCUMENTATION: JOB ID: [id number] 2010 [employer]- All Rights Reserved Reading location - IP/workstation name: [email or web address]
[2019-07-20 15:24] LABS: ALBUMIN 3.5 g/dL (3.5-5.0); ALKALINE PHOSPHATASE 118 U/L (38-126); ANION GAP 5 (5-19); ASPARTATE AMINO TRANSFERASE 16 U/L (17-59); BILIRUBIN,DIRECT 0.3 mg/dL (0.0-0.4); BILIRUBIN,TOTAL 1.3 mg/dL (0.2-1.3); BLOOD UREA NITROGEN 15 mg/dL (7-20); CALCIUM 8.7 mg/dL (8.4-10.2); CARBON DIOXIDE 34 mmol/L (22-30); CHLORIDE 102 mmol/L (98-107); GLUCOSE 133 mg/dL (75-110); TOTAL PROTEIN 6.2 g/dL (6.3-8.2)
[2019-07-20] MEDS ORDERED: METHYLPREDNISOLONE INJ 125 MG/2 ML SDV IV ONE (15:45)
[2019-07-20] MEDS ORDERED: ALBUTEROL SULFATE HFA (90 MCG/PUFF) 8 GM MDI (1 MDI/ER DISP) IH ONE (15:46)
[2019-07-20] MEDS ORDERED: AZITHROMYCIN INJ 500 MG VIAL IV ONE (15:47)
[2019-07-20] MEDS ORDERED: CEFTRIAXONE INJ 1000 MG VIAL IV ONE (15:47)
[2019-07-20 16:08] LABS: ARTERIAL BLOOD BASE EXCESS 5.8 mmol/L; ARTERIAL BLOOD FIO2 2L; ARTERIAL BLOOD H2CO3 1.58 mmol/L (1.05-1.35); ARTERIAL BLOOD HCO3 31.9 mmol/L (20-24); ARTERIAL BLOOD O2 SATURATION 91.7 % (94-98); ARTERIAL BLOOD PCO2 52.6 mmHg (35-45); ARTERIAL BLOOD PO2 62.6 mmHg (80-100); ARTERIAL BLOOD TOTAL CO2 33.5 mmol/L (23-27)
[2019-07-20] MEDS ORDERED: ONDANSETRON HCL INJ/PF 4 MG/2 ML SDV IV ONE (16:22)
[2019-07-20] MEDS ORDERED: FENTANYL CITRATE INJ/PF 100 MCG/2 ML AMPUL IV ONE (16:23)
--- NOTE | 2019-07-20 17:08 | ER Document Report ---
ED General - General Chief Complaint: Shortness Of Breath Stated Complaint: SHORTNESS OF BREATH Time Seen by Provider: 07/20/19 14:51 TRAVEL OUTSIDE OF THE [place] IN LAST 30 DAYS: No - HPI Notes: Chief complaint: Cough, shortness of breath and chest pain 69-year-old male 1 pack/day cigarette smoker with history of COPD not currently on any medications at home presents now with 3 to 4 days history of worsening shortness of breath with cough productive of yellow sputum and he is complaining of dull pain in his chest. He denies fever or chills. He denies vomiting. He denies known exposure to other ill individuals. He denies any recent travel. He also has a history of obstructive sleep apnea and uses BiPAP at night. - Related Data Allergies/Adverse Reactions: No Known Allergies Allergy (Verified 07/20/19 14:51) Past Medical History - General Information source: Patient - Social History Smoking Status: Current Every Day Smoker Chew tobacco use (# tins/day): No Frequency of alcohol use: None Drug Abuse: None Family History: Reviewed & Not Pertinent, COPD Patient has suicidal ideation: No Patient has homicidal ideation: No - Past Medical History Cardiac Medical History: Reports: Hx Hypercholesterolemia, Hx Hypertension, Hx Pulmonary Embolism - October 2018 Denies: Hx Coronary Artery Disease, Hx Heart Attack Pulmonary Medical History: Reports: Hx COPD, Hx Sleep Apnea - LAURIE uses CPAP at home Denies: Hx Asthma, Hx Bronchitis, Hx Pneumonia Neurological Medical History: Denies: Hx Cerebrovascular Accident, Hx Seizures Endocrine Medical History: Reports: Hx Diabetes Mellitus Type 2 - Insulin- dependent. Denies: Hx Diabetes Mellitus Type 1, Hx Hyperthyroidism, Hx Hypothyr oidism Renal/ Medical History: Denies: Hx Peritoneal Dialysis Malignancy Medical History: Reports 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 GI Medical History: Reports: Hx Gastroesophageal Reflux Disease. Denies: Hx Cirrhosis, Hx Hepatitis Musculoskeletal Medical History: Reports Hx Arthritis, Denies Hx Gout Skin Medical History: Denies Hx Eczema, Denies Hx Psoriasis Psychiatric Medical History: Denies: Hx Depression Infectious Medical History: Denies: Hx Hepatitis Past Surgical History: Reports: Hx Cholecystectomy, Hx Neurologic Surgery - right hip nerve stim., Hx Orthopedic Surgery - back stimulator - Immunizations Hx Diphtheria, Pertussis, Tetanus Vaccination: Yes Hx Pneumococcal Vaccination: 12/25/17 Review of Systems - Review of Systems Notes: Constitutional: Negative for fever. HENT: Negative for sore throat. Eyes: Negative for visual changes. Cardiovascular: As per HPI. Respiratory: As per HPI. Gastrointestinal: Negative for abdominal pain, vomiting or diarrhea. Genitourinary: Negative for dysuria. Musculoskeletal: Negative for back pain. Skin: Negative for rash. Neurological: Negative for headaches, weakness or numbness. 10 point ROS negative except as marked above and in HPI. Physical Exam - Vital signs Vitals: Temp Pulse Resp BP Pulse Ox 99.6 F 94 27 H 141/76 H 87 L 07/20/19 14:33 07/20/19 14:33 07/20/19 14:33 07/20/19 14:33 07/20/19 14:33 - Notes Notes: GENERAL: Obese male awake and alert initially hypoxemic on room air by pulse oximetry now showing normal room air saturation on 2 L nasal O2. SKIN: Good turgor no rashes. HEAD: Normocephalic atraumatic. EYES: PERRLA. EOMI. Conjunctivae and sclerae clear. EARS: CANALS AND TMS CLEAR. NOSE: CLEAR. MOUTH: Moist mucosa. Good dentition. No stridor or edema. No drooling. NECK: Supple. No masses or thyromegaly. No adenopathy. Carotids 2+ without bruits. No JVD. BACK: Symmetrical without tenderness. CHEST: Respirations unlabored. Rattling cough with diffuse rhonchi bilaterally. HEART: Regular rhythm. No murmur gallop or rub. ABDOMEN: Soft, obese, nontender without masses, organomegaly or rebound. Bowel sounds normally active. No bruits. GENITALIA: Deferred. EXTREMITIES: No edema. No calf tenderness. Cap refill less than 1.5 seconds. Dorsalis pedis and posterior tibial pulses 3+ and symmetrical. NEUROLOGICAL: GCS 15. Alert and oriented x3. Fluent speech. Cranial nerves II through XII intact. Sensorimotor and cerebellar normal. Normal tone. PSYCHIATRIC: Appropriate affect. Course - Re-evaluation Re-evalutation: 07/20/19 17:31 Chest x-ray shows a new left lower lobe infiltrate. Arterial blood gas shows PO2 of 60 PCO2 of 50 normal pH on 2 L of nasal O2. White count is mildly elevated. Troponin normal. EKG showed no acute ST changes. Blood cultures drawn. Patient treated as a community-acquired pneumonia with IV Rocephin and azithromycin. IV Solu-Medrol. Albuterol via metered-dose inhaler. Patient is admitted by the hospitalist service. - Vital Signs Vital signs: Temp Pulse Resp BP Pulse Ox 99.6 F 94 24 H 141/76 H 91 L 07/20/19 14:33 07/20/19 14:33 07/20/19 14:40 07/20/19 14:33 07/20/19 14:40 - Laboratory Result Diagrams: 07/20/19 14:40 07/20/19 14:40 Laboratory results interpreted by me: 07/20/19 07/20/19 07/20/19 14:40 14:40 15:40 WBC 11.2 H Hgb 13.1 L RDW 19.1 H Absolute Neuts (auto) 8.8 H Seg Neutrophils % 78.6 H Carbonic Acid 1.58 H ABG pCO2 52.6 H ABG pO2 62.6 L ABG HCO3 31.9 H ABG Total CO2 33.5 H ABG O2 Saturation 91.7 L Carbon Dioxide 34 H Glucose 133 H AST 16 L Total Protein 6.2 L Discharge - Discharge Clinical Impression: COPD exacerbation Pneumonia Qualifiers: Pneumonia type: due to unspecified organism Laterality: left Lung location: lower lobe of lung Qualified Code(s): J18.9 - Pneumonia, unspecified organism Condition: Fair Disposition: ADMITTED INPATIENT Admitting Provider: Ricardo (Hospitalist) Unit Admitted: Telemetry
[2019-07-20] MEDS ORDERED: ALBUTEROL SULFATE 0.083% NEB 2.5 MG/3 ML AMPUL NEB PRN (17:37)
[2019-07-20] MEDS ORDERED: METHYLPREDNISOLONE INJ 40 MG/1 ML SDV IV SCH (18:00)
[2019-07-20] MEDS ORDERED: DEXTROSE 50%-WATER 25 GM/50 ML DISP.SYRIN IV PRN ×2 (18:00)
[2019-07-20] MEDS ORDERED: GLUCAGON,HUMAN RECOMB 1 MG INJ IM PRN (18:00)
[2019-07-20] MEDS ORDERED: DEXTROSE 40% GEL 15 GM TUBE PO PRN ×2 (18:00)
--- NOTE | 2019-07-20 18:00 | PDOC H&P ---
History of Present Illness Admission Date/PCP: 07/20/19 17:12 SUN SHARMA NP Patient complains of: Shortness of breath History of Present Illness: LIONEL CHESTER is a 69 year old male who has multiple medical problems including COPD not on home oxygen, hypertension, dyslipidemia, PE on Eliquis, diabetes, sleep apnea on CPAP, chronic lower extremity edema. He has had frequent hospitalization here. Patient presents to the hospital due to acute onset of exertional shortness of breath associated with fever up to 100.4, dry cough and wheezing. Patient also has chest tightness from coughing. He was hypoxic on admission. He does not have oxygen at baseline. His x-ray also with left lower lobe pneumonia. Past Medical History Cardiac Medical History: Reports: Hyperlipidema, Hypertension, Pulmonary Embolism - October 2018 Denies: Coronary Artery Disease, Myocardial Infarction Pulmonary Medical History: Reports: Chronic Obstructive Pulmonary Disease (COPD), Sleep Apnea - LAURIE uses CPAP at home Denies: Asthma, Bronchitis, Pneumonia Neurological Medical History: Denies: Seizures Endocrine Medical History: Reports: Diabetes Mellitus Type 2 - Insulin-dependent Denies: Diabetes Mellitus Type 1, Hyperthyroidism, Hypothyroidism Malignancy Medical History: Reports: 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 GI Medical History: Reports: Gastroesophageal Reflux Disease Denies: Cirrhosis, Hepatitis Musculoskeltal Medical History: Reports: Arthritis Denies: Gout Skin Medical History: Denies: Eczema, Psoriasis Psychiatric Medical History: Denies: Depression Hematology: Denies: Anemia Past Surgical History Past Surgical History: Reports: Cholecystectomy, Orthopedic Surgery - back stimulator Social History Smoking Status: Current Every Day Smoker Electronic Cigarette use?: No Frequency of Alcohol Use: Rare Hx Recreational Drug Use: No Drugs: None Hx Prescription Drug Abuse: No Family History Family History: Reviewed & Not Pertinent, COPD Parental Family History Reviewed: Yes Children Family History Reviewed: Yes Sibling(s) Family History Reviewed.: Yes Medication/Allergy Home Medications: Albuterol Sulfate [Proair HFA Inhalation Aerosol 8.5 gm MDI] 2 puff IH Q4HP PRN 06/19/18 Atorvastatin Calcium [Lipitor 20 mg Tablet] 20 mg PO QHS 06/19/18 Cholecalciferol (Vitamin D3) [Vitamin D3 1000 Unit Tablet] 1,000 unit PO BID 06/19/18 Exenatide Microspheres [Bydureon Pen] 2 mg SQ WE@1000 06/19/18 Finasteride [Proscar 5 mg Tablet] 5 mg PO DAILY 06/19/18 Fluticasone/Salmeterol [Advair 250-50 Diskus 14 Dose/Diskus] 1 puff IH Q12 06/19/18 Furosemide [Lasix 40 mg Tablet] 40 mg PO BID 06/19/18 Isosorbide Mononitrate [Imdur 30 mg Tablet.er] 30 mg PO DAILY 06/19/18 Metoprolol Succinate [Toprol Xl] 12.5 mg PO DAILY 06/19/18 Mirabegron [Myrbetriq] 50 mg PO DAILY 06/19/18 Omeprazole 40 mg PO Q6AM 06/19/18 Pregabalin [Lyrica 75 mg Capsule] 75 mg PO Q8 06/19/18 Tamsulosin HCl [Flomax 0.4 mg Cap.sr] 0.4 mg PO BID 06/19/18 Apixaban [Eliquis 5 mg Tablet] 5 mg PO BID 30 Days #60 tablet 06/22/18 Insulin Regular, Human [Humulin R U-500 Kwikpen] 150 unit SQ Q12 02/13/19 Lorazepam [Ativan 1 mg Tablet] 1 mg PO Q12HP PRN 02/13/19 Losartan Potassium [Cozaar 25 mg Tablet] 25 mg PO DAILY 02/13/19 Potassium Chloride [Klor-Con 10 Meq Tablet ER] 10 meq PO DAILY 02/13/19 Pramipexole Di-HCl [Mirapex 0.5 mg Tablet] 0.5 mg PO DAILY 02/13/19 Pramipexole Di-HCl [Mirapex 0.5 mg Tablet] 1 mg PO QHS 02/13/19 Acetaminophen [Tylenol 325 mg Tablet] 650 mg PO Q4HP PRN tablet 02/14/19 Guaifenesin [Mucinex Sr 600 mg Tablet.sa] 600 mg PO Q12 #14 tablet.sa 02/14/19 Levofloxacin [Levaquin 750 mg Tablet] 750 mg PO DAILY #5 tablet 02/14/19 Prednisone [Deltasone 20 mg Tablet] 60 mg PO DAILY #15 tablet 02/14/19 Allergies/Adverse Reactions: No Known Allergies Allergy (Verified 07/20/19 14:51) Review of Systems All systems: reviewed and no additional remarkable complaints except as stated Physical Exam Vital Signs: Temp Pulse Resp BP Pulse Ox 99.6 F 94 24 H 141/76 H 91 L 07/20/19 14:33 07/20/19 14:33 07/20/19 14:40 07/20/19 14:33 07/20/19 14:40 Intake & Output 07/19/19 07/20/19 07/21/19 06:59 06:59 06:59 Weight 290 lb General appearance: PRESENT: cooperative, mild distress, morbidly obese Head exam: PRESENT: atraumatic, normocephalic Eye exam: PRESENT: conjunctival injection, EOMI, PERRLA Ear exam: ABSENT: bleeding, drainage Mouth exam: PRESENT: moist, neck supple, tongue midline Neck exam: ABSENT: meningismus, tenderness, tracheostomy Respiratory exam: PRESENT: decreased breath sounds, prolonged expiratory phas, wheezes Cardiovascular exam: PRESENT: RRR, +S1, +S2. ABSENT: clicks, diastolic murmur Pulses: PRESENT: normal carotid pulses, normal radial pulses GI/Abdominal exam: PRESENT: normal bowel sounds, soft. ABSENT: ascites, tenderness Rectal exam: PRESENT: deferred Extremities exam: PRESENT: +2 edema. ABSENT: calf tenderness, clubbing, joint swelling Musculoskeletal exam: PRESENT: ambulatory. ABSENT: deformity, dislocation Neurological exam: PRESENT: alert, awake, oriented to person, oriented to place, oriented to time, oriented to situation, reflexes normal, CN II-XII grossly intact Psychiatric exam: PRESENT: appropriate affect, normal mood. ABSENT: agitated, anxious, homicidal ideation, suicidal ideation Skin exam: ABSENT: abrasion, cyanosis, erythema Results Laboratory Results: 07/20/19 14:40 07/20/19 14:40 07/20/19 07/20/19 07/20/19 14:40 14:40 15:40 WBC 11.2 H RBC 4.77 Hgb 13.1 L Hct 39.8 MCV 83 MCH 27.5 MCHC 33.0 RDW 19.1 H Plt Count 170 Seg Neutrophils % 78.6 H Carbonic Acid 1.58 H HCO3/H2CO3 Ratio 20:1 ABG pH 7.40 ABG pCO2 52.6 H ABG pO2 62.6 L ABG HCO3 31.9 H ABG O2 Saturation 91.7 L ABG Base Excess 5.8 FiO2 2L Sodium 140.5 Potassium 4.0 Chloride 102 Carbon Dioxide 34 H Anion Gap 5 BUN 15 Creatinine 0.76 Est GFR ( Amer) > 60 Glucose 133 H Calcium 8.7 Total Bilirubin 1.3 AST 16 L Alkaline Phosphatase 118 Total Protein 6.2 L Albumin 3.5 07/20/19 14:40 Troponin I < 0.012 Impressions: Chest X-Ray 07/20/19 14:35 IMPRESSION: There is been an increase in left basilar airspace disease when compared to 2019. Most likely pneumonia. Assessment and Plan - Diagnosis (1) Acute hypoxemic respiratory failure Is this a current diagnosis for this admission?: Yes Plan: Continue nasal cannula oxygen. Wean down as tolerated. (2) COPD exacerbation Is this a current diagnosis for this admission?: Yes Plan: Aggressive bronchodilator management. IV Solu-Medrol. Patient still every day smoker. He was counseled. (3) Left lower lobe pneumonia Is this a current diagnosis for this admission?: Yes Plan: Empiric IV ceftriaxone and IV azithromycin. Check CT scan of the chest. Rule out COVID 19. (4) Diabetes mellitus Qualifiers: Is this a current diagnosis for this admission?: Yes Plan: Resume home meds when reconciled. Start insulin sliding scale. (5) HLD (hyperlipidemia) Is this a current diagnosis for this admission?: Yes Plan: Continue statin (6) Hypertension Qualifiers: Is this a current diagnosis for this admission?: Yes Plan: Continue home antihypertensive medications. Monitor blood pressure. (7) Morbid obesity Is this a current diagnosis for this admission?: Yes Plan: Recommend lifestyle modifications (8) Obstructive sleep apnea on CPAP Is this a current diagnosis for this admission?: Yes Plan: Continue CPAP
--- NOTE | 2019-07-20 18:44 | RADIOLOGY REPORT (SQ) ---
EXAM DESCRIPTION: CT CHEST WITHOUT COMPLETED DATE/TIME: 07/20/2019 6:08 pm REASON FOR STUDY: resp failure COMPARISON: 06/19/2018 TECHNIQUE: CT scan performed of the chest without intravenous contrast. Images reviewed with lung, soft tissue and bone windows. Reconstructed coronal and sagittal MPR images reviewed. All images st ored on PACS. All CT scanners at this facility use dose modulation, iterative reconstruction, and/or weight based d osing when appropriate to reduce radiation dose to as low as reasonably achievable (ALARA). [facility]: Dose Right [facility]: CareDose [facility]: Dose Right [facility]: Teradose 4D [facility]: Smart PlasmaSi RADIATION DOSE: CT Rad equipment meets quality standard of care and radiation dose reduction techniq ues were employed. CTDIvol: 20.1 mGy. DLP: 850 mGy-cm. mGy. LIMITATIONS: No technical limitations. FINDINGS: LUNGS AND PLEURA: There is persistent patchy opacification in the left lung. There appear s to be some improvement compared to the earlier study. No pulmonary mass is seen. No pleural effus ion is present. HILAR AND MEDIASTINAL STRUCTURES: Nonspecific mediastinal nodes are present. No true adenopathy is s een. HEART AND VASCULAR STRUCTURES: No aneurysm. No pericardial effusion. UPPER ABDOMEN: No significant findings. Limited exam. THYROID AND OTHER SOFT TISSUES: No masses. No adenopathy. BONES: No significant finding. HARDWARE: None in the chest. OTHER: No other significant findings. IMPRESSION: Chronic airspace disease in the left lung with some improvement since 06/19/2018. TECHNICAL DOCUMENTATION: JOB ID: [id number] Quality ID # [id number]: Final reports with documentation of one or more dose reduction techniques (e.g., Au tomated exposure control, adjustment of the mA and/or kV according to patient size, use of iterative reconstruction technique) 2010 [employer]- All Rights Reserved Reading location - IP/workstation name: [email or web address]
[2019-07-20] MEDS ORDERED: ALBUTEROL SULFATE HFA (90 MCG/PUFF) 8 GM MDI IH PRN (19:20)
--- NOTE | 2019-07-20 19:49 | EKG REPORT ---
SEVERITY:- ABNORMAL ECG - SINUS RHYTHM FIRST DEGREE AV BLOCK LEFT ANTERIOR FASCICULAR BLOCK : Confirmed by: Jos Palumbo MD 20-Jul-2019 19:49:00
[2019-07-20] MEDS ORDERED: IPRATROPIUM/ALBUTEROL 0.5-2.5 MG/3 ML AMPUL NEB SCH (20:00)
[2019-07-20 20:05] LABS: ANION GAP 6 (5-19); BLOOD UREA NITROGEN 16 mg/dL (7-20); CALCIUM 8.5 mg/dL (8.4-10.2); CARBON DIOXIDE 31 mmol/L (22-30); CHLORIDE 102 mmol/L (98-107); GLUCOSE 178 mg/dL (75-110); POTASSIUM 4.4 mmol/L (3.6-5.0)
[2019-07-20] MEDS: INSULIN LISPRO 100 UNIT/ML 3 ML VIAL SUBCUT SCH (22:08)
[2019-07-20] MEDS: METHYLPREDNISOLONE INJ 40 MG/1 ML SDV IV SCH (22:09)
[2019-07-20] MEDS: IPRATROPIUM BROMIDE 0.06% NASAL SPRAY 15 ML NASL SCH (22:10)
[2019-07-20] MEDS ORDERED: INFLUENZA QUAD (6MOS+) 2019-20 VAC 0.5 ML SYR IM ONE (23:21)
[2019-07-21] MEDS: METHYLPREDNISOLONE INJ 40 MG/1 ML SDV IV SCH ×2 (02:37→10:09)
[2019-07-21 06:01] LABS: HEMATOCRIT 39.9 % (37.9-51.0); HEMOGLOBIN 13.2 g/dL (13.5-17.0); MEAN CORPUSCULAR HEMOGLOBIN 27.5 pg (27.0-33.4); MEAN CORPUSCULAR VOLUME 83 fl (80-97); PLATELET COUNT 157 10^3/uL (150-450); RED BLOOD COUNT 4.79 10^6/uL (4.35-5.55); RED CELL DISTRIBUTION WIDTH 18.9 % (11.5-14.0); WHITE BLOOD COUNT 7.7 10^3/uL (4.0-10.5)
[2019-07-21] MEDS ORDERED: AZITHROMYCIN INJ 500 MG VIAL IV SCH (10:00)
[2019-07-21] MEDS ORDERED: AZITHROMYCIN 500 MG in DEXTROSE 5%-WATER 250 ML IV SCH (10:00)
[2019-07-21] MEDS ORDERED: CEFTRIAXONE 1 GM/D5W RTU 1 GM/50 ML RTUPB IV SCH (10:00)
[2019-07-21] MEDS: INSULIN LISPRO 100 UNIT/ML 3 ML VIAL SUBCUT SCH ×2 (10:08→12:41)
[2019-07-21] MEDS: IPRATROPIUM BROMIDE 0.06% NASAL SPRAY 15 ML NASL SCH (10:10)
--- NOTE | 2019-07-21 12:47 | PDOC DISCHARGE SUMMARY ---
Impression - Admit/DC Date/PCP Admission Date/Primary Care Provider: 07/20/19 17:12 SUN SHARMA NP Discharge Date: 07/21/19 - Discharge Diagnosis (1) Acute hypoxemic respiratory failure Is this a current diagnosis for this admission?: Yes (2) COPD exacerbation Is this a current diagnosis for this admission?: Yes (3) Left lower lobe pneumonia Is this a current diagnosis for this admission?: Yes (4) Diabetes mellitus Is this a current diagnosis for this admission?: Yes (5) HLD (hyperlipidemia) Is this a current diagnosis for this admission?: Yes (6) Hypertension Is this a current diagnosis for this admission?: Yes (7) Morbid obesity Is this a current diagnosis for this admission?: Yes (8) Obstructive sleep apnea on CPAP Is this a current diagnosis for this admission?: Yes - Additional Information Referrals: [facility] [Outside] (PATIENT TO BE FOLLOWED BY HEALTH DEPT. ON SELF QUARANTINE AT HOME. ONCE THE HEALTH DEPT. RELEASES PATIENT THEN PATIENT MAY SCHEDULE A FOLLOW UP APPT. WITH PCP.) SUN SHARMA NP [Primary Care Provider] - Follow up as needed Prescriptions: Albuterol Sulfate [Albuterol Sulfate Hfa] 8.5 gm IH Q4HP PRN #1 hfa.aer.ad PRN Reason: Cefuroxime Axetil [Ceftin 500 mg Tablet] 1 tab PO BID #20 tablet Prednisone [Deltasone 20 mg Tablet] 40 mg PO DAILY #10 tablet Azithromycin [Zithromax 250 mg Tablet] 250 mg PO DAILY #5 tablet Home Medications: Albuterol Sulfate [Proair HFA Inhalation Aerosol 8.5 gm MDI] 2 puff IH Q4HP PRN 06/19/18 Atorvastatin Calcium [Lipitor 20 mg Tablet] 20 mg PO QHS 06/19/18 Cholecalciferol (Vitamin D3) [Vitamin D3 1000 Unit Tablet] 1,000 unit PO BID 06/19/18 Finasteride [Proscar 5 mg Tablet] 5 mg PO DAILY 06/19/18 Fluticasone/Salmeterol [Advair 250-50 Diskus 14 Dose/Diskus] 1 puff IH Q12 06/19/18 Furosemide [Lasix 40 mg Tablet] 40 mg PO BID 06/19/18 Isosorbide Mononitrate [Imdur 30 mg Tablet.er] 30 mg PO DAILY 06/19/18 Metoprolol Succinate [Toprol Xl] 12.5 mg PO DAILY 06/19/18 Mirabegron [Myrbetriq] 50 mg PO DAILY 06/19/18 Omeprazole 40 mg PO Q6AM 06/19/18 Pregabalin [Lyrica 75 mg Capsule] 150 mg PO QAM 06/19/18 Tamsulosin HCl [Flomax 0.4 mg Cap.sr] 0.4 mg PO BID 06/19/18 Insulin Regular, Human [Humulin R U-500 Kwikpen] 100 unit SQ QAM 02/13/19 Lorazepam [Ativan 1 mg Tablet] 1 mg PO Q12HP PRN 02/13/19 Losartan Potassium [Cozaar 25 mg Tablet] 25 mg PO DAILY 02/13/19 Pramipexole Di-HCl [Mirapex 0.5 mg Tablet] 1 mg PO QAM 02/13/19 Pramipexole Di-HCl [Mirapex 0.5 mg Tablet] 1.5 mg PO QHS 02/13/19 Apixaban [Eliquis 5 mg Tablet] 2.5 mg PO BID 07/20/19 Empagliflozin [Jardiance] 25 mg PO DAILY 07/20/19 Ezetimibe [Zetia] 10 mg PO DAILY 07/20/19 Insulin Regular, Human [Humulin R U-500 Kwikpen] 50 unit SQ QPM 07/20/19 Ketoconazole 1 applic TOP BID 07/20/19 Ketoconazole 1 applic TP TUTH@1000 PRN 07/20/19 Multivitamin [Multivitamins] 1 cap PO DAILY 07/20/19 Pregabalin 300 mg PO QHS 07/20/19 Semaglutide [Ozempic] 0.25 - 0.5 mg SQ WE@1000 07/20/19 Albuterol Sulfate [Albuterol Sulfate Hfa] 8.5 gm IH Q4HP PRN #1 hfa.aer.ad 07/21/19 Azithromycin [Zithromax 250 mg Tablet] 250 mg PO DAILY #5 tablet 07/21/19 Cefuroxime Axetil [Ceftin 500 mg Tablet] 1 tab PO BID #20 tablet 07/21/19 Prednisone [Deltasone 20 mg Tablet] 40 mg PO DAILY #10 tablet 07/21/19 History of Present Illiness History of Present Illness: LIONEL CHESTER is a 69 year old male who has multiple medical problems including COPD not on home oxygen, hypertension, dyslipidemia, PE on Eliquis, diabetes, sleep apnea on CPAP, chronic lower extremity edema. He has had frequent hospitalization here. Patient presents to the hospital due to acute onset of exertional shortness of breath associated with fever up to 100.4, dry cough and wheezing. Patient also has chest tightness from coughing. He was hypoxic on admission. He does not have oxygen at baseline. His x-ray also with left lower lobe pneumonia. Hospital Course Hospital Course: Summary: (1) Acute hypoxemic respiratory failure Was started on nasal cannula oxygen. Wean down to normal air. (2) COPD exacerbation Started aggressive bronchodilator management. IV Solu-Medrol. Patient still every day smoker. He was counseled. Improved clinically. We will switch to oral prednisone. (3) Left lower lobe pneumonia Started empiric IV ceftriaxone and IV azithromycin. Discharged on oral Ceftin and azithromycin. Rule out COVID 19. (4) Diabetes mellitus Resume home meds. (5) HLD (hyperlipidemia) Continue statin (6) Hypertension Continue home antihypertensive medications. (7) Morbid obesity Recommend lifestyle modifications (8) Obstructive sleep apnea on CPAP Continue CPAP Patient wants to go home. He is doing much better. He does not require oxygen. I recommend that he self quarantine until he receives results from COVID 19. Physical Exam Vital Signs: Temp Pulse Resp BP Pulse Ox 98.3 F 70 20 136/63 H 90 L 07/21/19 08:38 07/21/19 08:38 07/21/19 08:38 07/21/19 08:38 07/21/19 08:38 Intake & Output 07/20/19 07/21/19 07/22/19 06:59 06:59 06:59 Intake Total 480 50 Balance 480 50 Weight 297 lb 6.457 oz Exam: General appearance: PRESENT: cooperative, mild distress, morbidly obese Head exam: PRESENT: atraumatic, normocephalic Eye exam: PRESENT: conjunctival injection, EOMI, PERRLA Ear exam: ABSENT: bleeding, drainage Mouth exam: PRESENT: moist, neck supple, tongue midline Neck exam: ABSENT: meningismus, tenderness, tracheostomy Respiratory exam: Improved breath sounds, proved wheezes Cardiovascular exam: PRESENT: RRR, +S1, +S2. ABSENT: clicks, diastolic murmur Pulses: PRESENT: normal carotid pulses, normal radial pulses GI/Abdominal exam: PRESENT: normal bowel sounds, soft. ABSENT: ascites, tenderness Rectal exam: PRESENT: deferred Extremities exam: PRESENT: +2 edema. ABSENT: calf tenderness, clubbing, joint swelling Musculoskeletal exam: PRESENT: ambulatory. ABSENT: deformity, dislocation Neurological exam: PRESENT: alert, awake, oriented to person, oriented to place, oriented to time, oriented to situation, reflexes normal, CN II-XII grossly intact Psychiatric exam: PRESENT: appropriate affect, normal mood. ABSENT: agitated, anxious, homicidal ideation, suicidal ideation Skin exam: ABSENT: abrasion, cyanosis, erythema Results Laboratory Results: WBC 7.7 10^3/uL (4.0-10.5) 07/21/19 05:45 RBC 4.79 10^6/uL (4.35-5.55) 07/21/19 05:45 Hgb 13.2 g/dL (13.5-17.0) L 07/21/19 05:45 Hct 39.9 % (37.9-51.0) 07/21/19 05:45 MCV 83 fl (80-97) 07/21/19 05:45 MCH 27.5 pg (27.0-33.4) 07/21/19 05:45 MCHC 33.0 g/dL (32.0-36.0) 07/21/19 05:45 RDW 18.9 % (11.5-14.0) H 07/21/19 05:45 Plt Count 157 10^3/uL (150-450) 07/21/19 05:45 Lymph % (Auto) 13.1 % (13-45) 07/20/19 14:40 Clayton % (Auto) 5.8 % (3-13) 07/20/19 14:40 Eos % (Auto) 1.8 % (0-6) 07/20/19 14:40 Baso % (Auto) 0.7 % (0-2) 07/20/19 14:40 Absolute Neuts (auto) 8.8 10^3/uL (1.7-8.2) H 07/20/19 14:40 Absolute Lymphs (auto) 1.5 10^3/uL (0.5-4.7) 07/20/19 14:40 Absolute Monos (auto) 0.7 10^3/uL (0.1-1.4) 07/20/19 14:40 Absolute Eos (auto) 0.2 10^3/uL (0.0-0.6) 07/20/19 14:40 Absolute Basos (auto) 0.1 10^3/uL (0.0-0.2) 07/20/19 14:40 Seg Neutrophils % 78.6 % (42-78) H 07/20/19 14:40 D-Dimer 0.43 ug/mL (0.00-0.50) 07/20/19 14:40 Carbonic Acid 1.58 mmol/L (1.05-1.35) H 07/20/19 15:40 HCO3/H2CO3 Ratio 20:1 07/20/19 15:40 ABG pH 7.40 (7.35-7.45) 07/20/19 15:40 ABG pCO2 52.6 mmHg (35-45) H 07/20/19 15:40 ABG pO2 62.6 mmHg (80-100) L 07/20/19 15:40 ABG HCO3 31.9 mmol/L (20-24) H 07/20/19 15:40 ABG Total CO2 33.5 mmol/L (23-27) H 07/20/19 15:40 ABG O2 Saturation 91.7 % (94-98) L 07/20/19 15:40 ABG Base Excess 5.8 mmol/L 07/20/19 15:40 FiO2 2L 07/20/19 15:40 Sodium 139.1 mmol/L (137-145) 07/20/19 19:37 Potassium 4.4 mmol/L (3.6-5.0) 07/20/19 19:37 Chloride 102 mmol/L (98-107) 07/20/19 19:37 Carbon Dioxide 31 mmol/L (22-30) H 07/20/19 19:37 Anion Gap 6 (5-19) 07/20/19 19:37 BUN 16 mg/dL (7-20) 07/20/19 19:37 Creatinine 0.78 mg/dL (0.52-1.25) 07/20/19 19:37 Est GFR ( Amer) > 60 (>60) 07/20/19 19:37 Est GFR (MDRD) Non-Af > 60 (>60) 07/20/19 19:37 Glucose 178 mg/dL (75-110) H 07/20/19 19:37 POC Glucose 267 mg/dL (70-110) H 07/21/19 11:42 Calcium 8.5 mg/dL (8.4-10.2) 07/20/19 19:37 Total Bilirubin 1.3 mg/dL (0.2-1.3) 07/20/19 14:40 Direct Bilirubin 0.3 mg/dL (0.0-0.4) 07/20/19 14:40 Neonat Total Bilirubin Not Reportable 07/20/19 14:40 Neonat Direct Bilirubin Not Reportable 07/20/19 14:40 Neonat Indirect Bili Not Reportable 07/20/19 14:40 AST 16 U/L (17-59) L 07/20/19 14:40 ALT 14 U/L (<50) 07/20/19 14:40 Alkaline Phosphatase 118 U/L (38-126) 07/20/19 14:40 Troponin I < 0.012 ng/mL 07/20/19 14:40 Total Protein 6.2 g/dL (6.3-8.2) L 07/20/19 14:40 Albumin 3.5 g/dL (3.5-5.0) 07/20/19 14:40 07/20/19 14:40 Troponin I < 0.012 Impressions: Chest CT 07/20/19 00:00 IMPRESSION: Chronic airspace disease in the left lung with some improvement since 06/19/2018. Chest X-Ray 07/20/19 14:35 IMPRESSION: There is been an increase in left basilar airspace disease when compared to 2019. Most likely pneumonia. Stroke Is this a Stroke Patient?: No Acute Heart Failure - Is this a Heart Failure Patient?: No
[2019-07-21 13:31] VITALS: BP 144/71
[2019-07-21] MEDS ORDERED: METHYLPREDNISOLONE INJ 125 MG/2 ML SDV IV SCH (15:00)
== END 2019-07-21 14:15 | disposition home or self-care (01) | DRG 190 ==
LOC: ER 14:27 → EH 17:12 → 5 20:48
PROVIDERS: ADMIT Family Medicine; ATTEND Family Medicine
DX: J44.1 Chronic obstructive pulmonary disease with (acute) exacerbation (principal); J96.01 Acute respiratory failure with hypoxia; J18.9 Pneumonia, unspecified organism; E11.9 Type 2 diabetes mellitus without complications; E78.5 Hyperlipidemia, unspecified; I10 Essential (primary) hypertension; E66.01 Morbid (severe) obesity due to excess calories; G47.33 Obstructive sleep apnea (adult) (pediatric); K21.9 Gastro-esophageal reflux disease without esophagitis; F17.210 Nicotine dependence, cigarettes, uncomplicated; J44.0 Chronic obstructive pulmonary disease with (acute) lower respiratory infection; E78.00 Pure hypercholesterolemia, unspecified; Z11.59 Encounter for screening for other viral diseases; Z79.899 Other long term (current) drug therapy; Z79.4 Long term (current) use of insulin; Z86.711 Personal history of pulmonary embolism; Z99.81 Dependence on supplemental oxygen; Z85.828 Personal history of other malignant neoplasm of skin; Z79.82 Long term (current) use of aspirin; Z03.818 Encounter for observation for suspected exposure to other biological agents ruled out
CPT/HCPCS: 36415; 71045; 71250; 80053; 82803; 82962; 84484; 85025; 85027; 85379; 87040; 87635; 93005; 93010; 96365; 96367; 96375; 99285; J0456; J0696; J1815; J2405; J2920; J2930; J3010; J3490; J7060

== ENCOUNTER 2019-09-04 12:54 | Inpatient (IN) | payer MEDICARE, OTHER ==
[2019-09-04 13:49] LABS: HEMATOCRIT 42.7 % (37.9-51.0); HEMOGLOBIN 14.2 g/dL (13.5-17.0); INTERNATIONAL RATION (INR) 1.05; MEAN CORPUSCULAR HEMOGLOBIN 27.4 pg (27.0-33.4); MEAN CORPUSCULAR HGB CONC 33.3 g/dL (32.0-36.0); MEAN CORPUSCULAR VOLUME 82 fl (80-97); PLATELET COUNT 180 10^3/uL (150-450); PROTHROMBIN TIME 13.7 SEC (11.4-15.4); RED CELL DISTRIBUTION WIDTH 18.4 % (11.5-14.0); VENOUS BLOOD BASE EXCESS 3.8 mmol/L; VENOUS BLOOD HCO3 30.5 mmol/L (20-32); VENOUS BLOOD PCO2 54.4 mmHg (35-63); VENOUS BLOOD PH 7.37 (7.30-7.42); WHITE BLOOD COUNT 16.1 10^3/uL (4.0-10.5)
--- NOTE | 2019-09-04 13:52 | RADIOLOGY REPORT (SQ) ---
EXAM DESCRIPTION: CHEST SINGLE VIEW IMAGES COMPLETED DATE/TIME: 09/04/2019 1:32 pm REASON FOR STUDY: bed 7 sepsis protocol COMPARISON: AP view of the chest from 07/20/2019. EXAM PARAMETERS: NUMBER OF VIEWS: One view. TECHNIQUE: An AP view of the chest was obtained. RADIATION DOSE: NA LIMITATIONS: None. FINDINGS: LUNGS AND PLEURA: Asymmetric opacities in the inferior left hemithorax that obscure the co ntour of the left hemidiaphragm blunts the left lateral costophrenic sulcus. There is no pneumothora x. MEDIASTINUM AND HILAR STRUCTURES: No mediastinal or hilar contour abnormality. HEART AND VASCULAR STRUCTURES: The cardiac silhouette is enlarged. BONES: No acute findings. HARDWARE: Spinal stimulator. OTHER: No other finding. IMPRESSION: Asymmetric opacities in the inferior left hemithorax - clinical correlation to exclude a pneumonia is recommend. TECHNICAL DOCUMENTATION: JOB ID: [id number] 2010 [employer]- All Rights Reserved Reading location - IP/workstation name: [email or web address]
[2019-09-04] MEDS ORDERED: NORMAL SALINE IV PRN (13:58)
[2019-09-04 13:59] LABS: ALBUMIN 3.7 g/dL (3.5-5.0); ALKALINE PHOSPHATASE 112 U/L (38-126); ASPARTATE AMINO TRANSFERASE 19 U/L (17-59); BILIRUBIN,TOTAL 1.3 mg/dL (0.2-1.3); BLOOD UREA NITROGEN 20 mg/dL (7-20); CALCIUM 8.9 mg/dL (8.4-10.2); CARBON DIOXIDE 32 mmol/L (22-30); GLUCOSE 154 mg/dL (75-110); POTASSIUM 4.4 mmol/L (3.6-5.0)
[2019-09-04] MEDS ORDERED: PIPERACILLIN SODIUM/TAZOBACTAM 4.5 GM in NORMAL SALINE 100 ML IV SCH ×2 (14:00→15:00)
[2019-09-04] MEDS ORDERED: IPRATROPIUM/ALBUTEROL 0.5-2.5 MG/3 ML AMPUL NEB ONE (14:04)
[2019-09-04 14:05] LABS: ANION GAP 5 (5-19); CHLORIDE 102 mmol/L (98-107)
[2019-09-04 14:18] LABS: BASOPHILS % (MANUAL) 0 % (0-2); EOSINOPHILS % (MANUAL) 1 % (0-6); LYMPHOCYTES % (MANUAL) 6 % (13-45); MONOCYTES % (MANUAL) 6 % (3-13); SEGMENTED NEUTROPHILS % (MAN) 87 % (42-78); TOTAL CELLS COUNTED 100
[2019-09-04 14:21] LABS: ANISOCYTOSIS 2+; OVALOCYTES SLIGHT; PLATELET COMMENT ADEQUATE; POLYCHROMASIA SLIGHT; TOXIC GRANULATION SLIGHT
--- NOTE | 2019-09-04 14:39 | ER Document Report ---
ED Respiratory Problem - General Chief Complaint: Shortness Of Breath Stated Complaint: FEVER/CHILLS/SHORTNESS OF BREATH Time Seen by Provider: 09/04/19 13:06 Primary Care Provider: KONSTANTIN CAT MD [Primary Care Provider] - Follow up as needed Notes: 69-year-old man presents to the emergency department with complaint of cough, fever and shortness of breath. History of COPD, states that he was doing well u ntil 2 days prior to this emergency department visit. He is not on home O2, however sats in the emergency department 70% on room air. His O2 sat improved into the 90s on 2 L nasal cannula. Patient denies wheezing, has had a productive cough with a yellowish-green sputum. Past medical history sig nificant for COPD, sleep apnea, type 2 diabetes mellitus, hypertension, hyperlipidemia and GERD. TRAVEL OUTSIDE OF THE [place] IN LAST 30 DAYS: No - Related Data Allergies/Adverse Reactions: No Known Allergies Allergy (Verified 07/20/19 14:51) Past Medical History - Social History Smoking Status: Current Every Day Smoker Family History: Reviewed & Not Pertinent, COPD Patient has homicidal ideation: No - Past Medical History Cardiac Medical History: Reports: Hx Hypercholesterolemia, Hx Hypertension, Hx Pulmonary Embolism - October 2018 Denies: Hx Coronary Artery Disease, Hx Heart Attack Pulmonary Medical History: Reports: Hx COPD, Hx Sleep Apnea - LAURIE uses CPAP at home Denies: Hx Asthma, Hx Bronchitis, Hx Pneumonia Neurological Medical History: Denies: Hx Cerebrovascular Accident, Hx Seizures Endocrine Medical History: Reports: Hx Diabetes Mellitus Type 2. 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 Denies: Hx Cirrhosis, Hx Hepatitis Musculoskeletal Medical History: Reports Hx Arthritis, Denies Hx Gout Skin Medical History: Denies Hx Eczema, Denies Hx Psoriasis Psychiatric Medical History: Denies: Hx Depression Infectious Medical History: Denies: Hx Hepatitis Past Surgical History: Reports: Hx Cholecystectomy, Hx Neurologic Surgery - right hip nerve stim., Hx Orthopedic Surgery - back stimulator - Immunizations Hx Diphtheria, Pertussis, Tetanus Vaccination: Yes Hx Pneumococcal Vaccination: 12/25/17 Review of Systems - Review of Systems Notes: Constitutional:+ fever. HENT: Negative for sore throat. Eyes: Negative for visual changes. Cardiovascular: Negative for chest pain. Respiratory: + shortness of breath, +cough Gastrointestinal: Negative for abdominal pain, vomiting or diarrhea. Genitourinary: Negative for dysuria. Musculoskeletal: Negative for back pain. Skin: Negative for rash. Neurological: Negative for headaches, weakness or numbness. 10 point ROS negative except as marked above and in HPI. Physical Exam - Vital signs Vitals: Temp Pulse Resp BP Pulse Ox 100.4 F 100 26 H 123/56 L 79 L 09/04/19 12:55 09/04/19 12:55 09/04/19 12:55 09/04/19 12:55 09/04/19 12:55 - Notes Notes: PHYSICAL EXAMINATION: Physical Exam: General: Well-nourished obese 69-year-old man in mild respiratory distress secondary to shortness of breath. HEENT: NC/AT, pupils equal round and reactive to light, MM moist,nares clear, oropharynx clear, airway patent + nasal cannula in place Neck: supple, no adenopathy, no masses. Good range of motion Lungs: clear, no wheezing, no rales no rhonchi CVS: Regular rate and rhythm no murmur gallop or rub Abdomen: Soft, active, nontender, no masses, no hepatosplenomegaly Ext: No edema, clubbing or cyanosis. Neuro: Alert and responsive, moving all 4 extremities on command, cranial nerves intact, no focal findings Skin: Intact no open lesions, no rash PSYCH: Normal mood, normal affect. Course - Re-evaluation Re-evalutation: 09/04/19 16:11 Patient was worked up for sepsis, lactate 1.2, chest x-ray reveals a left-sided chest opacities pneumonia, WBC 16,000, 8 patient is tested for influenza, strep both were negative, a coronavirus rapid test is performed in the emergency department in lieu that the patient may be admitted to the hospital for further treatment. I discussed the patient with the hospitalist, Dr. Dubois, he will admit the patient to the hospital for further treatment and management. I have discussed hospitalization with the patient and he is in agreement with that plan. 09/04/19 16:14 - Vital Signs Vital signs: Temp Pulse Resp BP Pulse Ox 100.4 F 100 20 127/60 H 91 L 09/04/19 13:12 09/04/19 12:55 09/04/19 15:01 09/04/19 15:01 09/04/19 15:01 - Laboratory Result Diagrams: 09/04/19 13:24 09/04/19 13:24 Laboratory results interpreted by me: 09/04/19 09/04/19 09/04/19 13:24 13:24 14:13 WBC 16.1 H RDW 18.4 H Seg Neuts % (Manual) 87 H Lymphocytes % (Manual) 6 L Abs Neuts (Manual) 14.0 H Carbon Dioxide 32 H Glucose 154 H Total Protein 6.0 L Urine Glucose (UA) >=500 H - Diagnostic Test Radiology reviewed: Image reviewed, Reports reviewed - Chest x-ray: Irregular left sided opacities. - EKG Interpretation by Me EKG shows normal: Sinus rhythm - Rate of 94, first-degree AV block, left anterior fascicular block, possible RVH. Findings compatible with chronic lung disease. Critical Care Note - Critical Care Note Total time excluding time spent on procedures (mins): 60 - Critical care time spent obtaining history from patient or surrogate, discussions with consultants, development of treatment plan with patient or surrogate, evaluation of patient's response to treatment, examination of patient, ordering and performing treatments and interventions, ordering and review of laboratory studies, re- evaluation of patient's condition, ordering and review of radiographic studies and review of old charts Discharge - Discharge Clinical Impression: Hypoxia, COPD exacerbation, Obstructive sleep apnea, Suspected COVID-19 virus infection Pneumonia involving left lung Qualifiers: Pneumonia type: due to unspecified organism Lung location: unspecified part of lung Qualified Code(s): J18.9 - Pneumonia, unspecified organism Type 2 diabetes mellitus Qualifiers: Diabetes mellitus half-way insulin use: without half-way use Diabetes mellitus complication status: without complication Qualified Code(s): E11.9 - Type 2 diabetes mellitus without complications Condition: Good Disposition: ADMITTED INPATIENT Admitting Provider: Silvino (Hospitalist) Unit Admitted: Telemetry Referrals: KONSTANTIN CAT MD [Primary Care Provider] - Follow up as needed
[2019-09-04] MEDS ORDERED: ACETAMINOPHEN 325 MG TABLET PO ONE (14:46)
[2019-09-04 15:02] LABS: APPEARANCE,URINE CLEAR; BILIRUBIN,URINE NEGATIVE (NEGATIVE); COLOR,URINE YELLOW; GLUCOSE, URINE >=500 mg/dL (NEGATIVE); KETONES,URINE NEGATIVE (NEGATIVE); PROTEIN,URINE NEGATIVE (NEGATIVE); URINE SPECIFIC GRAVITY 1.032; UROBILINOGEN,URINE NEGATIVE mg/dL (<2.0)
[2019-09-04 15:52] LABS: A TYPE INFLUENZA AG NEGATIVE (NEGATIVE); B INFLUENZA AG NEGATIVE (NEGATIVE)
[2019-09-04] MEDS ORDERED: ACETAMINOPHEN 325 MG TABLET PO PRN (16:50)
[2019-09-04] MEDS ORDERED: GUAIFENESIN SYRP 200 MG/10 ML UDC PO PRN (17:03)
[2019-09-04] MEDS ORDERED: DEXTROSE 50%-WATER 25 GM/50 ML DISP.SYRIN IV PRN ×2 (17:07)
[2019-09-04] MEDS ORDERED: DEXTROSE 40% GEL 15 GM TUBE PO PRN ×2 (17:07)
[2019-09-04] MEDS ORDERED: GLUCAGON,HUMAN RECOMB 1 MG INJ IM PRN (17:07)
--- NOTE | 2019-09-04 17:26 | PDOC H&P ---
History of Present Illness Admission Date/PCP: 09/04/19 16:25 KONSTANTIN CAT MD Patient complains of: Shortness of breath and fever History of Present Illness: LIONEL CHESTER is a 69 year old male with a history of type 2 diabetes mellitus, restless leg syndrome, COPD not on home oxygen, pulmonary embolism on Eliquis, hypertension, who presents to the hospital with complaints of shortness of breath and fever for the past few days. Patient also endorses persistent cough which has been off and on for the past few weeks. He also admits to chills. Admits to rhinorrhea. Patient denies any hemoptysis. Admits to compliance with his Eliquis. States that he has been in his resuming smoking since his last year but is willing to try to get off it. In the ER he was noted to have a fever and pneumonia referred to hospitalist service for admission. Past Medical History Cardiac Medical History: Reports: Hyperlipidema, Hypertension, Pulmonary Embolism - October 2018 Denies: Coronary Artery Disease, Myocardial Infarction Pulmonary Medical History: Reports: Chronic Obstructive Pulmonary Disease (COPD), Sleep Apnea - LAURIE uses CPAP at home Denies: Asthma, Bronchitis, Pneumonia Neurological Medical History: Denies: Seizures Endocrine Medical History: Reports: Diabetes Mellitus Type 2 Denies: Diabetes Mellitus Type 1, Hyperthyroidism, Hypothyroidism Malignancy Medical History: Reports: 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 GI Medical History: Reports: Gastroesophageal Reflux Disease Denies: Cirrhosis, Hepatitis Musculoskeltal Medical History: Reports: Arthritis Denies: Gout Skin Medical History: Denies: Eczema, Psoriasis Psychiatric Medical History: Denies: Depression Hematology: Denies: Anemia Past Surgical History Past Surgical History: Reports: Cholecystectomy, Orthopedic Surgery - back stimulator Social History Smoking Status: Current Every Day Smoker Frequency of Alcohol Use: None Hx Recreational Drug Use: No Drugs: None Hx Prescription Drug Abuse: No - Advance Directive Resuscitation Status: Full Code Family History Family History: COPD, DM, Hypertension Parental Family History Reviewed: Yes Children Family History Reviewed: Unknown Sibling(s) Family History Reviewed.: Yes Medication/Allergy Home Medications: Albuterol Sulfate [Proair HFA Inhalation Aerosol 8.5 gm MDI] 2 puff IH Q4HP PRN 06/19/18 Atorvastatin Calcium [Lipitor 20 mg Tablet] 20 mg PO QHS 06/19/18 Cholecalciferol (Vitamin D3) [Vitamin D3 1000 Unit Tablet] 1,000 unit PO BID 06/19/18 Finasteride [Proscar 5 mg Tablet] 5 mg PO DAILY 06/19/18 Fluticasone/Salmeterol [Advair 250-50 Diskus 14 Dose/Diskus] 1 puff IH Q12 06/19/18 Furosemide [Lasix 40 mg Tablet] 40 mg PO BID 06/19/18 Isosorbide Mononitrate [Imdur 30 mg Tablet.er] 30 mg PO DAILY 06/19/18 Metoprolol Succinate [Toprol Xl] 12.5 mg PO DAILY 06/19/18 Mirabegron [Myrbetriq] 50 mg PO DAILY 06/19/18 Omeprazole 40 mg PO Q6AM 06/19/18 Pregabalin [Lyrica 75 mg Capsule] 150 mg PO QAM 06/19/18 Tamsulosin HCl [Flomax 0.4 mg Cap.sr] 0.4 mg PO BID 06/19/18 Insulin Regular, Human [Humulin R U-500 Kwikpen] 100 unit SQ QAM 02/13/19 Lorazepam [Ativan 1 mg Tablet] 1 mg PO Q12HP PRN 02/13/19 Losartan Potassium [Cozaar 25 mg Tablet] 25 mg PO DAILY 02/13/19 Pramipexole Di-HCl [Mirapex 0.5 mg Tablet] 1 mg PO QAM 02/13/19 Pramipexole Di-HCl [Mirapex 0.5 mg Tablet] 1.5 mg PO QHS 02/13/19 Apixaban [Eliquis 5 mg Tablet] 2.5 mg PO BID 07/20/19 Empagliflozin [Jardiance] 25 mg PO DAILY 07/20/19 Ezetimibe [Zetia] 10 mg PO DAILY 07/20/19 Insulin Regular, Human [Humulin R U-500 Kwikpen] 50 unit SQ QPM 07/20/19 Ketoconazole 1 applic TOP BID 07/20/19 Ketoconazole 1 applic TP TUTH@1000 PRN 07/20/19 Multivitamin [Multivitamins] 1 cap PO DAILY 07/20/19 Pregabalin 300 mg PO QHS 07/20/19 Semaglutide [Ozempic] 0.25 - 0.5 mg SQ WE@1000 07/20/19 Albuterol Sulfate [Albuterol Sulfate Hfa] 8.5 gm IH Q4HP PRN #1 hfa.aer.ad 06/25 11/12 Azithromycin [Zithromax 250 mg Tablet] 250 mg PO DAILY #5 tablet 07/21/19 Cefuroxime Axetil [Ceftin 500 mg Tablet] 1 tab PO BID #20 tablet 07/21/19 Prednisone [Deltasone 20 mg Tablet] 40 mg PO DAILY #10 tablet 07/21/19 Allergies/Adverse Reactions: No Known Allergies Allergy (Verified 07/20/19 14:51) Review of Systems Constitutional: PRESENT: chills, fever(s) Eyes: ABSENT: visual disturbances Nose, Mouth, and Throat: ABSENT: headache(s) Cardiovascular: ABSENT: chest pain Respiratory: PRESENT: cough, dyspnea. ABSENT: hemoptysis, sputum Gastrointestinal: ABSENT: abdominal pain, nausea, vomiting Genitourinary: ABSENT: difficulty urinating Musculoskeletal: PRESENT: back pain Integumentary: ABSENT: diaphoresis Neurological: PRESENT: dizziness - Occasionally but not currently. ABSENT: confusion Endocrine: ABSENT: polyuria Allergic/Immunologic: PRESENT: other - Rhinorrhea and nasal congestion Physical Exam Vital Signs: Temp Pulse Resp BP Pulse Ox 98.1 F 100 20 145/67 H 92 09/04/19 16:43 09/04/19 12:55 09/04/19 15:01 09/04/19 16:01 09/04/19 16:01 Intake & Output 09/03/19 09/04/19 09/05/19 06:59 06:59 06:59 Intake Total 1400 Balance 1400 Weight 131.542 kg General appearance: PRESENT: no acute distress, cooperative Mouth exam: PRESENT: neck supple Neck exam: ABSENT: JVD Respiratory exam: PRESENT: crackles - Left lower lung, decreased breath sounds, unlabored. ABSENT: tachypnea, wheezes Cardiovascular exam: PRESENT: RRR, +S1, +S2. ABSENT: tachycardia GI/Abdominal exam: PRESENT: soft. ABSENT: rebound, rigid, tenderness Musculoskeletal exam: PRESENT: ambulatory Neurological exam: PRESENT: alert, awake, oriented to person, oriented to place, oriented to time Psychiatric exam: ABSENT: agitated, anxious Focused psych exam: ABSENT: pressured speech Skin exam: ABSENT: dry, jaundice Results Laboratory Results: 09/04/19 13:24 09/04/19 13:24 09/04/19 09/04/19 09/04/19 13:24 13:24 13:24 WBC 16.1 H RBC 5.20 Hgb 14.2 Hct 42.7 MCV 82 MCH 27.4 MCHC 33.3 RDW 18.4 H Plt Count 180 Seg Neutrophils % Not Reportable VBG pH 7.37 VBG pCO2 54.4 VBG HCO3 30.5 VBG Base Excess 3.8 Sodium 138.6 Potassium 4.4 Chloride 102 Carbon Dioxide 32 H Anion Gap 5 BUN 20 Creatinine 0.78 Est GFR ( Amer) > 60 Glucose 154 H Lactic Acid Calcium 8.9 Total Bilirubin 1.3 AST 19 Alkaline Phosphatase 112 Total Protein 6.0 L Albumin 3.7 Urine Color Urine Appearance Urine pH Ur Specific [place] Urine Protein Urine Glucose (UA) Urine Ketones Urine Blood Urine RBC (Auto) 09/04/19 09/04/19 09/04/19 13:24 14:13 16:13 WBC RBC Hgb Hct MCV MCH MCHC RDW Plt Count Seg Neutrophils % VBG pH VBG pCO2 VBG HCO3 VBG Base Excess Sodium Potassium Chloride Carbon Dioxide Anion Gap BUN Creatinine Est GFR ( Amer) Glucose Lactic Acid 1.2 1.0 Calcium Total Bilirubin AST Alkaline Phosphatase Total Protein Albumin Urine Color YELLOW Urine Appearance CLEAR Urine pH 6.0 Ur Specific [place] 1.032 Urine Protein NEGATIVE Urine Glucose (UA) >=500 H Urine Ketones NEGATIVE Urine Blood NEGATIVE Urine RBC (Auto) 1 Impressions: Chest X-Ray 09/04/19 12:56 IMPRESSION: Asymmetric opacities in the inferior left hemithorax - clinical correlation to exclude a pneumonia is recommend. Assessment and Plan - Diagnosis (1) Community acquired pneumonia Qualifiers: Laterality: left Lung location: lower lobe of lung Qualified Code(s): J18.9 - Pneumonia, unspecified organism Is this a current diagnosis for this admission?: Yes Plan: Chest x-ray image reviewed by me which shows opacity in the left lower lung. Ceftriaxone and azithromycin. Check sputum culture. Follow-up blood cultures. Guaifenesin. Nebulizers to help with expectoration. (2) Obstructive sleep apnea Is this a current diagnosis for this admission?: Yes Plan: Nocturnal CPAP (3) Type 2 diabetes mellitus Qualifiers: Diabetes mellitus psychotherapist counselor insulin use: without psychotherapist counselor use Diabetes mellitus complication status: without complication Qualified Code(s): E11.9 - Type 2 diabetes mellitus without complications Is this a current diagnosis for this admission?: Yes Plan: States that he takes Ozempic weekly, Humulin R 100 units before breakfast and 50 units before dinner, Jardiance. Will resume home dose of insulin, Accu-Cheks, carb restricted diet. Sliding scale present. (4) Acute hypoxemic respiratory failure Is this a current diagnosis for this admission?: Yes Plan: 79% on room air on presentation. Likely secondary to pneumonia. Denies oxygen dependence with COPD. SPO2 WNL on 2 L nasal cannula. Hopefully will improve with treatment of pneumonia. (5) COPD (chronic obstructive pulmonary disease) Qualifiers: COPD type: unspecified COPD Qualified Code(s): J44.9 - Chronic obstructive pulmonary disease, unspecified Is this a current diagnosis for this admission?: Yes Plan: Not in acute exacerbation. Continue LABA/ICS. (6) Tobacco abuse counseling Is this a current diagnosis for this admission?: Yes Plan: Counseled thoroughly on importance of smoking cessation contribution to pneumonia and COPD. Patient is willing to try Chantix once again has Chantix helped him quit smoking previously. Denies hx of heart disease, seizures, eating d/os. Will start Chantix and nicotine patch. - Time Time Spent with patient: 25-34 minutes
--- NOTE | 2019-09-04 17:33 | ADVANCED CARE ---
- Diagnosis (1) Community acquired pneumonia Diagnosis Current: Yes (4) Acute hypoxemic respiratory failure Diagnosis Current: Yes (5) COPD (chronic obstructive pulmonary disease) Diagnosis Current: Yes Attendance: Patient and myself Resuscitation Status: Full Code Discussion: We discussed CODE STATUS elaborately and patient would like to be a full code. Patient is also agreeable to intubation even in the absence of cardiac arrest. Patient would like all measures to be taken in terms of treatment options if deemed necessary including central line placement if he becomes septic or in the presence of shock. We will respect patient's wishes. Time Spent: 16 minutes
[2019-09-04] MEDS ORDERED: NICOTINE 14 MG/24 HR PATCH.TD24 TD PRN (17:36)
[2019-09-04] MEDS ORDERED: APIXABAN 5 MG TABLET PO SCH (18:00)
[2019-09-04] MEDS ORDERED: AZITHROMYCIN INJ 500 MG VIAL IV SCH (18:00)
[2019-09-04] MEDS ORDERED: CEFTRIAXONE 2 GM/D5W RTU 2 GM/50 ML RTUPB IV SCH (18:00)
[2019-09-04] MEDS ORDERED: AZITHROMYCIN 500 MG in DEXTROSE 5%-WATER 250 ML IV SCH (22:00)
--- NOTE | 2019-09-04 22:30 | EKG REPORT ---
SEVERITY:- ABNORMAL ECG - SINUS RHYTHM FIRST DEGREE AV BLOCK LEFT ANTERIOR FASCICULAR BLOCK CONSIDER RIGHT VENTRICULAR HYPERTROPHY : Confirmed by: Indy Root 04-Sep-2019 22:29:48
[2019-09-04] MEDS: INSULIN LISPRO 100 UNIT/ML 3 ML VIAL SUBCUT SCH (22:48)
[2019-09-04] MEDS: FAMOTIDINE 20 MG TABLET PO SCH (22:48)
[2019-09-05] MEDS: ALBUTEROL SULFATE 0.083% NEB 2.5 MG/3 ML AMPUL NEB SCH ×3 (00:47→16:26)
[2019-09-05 05:48] LABS: ABSOLUTE BASOPHILS # (AUTO) 0.1 10^3/uL (0.0-0.2); ABSOLUTE EOSINOPHILS # (AUTO) 0.2 10^3/uL (0.0-0.6); ABSOLUTE LYMPHOCYTES (AUTO) 1.8 10^3/uL (0.5-4.7); ABSOLUTE MONOCYTES (AUTO) 0.8 10^3/uL (0.1-1.4); ABSOLUTE NEUT (AUTO) 11.8 10^3/uL (1.7-8.2); BASOPHILS % (AUTO) 0.4 % (0-2); HEMATOCRIT 39.6 % (37.9-51.0); HEMOGLOBIN 12.9 g/dL (13.5-17.0); LYMPHOCYTES % (AUTO) 12.2 % (13-45); MEAN CORPUSCULAR HEMOGLOBIN 27.1 pg (27.0-33.4); MEAN CORPUSCULAR HGB CONC 32.7 g/dL (32.0-36.0); MEAN CORPUSCULAR VOLUME 83 fl (80-97); MONOCYTES % (AUTO) 5.5 % (3-13); PLATELET COUNT 153 10^3/uL (150-450); RED BLOOD COUNT 4.78 10^6/uL (4.35-5.55); RED CELL DISTRIBUTION WIDTH 18.7 % (11.5-14.0); SEGMENTED NEUTROPHILS % (AUTO) 80.9 % (42-78); TOTAL CELLS COUNTED % (AUTO) 100 %; WHITE BLOOD COUNT 14.6 10^3/uL (4.0-10.5)
[2019-09-05 06:02] LABS: BLOOD UREA NITROGEN 19 mg/dL (7-20); CALCIUM 8.6 mg/dL (8.4-10.2); GLUCOSE 96 mg/dL (75-110)
[2019-09-05 06:07] LABS: ANION GAP 5 (5-19); CARBON DIOXIDE 29 mmol/L (22-30); CHLORIDE 105 mmol/L (98-107)
[2019-09-05] MEDS: INSULIN LISPRO 100 UNIT/ML 3 ML VIAL SUBCUT SCH ×3 (07:48→16:41)
[2019-09-05] MEDS ORDERED: INSULIN REG, HUMAN 100 UNIT/ML 3 ML VIAL (PYX) SUBCUT SCH ×2 (08:00→16:00)
[2019-09-05] MEDS: FAMOTIDINE 20 MG TABLET PO SCH (09:32)
[2019-09-05] MEDS ORDERED: FLUTICASONE/VILANTEROL 200-25 MCG/DOSE IH SCH (10:00)
[2019-09-05] MEDS ORDERED: VARENICLINE TARTRATE 0.5 MG TABLET PO SCH (10:00)
--- NOTE | 2019-09-05 15:53 | PDOC DISCHARGE SUMMARY ---
Impression - Admit/DC Date/PCP Admission Date/Primary Care Provider: 09/04/19 16:25 KONSTANTIN CAT MD Discharge Date: 09/05/19 - Discharge Diagnosis (1) Community acquired pneumonia Is this a current diagnosis for this admission?: Yes (2) Acute hypoxemic respiratory failure Is this a current diagnosis for this admission?: Yes (3) COPD (chronic obstructive pulmonary disease) Is this a current diagnosis for this admission?: Yes - Additional Information Resuscitation Status: Full Code Discharge Activity: Activity As Tolerated Referrals: KONSTANTIN CAT MD [Primary Care Provider] - Follow up as needed Prescriptions: Levofloxacin [Levaquin 500 mg Tablet] 500 mg PO DAILY #7 tablet Home Medications: Albuterol Sulfate [Proair HFA Inhalation Aerosol 8.5 gm MDI] 2 puff IH Q4HP PRN 06/19/18 Atorvastatin Calcium [Lipitor 20 mg Tablet] 20 mg PO QHS 06/19/18 Cholecalciferol (Vitamin D3) [Vitamin D3 1000 Unit Tablet] 1,000 unit PO BID 06/19/18 Finasteride [Proscar 5 mg Tablet] 5 mg PO DAILY 06/19/18 Fluticasone/Salmeterol [Advair 250-50 Diskus 14 Dose/Diskus] 1 puff IH Q12 06/19/18 Furosemide [Lasix 40 mg Tablet] 40 mg PO BID 06/19/18 Isosorbide Mononitrate [Imdur 30 mg Tablet.er] 30 mg PO DAILY 06/19/18 Metoprolol Succinate [Toprol Xl] 12.5 mg PO DAILY 06/19/18 Mirabegron [Myrbetriq] 50 mg PO DAILY 06/19/18 Omeprazole 40 mg PO Q6AM 06/19/18 Pregabalin [Lyrica 75 mg Capsule] 150 mg PO QAM 06/19/18 Tamsulosin HCl [Flomax 0.4 mg Cap.sr] 0.4 mg PO BID 06/19/18 Insulin Regular, Human [Humulin R U-500 Kwikpen] 100 unit SQ QAM 02/13/19 Lorazepam [Ativan 1 mg Tablet] 1 mg PO Q12HP PRN 02/13/19 Losartan Potassium [Cozaar 25 mg Tablet] 25 mg PO DAILY 02/13/19 Pramipexole Di-HCl [Mirapex 0.5 mg Tablet] 1 mg PO QAM 02/13/19 Pramipexole Di-HCl [Mirapex 0.5 mg Tablet] 1.5 mg PO QHS 02/13/19 Apixaban [Eliquis 5 mg Tablet] 2.5 mg PO BID 07/20/19 Empagliflozin [Jardiance] 25 mg PO DAILY 07/20/19 Ezetimibe [Zetia] 10 mg PO DAILY 07/20/19 Insulin Regular, Human [Humulin R U-500 Kwikpen] 50 unit SQ QPM 07/20/19 Ketoconazole 1 applic TOP BID 07/20/19 Ketoconazole 1 applic TP TUTH@1000 PRN 07/20/19 Multivitamin [Multivitamins] 1 cap PO DAILY 07/20/19 Pregabalin 300 mg PO QHS 07/20/19 Semaglutide [Ozempic] 0.25 - 0.5 mg SQ WE@1000 07/20/19 Levofloxacin [Levaquin 500 mg Tablet] 500 mg PO DAILY #7 tablet 09/05/19 History of Present Illiness History of Present Illness: LIONEL CHESTER is a 69 year old male Who presented to the emergency room with difficulty breathing and shortness of breath and was found to have imaging studies suggesting pneumonia Hospital Course Hospital Course: Patient was admitted with shortness of breath as well as a fever. Thought to have pneumonia and so he was referred for admission. Patient was started on ceftriaxone and Zithromax. Blood cultures were drawn which were negative. Patient was initially found to be hypoxemic however his oxygen will stay borderline exam above 90% on room air and at this time it is felt that patient can be discharged home for outpatient management and follow-up with his PCP. He has been advised on the need to stop smoking Physical Exam Vital Signs: Temp Pulse Resp BP Pulse Ox 97.5 F 81 17 101/36 L 92 09/05/19 10:56 09/05/19 10:56 09/05/19 10:56 09/05/19 10:56 09/05/19 12:00 Pulse Oximeter Continuous Start: 09/04/19 16:53 Freq: RTQ4 Status: Active Protocol: Document 09/05/19 12:00 NICOLLE (Rec: 09/05/19 14:04 NICOLLE [id number]) Pulse Oximetry Assessment Oxygen Saturation (92-100) 92 Oxygen Delivery Method Room Air Equipment Usage Equipment in Use Continuous SpO2 Machine # [id number] Intake & Output 09/04/19 09/05/19 09/06/19 06:59 06:59 06:59 Intake Total 1500 Balance 1500 Weight 131 kg General appearance: PRESENT: no acute distress, well-developed, well-nourished Head exam: PRESENT: atraumatic, normocephalic Eye exam: PRESENT: conjunctiva pink, EOMI, PERRLA. ABSENT: scleral icterus Ear exam: PRESENT: normal external ear exam Mouth exam: PRESENT: moist, tongue midline Neck exam: ABSENT: carotid bruit, JVD, lymphadenopathy, thyromegaly Respiratory exam: PRESENT: rhonchi, other - Left lower lung. ABSENT: rales, wheezes Cardiovascular exam: PRESENT: RRR, +S1. ABSENT: diastolic murmur, rubs, systolic murmur Pulses: PRESENT: normal dorsalis pedis pul Vascular exam: PRESENT: normal capillary refill GI/Abdominal exam: PRESENT: normal bowel sounds, soft. ABSENT: distended, guarding, mass, organolmegaly, rebound, tenderness Rectal exam: PRESENT: deferred Extremities exam: PRESENT: full ROM. ABSENT: calf tenderness, clubbing, pedal edema Neurological exam: PRESENT: alert, awake, oriented to person, oriented to place, oriented to time, oriented to situation, CN II-XII grossly intact. ABSENT: motor sensory deficit Psychiatric exam: PRESENT: appropriate affect, normal mood. ABSENT: homicidal ideation, suicidal ideation Skin exam: PRESENT: dry, intact, warm. ABSENT: cyanosis, rash Results Laboratory Results: WBC 14.6 10^3/uL (4.0-10.5) H 09/05/19 05:08 RBC 4.78 10^6/uL (4.35-5.55) 09/05/19 05:08 Hgb 12.9 g/dL (13.5-17.0) L 09/05/19 05:08 Hct 39.6 % (37.9-51.0) 09/05/19 05:08 MCV 83 fl (80-97) 09/05/19 05:08 MCH 27.1 pg (27.0-33.4) 09/05/19 05:08 MCHC 32.7 g/dL (32.0-36.0) 09/05/19 05:08 RDW 18.7 % (11.5-14.0) H 09/05/19 05:08 Plt Count 153 10^3/uL (150-450) 09/05/19 05:08 Lymph % (Auto) 12.2 % (13-45) L 09/05/19 05:08 [place] % (Auto) 5.5 % (3-13) 09/05/19 05:08 Eos % (Auto) 1.0 % (0-6) 09/05/19 05:08 Baso % (Auto) 0.4 % (0-2) 09/05/19 05:08 Absolute Neuts (auto) 11.8 10^3/uL (1.7-8.2) H 09/05/19 05:08 Absolute Lymphs (auto) 1.8 10^3/uL (0.5-4.7) 09/05/19 05:08 Absolute Monos (auto) 0.8 10^3/uL (0.1-1.4) 09/05/19 05:08 Absolute Eos (auto) 0.2 10^3/uL (0.0-0.6) 09/05/19 05:08 Absolute Basos (auto) 0.1 10^3/uL (0.0-0.2) 09/05/19 05:08 Total Counted 100 09/04/19 13:24 Seg Neutrophils % 80.9 % (42-78) H 09/05/19 05:08 Seg Neuts % (Manual) 87 % (42-78) H 09/04/19 13:24 Lymphocytes % (Manual) 6 % (13-45) L 09/04/19 13:24 Monocytes % (Manual) 6 % (3-13) 09/04/19 13:24 Eosinophils % (Manual) 1 % (0-6) 09/04/19 13:24 Basophils % (Manual) 0 % (0-2) 09/04/19 13:24 Abs Neuts (Manual) 14.0 10^3/uL (1.7-8.2) H 09/04/19 13:24 Abs Lymphs (Manual) 1.0 10^3/uL (0.5-4.7) 09/04/19 13:24 Abs Monocytes (Manual) 1.0 10^3/uL (0.1-1.4) 09/04/19 13:24 Absolute Eos (Manual) 0.2 10^3/uL (0.0-0.6) 09/04/19 13:24 Abs Basophils (Manual) 0.0 10^3/uL (0.0-0.2) 09/04/19 13:24 Toxic Granulation SLIGHT 09/04/19 13:24 Platelet Comment ADEQUATE 09/04/19 13:24 Polychromasia SLIGHT 09/04/19 13:24 Anisocytosis 2+ 09/04/19 13:24 Ovalocytes SLIGHT 09/04/19 13:24 PT 13.7 SEC (11.4-15.4) 09/04/19 13:24 INR 1.05 09/04/19 13:24 VBG pH 7.37 (7.30-7.42) 09/04/19 13:24 VBG pCO2 54.4 mmHg (35-63) 09/04/19 13:24 VBG HCO3 30.5 mmol/L (20-32) 09/04/19 13:24 VBG Base Excess 3.8 mmol/L 09/04/19 13:24 Sodium 139.0 mmol/L (137-145) 09/05/19 05:08 Potassium 4.0 mmol/L (3.6-5.0) 09/05/19 05:08 Chloride 105 mmol/L (98-107) 09/05/19 05:08 Carbon Dioxide 29 mmol/L (22-30) 09/05/19 05:08 Anion Gap 5 (5-19) 09/05/19 05:08 BUN 19 mg/dL (7-20) 09/05/19 05:08 Creatinine 0.75 mg/dL (0.52-1.25) 09/05/19 05:08 Est GFR ( Amer) > 60 (>60) 09/05/19 05:08 Est GFR (MDRD) Non-Af > 60 (>60) 09/05/19 05:08 Glucose 96 mg/dL (75-110) 09/05/19 05:08 POC Glucose 205 mg/dL (70-110) H 09/05/19 10:53 Lactic Acid 1.0 mmol/L (0.7-2.1) 09/04/19 16:13 Calcium 8.6 mg/dL (8.4-10.2) 09/05/19 05:08 Total Bilirubin 1.3 mg/dL (0.2-1.3) 09/04/19 13:24 Direct Bilirubin 0.0 mg/dL (0.0-0.4) 09/04/19 13:24 Neonat Total Bilirubin Not Reportable 09/04/19 13:24 Neonat Direct Bilirubin Not Reportable 09/04/19 13:24 Neonat Indirect Bili Not Reportable 09/04/19 13:24 AST 19 U/L (17-59) 09/04/19 13:24 ALT 15 U/L (<50) 09/04/19 13:24 Alkaline Phosphatase 112 U/L (38-126) 09/04/19 13:24 Total Protein 6.0 g/dL (6.3-8.2) L 09/04/19 13:24 Albumin 3.7 g/dL (3.5-5.0) 09/04/19 13:24 Urine Color YELLOW 09/04/19 14:13 Urine Appearance CLEAR 09/04/19 14:13 Urine pH 6.0 (5.0-9.0) 09/04/19 14:13 Ur Specific [place] 1.032 09/04/19 14:13 Urine Protein NEGATIVE mg/dL (NEGATIVE) 09/04/19 14:13 Urine Glucose (UA) >=500 mg/dL (NEGATIVE) H 09/04/19 14:13 Urine Ketones NEGATIVE mg/dL (NEGATIVE) 09/04/19 14:13 Urine Blood NEGATIVE (NEGATIVE) 09/04/19 14:13 Urine Nitrite (Reflex) NEGATIVE (NEGATIVE) 09/04/19 14:13 Urine Bilirubin NEGATIVE (NEGATIVE) 09/04/19 14:13 Urine Urobilinogen NEGATIVE mg/dL (<2.0) 09/04/19 14:13 Leukocyte Esterase Rfl NEGATIVE (NEGATIVE) 09/04/19 14:13 Urine RBC (Auto) 1 /HPF 09/04/19 14:13 Urine WBC (Reflex) < 1 /HPF 09/04/19 14:13 Squamous Epi Cells Auto <1 /HPF 09/04/19 14:13 Urine Mucus (Auto) RARE /LPF 09/04/19 14:13 Urine Ascorbic Acid NEGATIVE (NEGATIVE) 09/04/19 14:13 Influenza A (Rapid) NEGATIVE (NEGATIVE) 09/04/19 14:13 Influenza B (Rapid) NEGATIVE (NEGATIVE) 09/04/19 14:13 SARS-CoV-2 (PCR) NEGATIVE (NEGATIVE) 09/04/19 14:17 Group A Strep Rapid NEGATIVE (NEGATIVE) 09/04/19 14:13 Impressions: Chest X-Ray 09/04/19 12:56 IMPRESSION: Asymmetric opacities in the inferior left hemithorax - clinical correlation to exclude a pneumonia is recommend. Plan Health Concerns: Follow-up with PCP for reevaluation of CBC and chest x-ray to document resolution of infection. Although his WBCs elevated patient has remained clinically stable and has improved and it is felt that he is stable to be discharged home Stroke Is this a Stroke Patient?: No Acute Heart Failure - Is this a Heart Failure Patient?: No
[2019-09-05 16:55] VITALS: BP 139/69
== END 2019-09-05 17:13 | disposition home or self-care (01) | DRG 193 ==
LOC: ER 12:54 → EH 16:25 → 4N 19:32
PROVIDERS: ADMIT Internal Medicine; ATTEND Internal Medicine
PROC: 5A09357 Assistance with Respiratory Ventilation, Less than 24 Consecutive Hours, Continuous Positive Airway Pressure (ICD-10-PCS; principal; 2019-09-04)
DX: J18.9 Pneumonia, unspecified organism (principal); J96.01 Acute respiratory failure with hypoxia; J44.0 Chronic obstructive pulmonary disease with (acute) lower respiratory infection; E11.9 Type 2 diabetes mellitus without complications; G25.81 Restless legs syndrome; I10 Essential (primary) hypertension; F17.210 Nicotine dependence, cigarettes, uncomplicated; E78.5 Hyperlipidemia, unspecified; K21.9 Gastro-esophageal reflux disease without esophagitis; G47.33 Obstructive sleep apnea (adult) (pediatric); Z79.899 Other long term (current) drug therapy; Z79.4 Long term (current) use of insulin; Z86.711 Personal history of pulmonary embolism; Z79.01 Long term (current) use of anticoagulants; Z85.828 Personal history of other malignant neoplasm of skin; Z03.818 Encounter for observation for suspected exposure to other biological agents ruled out
CPT/HCPCS: 36415; 36600; 71045; 80048; 80053; 81001; 82803; 82962; 83605; 85025; 85610; 87040; 87070; 87635; 87804; 87880; 93005; 93010; 94660; 94762; 96365; 99285; J0456; J1815; J2543; J3490; J7030; J7050; J7060; J7620

== ENCOUNTER 2019-10-07 22:01 | Inpatient (IN) | payer MEDICARE, OTHER ==
[2019-10-07 22:38] LABS: ABSOLUTE BASOPHILS # (AUTO) 0.1 10^3/uL (0.0-0.2); ABSOLUTE EOSINOPHILS # (AUTO) 0.3 10^3/uL (0.0-0.6); ABSOLUTE LYMPHOCYTES (AUTO) 1.6 10^3/uL (0.5-4.7); ABSOLUTE MONOCYTES (AUTO) 0.7 10^3/uL (0.1-1.4); ABSOLUTE NEUT (AUTO) 5.4 10^3/uL (1.7-8.2); ALBUMIN 3.7 g/dL (3.5-5.0); ALKALINE PHOSPHATASE 146 U/L (38-126); ASPARTATE AMINO TRANSFERASE 15 U/L (17-59); BASOPHILS % (AUTO) 0.8 % (0-2); BILIRUBIN,TOTAL 0.8 mg/dL (0.2-1.3); BLOOD UREA NITROGEN 20 mg/dL (7-20); CALCIUM 8.5 mg/dL (8.4-10.2); CARBON DIOXIDE 34 mmol/L (22-30); EOSINOPHILS % (AUTO) 3.3 % (0-6); GLUCOSE 122 mg/dL (75-110); HEMATOCRIT 40.2 % (37.9-51.0); HEMOGLOBIN 12.7 g/dL (13.5-17.0); LYMPHOCYTES % (AUTO) 19.5 % (13-45); MEAN CORPUSCULAR HEMOGLOBIN 26.3 pg (27.0-33.4); MEAN CORPUSCULAR HGB CONC 31.5 g/dL (32.0-36.0); MEAN CORPUSCULAR VOLUME 84 fl (80-97); MONOCYTES % (AUTO) 8.7 % (3-13); PLATELET COUNT 146 10^3/uL (150-450); RED CELL DISTRIBUTION WIDTH 19.1 % (11.5-14.0); SEGMENTED NEUTROPHILS % (AUTO) 67.7 % (42-78); TOTAL CELLS COUNTED % (AUTO) 100 %
[2019-10-07 22:46] LABS: CHLORIDE 104 mmol/L (98-107)
[2019-10-07 22:49] LABS: ANION GAP 4 (5-19)
[2019-10-07 22:50] LABS: NT PRO BNP 111 pg/mL (<125)
[2019-10-07 22:51] LABS: TROPONIN I < 0.012 ng/mL
--- NOTE | 2019-10-07 23:11 | RADIOLOGY REPORT (SQ) ---
EXAM DESCRIPTION: XR CHEST 1 VIEW COMPLETED DATE/TME: 10/07/2019 22:20 CLINICAL HISTORY: 69 years, Male, dyspnea COMPARISON: 09/04/2019 chest NUMBER OF VIEWS: 1 TECHNIQUE: Portable chest LIMITATIONS: None. FINDINGS: The heart size is stable. Stimulating wires project over the mid thoracic spine. Lungs are hyperinflated but clear. No pneumothorax IMPRESSION: Underlying hyperinflation. Lungs are clear copyright 2011 [email or web address]- All Rights Reserved
[2019-10-07] MEDS ORDERED: METHYLPREDNISOLONE INJ 125 MG/2 ML SDV IV ONE (23:17)
[2019-10-07] MEDS ORDERED: IPRATROPIUM/ALBUTEROL 0.5-2.5 MG/3 ML AMPUL NEB ONE (23:17)
--- NOTE | 2019-10-08 01:01 | ER Document Report ---
ED General - General Chief Complaint: Shortness Of Breath Stated Complaint: DIFFUCLTY BREATHING, CHILLS, BACK PAIN Time Seen by Provider: 10/07/19 22:19 Primary Care Provider: KONSTANTIN CAT MD [Primary Care Provider] - Follow up as needed TRAVEL OUTSIDE OF THE [place] IN LAST 30 DAYS: No - HPI Notes: Patient is a 69-year-old male who presents to the emergency department for evaluation. He said shortness of breath for the last 3 or 4 days, states it got worse today. He states he is more short of breath with exertion. He denies any orthopnea. He states he feels like his abdomen may be bigger, but denies any malaika weight gain to his knowledge. He states his lower extremity edema is stable. He denies any chest pain. No fevers. He has been coughing, but states it really does not seem more than normal. He has been using his breathing treatments at home without significant relief. He is not oxygen dependent. - Related Data Allergies/Adverse Reactions: No Known Allergies Allergy (Verified 07/20/19 14:51) Past Medical History - General Information source: Patient - Social History Smoking Status: Current Every Day Smoker Chew tobacco use (# tins/day): No Frequency of alcohol use: None Drug Abuse: None Family History: COPD, DM, Hypertension Patient has homicidal ideation: No - Past Medical History Cardiac Medical History: Reports: Hx Hypercholesterolemia, Hx Hypertension, Hx Pulmonary Embolism - October 2018 Denies: Hx Coronary Artery Disease, Hx Heart Attack Pulmonary Medical History: Reports: Hx COPD, Hx Sleep Apnea - LAURIE uses CPAP at home Denies: Hx Asthma, Hx Bronchitis, Hx Pneumonia Neurological Medical History: Denies: Hx Cerebrovascular Accident, Hx Seizures Endocrine Medical History: Reports: Hx Diabetes Mellitus Type 2. 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 Denies: Hx Cirrhosis, Hx Hepatitis Musculoskeletal Medical History: Reports Hx Arthritis, Denies Hx Gout Skin Medical History: Denies Hx Eczema, Denies Hx Psoriasis Psychiatric Medical History: Denies: Hx Depression Infectious Medical History: Denies: Hx Hepatitis Past Surgical History: Reports: Hx Cholecystectomy, Hx Neurologic Surgery - right hip nerve stim., Hx Orthopedic Surgery - back stimulator - Immunizations Hx Diphtheria, Pertussis, Tetanus Vaccination: Yes Hx Pneumococcal Vaccination: 12/25/17 Review of Systems - Review of Systems Cardiovascular: See HPI Respiratory: See HPI -: Yes All other systems reviewed and negative Physical Exam - Vital signs Vitals: Temp Pulse Resp BP Pulse Ox 98.6 F 92 29 H 118/38 L 76 L 10/07/19 22:06 10/07/19 22:06 10/07/19 22:06 10/07/19 22:06 10/07/19 22:06 - Notes Notes: This is a 69-year-old obese gentleman who appears his stated age, mild amount of distress. He is intermittently tachypneic, has some abdominal breathing, but is able to move himself in the bed, does not appear conversationally dyspneic. Vital signs reviewed, please refer to chart. Head is normocephalic, atraumatic. Pupils equal round, reactive to light. Neck is supple without meningismus. Heart is regular rate and rhythm. Lungs reveal diminished breath sounds with scattered rhonchi, mild crackles in bilateral bases. Abdomen is obese, nontender, normoactive bowel sounds throughout. Extremities without cyanosis, clubbing. Posterior calves are nontender. 1+ pitting edema to the pretibial re gions bilaterally. Peripheral pulses are equal. Skin is warm and dry. Patient is awake, alert, neurological exam is nonfocal. Course - Re-evaluation Re-evalutation: 10/08/19 00:59 Patient presents to the emergency department for evaluation. Initial evaluation by EMS found the patient to have an SPO2 of in the 70s on room air. Again the patient is not oxygen dependent. He was placed on oxygen and brought to the emergency department. Here in the emergency department he was initially placed on oxygen, the decision was made to proceed with BiPAP. Given his report of weight gain and increased abdominal girth, I did evaluate him for congestive heart failure as well. Laboratory investigations and imaging failed to bear out this diagnosis, it seems as if he is more suffering from a diagnosis of COPD exacerbation. He is given IV steroids. He was weaned off of the BiPAP, which did little in the way of changing his breathing. He was given a DuoNeb. Currently, the patient is on 4 L per nasal cannula with an oxygenation of 92 to 94% on room air. He is feeling improved. Given the degree of his hypoxia, I do believe this patient meets admission criteria. Awaiting phone call from Dr. Soriano. - Vital Signs Vital signs: Temp Pulse Resp BP Pulse Ox 98.6 F 92 20 135/66 H 89 L 10/07/19 22:20 10/07/19 22:06 10/08/19 00:31 10/08/19 00:31 10/08/19 00:31 - Laboratory Result Diagrams: 10/07/19 22:14 10/07/19 22:14 Laboratory results interpreted by me: 10/07/19 10/07/19 22:14 22:14 Hgb 12.7 L MCH 26.3 L MCHC 31.5 L RDW 19.1 H Plt Count 146 L Carbon Dioxide 34 H Anion Gap 4 L Glucose 122 H AST 15 L Alkaline Phosphatase 146 H Total Protein 6.0 L - Diagnostic Test Radiology reviewed: Reports reviewed Radiology results interpreted by me: 10/08/19 01:00 Chest X-Ray 10/07/19 22:20 IMPRESSION: Underlying hyperinflation. Lungs are clear copyright 2011 [employer]- All Rights Reserved - EKG Interpretation by Me Additional EKG results interpreted by me: 10/08/19 01:00 Sinus mechanism with a rate of 70 bpm. First-degree AV block. Left axis deviation. Nonspecific ST changes, but no acute changes concerning for ischemia or infarction. Discharge - Discharge Clinical Impression: COPD exacerbation, Hypoxia, Morbid obesity Condition: Stable Disposition: ADMITTED INPATIENT Admitting Provider: Bo (Hospitalist) Unit Admitted: Telemetry Referrals: KONSTANTIN CAT MD [Primary Care Provider] - Follow up as needed
[2019-10-08] MEDS ORDERED: HYDRALAZINE HCL INJ/PF 20 MG/1 ML SDV IV PRN (01:06)
[2019-10-08] MEDS ORDERED: IPRATROPIUM/ALBUTEROL 0.5-2.5 MG/3 ML AMPUL NEB PRN (01:07)
[2019-10-08] MEDS ORDERED: ACETAMINOPHEN 325 MG TABLET PO PRN (01:07)
[2019-10-08] MEDS ORDERED: DEXTROSE 40% GEL 15 GM TUBE PO PRN ×2 (01:10)
[2019-10-08] MEDS ORDERED: DEXTROSE 50%-WATER 25 GM/50 ML DISP.SYRIN IV PRN ×2 (01:10)
[2019-10-08] MEDS ORDERED: GLUCAGON,HUMAN RECOMB 1 MG INJ IM PRN (01:10)
[2019-10-08] MEDS: PREDNISONE 20 MG TABLET PO SCH ×2 (01:31→10:26)
[2019-10-08] MEDS ORDERED: AZITHROMYCIN INJ 500 MG VIAL IV ONE ×2 (02:05→21:49)
[2019-10-08] MEDS: AZITHROMYCIN 500 MG in DEXTROSE 5%-WATER 250 ML IV SCH ×2 (02:21→22:12)
[2019-10-08] MEDS: HEPARIN SOD (PORCINE) 5,000 UNIT/ML 1 ML VIAL SUBCUT SCH ×2 (05:27→13:22)
--- NOTE | 2019-10-08 05:33 | PDOC H&P ---
History of Present Illness Admission Date/PCP: 10/08/19 01:13 KONSTANTIN CAT MD Patient complains of: Shortness of breath History of Present Illness: LIONEL CHESTER is a 69 year old male with a past medical history of diabetes, morbid obesity, obstructive sleep apnea, COPD, chronic bronchitis, tobacco dependence, neuropathic pain on Lyrica and Mirapex. And chronic anticoagulation on Eliquis. His history is significantly complicated by nonadherence to l ifestyle and medication with persistent tobacco and CPAP noncompliance. In the emergency department he presents with 4 days of shortness of breath at rest excessive fatigue after sleep, denying productive cough, chest pain nausea vomiting, rhinorrhea, sore throat or GERD. He is found to have bicarb retention he started on BiPAP for pulse oximetry of 70 with supplemental oxygen and referred to the hospitalist for admission. He denies recent change in his wsiu-avu-nyiluez or medication regiment but reliability is questionable. Past Medical History Cardiac Medical History: Reports: Hyperlipidema, Hypertension, Pulmonary Embolism - October 2018 Denies: Coronary Artery Disease, Myocardial Infarction Pulmonary Medical History: Reports: Chronic Obstructive Pulmonary Disease (COPD), Sleep Apnea - LAURIE uses CPAP at home Denies: Asthma, Bronchitis, Pneumonia Neurological Medical History: Reports: Other - Restless leg, neuropathic pain Denies: Seizures Endocrine Medical History: Reports: Diabetes Mellitus Type 2 Denies: Diabetes Mellitus Type 1, Hyperthyroidism, Hypothyroidism Malignancy Medical History: Reports: 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 GI Medical History: Reports: Gastroesophageal Reflux Disease Denies: Cirrhosis, Hepatitis Musculoskeltal Medical History: Reports: Arthritis, Other Denies: Gout Skin Medical History: Denies: Eczema, Psoriasis Psychiatric Medical History: Reports: Tobacco Dependency Denies: Depression Hematology: Denies: Anemia Past Surgical History Past Surgical History: Reports: Cholecystectomy, Orthopedic Surgery - back stimulator Social History Information Source: Patient, [facility] Records Lives with: Alone Smoking Status: Current Every Day Smoker Cigarettes Packs Per Day: 1 Electronic Cigarette use?: No Frequency of Alcohol Use: None Hx Recreational Drug Use: No Drugs: None Hx Prescription Drug Abuse: No - Advance Directive Resuscitation Status: Full Code Family History Family History: COPD, DM, Hypertension Parental Family History Reviewed: Yes Children Family History Reviewed: Yes Sibling(s) Family History Reviewed.: Yes Medication/Allergy Home Medications: Albuterol Sulfate [Proair HFA Inhalation Aerosol 8.5 gm MDI] 2 puff IH Q4HP PRN 06/19/18 Atorvastatin Calcium [Lipitor 20 mg Tablet] 20 mg PO QHS 06/19/18 Cholecalciferol (Vitamin D3) [Vitamin D3 1000 Unit Tablet] 1,000 unit PO BID 06/19/18 Finasteride [Proscar 5 mg Tablet] 5 mg PO DAILY 06/19/18 Fluticasone/Salmeterol [Advair 250-50 Diskus 14 Dose/Diskus] 1 puff IH Q12 06/19/18 Furosemide [Lasix 40 mg Tablet] 40 mg PO BID 06/19/18 Isosorbide Mononitrate [Imdur 30 mg Tablet.er] 30 mg PO DAILY 06/19/18 Metoprolol Succinate [Toprol Xl] 12.5 mg PO DAILY 06/19/18 Mirabegron [Myrbetriq] 50 mg PO DAILY 06/19/18 Omeprazole 40 mg PO Q6AM 06/19/18 Pregabalin [Lyrica 75 mg Capsule] 150 mg PO QAM 06/19/18 Tamsulosin HCl [Flomax 0.4 mg Cap.sr] 0.4 mg PO BID 06/19/18 Insulin Regular, Human [Humulin R U-500 Kwikpen] 100 unit SQ QAM 02/13/19 Lorazepam [Ativan 1 mg Tablet] 1 mg PO Q12HP PRN 02/13/19 Losartan Potassium [Cozaar 25 mg Tablet] 25 mg PO DAILY 02/13/19 Pramipexole Di-HCl [Mirapex 0.5 mg Tablet] 1 mg PO QAM 02/13/19 Pramipexole Di-HCl [Mirapex 0.5 mg Tablet] 1.5 mg PO QHS 02/13/19 Apixaban [Eliquis 5 mg Tablet] 2.5 mg PO BID 07/20/19 Empagliflozin [Jardiance] 25 mg PO DAILY 07/20/19 Ezetimibe [Zetia] 10 mg PO DAILY 07/20/19 Insulin Regular, Human [Humulin R U-500 Kwikpen] 50 unit SQ QPM 07/20/19 Ketoconazole 1 applic TOP BID 07/20/19 Ketoconazole 1 applic TP TUTH@1000 PRN 07/20/19 Multivitamin [Multivitamins] 1 cap PO DAILY 07/20/19 Pregabalin 300 mg PO QHS 07/20/19 Semaglutide [Ozempic] 0.25 - 0.5 mg SQ WE@1000 07/20/19 Levofloxacin [Levaquin 500 mg Tablet] 500 mg PO DAILY #7 tablet 09/05/19 Allergies/Adverse Reactions: No Known Allergies Allergy (Verified 07/20/19 14:51) Review of Systems Constitutional: ABSENT: chills, fever(s), headache(s), weight gain, weight loss Eyes: ABSENT: visual disturbances Ears: ABSENT: hearing changes Cardiovascular: ABSENT: chest pain, dyspnea on exertion, edema, orthropnea, palpitations Respiratory: PRESENT: as per HPI, cough, dyspnea. ABSENT: hemoptysis, sputum Gastrointestinal: ABSENT: abdominal pain, constipation, diarrhea, hematemesis, hematochezia, nausea, vomiting Genitourinary: ABSENT: dysuria, hematuria Musculoskeletal: ABSENT: joint swelling Integumentary: ABSENT: rash, wounds Neurological: PRESENT: as per HPI, paresthesias, restless legs. ABSENT: abnormal gait, abnormal speech, confusion, dizziness, focal weakness, syncope Psychiatric: ABSENT: anxiety, depression, homidical ideation, suicidal ideation Endocrine: ABSENT: cold intolerance, heat intolerance, polydipsia, polyuria Hematologic/Lymphatic: ABSENT: easy bleeding, easy bruising Physical Exam Vital Signs: Temp Pulse Resp BP Pulse Ox 98.5 F 87 18 137/67 H 92 10/08/19 02:29 10/08/19 03:05 10/08/19 02:29 10/08/19 02:29 10/08/19 02:29 Intake & Output 10/06/19 10/07/19 10/08/19 11:59 11:59 11:59 Intake Total 250 Balance 250 Weight 138.9 kg General appearance: PRESENT: cooperative, disheveled, morbidly obese, severe distress, well-developed. ABSENT: well-nourished Head exam: PRESENT: atraumatic, normocephalic Eye exam: PRESENT: conjunctiva pink, EOMI, PERRLA. ABSENT: scleral icterus Ear exam: PRESENT: normal external ear exam Mouth exam: PRESENT: moist, tongue midline Neck exam: ABSENT: carotid bruit, JVD, lymphadenopathy, thyromegaly Respiratory exam: PRESENT: clear to auscultation kana, crackles, decreased breath sounds, prolonged expiratory phas, symmetrical. ABSENT: rales, rhonchi, wheezes Cardiovascular exam: PRESENT: RRR. ABSENT: diastolic murmur, rubs, systolic murmur Pulses: PRESENT: normal dorsalis pedis pul Vascular exam: PRESENT: normal capillary refill GI/Abdominal exam: PRESENT: normal bowel sounds, soft. ABSENT: distended, guarding, mass, organolmegaly, rebound, tenderness Rectal exam: PRESENT: deferred Extremities exam: PRESENT: full ROM, +1 edema. ABSENT: calf tenderness, clubbing, pedal edema Neurological exam: PRESENT: alert, awake, oriented to person, oriented to place, oriented to time, oriented to situation, CN II-XII grossly intact. ABSENT: motor sensory deficit Psychiatric exam: PRESENT: appropriate affect, normal mood. ABSENT: homicidal ideation, suicidal ideation Skin exam: PRESENT: dry, intact, warm. ABSENT: cyanosis, rash Results Laboratory Results: 10/07/19 22:14 10/07/19 22:14 10/07/19 10/07/19 22:14 22:14 WBC 8.0 RBC 4.80 Hgb 12.7 L Hct 40.2 MCV 84 MCH 26.3 L MCHC 31.5 L RDW 19.1 H Plt Count 146 L Seg Neutrophils % 67.7 Sodium 142.4 Potassium 4.0 Chloride 104 Carbon Dioxide 34 H Anion Gap 4 L BUN 20 Creatinine 0.97 Est GFR ( Amer) > 60 Glucose 122 H Calcium 8.5 Total Bilirubin 0.8 AST 15 L Alkaline Phosphatase 146 H Total Protein 6.0 L Albumin 3.7 10/07/19 22:14 Troponin I < 0.012 NT-Pro-B Natriuret Pep 111 Impressions: Chest X-Ray 10/07/19 22:20 IMPRESSION: Underlying hyperinflation. Lungs are clear copyright 2011 [employer]- All Rights Reserved Assessment and Plan - Diagnosis (1) Acute exacerbation of chronic bronchitis Is this a current diagnosis for this admission?: Yes Plan: Telemetry observation, incentive spirometry, flutter valve, azithromycin, albuterol, Atrovent ordered. (2) COPD exacerbation Is this a current diagnosis for this admission?: Yes Plan: Secondary to #1, complicated by noncompliance and tobacco. (3) Obstructive sleep apnea Is this a current diagnosis for this admission?: Yes Plan: Refusing BiPAP intermittently, high risk of respiratory failure, ABG PRN excessive sedation. (4) Tobacco abuse counseling Is this a current diagnosis for this admission?: Yes Plan: Tobacco cessation counseling performed, nicotine replacement options discussed - Time Time Spent with patient: 25-34 minutes - Inpatient Certification Medical Necessity: Significant Comorbidiites Make Outpatient Treatment Too Risky, Need Close Monitoring Due to Risk of Patient Decompensation
[2019-10-08] MEDS: IPRATROPIUM/ALBUTEROL 0.5-2.5 MG/3 ML AMPUL NEB SCH ×2 (08:17→15:53)
[2019-10-08] MEDS: INSULIN LISPRO 100 UNIT/ML 3 ML VIAL SUBCUT SCH ×3 (08:31→17:27)
[2019-10-08] MEDS ORDERED: INSULIN GLARGINE,HUM.REC.ANLOG 1,000 UNIT/10 ML VIAL SUBCUT SCH (10:00)
[2019-10-08] MEDS ORDERED: INSULIN GLARGINE,HUM.REC.ANLOG 1,000 UNIT/10 ML VIAL (PYX) SUBCUT ONE (10:22)
[2019-10-08] MEDS: FLUTICASONE NASAL SPRAY 50 MCG/SPRY 120 SPRAY/16 GM NASL SCH ×2 (10:27→21:12)
--- NOTE | 2019-10-08 14:10 | Progress Note ---
Provider Note Provider Note: Chart reviewed. This is a 69-year-old morbidly obese male who has COPD, insulin-dependent diabetes, hypertension, and several other things, including being a current every day smoker. He denies use of oxygen at home. He said he was admitted because his oxygen was too low. He said at home he felt like he had some chest tightness but he did not feel pain, nor did he feel short of breath. He said he did not know his oxygen was low until he checked it here. His chest exam was unremarkable. He is on 4 L per nasal cannula now. He does not take very deep breaths. We will try to wean him from oxygen. He is not wheezing at all and does not have a prolonged expiratory phase so I am going to stop his steroids because his blood sugars are currently climbing rapidly.
[2019-10-08] MEDS: FUROSEMIDE 40 MG TABLET PO SCH (17:26)
[2019-10-08] MEDS: PREGABALIN 100 MG CAPSULE PO SCH (17:26)
[2019-10-08] MEDS: TAMSULOSIN HCL 0.4 MG CAP.SR.24H PO SCH (17:26)
[2019-10-08] MEDS: UMECLIDINIUM BROMIDE 62.5 MCG/DOSE IH SCH (17:28)
[2019-10-08] MEDS: FLUTICASONE/VILANTEROL 200-25 MCG/DOSE IH SCH (17:28)
[2019-10-08] MEDS ORDERED: ACLIDINIUM BROMIDE IH SCH (18:00)
[2019-10-08] MEDS ORDERED: INSULIN REGULAR HUMAN 40 UNIT SQ SCH (18:00)
[2019-10-08] MEDS ORDERED: PRAMIPEXOLE DI-HCL 0.5 MG TABLET PO SCH (22:00)
[2019-10-08] MEDS ORDERED: PREGABALIN 100 MG CAPSULE PO SCH (22:00)
[2019-10-08] MEDS ORDERED: PREGABALIN 400 MG PO SCH (22:00)
[2019-10-08] MEDS ORDERED: ATORVASTATIN CALCIUM 20 MG TABLET PO SCH (22:00)
[2019-10-08] MEDS ORDERED: (PENDING PHARMACY ID) (Fluticasone/Salmeterol 1 PUFF) IH SCH (22:00)
--- NOTE | 2019-10-08 22:39 | EKG REPORT ---
SEVERITY:- ABNORMAL ECG - SINUS RHYTHM FIRST DEGREE AV BLOCK LAD, CONSIDER LEFT ANTERIOR FASCICULAR BLOCK : Confirmed by: Tatiana Oquendo MD 08-Oct-2019 22:38:28
[2019-10-09] MEDS: IPRATROPIUM/ALBUTEROL 0.5-2.5 MG/3 ML AMPUL NEB SCH ×2 (00:19→08:34)
[2019-10-09] MEDS ORDERED: PANTOPRAZOLE SODIUM 40 MG TABLET.DR PO SCH (06:00)
[2019-10-09 06:18] LABS: ABSOLUTE MONOCYTES (AUTO) 0.7 10^3/uL (0.1-1.4); ABSOLUTE NEUT (AUTO) 8.4 10^3/uL (1.7-8.2); BASOPHILS % (AUTO) 0.4 % (0-2); HEMATOCRIT 39.3 % (37.9-51.0); HEMOGLOBIN 12.5 g/dL (13.5-17.0); MEAN CORPUSCULAR HEMOGLOBIN 26.4 pg (27.0-33.4); MEAN CORPUSCULAR HGB CONC 31.7 g/dL (32.0-36.0); MEAN CORPUSCULAR VOLUME 83 fl (80-97); MONOCYTES % (AUTO) 7.3 % (3-13); PLATELET COUNT 131 10^3/uL (150-450); RED BLOOD COUNT 4.71 10^6/uL (4.35-5.55); RED CELL DISTRIBUTION WIDTH 18.9 % (11.5-14.0); SEGMENTED NEUTROPHILS % (AUTO) 82.3 % (42-78); TOTAL CELLS COUNTED % (AUTO) 100 %; WHITE BLOOD COUNT 10.2 10^3/uL (4.0-10.5)
[2019-10-09 06:51] LABS: ANION GAP 6 (5-19); BLOOD UREA NITROGEN 30 mg/dL (7-20); CALCIUM 8.6 mg/dL (8.4-10.2); CARBON DIOXIDE 31 mmol/L (22-30); CHLORIDE 103 mmol/L (98-107); GLUCOSE 202 mg/dL (75-110); POTASSIUM 4.2 mmol/L (3.6-5.0)
[2019-10-09] MEDS: INSULIN LISPRO 100 UNIT/ML 3 ML VIAL SUBCUT SCH ×2 (07:54→11:31)
[2019-10-09] MEDS ORDERED: INSULIN REGULAR HUMAN SQ SCH (08:00)
[2019-10-09] MEDS ORDERED: PRAMIPEXOLE DI-HCL 0.5 MG TABLET PO SCH (08:00)
[2019-10-09] MEDS ORDERED: PREGABALIN 200 MG PO SCH (10:00)
[2019-10-09] MEDS ORDERED: ISOSORBIDE MONONITRATE 30 MG TAB.ER.24H PO SCH (10:00)
[2019-10-09] MEDS ORDERED: LOSARTAN POTASSIUM 25 MG TABLET PO SCH (10:00)
[2019-10-09] MEDS ORDERED: FINASTERIDE 5 MG TABLET PO SCH (10:00)
[2019-10-09] MEDS ORDERED: (PENDING PHARMACY ID) (Mirabegron [Myrbetriq] 50 MG) PO SCH (10:00)
[2019-10-09] MEDS ORDERED: METOPROLOL SUCCINATE 25 MG TAB.SR.24H PO SCH (10:00)
[2019-10-09] MEDS ORDERED: APIXABAN 2.5 MG TABLET PO SCH (10:00)
[2019-10-09] MEDS ORDERED: POTASSIUM CHLORIDE 10 MEQ TABLET.ER PO SCH (10:00)
[2019-10-09] MEDS ORDERED: (PENDING PHARMACY ID) (Empagliflozin [Jardiance] 25 MG) PO SCH (10:00)
[2019-10-09] MEDS: PREGABALIN 100 MG CAPSULE PO SCH (10:01)
[2019-10-09] MEDS: FUROSEMIDE 40 MG TABLET PO SCH (10:01)
[2019-10-09] MEDS: FLUTICASONE/VILANTEROL 200-25 MCG/DOSE IH SCH (10:02)
[2019-10-09] MEDS: FLUTICASONE NASAL SPRAY 50 MCG/SPRY 120 SPRAY/16 GM NASL SCH (10:02)
[2019-10-09] MEDS: UMECLIDINIUM BROMIDE 62.5 MCG/DOSE IH SCH (10:02)
[2019-10-09] MEDS: TAMSULOSIN HCL 0.4 MG CAP.SR.24H PO SCH (10:02)
[2019-10-09 11:22] VITALS: BP 111/49
--- NOTE | 2019-10-09 15:40 | PDOC DISCHARGE SUMMARY ---
Impression - Admit/DC Date/PCP Admission Date/Primary Care Provider: 10/08/19 01:13 KONSTANTIN CAT MD Discharge Date: 10/09/19 - Discharge Diagnosis (1) Acute exacerbation of chronic bronchitis Is this a current diagnosis for this admission?: Yes (2) Acute hypoxemic respiratory failure Is this a current diagnosis for this admission?: Yes (3) COPD (chronic obstructive pulmonary disease) Is this a current diagnosis for this admission?: Yes (4) Chest pain, rule out acute myocardial infarction Is this a current diagnosis for this admission?: Yes (5) Diabetes mellitus Is this a current diagnosis for this admission?: Yes (6) HLD (hyperlipidemia) Is this a current diagnosis for this admission?: Yes (7) Hypertension Is this a current diagnosis for this admission?: Yes (8) Morbid obesity Is this a current diagnosis for this admission?: Yes (9) Obstructive sleep apnea on CPAP Is this a current diagnosis for this admission?: Yes - Additional Information Resuscitation Status: Full Code Discharge Diet: Cardiac, Diabetic Discharge Activity: Activity As Tolerated, Balance Activity w/Rest Referrals: KONSTANTIN CAT MD [Primary Care Provider] - 10/23/19 11:00 am Home Medications: Atorvastatin Calcium [Lipitor 20 mg Tablet] 20 mg PO QHS 06/19/18 Cholecalciferol (Vitamin D3) [Vitamin D3 1000 Unit Tablet] 1,000 unit PO BID 06/19/18 Finasteride [Proscar 5 mg Tablet] 5 mg PO DAILY 06/19/18 Fluticasone/Salmeterol [Advair 250-50 Diskus 14 Dose/Diskus] 1 puff IH Q12 06/19/18 Furosemide [Lasix 40 mg Tablet] 40 mg PO BID 06/19/18 Isosorbide Mononitrate [Imdur 30 mg Tablet.er] 30 mg PO DAILY 06/19/18 Metoprolol Succinate [Toprol Xl] 12.5 mg PO DAILY 06/19/18 Mirabegron [Myrbetriq] 50 mg PO DAILY 06/19/18 Omeprazole 40 mg PO Q6AM 06/19/18 Tamsulosin HCl [Flomax 0.4 mg Cap.sr] 0.4 mg PO BID 06/19/18 Insulin Regular, Human [Humulin R U-500 Kwikpen] 90 unit SQ QAM 02/13/19 Losartan Potassium [Cozaar 25 mg Tablet] 25 mg PO DAILY 02/13/19 Pramipexole Di-HCl [Mirapex 0.5 mg Tablet] 0.5 mg PO QAM 02/13/19 Pramipexole Di-HCl [Mirapex 0.5 mg Tablet] 1 mg PO QHS 02/13/19 Empagliflozin [Jardiance] 25 mg PO DAILY 07/20/19 Ezetimibe [Zetia] 10 mg PO DAILY 07/20/19 Insulin Regular, Human [Humulin R U-500 Kwikpen] 40 unit SQ QPM 07/20/19 Multivitamin [Multivitamins] 1 cap PO DAILY 07/20/19 Semaglutide [Ozempic] 0.25 - 0.5 mg SQ WE@1000 07/20/19 Aclidinium [place] [Tudorza Pressair] 1 inh IH BID 10/08/19 Apixaban [Eliquis 2.5 mg Tablet] 2.5 mg PO DAILY 10/08/19 Flaxseed Oil [Flax Seed Oil] 1,000 mg PO DAILY 10/08/19 Potassium Chloride [Klor-Con 10 Meq Tablet ER] 10 meq PO DAILY 10/08/19 Pregabalin 200 mg PO DAILY 10/08/19 Pregabalin 400 mg PO QHS 10/08/19 History of Present Illiness History of Present Illness: LIONEL CHESTER is a 69 year old male with a past medical history of diabetes, morbid obesity, obstructive sleep apnea, COPD, chronic bronchitis, tobacco dependence, neuropathic pain on Lyrica and Mirapex. And chronic anticoagulation on Eliquis. His history is significantly complicated by nonadherence to lifestyle and medication with persistent tobacco and CPAP noncompliance. In the emergency department he presents with 4 days of shortness of breath at rest excessive fatigue after sleep, denying productive cough, chest pain nausea vomiting, rhinorrhea, sore throat or GERD. He is found to have bicarb retention he started on BiPAP for pulse oximetry of 70 with supplemental oxygen and referred to the hospitalist for admission. He denies recent change in his agye-baz-lvcezpb or medication regiment but reliability is questionable. Hospital Course Hospital Course: Within several hours of admission he was not wheezing anymore. Took him off steroids and his breathing remained stable. He said he does not use oxygen at home, so we tested him prior to discharge and his SPO2 on room air was 94%. His troponins were checked empirically but they remain negative. He was able to ambulate at his previous baseline without difficulty or shortness of breath. He will resume all of his usual medications. His labs and examination were reassuring and he was discharged in stable condition. Physical Exam Vital Signs: Temp Pulse Resp BP Pulse Ox 97.8 F 74 18 111/49 L 94 10/09/19 11:21 10/09/19 11:21 10/09/19 11:21 10/09/19 11:21 10/09/19 11:21 Intake & Output 10/08/19 10/09/19 10/10/19 06:59 06:59 06:59 Intake Total 500 1977 Output Total 1000 Balance 500 1977 Weight 130.1 kg 130 kg General appearance: PRESENT: no acute distress, cooperative, disheveled, morbidly obese Respiratory exam: PRESENT: clear to auscultation kana, symmetrical, unlabored. ABSENT: accessory muscle use, chest wall tenderness, crackles, prolonged expiratory phas, rhonchi, tachypnea, wheezes Cardiovascular exam: PRESENT: RRR, +S1, +S2 Pulses: PRESENT: normal carotid pulses Vascular exam: PRESENT: normal capillary refill GI/Abdominal exam: PRESENT: normal bowel sounds, soft. ABSENT: distended, guarding, rebound, tenderness Extremities exam: ABSENT: clubbing, pedal edema Musculoskeletal exam: PRESENT: ambulatory - With his four-wheel walker, normal inspection. ABSENT: deformity Neurological exam: PRESENT: alert, awake, oriented to person, oriented to place, oriented to situation Psychiatric exam: PRESENT: appropriate affect, normal mood Skin exam: PRESENT: dry, warm Results Laboratory Results: WBC 10.2 10^3/uL (4.0-10.5) 10/09/19 05:56 RBC 4.71 10^6/uL (4.35-5.55) 10/09/19 05:56 Hgb 12.5 g/dL (13.5-17.0) L 10/09/19 05:56 Hct 39.3 % (37.9-51.0) 10/09/19 05:56 MCV 83 fl (80-97) 10/09/19 05:56 MCH 26.4 pg (27.0-33.4) L 10/09/19 05:56 MCHC 31.7 g/dL (32.0-36.0) L 10/09/19 05:56 RDW 18.9 % (11.5-14.0) H 10/09/19 05:56 Plt Count 131 10^3/uL (150-450) L 10/09/19 05:56 Lymph % (Auto) 10.0 % (13-45) L 10/09/19 05:56 [place] % (Auto) 7.3 % (3-13) 10/09/19 05:56 Eos % (Auto) 0.0 % (0-6) 10/09/19 05:56 Baso % (Auto) 0.4 % (0-2) 10/09/19 05:56 Absolute Neuts (auto) 8.4 10^3/uL (1.7-8.2) H 10/09/19 05:56 Absolute Lymphs (auto) 1.0 10^3/uL (0.5-4.7) 10/09/19 05:56 Absolute Monos (auto) 0.7 10^3/uL (0.1-1.4) 10/09/19 05:56 Absolute Eos (auto) 0.0 10^3/uL (0.0-0.6) 10/09/19 05:56 Absolute Basos (auto) 0.0 10^3/uL (0.0-0.2) 10/09/19 05:56 Seg Neutrophils % 82.3 % (42-78) H 10/09/19 05:56 Sodium 139.9 mmol/L (137-145) 10/09/19 05:56 Potassium 4.2 mmol/L (3.6-5.0) 10/09/19 05:56 Chloride 103 mmol/L (98-107) 10/09/19 05:56 Carbon Dioxide 31 mmol/L (22-30) H 10/09/19 05:56 Anion Gap 6 (5-19) 10/09/19 05:56 BUN 30 mg/dL (7-20) H 10/09/19 05:56 Creatinine 0.83 mg/dL (0.52-1.25) 10/09/19 05:56 Est GFR ( Amer) > 60 (>60) 10/09/19 05:56 Est GFR (MDRD) Non-Af > 60 (>60) 10/09/19 05:56 Glucose 202 mg/dL (75-110) H 10/09/19 05:56 POC Glucose 209 mg/dL (70-110) H 10/09/19 10:51 Calcium 8.6 mg/dL (8.4-10.2) 10/09/19 05:56 Total Bilirubin 0.8 mg/dL (0.2-1.3) 10/07/19 22:14 Direct Bilirubin 0.0 mg/dL (0.0-0.4) 10/07/19 22:14 Neonat Total Bilirubin Not Reportable 10/07/19 22:14 Neonat Direct Bilirubin Not Reportable 10/07/19 22:14 Neonat Indirect Bili Not Reportable 10/07/19 22:14 AST 15 U/L (17-59) L 10/07/19 22:14 ALT 12 U/L (<50) 10/07/19 22:14 Alkaline Phosphatase 146 U/L (38-126) H 10/07/19 22:14 Troponin I < 0.012 ng/mL 10/07/19 22:14 NT-Pro-B Natriuret Pep 111 pg/mL (<125) 10/07/19 22:14 Total Protein 6.0 g/dL (6.3-8.2) L 10/07/19 22:14 Albumin 3.7 g/dL (3.5-5.0) 10/07/19 22:14 10/07/19 22:14 Troponin I < 0.012 NT-Pro-B Natriuret Pep 111 Impressions: Chest X-Ray 10/07/19 22:20 IMPRESSION: Underlying hyperinflation. Lungs are clear copyright 2011 [employer]- All Rights Reserved Plan Time Spent: Greater than 30 Minutes Stroke Is this a Stroke Patient?: No Acute Heart Failure - Is this a Heart Failure Patient?: No
== END 2019-10-09 12:17 | disposition home or self-care (01) | DRG 190 ==
LOC: ER 22:01 → EH 10-08 01:13 → 4S 10-08 02:43
PROVIDERS: ADMIT Internal Medicine; ATTEND Family Medicine
PROC: 5A09457 Assistance with Respiratory Ventilation, 24-96 Consecutive Hours, Continuous Positive Airway Pressure (ICD-10-PCS; principal; 2019-10-07)
DX: J44.1 Chronic obstructive pulmonary disease with (acute) exacerbation (principal); J96.01 Acute respiratory failure with hypoxia; Z68.41 Body mass index [BMI] 40.0-44.9, adult; G47.33 Obstructive sleep apnea (adult) (pediatric); E11.9 Type 2 diabetes mellitus without complications; E78.5 Hyperlipidemia, unspecified; I10 Essential (primary) hypertension; E66.01 Morbid (severe) obesity due to excess calories; K21.9 Gastro-esophageal reflux disease without esophagitis; F17.210 Nicotine dependence, cigarettes, uncomplicated; Z60.2 Problems related to living alone; Z79.4 Long term (current) use of insulin; Z79.899 Other long term (current) drug therapy; Z79.01 Long term (current) use of anticoagulants; Z91.14 Patient's other noncompliance with medication regimen; Z91.19 Patient's noncompliance with other medical treatment and regimen; Z86.711 Personal history of pulmonary embolism; Z85.828 Personal history of other malignant neoplasm of skin; Z83.3 Family history of diabetes mellitus; Z82.49 Family history of ischemic heart disease and other diseases of the circulatory system
CPT/HCPCS: 36415; 71045; 80048; 80053; 82962; 83880; 84484; 85025; 93005; 93010; 94640; 94660; 94667; 94668; 94799; 96374; 99285; J0456; J1644; J1815; J2930; J3490; J7060; J7512; J7620

== ENCOUNTER 2019-10-27 12:55 | Observation (INO) | payer MEDICARE, OTHER ==
[2019-10-27] MEDS ORDERED: METHYLPREDNISOLONE INJ 125 MG/2 ML SDV IV ONE (13:25)
[2019-10-27] MEDS ORDERED: IPRATROPIUM/ALBUTEROL 0.5-2.5 MG/3 ML AMPUL NEB ONE (13:25)
[2019-10-27] MEDS ORDERED: METHYLPREDNISOLONE INJ 125 MG/2 ML SDV ONE (13:50)
[2019-10-27] MEDS ORDERED: FUROSEMIDE INJ/PF 20 MG/2 ML SDV IV ONE (13:55)
[2019-10-27] MEDS: ALBUTEROL SULFATE 0.083% NEB 2.5 MG/3 ML AMPUL NEB SCH (13:57)
--- NOTE | 2019-10-27 13:57 | ER Document Report ---
ED Respiratory Problem - General Chief Complaint: Breathing Difficulty Stated Complaint: DIFFICULTY BREATHING Time Seen by Provider: 10/27/19 13:53 Mode of Arrival: Medic Information source: Patient Notes: 69-year-old man presents to the emergency department with a complaint of shortness of breath and difficulty breathing which worsened earlier this morning approximately 4 AM. He states that he has had a history of COPD in the past and was admitted to the hospital in September with similar episode. He was tested for coronavirus on 3 separate occasions all which were negative. He has use home nebulizer treatment and taking his dose of Lasix. He is presently not using steroidal medication. TRAVEL OUTSIDE OF THE [place] IN LAST 30 DAYS: No - Related Data Allergies/Adverse Reactions: No Known Allergies Allergy (Verified 07/20/19 14:51) Past Medical History - Social History Smoking Status: Unknown if Ever Smoked Family History: COPD, DM, Hypertension - Past Medical History Cardiac Medical History: Reports: Hx Hypercholesterolemia, Hx Hypertension, Hx Pulmonary Embolism - October 2018 Denies: Hx Coronary Artery Disease, Hx Heart Attack Pulmonary Medical History: Reports: Hx COPD, Hx Sleep Apnea - LAURIE uses CPAP at home Denies: Hx Asthma, Hx Bronchitis, Hx Pneumonia Neurological Medical History: Denies: Hx Cerebrovascular Accident, Hx Seizures Endocrine Medical History: Reports: Hx Diabetes Mellitus Type 2. 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 Denies: Hx Cirrhosis, Hx Hepatitis Musculoskeletal Medical History: Reports Hx Arthritis, Denies Hx Gout Skin Medical History: Denies Hx Eczema, Denies Hx Psoriasis Psychiatric Medical History: Denies: Hx Depression Infectious Medical History: Denies: Hx Hepatitis Past Surgical History: Reports: Hx Cholecystectomy, Hx Neurologic Surgery - right hip nerve stim., Hx Orthopedic Surgery - back stimulator - Immunizations Hx Diphtheria, Pertussis, Tetanus Vaccination: Yes Hx Pneumococcal Vaccination: 12/25/17 Review of Systems - Review of Systems Notes: Constitutional: Negative for fever. HENT: Negative for sore throat. Eyes: Negative for visual changes. Cardiovascular: Negative for chest pain. Respiratory: + Shortness of breath. Gastrointestinal: Negative for abdominal pain, vomiting or diarrhea. Genitourinary: Negative for dysuria. Musculoskeletal: Negative for back pain. Skin: Negative for rash. Neurological: Negative for headaches, weakness or numbness. 10 point ROS negative except as marked above and in HPI. Physical Exam - Vital signs Vitals: Temp Pulse Resp BP Pulse Ox 99.2 F 90 20 141/57 H 97 10/27/19 13:06 10/27/19 13:06 10/27/19 13:06 10/27/19 13:06 10/27/19 13:06 - Notes Notes: PHYSICAL EXAMINATION: Physical Exam: General: Overweight 69-year-old man in mild distress secondary to shortness of breath HEENT: NC/AT, pupils equal round and reactive to light, MM moist,nares clear, oropharynx clear, airway patent Neck: supple, no adenopathy, no masses. Good range of motion Lungs: Coarse breath sounds with shallow inspiratory effort, prolonged expiratory phase CVS: Regular rate and rhythm no murmur gallop or rub Abdomen: Soft, active, nontender, no masses, no hepatosplenomegaly Ext: No edema, clubbing or cyanosis. Neuro: Alert and responsive, moving all 4 extremities on command, cranial nerves intact, no focal findings Skin: 1+ edema bilateral lower extremities PSYCH: Normal mood, normal affect. Course - Re-evaluation Re-evalutation: 10/27/19 18:11 Patient is given nebulizer treatments, IV Solu-Medrol, O2 per nasal cannula. He is not on home oxygen. His oxygen saturation was in mid low 80s. Improved to the low 90s on 4 L nasal cannula. Chest x-ray was read by the radiologist with a Left Lingula Infiltrate. Likely early developing pneumonia. The hospitalist is contacted and the patient is being admitted to the hospital for further evaluation and treatment. Ariella Bernard nurse practitioner will see the patient in the emergency department. - Vital Signs Vital signs: Temp Pulse Resp BP Pulse Ox 97.8 F 90 15 126/63 H 87 L 10/27/19 14:11 10/27/19 13:06 10/27/19 19:00 10/27/19 18:01 10/27/19 19:00 - Laboratory Result Diagrams: 10/27/19 13:40 10/27/19 13:40 Laboratory results interpreted by me: 10/27/19 10/27/19 10/27/19 13:40 13:40 13:40 WBC 11.1 H Hgb 13.4 L MCH 25.6 L MCHC 31.5 L RDW 18.8 H Plt Count 142 L Lymph % (Auto) 9.1 L Absolute Neuts (auto) 9.2 H Seg Neutrophils % 83.0 H Carbon Dioxide 31 H BUN 22 H Glucose 228 H Ferritin 10.60 L Alkaline Phosphatase 138 H C-Reactive Protein 16.8 H Total Protein 6.2 L Urine Glucose (UA) 10/27/19 14:40 WBC Hgb MCH MCHC RDW Plt Count Lymph % (Auto) Absolute Neuts (auto) Seg Neutrophils % Carbon Dioxide BUN Glucose Ferritin Alkaline Phosphatase C-Reactive Protein Total Protein Urine Glucose (UA) >=500 H - Diagnostic Test Radiology reviewed: Image reviewed, Reports reviewed Radiology results interpreted by me: 10/27/19 18:15 Chest x-ray: Possible left lingular pneumonia. Otherwise no new findings. 10/27/19 18:18 - EKG Interpretation by Me EKG shows normal: Sinus rhythm - Normal sinus rhythm, [place] - Normal axis, Intervals, QRS Complexes - Poor R wave progression in the anterior leads., ST-T Waves - No acute ST or T wave abnormalities, no ischemic changes. Rate: Normal - 83 Rhythm: NSR [place]/QRS: LAHB/LAFB - Left anterior fascicular block. P Waves: Other - MA interval 240 Heart block present: 1st Degree - AV block Critical Care Note - Critical Care Note Total time excluding time spent on procedures (mins): 60 - Critical care time spent obtaining history from patient or surrogate, discussions with consultants, development of treatment plan with patient or surrogate, evaluation of patient's response to treatment, examination of patient, ordering and performing treatme nts and interventions, ordering and review of laboratory studies, re-evaluation of patient's condition, ordering and review of radiographic studies and review of old charts Discharge - Discharge Clinical Impression: COPD exacerbation, Hypoxia Pneumonia Qualifiers: Pneumonia type: due to unspecified organism Laterality: left Lung location: unspecified part of lung Qualified Code(s): J18.9 - Pneumonia, unspecified organism Condition: Good Disposition: ADMITTED INPATIENT Admitting Provider: Kaylan (Hospitalist) Unit Admitted: Telemetry
[2019-10-27 14:01] LABS: ABSOLUTE EOSINOPHILS # (AUTO) 0.2 10^3/uL (0.0-0.6); ABSOLUTE MONOCYTES (AUTO) 0.6 10^3/uL (0.1-1.4); ABSOLUTE NEUT (AUTO) 9.2 10^3/uL (1.7-8.2); BASOPHILS % (AUTO) 0.4 % (0-2); EOSINOPHILS % (AUTO) 2.1 % (0-6); HEMATOCRIT 42.6 % (37.9-51.0); HEMOGLOBIN 13.4 g/dL (13.5-17.0); LYMPHOCYTES % (AUTO) 9.1 % (13-45); MEAN CORPUSCULAR HEMOGLOBIN 25.6 pg (27.0-33.4); MEAN CORPUSCULAR HGB CONC 31.5 g/dL (32.0-36.0); MEAN CORPUSCULAR VOLUME 81 fl (80-97); MONOCYTES % (AUTO) 5.4 % (3-13); PLATELET COUNT 142 10^3/uL (150-450); RED BLOOD COUNT 5.24 10^6/uL (4.35-5.55); RED CELL DISTRIBUTION WIDTH 18.8 % (11.5-14.0); TOTAL CELLS COUNTED % (AUTO) 100 %; WHITE BLOOD COUNT 11.1 10^3/uL (4.0-10.5)
[2019-10-27 14:05] LABS: VENOUS BLOOD BASE EXCESS 3.7 mmol/L; VENOUS BLOOD HCO3 30.9 mmol/L (20-32); VENOUS BLOOD PCO2 57.2 mmHg (35-63); VENOUS BLOOD PH 7.35 (7.30-7.42)
--- NOTE | 2019-10-27 14:14 | RADIOLOGY REPORT (SQ) ---
EXAM DESCRIPTION: CHEST SINGLE VIEW IMAGES COMPLETED DATE/TIME: 10/27/2019 1:53 pm REASON FOR STUDY: sob COMPARISON: 10/07/2019 EXAM PARAMETERS: NUMBER OF VIEWS: One view. TECHNIQUE: Single frontal radiographic view of the chest acquired. RADIATION DOSE: NA LIMITATIONS: None. FINDINGS: LUNGS AND PLEURA: Airspace opacities localize to the lingula. No consolidation or pneumot horax. MEDIASTINUM AND HILAR STRUCTURES: No masses. Contour normal. HEART AND VASCULAR STRUCTURES: Heart normal in size. Normal vasculature. BONES: No acute findings. HARDWARE: None in the chest. OTHER: No other significant finding. IMPRESSION: In the appropriate clinical setting, findings are consistent with developing lingular pn eumonia. TECHNICAL DOCUMENTATION: JOB ID: [id number] 2010 [employer]- All Rights Reserved Reading location - IP/workstation name: [email or web address]
[2019-10-27 14:20] LABS: ALBUMIN 3.7 g/dL (3.5-5.0); ALKALINE PHOSPHATASE 138 U/L (38-126); ANION GAP 6 (5-19); ASPARTATE AMINO TRANSFERASE 17 U/L (17-59); BILIRUBIN,TOTAL 0.9 mg/dL (0.2-1.3); BLOOD UREA NITROGEN 22 mg/dL (7-20); CALCIUM 8.9 mg/dL (8.4-10.2); CARBON DIOXIDE 31 mmol/L (22-30); CHLORIDE 104 mmol/L (98-107); GLUCOSE 228 mg/dL (75-110); POTASSIUM 4.2 mmol/L (3.6-5.0); TOTAL PROTEIN 6.2 g/dL (6.3-8.2)
[2019-10-27 14:55] LABS: APPEARANCE,URINE CLEAR; BILIRUBIN,URINE NEGATIVE (NEGATIVE); COLOR,URINE STRAW; GLUCOSE, URINE >=500 mg/dL (NEGATIVE); KETONES,URINE NEGATIVE (NEGATIVE); LEUKOCYTE ESTERASE,URINE NEGATIVE (NEGATIVE); NITRITE,URINE NEGATIVE (NEGATIVE); PROTEIN,URINE NEGATIVE (NEGATIVE); URINE SPECIFIC GRAVITY 1.013; UROBILINOGEN,URINE NEGATIVE mg/dL (<2.0)
[2019-10-27] MEDS ORDERED: AZITHROMYCIN INJ 500 MG VIAL IV ONE (18:05)
[2019-10-27] MEDS ORDERED: CEFTRIAXONE INJ 1000 MG VIAL IV ONE (18:05)
[2019-10-27 18:53] LABS: C-REACTIVE PROTEIN 16.8 mg/L (<10.0)
[2019-10-27 19:25] LABS: FERRITIN 10.6 ng/mL (17.9-464.0)
[2019-10-27] MEDS ORDERED: PROMETHAZINE HCL INJ 25 MG/1 ML VIAL IV PRN (19:59)
[2019-10-27] MEDS ORDERED: OXYCODONE-ACETAMINOPHEN 5-325 MG TABLET PO PRN (19:59)
[2019-10-27] MEDS ORDERED: MAG HYDROX/AL HYDROX/SIMETH SUSP 30 ML UDCUP PO PRN (19:59)
[2019-10-27] MEDS ORDERED: ALBUTEROL SULFATE 0.083% NEB 2.5 MG/3 ML AMPUL NEB PRN (19:59)
[2019-10-27] MEDS ORDERED: ONDANSETRON HCL INJ/PF 4 MG/2 ML SDV IV PRN (19:59)
[2019-10-27] MEDS ORDERED: ACETAMINOPHEN 325 MG TABLET PO PRN (19:59)
[2019-10-27] MEDS ORDERED: GLUCAGON,HUMAN RECOMB 1 MG INJ IM PRN (20:05)
[2019-10-27] MEDS ORDERED: DEXTROSE 50%-WATER 25 GM/50 ML DISP.SYRIN IV PRN ×2 (20:05)
[2019-10-27] MEDS ORDERED: DEXTROSE 40% GEL 15 GM TUBE PO PRN ×2 (20:05)
--- NOTE | 2019-10-27 20:14 | PDOC H&P ---
History of Present Illness Admission Date/PCP: 10/27/19 19:15 KONSTANTIN CAT MD Patient complains of: Shortness of breath History of Present Illness: LIONEL CHESTER is a 69 year old male presented to the emergency department today with a complaint of sudden onset shortness of breath and cough noted earlier this morning unresponsive to home nebulizer treatments. The patient reports that he was feeling well yesterday, however, he has noted low-grade temperatures this week; T-max 99.6. He denies recent ill contacts. He does continue to smoke. Evaluation emergency department revealed acute hypoxic respiratory failure secondary to COPD exacerbation. Questionable left lingular pneumonia by chest imaging. He was provided supplemental oxygen, IV Solu-Medrol, nebulizer treatments, IV azithromycin and Rocephin. He is referred to the hospitalist service for admission and management of the above-stated complaints findings. Past Medical History Cardiac Medical History: Reports: Hyperlipidema, Hypertension, Pulmonary Embolism - October 2018 Denies: Coronary Artery Disease, Myocardial Infarction Pulmonary Medical History: Reports: Chronic Obstructive Pulmonary Disease (COPD), Sleep Apnea - LAUIRE uses CPAP at home Denies: Asthma, Bronchitis, Pneumonia Neurological Medical History: Denies: Seizures Endocrine Medical History: Reports: Diabetes Mellitus Type 2, Obesity Denies: Diabetes Mellitus Type 1, Hyperthyroidism, Hypothyroidism Malignancy Medical History: Reports: 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 GI Medical History: Reports: Gastroesophageal Reflux Disease Denies: Cirrhosis, Hepatitis Musculoskeltal Medical History: Reports: Arthritis Denies: Gout Skin Medical History: Denies: Eczema, Psoriasis Psychiatric Medical History: Reports: Tobacco Dependency Denies: Depression Hematology: Denies: Anemia Past Surgical History Past Surgical History: Reports: Cholecystectomy, Orthopedic Surgery - back stimulator Social History Information Source: Patient Lives with: Alone Smoking Status: Current Every Day Smoker Cigarettes Packs Per Day: 0.5 Frequency of Alcohol Use: None Hx Recreational Drug Use: No Drugs: None Hx Prescription Drug Abuse: No Family History Family History: COPD, DM, Hypertension Parental Family History Reviewed: Yes Children Family History Reviewed: Yes Sibling(s) Family History Reviewed.: Yes Medication/Allergy Home Medications: Atorvastatin Calcium [Lipitor 20 mg Tablet] 20 mg PO QHS 06/19/18 Cholecalciferol (Vitamin D3) [Vitamin D3 1000 Unit Tablet] 1,000 unit PO BID 06/19/18 Finasteride [Proscar 5 mg Tablet] 5 mg PO DAILY 06/19/18 Fluticasone/Salmeterol [Advair 250-50 Diskus 14 Dose/Diskus] 1 puff IH Q12 Furosemide [Lasix 40 mg Tablet] 40 mg PO BID 06/19/18 Isosorbide Mononitrate [Imdur 30 mg Tablet.er] 30 mg PO DAILY 06/19/18 Metoprolol Succinate [Toprol Xl] 12.5 mg PO DAILY 06/19/18 Mirabegron [Myrbetriq] 50 mg PO DAILY 06/19/18 Omeprazole 40 mg PO Q6AM 06/19/18 Tamsulosin HCl [Flomax 0.4 mg Cap.sr] 0.4 mg PO BID 06/19/18 Insulin Regular, Human [Humulin R U-500 Kwikpen] 90 unit SQ QAM 02/13/19 Losartan Potassium [Cozaar 25 mg Tablet] 25 mg PO DAILY 02/13/19 Pramipexole Di-HCl [Mirapex 0.5 mg Tablet] 0.5 mg PO QAM 02/13/19 Pramipexole Di-HCl [Mirapex 0.5 mg Tablet] 1 mg PO QHS 02/13/19 Empagliflozin [Jardiance] 25 mg PO DAILY 07/20/19 Ezetimibe [Zetia] 10 mg PO DAILY 07/20/19 Insulin Regular, Human [Humulin R U-500 Kwikpen] 40 unit SQ QPM 07/20/19 Multivitamin [Multivitamins] 1 cap PO DAILY 07/20/19 Semaglutide [Ozempic] 0.25 - 0.5 mg SQ WE@1000 07/20/19 Aclidinium [place] [Tudorza Pressair] 1 inh IH BID 10/08/19 Apixaban [Eliquis 2.5 mg Tablet] 2.5 mg PO DAILY 10/08/19 Flaxseed Oil [Flax Seed Oil] 1,000 mg PO DAILY 10/08/19 Potassium Chloride [Klor-Con 10 Meq Tablet ER] 10 meq PO DAILY 10/08/19 Pregabalin 200 mg PO DAILY 10/08/19 Pregabalin 400 mg PO QHS 10/08/19 Allergies/Adverse Reactions: No Known Allergies Allergy (Verified 07/20/19 14:51) Review of Systems Constitutional: PRESENT: fever(s). ABSENT: chills, headache(s), weight gain, weight loss Eyes: ABSENT: visual disturbances Ears: ABSENT: hearing changes Cardiovascular: ABSENT: chest pain, dyspnea on exertion, edema, orthropnea, palpitations Respiratory: PRESENT: cough, dyspnea. ABSENT: hemoptysis Gastrointestinal: ABSENT: abdominal pain, constipation, diarrhea, hematemesis, hematochezia, nausea, vomiting Genitourinary: ABSENT: dysuria, hematuria Musculoskeletal: ABSENT: joint swelling Integumentary: ABSENT: rash, wounds Neurological: ABSENT: abnormal gait, abnormal speech, confusion, dizziness, focal weakness, syncope Psychiatric: ABSENT: anxiety, depression, homidical ideation, suicidal ideation Endocrine: ABSENT: cold intolerance, heat intolerance, polydipsia, polyuria Hematologic/Lymphatic: ABSENT: easy bleeding, easy bruising Physical Exam Vital Signs: Temp Pulse Resp BP Pulse Ox 97.8 F 90 15 126/63 H 87 L 10/27/19 14:11 10/27/19 13:06 10/27/19 19:00 10/27/19 18:01 10/27/19 19:00 Intake & Output 10/26/19 10/27/19 10/28/19 06:59 06:59 06:59 Weight 131.54 kg General appearance: PRESENT: no acute distress, cooperative, morbidly obese, well-developed, well-nourished Head exam: PRESENT: atraumatic, normocephalic Eye exam: PRESENT: conjunctiva pink, EOMI, PERRLA. ABSENT: scleral icterus Mouth exam: PRESENT: moist, tongue midline Respiratory exam: PRESENT: rhonchi - left side, symmetrical, unlabored, other - supplemental oxygen via NC. ABSENT: rales, wheezes Cardiovascular exam: PRESENT: RRR. ABSENT: diastolic murmur, rubs, systolic murmur Vascular exam: PRESENT: normal capillary refill Extremities exam: PRESENT: full ROM. ABSENT: calf tenderness, clubbing, pedal edema Musculoskeletal exam: PRESENT: ambulatory Neurological exam: PRESENT: alert, awake, oriented to person, oriented to place, oriented to time, oriented to situation, CN II-XII grossly intact. ABSENT: motor sensory deficit Psychiatric exam: PRESENT: appropriate affect, normal mood. ABSENT: homicidal ideation, suicidal ideation Skin exam: PRESENT: dry, intact, warm. ABSENT: cyanosis, rash Results Laboratory Results: 10/27/19 13:40 10/27/19 13:40 10/27/19 10/27/19 10/27/19 13:40 13:40 13:40 WBC 11.1 H RBC 5.24 Hgb 13.4 L Hct 42.6 MCV 81 MCH 25.6 L MCHC 31.5 L RDW 18.8 H Plt Count 142 L Seg Neutrophils % 83.0 H VBG pH VBG pCO2 VBG HCO3 VBG Base Excess Sodium 140.9 Potassium 4.2 Chloride 104 Carbon Dioxide 31 H Anion Gap 6 BUN 22 H Creatinine 0.80 Est GFR ( Amer) > 60 Glucose 228 H Lactic Acid 1.7 Calcium 8.9 Ferritin Total Bilirubin 0.9 AST 17 Alkaline Phosphatase 138 H C-Reactive Protein Total Protein 6.2 L Albumin 3.7 Urine Color Urine Appearance Urine pH Ur Specific [place] Urine Protein Urine Glucose (UA) Urine Ketones Urine Blood Urine Nitrite Ur Leukocyte Esterase Urine WBC (Auto) 10/27/19 10/27/19 10/27/19 13:40 13:40 14:40 WBC RBC Hgb Hct MCV MCH MCHC RDW Plt Count Seg Neutrophils % VBG pH 7.35 VBG pCO2 57.2 VBG HCO3 30.9 VBG Base Excess 3.7 Sodium Potassium Chloride Carbon Dioxide Anion Gap BUN Creatinine Est GFR ( Amer) Glucose Lactic Acid Calcium Ferritin 10.60 L Total Bilirubin AST Alkaline Phosphatase C-Reactive Protein 16.8 H Total Protein Albumin Urine Color STRAW Urine Appearance CLEAR Urine pH 6.0 Ur Specific [place] 1.013 Urine Protein NEGATIVE Urine Glucose (UA) >=500 H Urine Ketones NEGATIVE Urine Blood NEGATIVE Urine Nitrite NEGATIVE Ur Leukocyte Esterase NEGATIVE Urine WBC (Auto) 0 10/27/19 13:40 NT-Pro-B Natriuret Pep 104 Impressions: Chest X-Ray 10/27/19 13:04 IMPRESSION: In the appropriate clinical setting, findings are consistent with developing lingular pneumonia. Assessment and Plan - Diagnosis (1) COPD exacerbation Is this a current diagnosis for this admission?: Yes Plan: Patient is admitted to medical floor on continuous cardiac telemetry. He is provided supplemental oxygen as needed to maintain saturations greater than 89%. He is started on scheduled and as needed nebulizer treatments. Continue IV Solu-Medrol. Mucinex twice daily. Encourage pulmonary toilet with incentive spirometer, flutter valve, and early ambulation. (2) Pneumonia Qualifiers: Pneumonia type: due to unspecified organism Laterality: left Lung location: unspecified part of lung Qualified Code(s): J18.9 - Pneumonia, unspecified organism Is this a current diagnosis for this admission?: Yes Plan: Questionable left lingular pneumonia by chest x-ray. WBC is 11.1. Fever 99.6. He is empirically placed on IV azithromycin and Rocephin. Blood cultures pending. Sputum cultures requested. Remaining management as above. (3) Acute hypoxemic respiratory failure Is this a current diagnosis for this admission?: Yes Plan: Secondary to #1&2 Management as above. (4) Diabetes mellitus Qualifiers: Diabetes mellitus type: type 2 Diabetes mellitus shelter insulin use: with shelter use Is this a current diagnosis for this admission?: Yes Plan: Patient is placed on a consistent carb diet. Accu-Cheks before meals and at bedtime with Humalog for sliding scale coverage. Hypoglycemia protocol in place. (5) HLD (hyperlipidemia) Is this a current diagnosis for this admission?: Yes Plan: Cardiac diet. Continue home dose statin once reconciled. (6) Hypertension Qualifiers: Is this a current diagnosis for this admission?: Yes Plan: Continue home dose Toprol and losartan. Cardiac diet. (7) Obstructive sleep apnea Is this a current diagnosis for this admission?: Yes Plan: CPAP nightly.
[2019-10-27] MEDS ORDERED: APIXABAN 2.5 MG TABLET PO ONE (20:45)
[2019-10-27] MEDS: IPRATROPIUM/ALBUTEROL 0.5-2.5 MG/3 ML AMPUL NEB SCH (21:03)
--- NOTE | 2019-10-27 22:09 | EKG REPORT ---
SEVERITY:- ABNORMAL ECG - SINUS RHYTHM FIRST DEGREE AV BLOCK LEFT ANTERIOR FASCICULAR BLOCK BORDERLINE R WAVE PROGRESSION, ANTERIOR LEADS : Confirmed by: Tatiana Oquendo MD 27-Oct-2019 22:07:44
[2019-10-27] MEDS: METHYLPREDNISOLONE INJ 40 MG/1 ML SDV IV SCH (22:43)
[2019-10-27] MEDS: METOPROLOL SUCCINATE 25 MG TAB.SR.24H PO SCH (22:43)
[2019-10-27] MEDS: GUAIFENESIN 600 MG TABLET.SA PO SCH (22:43)
[2019-10-27] MEDS: INSULIN LISPRO 100 UNIT/ML 3 ML VIAL SUBCUT SCH (22:45)
[2019-10-27 23:58] LABS: ARTERIAL BLOOD H2CO3 1.58 mmol/L (1.05-1.35); ARTERIAL BLOOD HCO3 29.3 mmol/L (20-24); ARTERIAL BLOOD PCO2 52.4 mmHg (35-45); ARTERIAL BLOOD PH 7.37 (7.35-7.45); ARTERIAL BLOOD PO2 68.3 mmHg (80-100)
[2019-10-27 23:59] LABS: ARTERIAL BLOOD BASE EXCESS 2.8 mmol/L; ARTERIAL BLOOD FIO2 4 LPN; ARTERIAL BLOOD O2 SATURATION 92.9 % (94-98); ARTERIAL BLOOD TOTAL CO2 30.9 mmol/L (23-27)
[2019-10-28] MEDS: IPRATROPIUM/ALBUTEROL 0.5-2.5 MG/3 ML AMPUL NEB SCH ×2 (02:08→07:52)
[2019-10-28] MEDS: METHYLPREDNISOLONE INJ 40 MG/1 ML SDV IV SCH (05:10)
[2019-10-28] MEDS ORDERED: PANTOPRAZOLE SODIUM 20 MG TABLET.DR PO SCH (06:00)
[2019-10-28 06:58] LABS: HEMATOCRIT 43.4 % (37.9-51.0); MEAN CORPUSCULAR HEMOGLOBIN 25.9 pg (27.0-33.4); MEAN CORPUSCULAR HGB CONC 32.3 g/dL (32.0-36.0); MEAN CORPUSCULAR VOLUME 80 fl (80-97); PLATELET COUNT 136 10^3/uL (150-450); RED BLOOD COUNT 5.41 10^6/uL (4.35-5.55); RED CELL DISTRIBUTION WIDTH 18.7 % (11.5-14.0); WHITE BLOOD COUNT 8.7 10^3/uL (4.0-10.5)
[2019-10-28 07:21] LABS: ANION GAP 9 (5-19); BLOOD UREA NITROGEN 30 mg/dL (7-20); CALCIUM 9.2 mg/dL (8.4-10.2); CARBON DIOXIDE 28 mmol/L (22-30); CHLORIDE 103 mmol/L (98-107); GLUCOSE 248 mg/dL (75-110); POTASSIUM 4.2 mmol/L (3.6-5.0)
[2019-10-28] MEDS: INSULIN LISPRO 100 UNIT/ML 3 ML VIAL SUBCUT SCH (08:00)
[2019-10-28] MEDS ORDERED: DOCUSATE SODIUM 100 MG CAPSULE PO SCH (10:00)
[2019-10-28] MEDS ORDERED: APIXABAN 2.5 MG TABLET PO SCH (10:00)
[2019-10-28] MEDS: GUAIFENESIN 600 MG TABLET.SA PO SCH (10:08)
[2019-10-28] MEDS: METOPROLOL SUCCINATE 25 MG TAB.SR.24H PO SCH (10:09)
[2019-10-28 10:16] VITALS: BP 117/43
--- NOTE | 2019-10-29 07:55 | PDOC DISCHARGE SUMMARY ---
Impression - Admit/DC Date/PCP Admission Date/Primary Care Provider: 10/27/19 19:15 KONSTANTIN CAT MD Discharge Date: 10/28/19 - Discharge Diagnosis (1) COPD exacerbation Is this a current diagnosis for this admission?: Yes (2) Pneumonia Is this a current diagnosis for this admission?: Yes (3) Acute hypoxemic respiratory failure Is this a current diagnosis for this admission?: Yes (4) Diabetes mellitus Is this a current diagnosis for this admission?: Yes (5) HLD (hyperlipidemia) Is this a current diagnosis for this admission?: Yes (6) Hypertension Is this a current diagnosis for this admission?: Yes (7) Obstructive sleep apnea Is this a current diagnosis for this admission?: Yes - Additional Information Resuscitation Status: Full Code Discharge Diet: Cardiac, Diabetic Discharge Activity: Activity As Tolerated, Balance Activity w/Rest, Slowly Increase Activity Referrals: KONSTANTIN CAT MD [Primary Care Provider] - (Follow up within 1 week.) Prescriptions: Amoxicillin/Potassium Clav [Augmentin 875-125 Tablet] 1 tab PO Q12 #20 tablet Azithromycin 250 mg PO DAILY #4 tablet Prednisone [Deltasone 20 mg Tablet] 60 mg PO DAILY #15 tablet Guaifenesin [Mucinex Sr 600 mg Tablet.sa] 600 mg PO Q12 #14 tablet. Home Medications: Atorvastatin Calcium [Lipitor 20 mg Tablet] 20 mg PO QHS 06/19/18 Cholecalciferol (Vitamin D3) [Vitamin D3 1000 Unit Tablet] 1,000 unit PO BID 06/19/18 Finasteride [Proscar 5 mg Tablet] 5 mg PO DAILY 06/19/18 Fluticasone/Salmeterol [Advair 250-50 Diskus 14 Dose/Diskus] 1 puff IH Q12 06/19/18 Furosemide [Lasix 40 mg Tablet] 40 mg PO BID 06/19/18 Isosorbide Mononitrate [Imdur 30 mg Tablet.er] 30 mg PO DAILY 06/19/18 Metoprolol Succinate [Toprol Xl] 12.5 mg PO DAILY 06/19/18 Mirabegron [Myrbetriq] 50 mg PO DAILY 06/19/18 Omeprazole 40 mg PO Q6AM 06/19/18 Tamsulosin HCl [Flomax 0.4 mg Cap.sr] 0.4 mg PO BID 06/19/18 Insulin Regular, Human [Humulin R U-500 Kwikpen] 90 unit SQ QAM 02/13/19 Losartan Potassium [Cozaar 25 mg Tablet] 25 mg PO DAILY 02/13/19 Pramipexole Di-HCl [Mirapex 0.5 mg Tablet] 0.5 mg PO QAM 02/13/19 Pramipexole Di-HCl [Mirapex 0.5 mg Tablet] 1 mg PO QHS 02/13/19 Empagliflozin [Jardiance] 25 mg PO DAILY 07/20/19 Ezetimibe [Zetia] 10 mg PO DAILY 07/20/19 Insulin Regular, Human [Humulin R U-500 Kwikpen] 40 unit SQ QPM 07/20/19 Multivitamin [Multivitamins] 1 cap PO DAILY 07/20/19 Semaglutide [Ozempic] 0.25 - 0.5 mg SQ WE@1000 07/20/19 Aclidinium [place] [Tudorza Pressair] 1 inh IH BID 10/08/19 Apixaban [Eliquis 2.5 mg Tablet] 2.5 mg PO DAILY 10/08/19 Flaxseed Oil [Flax Seed Oil] 1,000 mg PO DAILY 10/08/19 Potassium Chloride [Klor-Con 10 Meq Tablet ER] 10 meq PO DAILY 10/08/19 Pregabalin 200 mg PO DAILY 10/08/19 Pregabalin 400 mg PO QHS 10/08/19 Acetaminophen [Tylenol 325 mg Tablet] 650 mg PO Q4HP PRN tablet 10/28/19 Amoxicillin/Potassium Clav [Augmentin 875-125 Tablet] 1 tab PO Q12 #20 tablet 10/28/19 Azithromycin 250 mg PO DAILY #4 tablet 10/28/19 Guaifenesin [Mucinex Sr 600 mg Tablet.sa] 600 mg PO Q12 #14 tablet.sa 10/28/19 Prednisone [Deltasone 20 mg Tablet] 60 mg PO DAILY #15 tablet 10/28/19 History of Present Illiness History of Present Illness: LIONEL CHESTER is a 69 year old male presented to the emergency department today with a complaint of sudden onset shortness of breath and cough noted earlier this morning unresponsive to home nebulizer treatments. The patient reports that he was feeling well yesterday, however, he has noted low-grade temperatures this week; T-max 99.6. He denies recent ill contacts. He does continue to smoke. Evaluation emergency department revealed acute hypoxic respiratory failure secondary to COPD exacerbation. Questionable left lingular pneumonia by chest imaging. He was provided supplemental oxygen, IV Solu-Medrol, nebulizer treatments, IV azithromycin and Rocephin. He is referred to the hospitalist service for admission and management of the above-stated complaints findings. Hospital Course Hospital Course: The patient was admitted to telemetry for COPD exacerbation. Chest imaging revealed a questionable left lingular pneumonia. Patient was afebrile but did note an increased amount of sputum production with his cough. He was supported with supplemental oxygen, scheduled as needed nebulizer treatments, placed on empiric Rocephin and azithromycin, and steroid therapy. The patient's respiratory symptoms rapidly improved and the following day he was maintaining oxygen saturations in the mid 90s while ambulatory on room air. He is requesting to discharge home. He is discharged in stable condition with Rx for Augmentin, azithromycin, and prednisone. He is encouraged to return to the emergency department immediately for any concerning symptoms. Physical Exam Vital Signs: Temp Pulse Resp BP Pulse Ox 97.7 F 77 16 117/43 L 90 L 10/28/19 10:10 10/28/19 10:10 10/28/19 10:10 10/28/19 10:10 10/28/19 10:10 Intake & Output 10/28/19 10/29/19 10/30/19 06:59 06:59 06:59 Weight 131.54 kg General appearance: PRESENT: no acute distress, cooperative, morbidly obese, well-developed, well-nourished Head exam: PRESENT: atraumatic, normocephalic Eye exam: PRESENT: conjunctiva pink, EOMI, PERRLA. ABSENT: scleral icterus Mouth exam: PRESENT: moist, tongue midline Respiratory exam: PRESENT: clear to auscultation kana, symmetrical, unlabored, other - ambulatory on room air. ABSENT: rales, rhonchi, wheezes Cardiovascular exam: PRESENT: RRR. ABSENT: diastolic murmur, rubs, systolic murmur Vascular exam: PRESENT: normal capillary refill Extremities exam: PRESENT: full ROM. ABSENT: calf tenderness, clubbing, pedal edema Musculoskeletal exam: PRESENT: ambulatory Neurological exam: PRESENT: alert, awake, oriented to person, oriented to place, oriented to time, oriented to situation, CN II-XII grossly intact. ABSENT: motor sensory deficit Psychiatric exam: PRESENT: appropriate affect, normal mood. ABSENT: homicidal ideation, suicidal ideation Skin exam: PRESENT: dry, intact, warm. ABSENT: cyanosis, rash Results Laboratory Results: WBC 8.7 10^3/uL (4.0-10.5) 10/28/19 06:25 RBC 5.41 10^6/uL (4.35-5.55) 10/28/19 06:25 Hgb 14.0 g/dL (13.5-17.0) 10/28/19 06:25 Hct 43.4 % (37.9-51.0) 10/28/19 06:25 MCV 80 fl (80-97) 10/28/19 06:25 MCH 25.9 pg (27.0-33.4) L 10/28/19 06:25 MCHC 32.3 g/dL (32.0-36.0) 10/28/19 06:25 RDW 18.7 % (11.5-14.0) H 10/28/19 06:25 Plt Count 136 10^3/uL (150-450) L 10/28/19 06:25 Lymph % (Auto) 9.1 % (13-45) L 10/27/19 13:40 Coleman % (Auto) 5.4 % (3-13) 10/27/19 13:40 Eos % (Auto) 2.1 % (0-6) 10/27/19 13:40 Baso % (Auto) 0.4 % (0-2) 10/27/19 13:40 Absolute Neuts (auto) 9.2 10^3/uL (1.7-8.2) H 10/27/19 13:40 Absolute Lymphs (auto) 1.0 10^3/uL (0.5-4.7) 10/27/19 13:40 Absolute Monos (auto) 0.6 10^3/uL (0.1-1.4) 10/27/19 13:40 Absolute Eos (auto) 0.2 10^3/uL (0.0-0.6) 10/27/19 13:40 Absolute Basos (auto) 0.0 10^3/uL (0.0-0.2) 10/27/19 13:40 Seg Neutrophils % 83.0 % (42-78) H 10/27/19 13:40 D-Dimer < 0.27 ug/mL (0.00-0.50) 10/27/19 13:40 Carbonic Acid 1.58 mmol/L (1.05-1.35) H 10/27/19 17:45 HCO3/H2CO3 Ratio 18:1 10/27/19 17:45 ABG pH 7.37 (7.35-7.45) 10/27/19 17:45 ABG pCO2 52.4 mmHg (35-45) H 10/27/19 17:45 ABG pO2 68.3 mmHg (80-100) L 10/27/19 17:45 ABG HCO3 29.3 mmol/L (20-24) H 10/27/19 17:45 ABG Total CO2 30.9 mmol/L (23-27) H 10/27/19 17:45 ABG O2 Saturation 92.9 % (94-98) L 10/27/19 17:45 ABG Base Excess 2.8 mmol/L 10/27/19 17:45 VBG pH 7.35 (7.30-7.42) 10/27/19 13:40 VBG pCO2 57.2 mmHg (35-63) 10/27/19 13:40 VBG HCO3 30.9 mmol/L (20-32) 10/27/19 13:40 VBG Base Excess 3.7 mmol/L 10/27/19 13:40 FiO2 4 HEAVY [employer]GER HELPER 10/27/19 17:45 Sodium 139.5 mmol/L (137-145) 10/28/19 06:25 Potassium 4.2 mmol/L (3.6-5.0) 10/28/19 06:25 Chloride 103 mmol/L (98-107) 10/28/19 06:25 Carbon Dioxide 28 mmol/L (22-30) 10/28/19 06:25 Anion Gap 9 (5-19) 10/28/19 06:25 BUN 30 mg/dL (7-20) H 10/28/19 06:25 Creatinine 0.81 mg/dL (0.52-1.25) 10/28/19 06:25 Est GFR ( Amer) > 60 (>60) 10/28/19 06:25 Est GFR (MDRD) Non-Af > 60 (>60) 10/28/19 06:25 Glucose 248 mg/dL (75-110) H 10/28/19 06:25 POC Glucose 244 mg/dL (70-110) H 10/28/19 07:05 Lactic Acid 1.7 mmol/L (0.7-2.1) 10/27/19 13:40 Calcium 9.2 mg/dL (8.4-10.2) 10/28/19 06:25 Ferritin 10.60 ng/mL (17.9-464.0) L 10/27/19 13:40 Total Bilirubin 0.9 mg/dL (0.2-1.3) 10/27/19 13:40 Direct Bilirubin 0.0 mg/dL (0.0-0.4) 10/27/19 13:40 Neonat Total Bilirubin Not Reportable 10/27/19 13:40 Neonat Direct Bilirubin Not Reportable 10/27/19 13:40 Neonat Indirect Bili Not Reportable 10/27/19 13:40 AST 17 U/L (17-59) 10/27/19 13:40 ALT 15 U/L (<50) 10/27/19 13:40 Alkaline Phosphatase 138 U/L (38-126) H 10/27/19 13:40 Lactate Dehydrogenase 184 U/L (120-246) 10/27/19 13:40 C-Reactive Protein 16.8 mg/L (<10.0) H 10/27/19 13:40 NT-Pro-B Natriuret Pep 104 pg/mL (<125) 10/27/19 13:40 Total Protein 6.2 g/dL (6.3-8.2) L 10/27/19 13:40 Albumin 3.7 g/dL (3.5-5.0) 10/27/19 13:40 Urine Color STRAW 10/27/19 14:40 Urine Appearance CLEAR 10/27/19 14:40 Urine pH 6.0 (5.0-9.0) 10/27/19 14:40 Ur Specific [place] 1.013 10/27/19 14:40 Urine Protein NEGATIVE mg/dL (NEGATIVE) 10/27/19 14:40 Urine Glucose (UA) >=500 mg/dL (NEGATIVE) H 10/27/19 14:40 Urine Ketones NEGATIVE mg/dL (NEGATIVE) 10/27/19 14:40 Urine Blood NEGATIVE (NEGATIVE) 10/27/19 14:40 Urine Nitrite NEGATIVE (NEGATIVE) 10/27/19 14:40 Urine Bilirubin NEGATIVE (NEGATIVE) 10/27/19 14:40 Urine Urobilinogen NEGATIVE mg/dL (<2.0) 10/27/19 14:40 Ur Leukocyte Esterase NEGATIVE (NEGATIVE) 10/27/19 14:40 Urine WBC (Auto) 0 /HPF 10/27/19 14:40 Urine Mucus (Auto) RARE /LPF 10/27/19 14:40 Urine Ascorbic Acid NEGATIVE (NEGATIVE) 10/27/19 14:40 10/27/19 13:40 NT-Pro-B Natriuret Pep 104 Impressions: Chest X-Ray 10/27/19 13:04 IMPRESSION: In the appropriate clinical setting, findings are consistent with developing lingular pneumonia. Plan Plan of Treatment: The patient is discharged home in stable condition. He is advised to follow-up with his primary care provider within 1 week. Follow up with established veterinary toxicologist as scheduled. He is provided prescriptions for Augmentin, azithromycin, guaifenesin, and prednisone. He is encouraged to continue to continue pulmonary toilet at home with IS and flutter valve. Take other medications as prescribed. Return to the emergency department as needed for concerning symptoms. Time Spent: Greater than 30 Minutes Stroke Is this a Stroke Patient?: No Acute Heart Failure - Is this a Heart Failure Patient?: No
== END 2019-10-28 10:55 | disposition home or self-care (01) ==
LOC: ER 12:55 → INTOOBSV 19:15 → EH 19:15 → 4N 22:07
PROVIDERS: ADMIT Internal Medicine; ATTEND Internal Medicine
DX: J44.1 Chronic obstructive pulmonary disease with (acute) exacerbation (principal); J96.01 Acute respiratory failure with hypoxia; J18.9 Pneumonia, unspecified organism; G47.33 Obstructive sleep apnea (adult) (pediatric); E11.9 Type 2 diabetes mellitus without complications; E78.5 Hyperlipidemia, unspecified; I10 Essential (primary) hypertension; E66.01 Morbid (severe) obesity due to excess calories; F17.210 Nicotine dependence, cigarettes, uncomplicated; M19.90 Unspecified osteoarthritis, unspecified site; I44.0 Atrioventricular block, first degree; I44.4 Left anterior fascicular block; Z86.711 Personal history of pulmonary embolism; Z79.4 Long term (current) use of insulin; Z79.899 Other long term (current) drug therapy; Z79.51 Long term (current) use of inhaled steroids; Z60.2 Problems related to living alone; Z79.02 Long term (current) use of antithrombotics/antiplatelets; Z96.82 Presence of neurostimulator; Z85.828 Personal history of other malignant neoplasm of skin
CPT/HCPCS: 93005; 94640 ×3; 99291; 96375; 96365; 36415 ×2; 87040; 87070; 87205; 82962 ×2; 82803 ×2; 82728; 83605; 83615; 85025; 85027; 86140; 80048; 80053; 81001; 85379; 83880; 71045; 94799; 93010; 94660 ×2; 94667; G0378 ×3; A9270 ×8; J1940; J2920 ×2; J2930; J0696; J0456; J1815; J3490

== ENCOUNTER → 2019-11-10 | Outpatient (CLI) | payer MEDICARE, OTHER ==
--- NOTE | 2019-11-10 15:57 | RADIOLOGY REPORT (SQ) ---
EXAM DESCRIPTION: CT LUMBAR SPINE WITHOUT IMAGES COMPLETED DATE/TIME: 11/10/2019 3:21 pm REASON FOR STUDY: M51.36 OTHER INTERVERTEBRAL DISC DEGENERATION, LUMBAR REGION M51.36 OTHER INTERVE RTEBRAL DISC DEGENERATION, LUMBAR REGION COMPARISON: None. TECHNIQUE: Axial images acquired through the lumbar spine without intravenous contrast. Images revi ewed with lung, soft tissue and bone windows. Reconstructed coronal and sagittal MPR images reviewe d. All images stored on PACS. All CT scanners at this facility use dose modulation, iterative reconstruction, and/or weight based d osing when appropriate to reduce radiation dose to as low as reasonably achievable (ALARA). [facility]: Dose Right [facility]: CareDose [facility]: Dose Right [facility]: Teradose 4D [facility]: Smart [employer] RADIATION DOSE: CT Rad equipment meets quality standard of care and radiation dose reduction techniq ues were employed. CTDIvol: 32.9 mGy. DLP: 1181 mGy-cm. mGy. LIMITATIONS: None. FINDINGS: SEGMENTATION: Normal. No transitional anatomy. ALIGNMENT: Grade 1 anterolisthesis of L4 on L5. VERTEBRAL BODIES: No fractures. No dislocation. No acute findings. DISCS: Study limited by lack of intrathecal contrast. L1-L2: No significant protrusions. No significant stenosis. L2-L3: Mild disc space narrowing. Annular bulge with mild central stenosis. There is bilateral fora hai narrowing. There is bilateral facet arthropathy. L3-L4: Disc space narrowing with vacuum phenomena present. Broad-based disc/ osteophyte complex with mild to moderate central stenosis and bilateral foraminal narrowing. There is bilateral facet arthr opathy. L4-L5: Grade 1 anterolisthesis of L4 on L5. Annular disc bulging along with facet arthropathy. This results in moderate to severe central stenosis. There is bilateral foraminal narrowing. L5-S1: Mild annular bulge. No central stenosis. No definite foraminal narrowing. There is bilatera l facet arthropathy right greater than left. PEDICLES, TRANSVERSE PROCESSES: No fractures. No dislocation. No acute findings. FACETS, POSTERIOR ELEMENTS: No fractures. No dislocation. No spinal stenosis. HARDWARE: None in the spine. VISUALIZED RIBS: No fractures. SOFT TISSUES: No significant or acute finding in adjacent soft tissues. OTHER: No other significant finding. IMPRESSION: Multilevel disc degenerative disease. Mild central stenosis at L2-L3 with bilateral for aminal narrowing. Milder moderate stenosis at L3-L4 with bilateral foraminal narrowing. Moderate to severe central stenosis at L4-L5 with bilateral foraminal narrowing. TECHNICAL DOCUMENTATION: JOB ID: [id number] Quality ID # [id number]: Final reports with documentation of one or more dose reduction techniques (e.g., Au tomated exposure control, adjustment of the mA and/or kV according to patient size, use of iterative reconstruction technique) 2010 [employer]- All Rights Reserved Reading location - IP/workstation name: [email or web address]
== END ==
LOC: RAD 15:08
PROVIDERS: ATTEND Pain Medicine Pain Medicine
DX: M51.36 Other intervertebral disc degeneration, lumbar region (principal); M48.061 Spinal stenosis, lumbar region without neurogenic claudication
CPT/HCPCS: 72131

== ENCOUNTER 2019-11-15 21:11 | Inpatient (IN) | payer MEDICARE, OTHER ==
[2019-11-15] MEDS ORDERED: ALBUTEROL SULFATE 0.083% NEB 2.5 MG/3 ML AMPUL NEB ONE ×2 (21:33→22:55)
[2019-11-15] MEDS ORDERED: IPRATROPIUM BROMIDE 0.02% NEB 0.5 MG/2.5 ML AMPUL NEB STA (21:33)
[2019-11-15] MEDS ORDERED: METHYLPREDNISOLONE INJ 125 MG/2 ML SDV IV ONE (21:34)
--- NOTE | 2019-11-15 21:49 | ER Document Report ---
ED General - General Chief Complaint: Heat Exposure Stated Complaint: HEAT EXPOSURE Time Seen by Provider: 11/15/19 21:27 Primary Care Provider: CLIFF MANTILLA MD [Primary Care Provider] - Follow up as needed TRAVEL OUTSIDE OF THE [place] IN LAST 30 DAYS: No - HPI Notes: 69-year-old male history of COPD (no intubations, no home O2, has required BiPAP several times and has had numerous prior admissions for COPD exacerbation), diabetes presents with shortness of breath x2 days. Patient says he has been feeling generally weak and short of breath without associated symptoms and has used albuterol approximately 3 times per day without improvement in symptoms. Patient was going out of his doorway and tripped and gently fell onto his buttocks without any injury and felt to generally weak to be able to stand up. Patient denies any cough, fever, chest pain, lower extremity edema, head injury, neck or back injury, focal weakness, urinary or GI symptoms - Related Data Allergies/Adverse Reactions: No Known Allergies Allergy (Verified 07/20/19 14:51) Past Medical History - General Information source: Patient, [facility] Records - Social History Smoking Status: Unknown if Ever Smoked Frequency of alcohol use: None Family History: COPD, DM, Hypertension Patient has homicidal ideation: No - Past Medical History Cardiac Medical History: Reports: Hx Hypercholesterolemia, Hx Hypertension, Hx Pulmonary Embolism - October 2018 Denies: Hx Coronary Artery Disease, Hx Heart Attack Pulmonary Medical History: Reports: Hx COPD, Hx Sleep Apnea - LAURIE uses CPAP at home Denies: Hx Asthma, Hx Bronchitis, Hx Pneumonia Neurological Medical History: Denies: Hx Cerebrovascular Accident, Hx Seizures Endocrine Medical History: Reports: Hx Diabetes Mellitus Type 2. 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 Denies: Hx Cirrhosis, Hx Hepatitis Musculoskeletal Medical History: Reports Hx Arthritis, Denies Hx Gout Skin Medical History: Denies Hx Eczema, Denies Hx Psoriasis Psychiatric Medical History: Denies: Hx Depression Infectious Medical History: Denies: Hx Hepatitis Past Surgical History: Reports: Hx Cholecystectomy, Hx Neurologic Surgery - right hip nerve stim., Hx Orthopedic Surgery - back stimulator - Immunizations Hx Diphtheria, Pertussis, Tetanus Vaccination: Yes Hx Pneumococcal Vaccination: 12/25/17 Review of Systems - Review of Systems -: Yes ROS unobtainable due to patient's medical condition Physical Exam - Vital signs Vitals: Temp 98.6 F 11/15/19 21:11 - Notes Notes: PHYSICAL EXAMINATION: GENERAL: Chronically ill-appearing obese elderly male with dyspnea sitting up in stretcher HEAD: Atraumatic, normocephalic. EYES: Pupils equal round and appropriate constriction, sclera anicteric, conjunctiva are normal. ENT: nares patent, moist mucous membranes. NECK: Normal range of motion, supple without lymphadenopathy, no C-spine tenderness, no T/L/S spinal tenderness LUNGS: Tachypnea, able to speak in few word sentences, managing secretions, no tripoding, bilateral lung sounds barely audible with very little air movement HEART: Regular rate and rhythm without murmurs ABDOMEN: Soft, nontender, no guarding, no masses, no CVAT EXTREMITIES: Normal range of motion, no pitting or edema. No cyanosis. Pelvis stable, no bony tenderness on full head to toe undressed trauma exam no signs of trauma. NEUROLOGICAL: Awake, alert, conversing appropriately, moves all extremities spontaneously. Able to stand and support weight. 5 out of 5 strength in all extremities. PSYCH: Normal mood, normal affect. SKIN: Warm, Dry, normal turgor, no rashes or lesions noted. Course - Re-evaluation Re-evalutation: 11/16/19 01:13 Presentation concerning for COPD exacerbation with respiratory distress on arrival. Patient was placed on BiPAP and given serial nebs and Atrovent and steroids and have performed several repeat respiratory exams which have been improving. Patient now with normal respiratory effort on BiPAP and appears comfortable, air movement has improved and now has expiratory wheezing. No signs of trauma on exam and patient able to give reliable history. patient accepted to medical floor by Dr. Soriano who I discussed the case with. - Vital Signs Vital signs: Temp Pulse Resp BP Pulse Ox 98.2 F 16 112/57 L 95 11/16/19 00:15 11/15/19 22:10 11/15/19 21:21 11/15/19 22:10 - Laboratory Result Diagrams: 11/15/19 21:23 11/15/19 21:23 Laboratory results interpreted by me: 11/15/19 11/15/19 11/15/19 21:23 21:23 21:23 Hgb 12.8 L MCH 26.0 L RDW 20.0 H Plt Count 135 L Lymph % (Auto) 12.8 L Seg Neutrophils % 78.3 H VBG pH VBG pCO2 Calcium 8.3 L NT-Pro-B Natriuret Pep 144 H Total Protein 5.6 L Albumin 3.2 L 11/16/19 00:05 Hgb MCH RDW Plt Count Lymph % (Auto) Seg Neutrophils % VBG pH 7.25 L VBG pCO2 73.8 H* Calcium NT-Pro-B Natriuret Pep Total Protein Albumin Discharge - Discharge Clinical Impression: COPD exacerbation Disposition: ADMITTED INPATIENT Admitting Provider: Ines (Hospitalist) Unit Admitted: Medical Floor Referrals: CLIFF MANTILLA MD [Primary Care Provider] - Follow up as needed
[2019-11-15 21:51] LABS: ABSOLUTE EOSINOPHILS # (AUTO) 0.2 10^3/uL (0.0-0.6); ABSOLUTE LYMPHOCYTES (AUTO) 1.1 10^3/uL (0.5-4.7); ABSOLUTE MONOCYTES (AUTO) 0.6 10^3/uL (0.1-1.4); ABSOLUTE NEUT (AUTO) 6.9 10^3/uL (1.7-8.2); BASOPHILS % (AUTO) 0.3 % (0-2); EOSINOPHILS % (AUTO) 1.7 % (0-6); HEMATOCRIT 39.8 % (37.9-51.0); HEMOGLOBIN 12.8 g/dL (13.5-17.0); LYMPHOCYTES % (AUTO) 12.8 % (13-45); MEAN CORPUSCULAR HGB CONC 32.1 g/dL (32.0-36.0); MEAN CORPUSCULAR VOLUME 81 fl (80-97); MONOCYTES % (AUTO) 6.9 % (3-13); PLATELET COUNT 135 10^3/uL (150-450); RED BLOOD COUNT 4.91 10^6/uL (4.35-5.55); SEGMENTED NEUTROPHILS % (AUTO) 78.3 % (42-78); TOTAL CELLS COUNTED % (AUTO) 100 %; WHITE BLOOD COUNT 8.8 10^3/uL (4.0-10.5)
[2019-11-15 22:12] LABS: ALBUMIN 3.2 g/dL (3.5-5.0); ALKALINE PHOSPHATASE 103 U/L (38-126); ANION GAP 6 (5-19); ASPARTATE AMINO TRANSFERASE 18 U/L (17-59); BILIRUBIN,TOTAL 0.9 mg/dL (0.2-1.3); BLOOD UREA NITROGEN 20 mg/dL (7-20); CALCIUM 8.3 mg/dL (8.4-10.2); CARBON DIOXIDE 30 mmol/L (22-30); CHLORIDE 103 mmol/L (98-107); GLUCOSE 87 mg/dL (75-110); POTASSIUM 3.9 mmol/L (3.6-5.0); TOTAL PROTEIN 5.6 g/dL (6.3-8.2)
[2019-11-15 22:19] LABS: NT PRO BNP 144 pg/mL (<125)
[2019-11-15 22:21] LABS: TROPONIN I < 0.012 ng/mL
[2019-11-15 22:34] LABS: PHOSPHORUS 3.3 mg/dL (2.5-4.5)
--- NOTE | 2019-11-15 22:47 | RADIOLOGY REPORT (SQ) ---
EXAM DESCRIPTION: XR CHEST 1 VIEW COMPLETED DATE/TME: 11/15/2019 21:31 CLINICAL HISTORY: 69 years, Male, SOB copd COMPARISON: 10/27/2019 chest NUMBER OF VIEWS: 2 TECHNIQUE: AP chest LIMITATIONS: None. FINDINGS: The heart size is stable. Stimulating wires project over the mid thoracic spine. Calcified granulomata bilaterally. Minor scarring in the left lung base. Improved aeration of the lingula. Lungs are otherwise clear. Underlying COPD. No pneumothorax IMPRESSION: Interval resolution of previously described lingular pneumonia. Underlying COPD. copyright 2010 [employer]- All Rights Reserved
[2019-11-15] MEDS ORDERED: NORMAL SALINE 1000 ML 1,000 ML IV ONE (22:54)
[2019-11-16 00:21] LABS: VENOUS BLOOD BASE EXCESS 2.3 mmol/L; VENOUS BLOOD HCO3 31.9 mmol/L (20-32); VENOUS BLOOD PH 7.25 (7.30-7.42)
[2019-11-16 00:24] LABS: VENOUS BLOOD PCO2 73.8 mmHg (35-63)
[2019-11-16] MEDS ORDERED: LEVALBUTEROL HCL NEB 0.63 MG/3 ML AMPUL NEB PRN (01:36)
[2019-11-16] MEDS ORDERED: ONDANSETRON HCL INJ/PF 4 MG/2 ML SDV IV PRN (01:36)
[2019-11-16] MEDS ORDERED: MAG HYDROX/AL HYDROX/SIMETH SUSP 30 ML UDCUP PO PRN (01:36)
[2019-11-16] MEDS ORDERED: LORAZEPAM INJ 2 MG/1 ML VIAL IV PRN (01:42)
[2019-11-16] MEDS ORDERED: GUAIFENESIN SYRP 200 MG/10 ML UDC PO PRN (01:42)
[2019-11-16] MEDS ORDERED: HYDRALAZINE HCL INJ/PF 20 MG/1 ML SDV IV PRN (01:42)
[2019-11-16] MEDS ORDERED: ACETAMINOPHEN 325 MG TABLET PO PRN (01:42)
[2019-11-16] MEDS ORDERED: MORPHINE SULFATE 10 MG/ML INJ IV PRN (01:42)
[2019-11-16] MEDS: METHYLPREDNISOLONE INJ 40 MG/1 ML SDV IV SCH ×3 (05:12→17:23)
--- NOTE | 2019-11-16 05:21 | PDOC H&P ---
History of Present Illness Admission Date/PCP: 11/16/2019 01:18 CLIFF MANTILLA MD Patient complains of: Dyspnea History of Present Illness: LIONEL MALDONADO is a 69 year old male who presented to the emergency room with a 3-day history of dyspnea. He admits progressively worsening dyspnea associated with generalized weakness over the last 3 days. His dyspnea is now severe and markedly worsened by exertion, his generalized weakness has become so severe that he was unable to stand up after tripping and falling at home today. He denies other associated or accompanying signs and symptoms. He admits prior similar episodes of lesser severity. He has not identified any additional aggravating or ameliorating factors for his dyspnea. In the emergency room he was found to have acute hypoxia and required BiPAP in order to maintain an adequate oxygen saturation. He was subsequently admitted to the hospital for further evaluation treatment. Past Medical History Cardiac Medical History: Reports: Hyperlipidema, Hypertension, Pulmonary Embolism - October 2018 Denies: Coronary Artery Disease, Myocardial Infarction Pulmonary Medical History: Reports: Chronic Obstructive Pulmonary Disease (COPD), Sleep Apnea - LAURIE uses CPAP at home Denies: Asthma, Bronchitis, Pneumonia EENT Medical History: Denies: Cataracts, Ears - Hearing aids Neurological Medical History: Denies: Hemorrhagic CVA, Ischemic CVA, Seizures Endocrine Medical History: Reports: Diabetes Mellitus Type 2 Denies: Diabetes Mellitus Type 1, Hyperthyroidism, Hypothyroidism, Obesity Renal/ Medical History: Denies: Chronic Kidney Disease, Nephrolithiasis Malignancy Medical History: Reports: 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 GI Medical History: Reports: Gastroesophageal Reflux Disease Denies: Cirrhosis, Hepatitis Musculoskeltal Medical History: Reports: Arthritis Denies: Gout Skin Medical History: Denies: Eczema, Psoriasis Psychiatric Medical History: Reports: Tobacco Dependency Denies: Alcohol Dependency, Depression, Substance Abuse Traumatic Medical History: Reports: None Hematology: Denies: Anemia, Bleeding Tendencies Infectious Medical History: Reports: None Past Surgical History Past Surgical History: Reports: Cholecystectomy, Orthopedic Surgery - back stimulator implant Social History Information Source: Patient Lives with: Family Smoking Status: Former Smoker Electronic Cigarette use?: No Frequency of Alcohol Use: None Hx Recreational Drug Use: No Drugs: None Hx Prescription Drug Abuse: No - Advance Directive Resuscitation Status: Full Code Surrogate healthcare decision maker:: Iván Maldonado Family History Family History: COPD, DM, Hypertension Parental Family History Reviewed: Yes Children Family History Reviewed: No Sibling(s) Family History Reviewed.: Yes Medication/Allergy Home Medications: Atorvastatin Calcium [Lipitor 20 mg Tablet] 20 mg PO QHS 06/19/18 Cholecalciferol (Vitamin D3) [Vitamin D3 1000 Unit Tablet] 1,000 unit PO BID 06/19/18 Finasteride [Proscar 5 mg Tablet] 5 mg PO DAILY 06/19/18 Fluticasone/Salmeterol [Advair 250-50 Diskus 14 Dose/Diskus] 1 puff IH Q12 06/19/18 Furosemide [Lasix 40 mg Tablet] 40 mg PO BID 06/19/18 Isosorbide Mononitrate [Imdur 30 mg Tablet.er] 30 mg PO DAILY 06/19/18 Metoprolol Succinate [Toprol Xl] 12.5 mg PO DAILY 06/19/18 Mirabegron [Myrbetriq] 50 mg PO DAILY 06/19/18 Omeprazole 40 mg PO Q6AM 06/19/18 Tamsulosin HCl [Flomax 0.4 mg Cap.sr] 0.4 mg PO BID 06/19/18 Insulin Regular, Human [Humulin R U-500 Kwikpen] 90 unit SQ QAM 02/13/19 Losartan Potassium [Cozaar 25 mg Tablet] 25 mg PO DAILY 02/13/19 Pramipexole Di-HCl [Mirapex 0.5 mg Tablet] 0.5 mg PO QAM 02/13/19 Pramipexole Di-HCl [Mirapex 0.5 mg Tablet] 1 mg PO QHS 02/13/19 Empagliflozin [Jardiance] 25 mg PO DAILY 07/20/19 Insulin Regular, Human [Humulin R U-500 Kwikpen] 40 unit SQ QPM 07/20/19 Multivitamin [Multivitamins] 1 cap PO DAILY 07/20/19 Semaglutide [Ozempic] 1 mg SQ WE@1000 07/20/19 Aclidinium [place] [Tudorza Pressair] 1 inh IH BID 10/08/19 Flaxseed Oil [Flax Seed Oil] 1,000 mg PO DAILY 10/08/19 Potassium Chloride [Klor-Con 10 Meq Tablet ER] 10 meq PO DAILY 10/08/19 Pregabalin 200 mg PO DAILY 10/08/19 Pregabalin 400 mg PO QHS 10/08/19 Albuterol Sulfate [Proair Digihaler] 90 mcg IH Q6HP PRN 11/16/19 Ibuprofen [Motrin 800 mg Tablet] 800 mg PO Q8HP PRN 11/16/19 Apixaban [Eliquis 2.5 mg Tablet] 2.5 mg PO BID #60 tablet 11/17/19 Prednisone [Deltasone 20 mg Tablet] 40 mg PO DAILY #6 tablet 11/17/19 Allergies/Adverse Reactions: No Known Allergies Allergy (Verified 07/20/19 14:51) Review of Systems Constitutional: PRESENT: as per HPI, weakness. ABSENT: chills, fever(s) Eyes: ABSENT: visual disturbances, other - Eye pain Ears: ABSENT: hearing changes, other - Ear pain Nose, Mouth, and Throat: ABSENT: headache(s), sore throat Cardiovascular: PRESENT: as per HPI, dyspnea on exertion. ABSENT: chest pain, palpitations Respiratory: PRESENT: as per HPI, dyspnea. ABSENT: cough Gastrointestinal: ABSENT: abdominal pain, constipation, diarrhea, nausea, vomiting Musculoskeletal: PRESENT: back pain - Chronic, muscle weakness. ABSENT: as per HPI, joint swelling Integumentary: ABSENT: pruritus, rash Neurological: ABSENT: confusion, convulsions, focal weakness, memory loss, syncope Psychiatric: ABSENT: anxiety, depression Endocrine: ABSENT: cold intolerance, heat intolerance Hematologic/Lymphatic: ABSENT: easy bleeding, easy bruising Allergic/Immunologic: ABSENT: seasonal rhinorrhea Physical Exam Vital Signs: Temp Pulse Resp BP Pulse Ox 98.2 F 16 112/57 L 95 11/16/19 00:15 11/15/19 22:10 11/15/19 21:21 11/15/19 22:10 General appearance: PRESENT: cooperative, mild distress - Secondary to dyspnea, morbidly obese, other - On BiPAP at the time of exam Head exam: PRESENT: atraumatic, normocephalic Eye exam: PRESENT: conjunctiva pink. ABSENT: conjunctival injection, scleral icterus Ear exam: PRESENT: normal external ear exam. ABSENT: bleeding, drainage Mouth exam: PRESENT: dry mucosa, neck supple Neck exam: ABSENT: thyromegaly, tracheal deviation Respiratory exam: PRESENT: accessory muscle use, decreased breath sounds - Moderately decreased breath sounds noted throughout all cooley, prolonged expiratory phas - Moderately prolonged expiratory phase present throughout all cooley, symmetrical, wheezes - Expiratory wheezes noted in all cooley Cardiovascular exam: PRESENT: RRR. ABSENT: clicks, gallop, rubs Pulses: PRESENT: normal radial pulses, normal dorsalis pedis pul Vascular exam: PRESENT: normal capillary refill. ABSENT: pallor GI/Abdominal exam: PRESENT: normal bowel sounds, soft Rectal exam: PRESENT: deferred Extremities exam: PRESENT: pedal edema - 1+ bilateral, +1 edema - 1+ pretibial edema bilaterally. ABSENT: joint swelling Musculoskeletal exam: ABSENT: deformity, dislocation Neurological exam: PRESENT: alert, oriented to person, oriented to place, oriented to time, oriented to situation, CN II-XII grossly intact. ABSENT: motor sensory deficit Psychiatric exam: PRESENT: appropriate affect, normal mood Skin exam: PRESENT: dry, intact, warm, other - Chronic venous stasis skin changes of the bilateral lower extremities. ABSENT: jaundice, rash, urticaria Results Laboratory Results: 11/15/19 21:23 11/15/19 21:23 11/15/19 11/15/19 11/15/19 21:23 21:23 21:23 WBC 8.8 RBC 4.91 Hgb 12.8 L Hct 39.8 MCV 81 MCH 26.0 L MCHC 32.1 RDW 20.0 H Plt Count 135 L Seg Neutrophils % 78.3 H VBG pH VBG pCO2 VBG HCO3 VBG Base Excess Sodium 138.9 Potassium 3.9 Chloride 103 Carbon Dioxide 30 Anion Gap 6 BUN 20 Creatinine 1.09 Est GFR ( Amer) > 60 Glucose 87 Calcium 8.3 L Phosphorus 3.3 Magnesium 2.2 Total Bilirubin 0.9 AST 18 Alkaline Phosphatase 103 Total Protein 5.6 L Albumin 3.2 L 11/16/19 00:05 WBC RBC Hgb Hct MCV MCH MCHC RDW Plt Count Seg Neutrophils % VBG pH 7.25 L VBG pCO2 73.8 H* VBG HCO3 31.9 VBG Base Excess 2.3 Sodium Potassium Chloride Carbon Dioxide Anion Gap BUN Creatinine Est GFR ( Amer) Glucose Calcium Phosphorus Magnesium Total Bilirubin AST Alkaline Phosphatase Total Protein Albumin 11/15/19 11/15/19 21:23 21:23 Creatine Kinase 70 Troponin I < 0.012 NT-Pro-B Natriuret Pep 144 H Impressions: Chest X-Ray 11/15/19 21:31 IMPRESSION: Interval resolution of previously described lingular pneumonia. Underlying COPD. copyright 2011 [facility] [employer]- All Rights Reserved Assessment and Plan - Diagnosis (1) COPD exacerbation Is this a current diagnosis for this admission?: Yes (2) Acute respiratory failure with hypoxia and hypercapnia Is this a current diagnosis for this admission?: Yes (3) Diabetes mellitus type 2 in obese Is this a current diagnosis for this admission?: Yes (4) Hypertension Qualifiers: Hypertension type: essential hypertension Qualified Code(s): I10 - Es sential (primary) hypertension Is this a current diagnosis for this admission?: Yes (5) HLD (hyperlipidemia) Qualifiers: Hyperlipidemia type: unspecified Qualified Code(s): E78.5 - Hyperlipidemia, unspecified Is this a current diagnosis for this admission?: Yes (6) Morbid obesity Is this a current diagnosis for this admission?: Yes (7) History of pulmonary embolism Is this a current diagnosis for this admission?: Yes - Plan Summary Summary: Patient will be admitted to the medical floor where he will receive routine supportive and symptomatic cares. He will be treated with supplemental oxygen utilizing BiPAP with eventual weaning to nasal cannula and hopeful weaning off oxygen support. He will be treated with aggressive pulmonary toilet utilizing nebulized Xopenex, Pulmicort and Atrovent. He will be treated with continued burst of steroid therapy with Solu-Medrol 40 mg IV every 6 hours x3 doses. He will use Ativan 1 mg IV every 4 hours as needed for anxiety or restlessness. He will use morphine sulfate 2 to 4 mg IV every 2 hours as needed for pain. CBCs, metabolic profiles and other laboratory and/or radiographic evaluations will be obtained as appropriate. Before meals and at bedtime Accu-Cheks to be performed with sliding scale insulin for hyperglycemia and a hypoglycemic protocol in place. Patient will be treated with a diabetic and cardiac restricted diet. Patient's usual medications will be resumed, as appropriate, when his medication list has been verified and reconciled. - Time Time Spent with patient: 15-24 minutes Medications reviewed and adjusted accordingly: Yes Anticipated Discharge Disposition: Home, Self Care Anticipated Discharge: within 72 hours Anticipated discharge: Home - Inpatient Certification Based on my medical assessment, after consideration of the patient's comorbidities, presenting symptoms, or acuity I expect that the services needed warrant INPATIENT care.: Yes I certify that my determination is in accordance with my understanding of Medicare's requirements for reasonable and necessary INPATIENT services [42 CFR 412.3e].: Yes Medical Necessity: Significant Comorbidiites Make Outpatient Treatment Too Risky, Need Close Monitoring Due to Risk of Patient Decompensation, Need for Nebulizer Therapy and Monitoring of Response, Risk of Complication if Not Cared For in Hospital
[2019-11-16 07:11] LABS: VENOUS BLOOD HCO3 28.9 mmol/L (20-32); VENOUS BLOOD PH 7.22 (7.30-7.42)
[2019-11-16 07:27] LABS: VENOUS BLOOD PCO2 73.1 mmHg (35-63)
[2019-11-16] MEDS: INSULIN REG, HUMAN 100 UNIT/ML 3 ML VIAL (PYX) SUBCUT PRN ×4 (08:21→21:21)
[2019-11-16] MEDS: LEVALBUTEROL HCL NEB 1.25 MG/3 ML AMPUL NEB SCH ×3 (08:54→23:36)
[2019-11-16] MEDS: BUDESONIDE NEB 0.5 MG/2 ML AMPUL NEB SCH ×2 (08:55→20:55)
[2019-11-16] MEDS: IPRATROPIUM BROMIDE 0.02% NEB 0.5 MG/2.5 ML AMPUL NEB SCH ×3 (08:55→23:36)
[2019-11-16] MEDS: APIXABAN 2.5 MG TABLET PO SCH ×2 (10:41→17:23)
[2019-11-16] MEDS: DOCUSATE SODIUM 100 MG CAPSULE PO SCH ×2 (10:41→17:27)
[2019-11-16] MEDS: FAMOTIDINE 20 MG TABLET PO SCH ×2 (10:41→21:21)
[2019-11-16] MEDS ORDERED: IBUPROFEN 800 MG TABLET PO PRN (18:19)
[2019-11-16] MEDS ORDERED: ALBUTEROL SULFATE 90 MCG IH PRN (18:19)
[2019-11-16] MEDS ORDERED: PREGABALIN 100 MG CAPSULE PO SCH (22:00)
[2019-11-16] MEDS ORDERED: PRAMIPEXOLE DI-HCL 0.5 MG TABLET PO SCH (22:00)
[2019-11-16] MEDS ORDERED: ATORVASTATIN CALCIUM 20 MG TABLET PO SCH (22:00)
[2019-11-16] MEDS ORDERED: PREGABALIN 400 MG PO SCH (22:00)
[2019-11-16] MEDS ORDERED: (PENDING PHARMACY ID) (Fluticasone/Salmeterol 1 PUFF) IH SCH (22:00)
--- NOTE | 2019-11-17 01:07 | EKG REPORT ---
SEVERITY:- ABNORMAL ECG - SINUS RHYTHM FIRST DEGREE AV BLOCK LAD, CONSIDER LEFT ANTERIOR FASCICULAR BLOCK LOW VOLTAGE IN FRONTAL LEADS CONSIDER RIGHT VENTRICULAR HYPERTROPHY : Confirmed by: Indy Root 17-Nov-2019 01:06:50
[2019-11-17] MEDS ORDERED: PANTOPRAZOLE SODIUM 40 MG TABLET.DR PO SCH (06:00)
[2019-11-17 06:20] LABS: HEMATOCRIT 41.7 % (37.9-51.0); HEMOGLOBIN 13.3 g/dL (13.5-17.0); MEAN CORPUSCULAR HEMOGLOBIN 25.7 pg (27.0-33.4); MEAN CORPUSCULAR HGB CONC 31.9 g/dL (32.0-36.0); MEAN CORPUSCULAR VOLUME 81 fl (80-97); PLATELET COUNT 126 10^3/uL (150-450); RED BLOOD COUNT 5.17 10^6/uL (4.35-5.55); RED CELL DISTRIBUTION WIDTH 19.8 % (11.5-14.0); WHITE BLOOD COUNT 9.8 10^3/uL (4.0-10.5)
[2019-11-17 06:40] LABS: ANION GAP 5 (5-19); BLOOD UREA NITROGEN 32 mg/dL (7-20); CALCIUM 9.1 mg/dL (8.4-10.2); CARBON DIOXIDE 29 mmol/L (22-30); CHLORIDE 103 mmol/L (98-107); CHOLESTEROL 121.68 mg/dL (0-200); GLUCOSE 216 mg/dL (75-110); POTASSIUM 4.4 mmol/L (3.6-5.0); TRIGLYCERIDES 154 mg/dL (<150)
[2019-11-17 06:50] LABS: VLDL CHOLESTEROL 30.8 mg/dL (10-31)
[2019-11-17 06:51] LABS: DIRECT LDL 76 mg/dL (<100)
[2019-11-17] MEDS: INSULIN REG, HUMAN 100 UNIT/ML 3 ML VIAL (PYX) SUBCUT PRN ×2 (07:32→11:51)
[2019-11-17] MEDS ORDERED: PRAMIPEXOLE DI-HCL 0.5 MG TABLET PO SCH (08:00)
[2019-11-17] MEDS: BUDESONIDE NEB 0.5 MG/2 ML AMPUL NEB SCH (08:08)
[2019-11-17] MEDS: LEVALBUTEROL HCL NEB 1.25 MG/3 ML AMPUL NEB SCH (08:08)
[2019-11-17] MEDS: IPRATROPIUM BROMIDE 0.02% NEB 0.5 MG/2.5 ML AMPUL NEB SCH (08:08)
[2019-11-17] MEDS: DOCUSATE SODIUM 100 MG CAPSULE PO SCH (09:52)
[2019-11-17] MEDS: FAMOTIDINE 20 MG TABLET PO SCH (09:52)
[2019-11-17] MEDS: APIXABAN 2.5 MG TABLET PO SCH (09:53)
[2019-11-17] MEDS ORDERED: MULTIVITAMIN TABLET PO SCH (10:00)
[2019-11-17] MEDS ORDERED: CHOLECALCIFEROL (D3) 1,000 UNIT (25 MCG) TABLET PO SCH (10:00)
[2019-11-17] MEDS ORDERED: FUROSEMIDE 40 MG TABLET PO SCH (10:00)
[2019-11-17] MEDS ORDERED: (PENDING PHARMACY ID) (Flaxseed Oil [Flax Seed Oil] 1,000 MG) PO SCH (10:00)
[2019-11-17] MEDS ORDERED: PREGABALIN 100 MG CAPSULE PO SCH (10:00)
[2019-11-17] MEDS ORDERED: FLUTICASONE/VILANTEROL 200-25 MCG/DOSE IH SCH (10:00)
[2019-11-17] MEDS ORDERED: FINASTERIDE 5 MG TABLET PO SCH (10:00)
[2019-11-17] MEDS ORDERED: APIXABAN 2.5 MG TABLET PO SCH (10:00)
[2019-11-17] MEDS ORDERED: PREGABALIN 200 MG PO SCH (10:00)
[2019-11-17] MEDS ORDERED: ACLIDINIUM BROMIDE IH SCH (10:00)
[2019-11-17] MEDS ORDERED: UMECLIDINIUM BROMIDE 62.5 MCG/DOSE IH SCH (10:00)
[2019-11-17] MEDS ORDERED: TAMSULOSIN HCL 0.4 MG CAP.SR.24H PO SCH (10:00)
[2019-11-17] MEDS ORDERED: METOPROLOL SUCCINATE 25 MG TAB.SR.24H PO SCH (10:00)
[2019-11-17] MEDS ORDERED: POTASSIUM CHLORIDE 10 MEQ TABLET.ER PO SCH (10:00)
[2019-11-17] MEDS ORDERED: ISOSORBIDE MONONITRATE 30 MG TAB.ER.24H PO SCH (10:00)
[2019-11-17] MEDS ORDERED: (PENDING PHARMACY ID) (Mirabegron [Myrbetriq] 50 MG) PO SCH (10:00)
[2019-11-17] MEDS ORDERED: (PENDING PHARMACY ID) (Empagliflozin [Jardiance] 25 MG) PO SCH (10:00)
[2019-11-17] MEDS ORDERED: LOSARTAN POTASSIUM 25 MG TABLET PO SCH (10:00)
[2019-11-17 12:18] VITALS: BP 147/58
--- NOTE | 2019-11-17 17:40 | PDOC DISCHARGE SUMMARY ---
Impression - Admit/DC Date/PCP Admission Date/Primary Care Provider: 11/16/19 01:25 CLIFF MANTILLA MD Discharge Date: 11/17/19 - Assessment Summary: Patient will be admitted to the medical floor where he will receive routine supportive and symptomatic cares. He will be treated with supplemental oxygen utilizing BiPAP with eventual weaning to nasal cannula and hopeful weaning off oxygen support. He will be treated with aggressive pulmonary toilet utilizing nebulized Xopenex, Pulmicort and Atrovent. He will be treated with continued burst of steroid therapy with Solu-Medrol 40 mg IV every 6 hours x3 doses. He will use Ativan 1 mg IV every 4 hours as needed for anxiety or restlessness. He will use morphine sulfate 2 to 4 mg IV every 2 hours as needed for pain. CBCs, metabolic profiles and other laboratory and/or radiographic evaluations will be obtained as appropriate. Before meals and at bedtime Accu-Cheks to be performed with sliding scale insulin for hyperglycemia and a hypoglycemic protocol in place. Patient will be treated with a diabetic and cardiac restricted diet. Patient's usual medications will be resumed, as appropriate, when his medication list has been verified and reconciled. - Additional Information Resuscitation Status: Full Code Discharge Diet: Cardiac, Diabetic Discharge Activity: Activity As Tolerated, Balance Activity w/Rest, Slowly Increase Activity Referrals: CLIFF MANTILLA MD [Primary Care Provider] - Follow up as needed (LEFT MESSAGE FOR OFFICE TO CONTACT PT TO SET UP APPT IN NEXT 7-10 DAYS) Prescriptions: Prednisone [Deltasone 20 mg Tablet] 40 mg PO DAILY #6 tablet Apixaban [Eliquis 2.5 mg Tablet] 2.5 mg PO BID #60 tablet Home Medications: Atorvastatin Calcium [Lipitor 20 mg Tablet] 20 mg PO QHS 06/19/18 Cholecalciferol (Vitamin D3) [Vitamin D3 1000 Unit Tablet] 1,000 unit PO BID 06/19/18 Finasteride [Proscar 5 mg Tablet] 5 mg PO DAILY 06/19/18 Fluticasone/Salmeterol [Advair 250-50 Diskus 14 Dose/Diskus] 1 puff IH Q12 06/19/18 Furosemide [Lasix 40 mg Tablet] 40 mg PO BID 06/19/18 Isosorbide Mononitrate [Imdur 30 mg Tablet.er] 30 mg PO DAILY 06/19/18 Metoprolol Succinate [Toprol Xl] 12.5 mg PO DAILY 06/19/18 Mirabegron [Myrbetriq] 50 mg PO DAILY 06/19/18 Omeprazole 40 mg PO Q6AM 06/19/18 Tamsulosin HCl [Flomax 0.4 mg Cap.sr] 0.4 mg PO BID 06/19/18 Insulin Regular, Human [Humulin R U-500 Kwikpen] 90 unit SQ QAM 02/13/19 Losartan Potassium [Cozaar 25 mg Tablet] 25 mg PO DAILY 02/13/19 Pramipexole Di-HCl [Mirapex 0.5 mg Tablet] 0.5 mg PO QAM 02/13/19 Pramipexole Di-HCl [Mirapex 0.5 mg Tablet] 1 mg PO QHS 02/13/19 Empagliflozin [Jardiance] 25 mg PO DAILY 07/20/19 Insulin Regular, Human [Humulin R U-500 Kwikpen] 40 unit SQ QPM 07/20/19 Multivitamin [Multivitamins] 1 cap PO DAILY 07/20/19 Semaglutide [Ozempic] 1 mg SQ WE@1000 07/20/19 Aclidinium [place] [Tudorza Pressair] 1 inh IH BID 10/08/19 Flaxseed Oil [Flax Seed Oil] 1,000 mg PO DAILY 10/08/19 Potassium Chloride [Klor-Con 10 Meq Tablet ER] 10 meq PO DAILY 10/08/19 Pregabalin 200 mg PO DAILY 10/08/19 Pregabalin 400 mg PO QHS 10/08/19 Albuterol Sulfate [Proair Digihaler] 90 mcg IH Q6HP PRN 11/16/19 Ibuprofen [Motrin 800 mg Tablet] 800 mg PO Q8HP PRN 11/16/19 Apixaban [Eliquis 2.5 mg Tablet] 2.5 mg PO BID #60 tablet 11/17/19 Prednisone [Deltasone 20 mg Tablet] 40 mg PO DAILY #6 tablet 11/17/19 History of Present Illiness History of Present Illness: LIONEL CHESTER is a 69 year old male who presented to the emergency room with a 3-day history of dyspnea. He admits progressively worsening dyspnea associated with generalized weakness over the last 3 days. His dyspnea is now severe and markedly worsened by exertion, his generalized weakness has become so severe that he was unable to stand up after tripping and falling at home today. He denies other associated or accompanying signs and symptoms. He admits prior similar episodes of lesser severity. He has not identified any additional aggravating or ameliorating factors for his dyspnea. In the emergency room he was found to have acute hypoxia and required BiPAP in order to maintain an adequate oxygen saturation. He was subsequently admitted to the hospital for further evaluation treatment. Hospital Course Hospital Course: He improved rapidly with steroids and nebulizer treatments. He was still intermittently hypoxic on room air so we did a 6-minute walk test and his SPO2 dropped to 84% on room air. We arrange for him to get home oxygen for use as needed. He will continue a short burst of prednisone at home. He was cautioned to pay close attention to his diet monitor his blood sugars while on steroids because they did make his blood sugars elevated. He verbalizes understanding. He has follow-up arranged with his primary care provider within 1 to 2 weeks. His labs and examination were reassuring he was discharged in stable condition. Physical Exam Vital Signs: Temp Pulse Resp BP Pulse Ox 97.3 F 79 20 147/58 H 91 L 11/17/19 14:21 11/17/19 14:21 11/17/19 14:21 11/17/19 14:21 11/17/19 14:21 Intake & Output 11/16/19 11/17/19 11/18/19 06:59 06:59 06:59 Intake Total 236 2942 720 Balance 236 2942 720 Weight 139.4 kg 139.2 kg General appearance: PRESENT: no acute distress, cooperative, disheveled, morbidly obese Respiratory exam: PRESENT: decreased breath sounds, prolonged expiratory phas, symmetrical, unlabored. ABSENT: accessory muscle use, chest wall tenderness, crackles, rhonchi, tachypnea, wheezes Cardiovascular exam: PRESENT: RRR, +S1, +S2 Pulses: PRESENT: normal carotid pulses Vascular exam: PRESENT: normal capillary refill GI/Abdominal exam: PRESENT: normal bowel sounds, soft, other - Pendulous abdominal pannus. ABSENT: distended, guarding, rebound, tenderness Extremities exam: PRESENT: pedal edema - Trace. ABSENT: clubbing Musculoskeletal exam: PRESENT: ambulatory, normal inspection. ABSENT: deformity Neurological exam: PRESENT: alert, awake, oriented to person, oriented to place, oriented to situation Psychiatric exam: PRESENT: appropriate affect, normal mood Skin exam: PRESENT: dry, warm Results Laboratory Results: WBC 9.8 10^3/uL (4.0-10.5) 11/17/19 06:02 RBC 5.17 10^6/uL (4.35-5.55) 11/17/19 06:02 Hgb 13.3 g/dL (13.5-17.0) L 11/17/19 06:02 Hct 41.7 % (37.9-51.0) 11/17/19 06:02 MCV 81 fl (80-97) 11/17/19 06:02 MCH 25.7 pg (27.0-33.4) L 11/17/19 06:02 MCHC 31.9 g/dL (32.0-36.0) L 11/17/19 06:02 RDW 19.8 % (11.5-14.0) H 11/17/19 06:02 Plt Count 126 10^3/uL (150-450) L 11/17/19 06:02 Lymph % (Auto) 12.8 % (13-45) L 11/15/19 21:23 Maries % (Auto) 6.9 % (3-13) 11/15/19 21: Eos % (Auto) 1.7 % (0-6) 11/15/19 21: Baso % (Auto) 0.3 % (0-2) 11/15/19 21: Absolute Neuts (auto) 6.9 10^3/uL (1.7-8.2) 11/15/19 21:23 Absolute Lymphs (auto) 1.1 10^3/uL (0.5-4.7) 11/15/19 21:23 Absolute Monos (auto) 0.6 10^3/uL (0.1-1.4) 11/15/19 21: Absolute Eos (auto) 0.2 10^3/uL (0.0-0.6) 11/15/19 21: Absolute Basos (auto) 0.0 10^3/uL (0.0-0.2) 11/15/19 21: Seg Neutrophils % 78.3 % (42-78) H 11/15/19 21:23 VBG pH 7.22 (7.30-7.42) L 11/16/19 07:01 VBG pCO2 73.1 mmHg (35-63) H* 11/16/19 07:01 VBG HCO3 28.9 mmol/L (20-32) 11/16/19 07:01 VBG Base Excess -1.0 mmol/L 11/16/19 07:01 Sodium 137.4 mmol/L (137-145) 11/17/19 06:02 Potassium 4.4 mmol/L (3.6-5.0) 11/17/19 06:02 Chloride 103 mmol/L (98-107) 11/17/19 06:02 Carbon Dioxide 29 mmol/L (22-30) 11/17/19 06:02 Anion Gap 5 (5-19) 11/17/19 06:02 BUN 32 mg/dL (7-20) H 11/17/19 06:02 Creatinine 0.92 mg/dL (0.52-1.25) 11/17/19 06:02 Est GFR ( Amer) > 60 (>60) 11/17/19 06:02 Est GFR (MDRD) Non-Af > 60 (>60) 11/17/19 06:02 Glucose 216 mg/dL (75-110) H 11/17/19 06:02 POC Glucose 251 mg/dL (70-110) H 11/17/19 11:44 Hemoglobin A1c % 7.8 % (4.7-6.0) H 11/17/19 06:02 Calcium 9.1 mg/dL (8.4-10.2) 11/17/19 06:02 Phosphorus 3.3 mg/dL (2.5-4.5) 11/15/19 21:23 Magnesium 2.4 mg/dL (1.6-2.3) H 11/17/19 06:02 Total Bilirubin 0.9 mg/dL (0.2-1.3) 11/15/19 21:23 Direct Bilirubin 0.0 mg/dL (0.0-0.4) 11/15/19 21:23 Neonat Total Bilirubin Not Reportable 11/15/19 21:23 Neonat Direct Bilirubin Not Reportable 11/15/19 21:23 Neonat Indirect Bili Not Reportable 11/15/19 21:23 AST 18 U/L (17-59) 11/15/19 21:23 ALT 16 U/L (<50) 11/15/19 21:23 Alkaline Phosphatase 103 U/L (38-126) 11/15/19 21:23 Creatine Kinase 70 U/L (55-170) 11/15/19 21:23 Troponin I < 0.012 ng/mL 11/15/19 21:23 NT-Pro-B Natriuret Pep 144 pg/mL (<125) H 11/15/19 21:23 Total Protein 5.6 g/dL (6.3-8.2) L 11/15/19 21: Albumin 3.2 g/dL (3.5-5.0) L 11/15/19 21:23 Triglycerides 154 mg/dL (<150) H 11/17/19 06:02 Cholesterol 121.68 mg/dL (0-200) 11/17/19 06:02 LDL Cholesterol Direct 76 mg/dL (<100) 11/17/19 06:02 VLDL Cholesterol 30.8 mg/dL (10-31) 11/17/19 06:02 HDL Cholesterol 31 mg/dL (>40) L 11/17/19 06:02 11/15/19 21:23 Troponin I < 0.012 NT-Pro-B Natriuret Pep 144 H Impressions: Chest X-Ray 11/15/19 21:31 IMPRESSION: Interval resolution of previously described lingular pneumonia. Underlying COPD. copyright 2010 [facility] [facility] [employer]- All Rights Reserved Plan Time Spent: Greater than 30 Minutes Stroke Is this a Stroke Patient?: No Acute Heart Failure - Is this a Heart Failure Patient?: No
[2019-11-22] MEDS ORDERED: (PENDING PHARMACY ID) (Semaglutide [Ozempic] 1 MG) SUBCUT SCH (10:00)
== END 2019-11-17 15:05 | disposition home or self-care (01) | DRG 189 ==
LOC: ER 21:11 → EH 11-16 01:25 → 4N 11-16 04:15
PROVIDERS: ADMIT Emergency Medicine; ATTEND Family Medicine
DX: J96.01 Acute respiratory failure with hypoxia (principal); J44.1 Chronic obstructive pulmonary disease with (acute) exacerbation; J96.02 Acute respiratory failure with hypercapnia; T73 Effects of other deprivation; G47.33 Obstructive sleep apnea (adult) (pediatric); K21.9 Gastro-esophageal reflux disease without esophagitis; E11.8 Type 2 diabetes mellitus with unspecified complications; E78.5 Hyperlipidemia, unspecified; E66.01 Morbid (severe) obesity due to excess calories; X30.XXXA Exposure to excessive natural heat, initial encounter; Z79.4 Long term (current) use of insulin; Z79.01 Long term (current) use of anticoagulants; Z79.51 Long term (current) use of inhaled steroids; Z79.899 Other long term (current) drug therapy; Z86.711 Personal history of pulmonary embolism
CPT/HCPCS: 36415; 71045; 80048; 80053; 80061; 82550; 82803; 82962; 83036; 83735; 83880; 84100; 84484; 85025; 85027; 93005; 93010; 94640; 94660; 96361; 96374; 99285; J1815; J2920; J2930; J3490; J7030

== ENCOUNTER 2020-03-05 22:07 | Emergency (ER) | payer MEDICARE ==
--- NOTE | 2020-03-05 22:30 | ER Document Report ---
ED Medical Screen (RME) - General Chief Complaint: Fever Stated Complaint: FEVER,SHORTNESS OF BREATH Time Seen by Provider: 03/05/20 22:24 Primary Care Provider: CLIFF MANTILLA MD [Primary Care Provider] - Follow up as needed Mode of Arrival: Wheelchair Information source: Patient Notes: HPI; 69-year-old male presents emergency room complaining of worsening shortness of breath that started approximately 1 hour prior to arrival. Patient states he has a history of COPD has used his nebulizer, inhaler, and CPAP without relief. States he had a fever of 101 at home. Did not take any other medications for his symptoms. Is on home oxygen but did not bring it to the emergency room with him. Denies any recent travel. No COVID-19 exposure. PE: Alert and oriented x3. Mild distress noted. Lungs: Diminished in the bases no rales no rhonchi. Heart: Regular rate rhythm without murmurs, rubs, gallops. Patient with a pulse ox of 91 to 92% on 2 L of nasal cannula. I have greeted and performed a rapid initial assessment of this patient. A comprehensive ED assessment and evaluation of the patient, analysis of test results and completion of the medical decision making process will be conducted by additional ED providers. I have specifically instructed the patient or family members with the patient to immediately return to any nursing staff should anything change in the patient's condition or with their chief complaint. TRAVEL OUTSIDE OF THE [place] IN LAST 30 DAYS: No - Related Data Allergies/Adverse Reactions: No Known Allergies Allergy (Verified 03/05/20 22:24) Past Medical History - Past Medical History Cardiac Medical History: Reports: Hx Hypercholesterolemia, Hx Hypertension, Hx Pulmonary Embolism - October 2018 Denies: Hx Coronary Artery Disease, Hx Heart Attack Pulmonary Medical History: Reports: Hx COPD, Hx Sleep Apnea - LAURIE uses CPAP at home Denies: Hx Asthma, Hx Bronchitis, Hx Pneumonia Neurological Medical History: Denies: Hx Cerebrovascular Accident, Hx Seizures Endocrine Medical History: Reports: Hx Diabetes Mellitus Type 2. 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 Denies: Hx Cirrhosis, Hx Hepatitis Musculoskeltal Medical History: Reports Hx Arthritis, Denies Hx Gout Skin Medical History: Denies Hx Eczema, Denies Hx Psoriasis Psychiatric Medical History: Denies: Hx Depression Infectious Medical History: Denies: Hx Hepatitis Past Surgical History: Reports: Hx Cholecystectomy, Hx Neurologic Surgery - right hip nerve stim., Hx Orthopedic Surgery - back stimulator - Immunizations Hx Diphtheria, Pertussis, Tetanus Vaccination: Yes Physical Exam - Vital signs Vitals: Temp Pulse Resp BP Pulse Ox 98.8 F 88 21 H 140/53 H 85 L 03/05/20 22:14 03/05/20 22:14 03/05/20 22:14 03/05/20 22:14 03/05/20 22:14 Course - Vital Signs Vital signs: Temp Pulse Resp BP Pulse Ox 98.8 F 88 21 H 140/53 H 85 L 03/05/20 22:14 03/05/20 22:14 03/05/20 22:14 03/05/20 22:14 03/05/20 22:14 Doctor's Discharge - Discharge Referrals: CLIFF MANTILLA MD [Primary Care Provider] - Follow up as needed
--- NOTE | 2020-03-05 23:15 | RADIOLOGY REPORT (SQ) ---
EXAM DESCRIPTION: XR CHEST 1 VIEW COMPLETED DATE/TME: 03/05/2020 22:55 CLINICAL HISTORY: shortness of breath COMPARISON: 11/15/2019 FINDINGS: Single frontal radiograph view of the chest. Cardiomediastinal silhouette: Normal size and contour. Lungs: Patchy bibasilar airspace opacities. No pneumothorax or large effusion. Bones: Degenerative endplate spondylosis. Dorsal generator leads. Upper abdomen: No abnormality identified. IMPRESSION: 1. Patchy bibasilar airspace opacities concerning for pneumonia. Viral pneumonic process could produce this appearance.
[2020-03-06 01:32] LABS: ABSOLUTE BASOPHILS # (AUTO) 0.1 10^3/uL (0.0-0.2); ABSOLUTE EOSINOPHILS # (AUTO) 0.3 10^3/uL (0.0-0.6); ABSOLUTE LYMPHOCYTES (AUTO) 1.6 10^3/uL (0.5-4.7); ABSOLUTE MONOCYTES (AUTO) 0.6 10^3/uL (0.1-1.4); BASOPHILS % (AUTO) 0.7 % (0-2); EOSINOPHILS % (AUTO) 2.8 % (0-6); HEMATOCRIT 39.7 % (37.9-51.0); HEMOGLOBIN 13.4 g/dL (13.5-17.0); LYMPHOCYTES % (AUTO) 17.1 % (13-45); MEAN CORPUSCULAR HEMOGLOBIN 28.3 pg (27.0-33.4); MEAN CORPUSCULAR HGB CONC 33.8 g/dL (32.0-36.0); MEAN CORPUSCULAR VOLUME 84 fl (80-97); MONOCYTES % (AUTO) 5.9 % (3-13); PLATELET COUNT 153 10^3/uL (150-450); RED BLOOD COUNT 4.75 10^6/uL (4.35-5.55); RED CELL DISTRIBUTION WIDTH 19.9 % (11.5-14.0); SEGMENTED NEUTROPHILS % (AUTO) 73.5 % (42-78); TOTAL CELLS COUNTED % (AUTO) 100 %; WHITE BLOOD COUNT 9.6 10^3/uL (4.0-10.5)
[2020-03-06 01:51] LABS: ALBUMIN 3.4 g/dL (3.5-5.0); ALKALINE PHOSPHATASE 118 U/L (38-126); ANION GAP 7 (5-19); ASPARTATE AMINO TRANSFERASE 11 U/L (17-59); BILIRUBIN,DIRECT 0.1 mg/dL (0.0-0.4); BILIRUBIN,TOTAL 0.9 mg/dL (0.2-1.3); BLOOD UREA NITROGEN 15 mg/dL (7-20); CALCIUM 8.8 mg/dL (8.4-10.2); CARBON DIOXIDE 31 mmol/L (22-30); CHLORIDE 102 mmol/L (98-107); GLUCOSE 219 mg/dL (75-110); POTASSIUM 4.4 mmol/L (3.6-5.0); TOTAL PROTEIN 5.5 g/dL (6.3-8.2)
[2020-03-06] MEDS ORDERED: CEFTRIAXONE 1 GM/D5W RTU 1 GM/50 ML RTUPB IV ONE (02:29)
[2020-03-06] MEDS ORDERED: DEXAMETHASONE SOD PHOS INJ 10 MG/1 ML VIAL IV ONE (02:29)
--- NOTE | 2020-03-06 02:33 | ER Document Report ---
ED General - General Chief Complaint: Shortness Of Breath Stated Complaint: FEVER,SHORTNESS OF BREATH Time Seen by Provider: 03/05/20 22:24 Mode of Arrival: Wheelchair Notes: Patient is a 69-year-old male who comes emergency department for chief complaint of shortness of breath, pain in his chest especially with breathing, and a fever of 101 F. Symptoms started today. He denies any known sick exposures. He denies any other symptoms including loss of sense of taste or smell, nausea or vomiting, headache, sore throat. Past medical history COPD, he has a home nebulizer, inhaler, and CPAP. He also has oxygen at home to wear as needed. He states he noticed his oxygen was down to the 70s when he first checked it, he placed his oxygen on but still felt bad so he came in. He lives alone. TRAVEL OUTSIDE OF THE [place] IN LAST 30 DAYS: No - Related Data Allergies/Adverse Reactions: No Known Allergies Allergy (Verified 03/05/20 22:24) Past Medical History - General Information source: Patient - Social History Smoking Status: Former Smoker Frequency of alcohol use: None Drug Abuse: None Lives with: Alone Family History: COPD, DM, Hypertension - Past Medical History Cardiac Medical History: Reports: Hx Hypercholesterolemia, Hx Hypertension, Hx Pulmonary Embolism - October 2018 Denies: Hx Coronary Artery Disease, Hx Heart Attack Pulmonary Medical History: Reports: Hx COPD, Hx Sleep Apnea - LAURIE uses CPAP at home Denies: Hx Asthma, Hx Bronchitis, Hx Pneumonia Neurological Medical History: Denies: Hx Cerebrovascular Accident, Hx Seizures Endocrine Medical History: Reports: Hx Diabetes Mellitus Type 2. 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 Denies: Hx Cirrhosis, Hx Hepatitis Musculoskeletal Medical History: Reports Hx Arthritis, Denies Hx Gout Skin Medical History: Denies Hx Eczema, Denies Hx Psoriasis Psychiatric Medical History: Denies: Hx Depression Infectious Medical History: Denies: Hx Hepatitis Past Surgical History: Reports: Hx Cholecystectomy, Hx Neurologic Surgery - right hip nerve stim., Hx Orthopedic Surgery - back stimulator - Immunizations Hx Diphtheria, Pertussis, Tetanus Vaccination: Yes Hx Pneumococcal Vaccination: 12/25/17 Review of Systems - Review of Systems Constitutional: See HPI EENT: No symptoms reported Cardiovascular: See HPI Respiratory: See HPI Gastrointestinal: No symptoms reported Genitourinary: No symptoms reported Male Genitourinary: No symptoms reported Musculoskeletal: No symptoms reported Skin: No symptoms reported Hematologic/Lymphatic: No symptoms reported Neurological/Psychological: No symptoms reported Physical Exam - Vital signs Vitals: Temp Pulse Resp BP Pulse Ox 98.8 F 88 21 H 140/53 H 85 L 03/05/20 22:14 03/05/20 22:14 03/05/20 22:14 03/05/20 22:14 03/05/20 22:14 - Notes Notes: GENERAL: Alert and interactive, somewhat chronically ill-appearing, obese HEAD: Normocephalic, atraumatic. EYES: Pupils equal, round, and reactive to light. Extraocular movements intact. ENT: Oral mucosa moist, tongue midline. Oropharynx unremarkable. Airway patent. NECK: Full range of motion. Supple. Trachea midline. No lymphadenopathy. LUNGS: Decreased breath sounds with scattered coarse breath sounds but no overt rales, wheezes, rhonchi. No respiratory distress. HEART: Regular rate and rhythm. No murmur ABDOMEN: Soft, non-tender. Non-distended. EXTREMITIES: Moves all 4 extremities spontaneously. No edema, normal radial and dorsalis pedis pulses bilaterally. No cyanosis. BACK: no cervical, thoracic, lumbar midline tenderness. No saddle anesthesia, normal distal neurovascular exam. Moves all extremities in full range of motion. NEUROLOGICAL: Alert and oriented x3. Normal speech. Cranial nerves II through XII grossly intact. Strength 5/5 in all extremities. PSYCH: Normal affect, normal mood. SKIN: Warm, dry, normal turgor. No rashes or lesions noted. Course - Re-evaluation Re-evalutation: Patient is slightly ill-appearing on exam but he is alert, conversational, speaks in full sentences. Decreased breath sounds bilaterally and a few scattered coarse breath sounds but no overt rhonchi, wheezes, rales. Patient was hypoxic on arrival but he was not wearing oxygen and has as needed oxygen at home. He has borderline hypoxia in the low 90s on my evaluation without oxygen. He is not febrile, tachycardic, or hypotensive. Work-up pending. Chest x-ray showing patchy bilateral pneumonia, I am concerned that patient may have COVID-19. He was tested for this after discussion. CBC, chemistry, troponin unremarkable. EKG nonspecific. I discussed with patient. Based on his age, living alone, initial hypoxia, COPD history, and bilateral pneumonia I discussed admission. However patient states he would much prefer to go home with return precautions. He states he will have his son with him. Patient was started on antibiotics, given dexamethasone, and we ambulated patient with pulse oxygenation. Patient actually did quite well, did not appear to have respiratory distress, was not significantly tachycardic, and was only borderline hypoxic with the lowest of 89 but more consistently in the lower 90s. Patient states that he will return if he worsens in any way. Patient discharged with return precautions. - Vital Signs Vital signs: Temp Pulse Resp BP Pulse Ox 98.5 F 72 18 119/67 93 03/06/20 06:32 03/06/20 06:32 03/06/20 06:32 03/06/20 06:32 03/06/20 06:32 - Laboratory Result Diagrams: 03/06/20 01:18 03/06/20 01:18 Laboratory results interpreted by me: 03/06/20 03/06/20 03/06/20 01:18 01:18 01:18 Hgb 13.4 L RDW 19.9 H Carbon Dioxide 31 H Glucose 219 H AST 11 L NT-Pro-B Natriuret Pep 141 H Total Protein 5.5 L Albumin 3.4 L - EKG Interpretation by Me Additional EKG results interpreted by me: EKG shows sinus rhythm at a rate of 74, left axis deviation, first-degree AV bl ock with PA interval 280, QTC of 435. No T wave inversions or ST segment changes in consecutive leads. Discharge - Discharge Clinical Impression: Shortness of breath, Cough, Person under investigation for COVID-19 Pneumonia Qualifiers: Pneumonia type: due to unspecified organism Laterality: bilateral Lung location: unspecified part of lung Qualified Code(s): J18.9 - Pneumonia, unspecified organism Condition: Stable Disposition: HOME, SELF-CARE Instructions: COVID-19 Guidance for Persons Under Investigation Additional Instructions: Your work-up indicates probable pneumonia. You have been tested for COVID-19, please quarantine while you are awaiting these results. Take the antibiotics as prescribed to completion, continue your regular treatments. Consider taking [id number] supplements such as vitamin C and zinc as well. Return if you worsen in any way including difficulty breathing, spiking fevers, chest pain, passing out, or any other concerning or worsening symptoms. Prescriptions: Doxycycline Hyclate [Vibramycin 100 mg Tablet] 100 mg PO BID 7 Days #14 tablet
[2020-03-06] MEDS ORDERED: DEXAMETHASONE SOD PHOSPHATE INJ 4 MG/1 ML VIAL ONE (02:43)
[2020-03-06 03:33] LABS: VENOUS BLOOD BASE EXCESS 4.7 mmol/L; VENOUS BLOOD HCO3 31.4 mmol/L (20-32); VENOUS BLOOD PCO2 56.9 mmHg (35-63); VENOUS BLOOD PH 7.36 (7.30-7.42)
[2020-03-06] MEDS ORDERED: DOXYCYCLINE HYCLATE 100 MG TABLET PO ONE (04:41)
[2020-03-06] MEDS ORDERED: DEXAMETHASONE SOD PHOSPHATE INJ 4 MG/1 ML VIAL IV ONE (04:41)
[2020-03-06 06:34] VITALS: BP 119/67
--- NOTE | 2020-03-06 17:49 | EKG REPORT ---
SEVERITY:- ABNORMAL ECG - SINUS RHYTHM FIRST DEGREE AV BLOCK INCOMPLETE RBBB AND LAFB CONSIDER RIGHT VENTRICULAR HYPERTROPHY : Confirmed by: Indy Root 06-Mar-2020 17:48:05
--- OUTSIDE RECORDS SUMMARY | 2020-03-07 17:48 | XMS REPORT ---
:1950 Author Organization [facility] Address [facility] [address] [place] [address] Care Team Providers Name Role Phone Tim Aguila Primary Care Physician Unavailable Anjana MCCORMICK MD Attending Clinician Unavailable Prasanth Phillips MD Attending Clinician Unavailable Patrizia GEIGER Attending Clinician Unavailable DO Aguila FACP J Attending Clinician Unavailable DO Aguila FACP J Attending Clinician Unavailable DO Prasanth Montes De Oca Attending Clinician Unavailable DO Prasanth Montes De Oca Admitting Clinician Unavailable Allergies, Adverse Reactions, Alerts This patient has no known allergies or adverse reactions. Medications Ordered Filled Start Stop Current Ordering Indication Dosage Frequency Signature Comments Components Medication Medication Date Date Medication? Clinician (SIG) Name Name Husam 0 Yes Chery Healye 14 9-03 Patrizia GEIGER Miguel 14 Day Sensor 00:00: Day Sensor 00 USE 1 NEW SENSOR EVERY 14 DAYS. DX:[id number] Quantity: 9 Refills: 3 Chery Acharya MD Start : 28-Dec-2019 Active Tudorza 2019-0 No Octavio Tudorza Pressair 8 Restelli Pressair 400 MCG/ACT 00:00: D.O. 400 Inhalation 00 MCG/ACT Aerosol Inhalation Powder Aerosol Breath Powder Activated Breath Activated INHALE 1 PUFFS Every twelve hours RINSE MOUTH AFTER USE Quantity: 1 Refills: 3 Restelli D.O.Octavio Start : 0Active Tudorza 2020-0 Yes Octavio Tudorza Pressair 8-28 Restelli Pressair 400 MCG/ACT 00:00: D.O. 400 Inhalation 00 MCG/ACT Aerosol Inhalation Powder Aerosol Breath Powder Activated Breath Activated INHALE 1 PUFFS Every twelve hours RINSE MOUTH AFTER USE Quantity: 1 Refills: 3 Restelli D.O., Octavio Start : 0Active predniSONE 2020-0 Yes Octavio QD predniSONE 20 MG Oral 8- Restelli 20 MG Oral Tablet 00:00: D.O. Tablet 00 TAKE 1 TABLET DAILY DIRECTED. Quantity: 5 Refills: 0 Restelli D.O., Octavio Start : 0Active Doxycycline 2020-0 No Octavio Doxycyclin Hyclate 100 8-25 Restelli e Hyclate MG Oral 00:00: D.O. 100 MG Capsule 00 Oral Capsule TAKE 1 CAPSULE TWICE DAILY WITH PROBIOTIC Quantity: 16 Refills: 0 Restelli D.O., Octavio Start : 0Active Doxycycline 2020-0 Yes Octavio Doxycyclin Hyclate 100 8-25 Restelli e Hyclate MG Oral 00:00: D.O. 100 MG Capsule 00 Oral Capsule TAKE 1 CAPSULE TWICE DAILY WITH PROBIOTIC Quantity: 16 Refills: 0 Restelli D.O., Octavio Start : 0Active Azithromyci 2019-0 No Rigoberto Rader Azithromy c n 250 MG 7-29 Towarnicky in 250 MG Oral Tablet 00:00: MD Oral 00 Tablet AZITHROMYC IN 250mg daily as directed for 10 days Quantity: 10 Refills: 0 Rigoberto Phillips MD Start : 0Active Azithromyci 2019-0 No Rigoberto Rader Azithromy c n 250 MG 7-29 Towarnicky in 250 MG Oral Tablet 00:00: MD Oral 00 Tablet AZITHROMYC IN 250mg daily as directed for 10 days Quantity: 10 Refills: 0 Rigoberto Phillips MD Start : 0Active Azithromyci 2019-0 No Rigoberto Rader Azithromy c n 250 MG 7-29 Towarnicky in 250 MG Oral Tablet 00:00: MD Oral 00 Tablet AZITHROMYC IN 250mg daily as directed for 10 days Quantity: 10 Refills: 0 Rigoberto Phillips MD Start : 0Active Azithromyci 2020-0 Yes Rigoberto Rader Azithromy c n 250 MG 7-29 Towarnicky in 250 MG Oral Tablet 00:00: Oral 00 Tablet AZITHROMYC IN 250mg daily as directed for 10 days Quantity: 10 Refills: 0 Rigoberto Phillips MD Start : 0Active Vitamin D3 2020-0 Yes Rigoberto Rader 1 Q0.5D Vitamin D3 250 MCG 5- Alan 250 MCG (95643 UT) 00:00: (06524 UT) Oral 00 Oral Capsule Capsule TAKE 1 (86510 UT) Twice daily Quantity: 180 Refills: 3 Rigoberto Phillips MD Start : 25-Aug-2019 Active Omeprazole 2020-0 Yes Garth Omeprazole 40 MG Oral 2-19 Garramone 40 MG Oral Capsule 00:00: D.O. Capsule Delayed 00 Delayed Release Release take 1 tablet 1/2 hour prior to breakfast Quantity: 30 Refills: 8 Garramone D.O., Garth Start : 0Active Shingrix 50 2020-0 Yes Octavio Shingrix MCG/0.5ML - Restelli 50 Intramuscul 00:00: D.O. MCG/0.5ML ar 00 Intramuscu Suspension lar Reconstitut Suspension ed Reconstitu jeff INJECT THIS MONTH THEN AGAIN IN 4 MONTHS. Quantity: 1 Refills: 1 Restelli D.O., Octavio Start : 0Active Omeprazole 2020-0 Yes Nicki QD Omeprazole 40 MG Oral 1-21 Cole 40 MG Oral Capsule 00:00: N.P. Capsule Delayed 00 Delayed Release Release TAKE 1 CAPSULE Daily 30 minutes prior to breakfast Quantity: 30 Refills: 6 Cole N.P., Nicki Start : 0Active ProAir HFA 2018-04 No Octavio ProAir HFA 108 (90 2-11 Restelli 108 (90 Base) 00:00: D.O. Base) MCG/ACT 00 MCG/ACT Inhalation Inhalation Aerosol Aerosol Solution Solution 2 puffs every 4-6 hours as needed Quantity: 1 Refills: 3 Restelli D.O., Octavio Start : 9Active 8.5 GM Inhaler Albuterol 2018-04 Yes Octavio Albuterol Sulfate HFA 2-11 Restelli Sulfate 108 (90 00:00: D.O. HFA 108 Base) 00 (90 Base) MCG/ACT MCG/ACT Inhalation Inhalation Aerosol Aerosol Solution Solution 2 puffs every 4-6 hours as needed Quantity: 1 Refills: 3 Restelli D.O., Octavio Start : 9Active 8.5 GM Inhaler Ozempic 2018- Yes Chery Ozempic (0.25 or 0-29 Patrizia GEIGER (0.25 or 0.5 00:00: 0.5 MG/DOSE) 2 00 MG/DOSE) 2 MG/1.5ML MG/1.5ML Subcutaneou Subcutaneo s Solution us Pen-injecto Solution r Pen-inject or INJECT 0.5 MG SUBCUTANEO USLY ONCE WEEKLY Quantity: 2 Refills: 3 Chery Acharya MD Start : 9Active 1.5 ML Pen HumuLIN R 2019 Yes Chery HumuLIN R U-500 09-14 Patrizia GEIGER U-500 KwikPen 500 00:00: KwikPen UNIT/ML 00 500 Subcutaneou UNIT/ML s Solution Subcutaneo Pen-injecto us r Solution Pen-inject or INJECT 90 UNITS AROUND 9 AM DAILY AND 40 UNITS AROUND 8 PM DAILY. TRY TO TAKE CLOSE TO 12 HOURS APART POSSIBLE. Quantity: 4 Refills: 1 Chery Acharya MD Start : 9Active 2 x 3 ML Pen Eliquis 2.5 2018- Yes Octavio Eliquis MG Oral - Restelli 2.5 MG Tablet 00:00: D.O. Oral 00 Tablet TAKE 1 TABLET TWICE DAILY. START NEW DOSE IN 05/2019. Quantity: 180 Refills: 3 Restelli D.O., Octavio Start : 9Active CPAP 2017-04 Yes Octavio CPAP NEW 1-05 Restelli CPAP 13 CM 00:00: D.O. WITH 00 HEATED HUMIDIFICA TION. DOWNLOAD IN 1 MONTH. Quantity: 1 Refills: 0 Restelli D.O., Octavio Start : 28-Feb-2018 Active Finasteride 2017- No Ata Finasterid 5 MG Oral 0-23 Dassel e 5 MG Tablet 00:00: III Oral 00 Tablet ONE PO DAILY Quantity: 90 Refills: 3 Ata Yeung III, MD Start : 8Active Finasteride 2017-04 Yes Ata Finasterid 5 MG Oral 0-23 Dassel e 5 MG Tablet 00:00: III Oral 00 Tablet ONE PO DAILY Quantity: 90 Refills: 3 Ata Yeung III, MD Start : 8Active FreeStyle Yes Chery FreeStyle Lancets 12-24 Patrizia GEIGER Lancets 00:00: USE 00 DIRECTED THREE TIMES DAILY. Quantity: 3 Refills: 3 Chery Acharya MD Start : 8Active 100 Unit Box FreeStyle Yes Chery Q0.3333D FreeStyle Lite Test 12-24 Patrizia GEIGER Lite Test In Vitro 00:00: In Vitro Strip 00 Strip TEST 3 TIMES DAILY. Quantity: 3 Refills: 3 Chery Acharya MD Start : 8Active 100 Strip Box FreeStyle Yes Chery FreeStyle [place] 12-24 Patrizia GEIGER [place] Lite 00:00: Lite w/Device 00 w/Device Kit Kit USE DIRECTED. Quantity: 1 Refills: 0 Chery Acharya MD Start : 8Active Metoprolol Yes Iván Metoprolol Succinate 11-15 Andrews Succinate ER 25 MG 00:00: ER 25 MG Oral Tablet 00 Oral Extended Tablet Release 24 Extended Hour Release 24 Hour TAKE 1/2 TABLET BY MOUTH EVERY DAY Quantity: 45 Refills: 3 Iván Andrews Start : 8Active Ibuprofen 2016-04 Yes 0 1 QD Ibuprofen 800 MG Oral 1-24 800 MG Tablet 00:00: Oral 00 Tablet TAKE 1 TABLET PRN Refills: 0 ,,, Start : 7Active Isosorbide 2016-04 Yes Iván 1 QD Isosorbide Mononitrate 1-24 Andrews Mononitrat ER 30 MG 00:00: e ER 30 MG Oral Tablet 00 Oral Extended Tablet Release 24 Extended Hour Release 24 Hour TAKE 1 TABLET DAILY Quantity: 90 Refills: 2 Iván Andrews Start : 7Active BD Swab 2016-04 Yes 0 BD Swab Single Use 0-11 Single Use Regular 00:00: Regular PADS 00 PADS Quantity: 200 Refills: 0 ,,, Start : 7Active NovoFine Yes 0 NovoFine 30G X 8 MM 5-18 30G X 8 MM MISC 00:00: MISC 00 Quantity: 300 Refills: 0 ,,, Start : 7Active Ezetimibe Yes Rigoberto Rader QD Ezetimibe 10 MG Oral 4-18 Towarnicky 10 MG Oral Tablet 00:00: Tablet 00 TAKE 1 TABLET DAILY. Quantity: 90 Refills: 3 Rigoberto Phillips MD Start : 7Active Atorvastati Yes Rigoberto Laureano t n Calcium -18 Alan in Calcium 20 MG Oral 00:00: 20 MG Oral Tablet 00 Tablet Take 1 tablet by mouth daily Quantity: 90 Refills: 3 Rigoberto Phillips MD Start : 7Active Jardiance Yes Rigoberto Rader 1 QD Jardiance 25 MG Oral 08-11 Alan 25 MG Oral Tablet 00:00: Tablet 00 TAKE 1 TABLET DAILY Quantity: 90 Refills: 3 Rigoberto Phillips MD Start : 7Active BD Pen 2015-04 Yes Rigoberto Rader BD Pen Needle Qi - Alan Needle U/F 32G X 4 00:00: Qi U/F MM 00 32G X 4 MM USES QID; 90 day supply # 360 Quantity: 1 Refills: 11 Rigoberto Phillips MD Start : 6Active 100 Unit Box Losartan 2015-04 Yes Iván 1 QD Losartan Potassium 04-27 Andrews Potassium 25 MG Oral 00:00: 25 MG Oral Tablet 00 Tablet TAKE 1 TABLET DAILY Quantity: 90 Refills: 3 Iván Andrews Start : 26-Feb-2016 Active Vitamin D 2015-04 Yes Rigoberto Rader Q0.5D Vitamin D 1000 UNIT - Alan 1000 UNIT TABS 00:00: TABS TAKE 00 1 TABLET TWICE DAILY. Quantity: 180 Refills: 3 Rigoberto Phillips MD Start : 26-Feb-2016 Active Myrbetriq No Ata 1 QD Myrbetriq 50 MG Oral 11-05 Dassel 50 MG Oral Tablet 00:00: III Tablet Extended 00 Extended Release 24 Release 24 Hour Hour TAKE 1 TABLET DAILY Quantity: 90 Refills: 3 Ata Yeung III, MD Start : 6Active Myrbetriq Yes Ata 1 QD Myrbetriq 50 MG Oral - Dassel 50 MG Oral Tablet 00:00: III Tablet Extended 00 Extended Release 24 Release 24 Hour Hour TAKE 1 TABLET DAILY Quantity: 90 Refills: 3 Ata Yeung III, MD Start : 6Active Tamsulosin No Ata 1 Q0.5D Tamsulosin HCl - 0.4 1-27 Dassel HCl - 0.4 MG Oral 00:00: III MD MG Oral Capsule 00 Capsule TAKE 1 CAPSULE TWICE DAILY Quantity: 180 Refills: 3 Ata Yeung III, MD Start : 6Active Tamsulosin Yes Ata 1 Q0.5D Tamsulosin HCl - 0.4 1-27 Dassel HCl - 0.4 MG Oral 00:00: III MD MG Oral Capsule 00 Capsule TAKE 1 CAPSULE TWICE DAILY Quantity: 180 Refills: 3 Ata Yeung III, MD Start : 6Active Fluticasone No Octavio 1 Q0.5D Fluticason -Salmeterol 9-12 Restelli e-Salmeter 250-50 00:00: D.O. ol 250-50 MCG/DOSE 00 MCG/DOSE Inhalation Inhalation Aerosol Aerosol Powder Powder Breath Breath Activated Activated INHALE 1 PUFFS TWICE DAILY Quantity: 1 Refills: 3 Restelli D.O., Octavio Start : 1Active 60 Each Pack Fluticasone Yes Octavio Q0.5D Fluticason -Salmeterol 9-12 Restelli e-Salmeter 250-50 00:00: D.O. ol 250-50 MCG/DOSE 00 MCG/DOSE Inhalation Inhalation Aerosol Aerosol Powder Powder Breath Breath Activated Activated INHALE 1 PUFFS TWICE DAILY Quantity: 1 Refills: 3 Restelli D.O., Octavio Start : 1Active 60 Each Pack Fish Oil No 2 QD Fish Oil 1200 MG 7-19 1200 MG Oral 00:00: Oral Capsule 00 Capsule TAKE 2 CAPSULE DAILY Refills: 0 Start : 1Active Mirapex 0.5 Yes 0 Mirapex MG Oral 7-19 0.5 MG Tablet 00:00: Oral 00 Tablet TAKE 1 TABLET in the Morning, 2 tablets at Night Refills: 0 ,,, Start : 1Active Fish Oil Yes 0 2 QD Fish Oil 1200 MG 7-19 1200 MG Oral 00:00: Oral Capsule 00 Capsule TAKE 2 CAPSULE DAILY Refills: 0 ,,, Start : 1Active Multiple Yes 0 1 QD Multiple Vitamins Vitamins Oral Tablet Oral Tablet TAKE 1 TABLET DAILY. Refills: 0 ,,, Active Lasix 40 MG Yes 0 Lasix 40 Oral Tablet MG Oral Tablet 1 tab po bid Quantity: 180 Refills: 3 ,,, Active Lyrica 75 Yes Rigoberto Rader Lyrica 75 MG Oral Towarnicky MG Oral Capsule Capsule Take 2 capsules in the morning, 4 capsules in the evening Refills: 0 Rigoberto Phillips MD Active Problems Condition Condition Condition Status Onset Resolution Last Treatin g Comments Name Details Category Date Date Treatment Clinician Date Encounter Encounter Problem Active for for 8-24 prostate prostate 00:00: cancer cancer 00 screening screening Encysted Encysted Problem Active hydrocele hydrocele 11-01 00:00: 00 Encysted Encysted Problem Inactiv hydrocele hydrocele e 11-01 00:00: 00 Spermatocel Spermatocel Problem Active e e 11-01 00:00: 00 Suspected Suspected Problem Active COVID-19 COVID-19 virus virus infection infection Lingular Lingular Problem Active pneumonia pneumonia Upper Upper Problem Inactiv respiratory respiratory e tract tract infection infection due to due to severe severe acute acute respiratory respiratory syndrome syndrome coronavirus coronavirus 2 2 (SARS-CoV-2 (SARS-CoV-2 ) ) Abnormal CT Abnormal CT Problem Active scan of scan of lung lung Mild Mild Problem Active vitamin D vitamin D deficiency deficiency Cigarette Cigarette Problem Active nicotine nicotine dependence dependence in in remission remission Upper Upper Problem Active respiratory respiratory tract tract infection infection due to due to severe severe acute acute respiratory respiratory syndrome syndrome coronavirus coronavirus 2 2 (SARS-CoV-2 (SARS-CoV-2 ) ) History of History of Problem Resolve pneumonia pneumonia d Abnormal Abnormal Problem Active cardiac cardiac function function test test 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 /lower /lower urinary urinary tract tract symptoms symptoms Glycosuria Glycosuria Problem Active High risk High risk Problem Active medication medication use use History of History of Problem Active nicotine nicotine dependence dependence Mixed Mixed Problem Active hyperlipide hyperlipide genaro gnearo Restless Restless Problem Active legs legs syndrome syndrome Urinary Urinary Problem Active incontinenc incontinenc e e Enlarged Enlarged Problem Active prostate prostate with lower with lower urinary urinary tract tract symptoms symptoms (LUTS) (LUTS) 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 Obesity Obesity Problem Active Oropharynge Oropharynge Problem Active al al dysphagia dysphagia Dyspnea on Dyspnea on Problem Active effort effort Cigarette Cigarette Problem Inactiv nicotine nicotine e dependence dependence in in remission remission Esophageal Esophageal Problem Active dysfunction dysfunction Chronic Chronic Problem Active GERD GERD Current use Current use Problem Active of insulin of insulin Pneumonia Pneumonia Problem Active Pulmonary Pulmonary Problem Active nodule nodule Shortness Shortness Problem Active of breath of breath Chronic Chronic Problem Active back pain back pain Cardiomyopa Cardiomyopa Problem Active thy, thy, dilated dilated Chronic Chronic Problem Active obstructive obstructive pulmonary pulmonary disease disease Dehydration Dehydration Problem Active Chronic Chronic Problem Active lung lung disease disease Anemia in Anemia in Problem Active stage 1 stage 1 chronic chronic kidney kidney disease disease Fatty liver Fatty liver Problem Active Pulmonary Pulmonary Problem Active embolism embolism LAURIE on CPAP LAURIE on CPAP Problem Active CAD in CAD in Problem Active [place] artery artery Bilateral Bilateral Problem Active edema of edema of lower lower extremity extremity Dyslipidemi Dyslipidemi Problem Active a a Hypertensio Hypertensio Problem Active n n Diabetes 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 Procedures Procedure Date / Time Performed Performing Clinician Devinuzhat e PSA 2020-02-26 00:00:00 Urinalysis 2020-02-23 00:00:00 Vitamin D Total 2019-12-22 00:00:00 XR-Chest(Pa&Lat) 2019-12-22 00:00:00 L - CoVID-19 2019-12-19 00:00:00 L - CoVID-19 2019-11-22 00:00:00 L - SARS-CoV-2 Antibody,IgA 2019-11-22 00:00:00 Blood Sugar 2019-11-09 00:00:00 HGBA1C 2019-11-09 00:00:00 EKG 2019-10-11 00:00:00 History of Eye Surgery History of Complete Colonoscopy History of Cholecystectomy History of Surgery [place] Vaginalis Excision Of Hydrocele Right History of Surgery Vas Deferens Vasectomy History of Tonsillectomy History of Dilation Esophageal Bougienage Velásquez Results Test Description Test Time Test Comments Text Results Atomic Results Result Comments PVR 2020-02-26 17:02:00 Test Item Value Reference Range Comments PVR (test code = PVR) 0 [id number] 09:26:00 Test Item Value Reference Range Comments PSA, total (test code = 0.157 ng/mL 0.000-4.000 PSA perf ormed on Vitros 5600 by PSA, total) Immunometric met hod. [id number] 08:30:00 Test Item Value Reference Range Comments Urine Color (test code = Urine Color) Dark Yellow Yellow Urine Clarity (test code = Urine Clarity) CLEAR Clear Urine Glucose (test code = Urine Glucose) 100 mg/dL Negati ve Urine Ketones (test code = Urine Ketones) NEGATIVE Negati ve Urine Bilirubin (test code = Urine SMALL Negative Bilirubin) Urine Specific [place] (test code = Urine 1.026 1.010- 1.030 Refractometer Specific [place]) Urine Blood (test code = Urine Blood) NEGATIVE Negative Urine pH (test code = Urine pH) 5.5 5.0-8.0 Urine Protein (test code = Urine Protein) NEGATIVE Negati ve Urine Urobilinogen (test code = Urine 0.2 Eu/dl 0.2 Urobilinogen) Urine Nitrites (test code = Urine Nitrites) NEGATIVE Nega tive Urine Leukocytes (test code = Urine NEGATIVE Negative Leukocytes) L - [id number] 14:27:00 Test Item Value Reference Range Comments SARS-CoV-2, TERRANCE Not Detected Not Detected This test was de veloped and its (test code = performance jamila acteristicsdetermined 99754-0) by [employer]. This test has not beenFDA titus red or approved. This test has been au thorized byA under an Emergency Use Authorization (EUA). This testis only authorized for the duration of time the declarationthat circumstances ex ist justifying the authorization of the emergency use of in vitro diagnos tic tests fordetection of SARS-CoV-2 vi richard and/or diagnosis of COVID-19infec tion under section 564(b)(1) of the Act, 21 U.S.C.360bbb-3(b )(1), unless the authorization is terminated orrevoked sooner. When hayder gnostic testing is negative, thepos sibility of a false negative result should be consideredin the context of a patient's recent exposures and th epresence of clinical signs and sympto ms consistent withCOVID-19. An individual without symptoms of COVI D-19 andwho is not shedding SARS-Co V-2 virus would expect to have anegativ e (not detected) result in this a ssay. [facility] performed at: [BN] [facility], [address] [place], [address], , Bus Info Consultant: Wesly Bryant MDCT - Chest without [id number] 11:04:00An image is avaliable in iSite, click link to view imageL - [id number] 10:25:00 Test Item Value Reference Range Comments SARS-CoV-2, TERRANCE Not Detected Not Detected This test was de veloped and its (test code = performance jamila acteristicsdetermined 10603-8) by [employer]. This test has not beenFDA titus red or approved. This test has been [facility] under an Emergency Use Authorization (EUA). This testis only authorized for the duration of time the declarationthat circumstances ex ist justifying the authorization of the emergency use of in vitro diagnos tic tests fordetection of SARS-CoV-2 vi richard and/or diagnosis of COVID-19infec tion under section 564(b)(1) of the Act, 21 U.S.C.360bbb-3(b )(1), unless the authorization is terminated orrevoked sooner. When hayder gnostic testing is negative, thepos sibility of a false negative result should be consideredin the context of a patient's recent exposures and th epresence of clinical signs and sympto ms consistent withCOVID-19. An individual without symptoms of COVI D-19 andwho is not shedding SARS-Co V-2 virus would expect to have anegativ e (not detected) result in this a ssay. [facility] performed at: [BN] [facility], [address] [place], [address], , Bus Info Consultant: Wesly Bryant MDL - SARS-CoV-2 Antibody, [id number] 10:25:00 Test Item Value Reference Range Comments SARS-CoV-2 Antibody, IgG Negative Negative This sa mple does not contain (test code = SARS-CoV-2 detectab le SARS-CoV-2 Antibody, IgG) IgGantibodies. T his negative result does not rule out SARS-CoV-2 infec tion. Correlation with epidemiolog ic risk factorsand other clinical a nd laboratory findings is coni mmended.Serologic results should n ot be used as the sole basis todia gnose or exclude recent SARS-CoV- 2 infection.This assay was perfor med using the Negron SARS-CoV- 2 IgGassay. [facility] performed at: [BN] [facility], [address] [place] [address], [phone], , Bus Info Consultant: Wesly Bryant MDTest(s) [id number] Antibody, IgGhas not been FDA cleared or approved. This test hasbeen authorized by FDA under an Emergency UseAuthorization (EUA). This test is only authorized for theduration of the declaration that circumstances existjustifying the authorization of emergency use of in vitrodiagnostics for detection and/or diagnosis of COVID-19under Section 564(b)(1) of the Act, 21 U.S.C. 360bbb-3(b)(1), unless the authorization is terminated orrevoked sooner. This test has been authorized only fordetecting the presence of antibodies against SARS-CoV-2,not for any other viruses or pathogens.L - SARS-CoV-2 Antibody, [id number] 10:25:00 Test Item Value Reference Range Comments SARS-CoV-2 Antibody, IgM Negative Negative This mple does not contain (test code = SARS-CoV-2 detectab le SARS-CoV-2 Antibody, IgM) IgMantibodies. T his negative result does not rule out SARS-CoV-2 infec tion. Correlation with epidemiolog ic risk factorsand other clinical a nd laboratory findings is coni mmended.Serologic results should n ot be used as the sole basis todia gnose or exclude recent SARS-CoV- 2 infection. [facility] performed at: [BN] [facility], [address] [place] [address], [phone], , Bus Info Consultant: Wesly Bryant MDTest(s) [id number] Antibody, IgMhas not been reviewed by the Food and Drug Administration.L - SARS-CoV-2 Antibody,IgA 2019-11-22 10:25:00 Test Item Value Reference Range Comments SARS-CoV-2 Antibody,IgA Negative Negative This [facility] ple does not contain (test code = SARS-CoV-2 detectab le SARS-CoV-2 Antibody,IgA) IgAantibodies. T his negative result does not rule out SARS-CoV-2 infec tion. Correlation with epidemiolog ic risk factorsand other clinical a nd laboratory findings is coni mmended.Serologic results should n ot be used as the sole basis todia gnose or exclude recent SARS-CoV- 2 infection. [email or web address] performed at: [] [address], [address], , Bus Info Consultant: Wesly Bryant MDTest(s) [id number] Antibody, IgAhas not been reviewed by the Food and Drug Administration.Hemoglobin [id number] 11:53:00 Test Item Value Reference Range Comments Hemoglobin A1C; Above High Threshold (test code = 7.1 % 4.3-6.2 4548-4) HgB A1C performed by nurse on DCA [id number] analyzer by JONATHON MALDONADO. ANJU Blood [id number] 11:53:00 Test Item Value Reference Range Comments Blood Sugar (test code = Blood Sugar) 90 mg/dL 70-110 Blood sugar performed at nurse's station by JONATHON MALDONADO. ASHL - SARS-CoV-2 Antibody, [id number] 11:04:00 Test Item Value Reference Range Comments SARS-CoV-2 Antibody, IgG Negative Negative This mple does not contain (test code = SARS-CoV-2 detectab le SARS-CoV-2 Antibody, IgG) IgGantibodies. T his negative result does not rule out SARS-CoV-2 infec tion. Correlation with epidemiolog ic risk factorsand other clinical a nd laboratory findings is coni mmended.Serologic results should n ot be used as the sole basis todia gnose or exclude recent SARS-CoV- 2 infection.This assay was perfor med using the Negron SARS-CoV- 2 IgGassay. [facility] performed at: [BN] [facility], [facility] [place], [address], , Bus Info Consultant: Wesly Bryant MDTest(s) [id number] Antibody, IgGhas not been FDA cleared or approved. This test hasbeen authorized by FDA under an Emergency UseAuthorization (EUA). This test is only authorized for theduration of the declaration that circumstances existjustifying the authorization of emergency use of in vitrodiagnostics for detection and/or diagnosis of COVID-19under Section 564(b)(1) of the Act, 21 U.S.C. 360bbb-3(b)(1), unless the authorization is terminated orrevoked sooner. This test has been authorized only fordetecting the presence of antibodies against SARS-CoV-2,not for any other viruses or pathogens.L - SARS-CoV-2 Antibody, [id number] 11:04:00 Test Item Value Reference Range Comments SARS-CoV-2 Antibody, IgM Negative Negative This mple does not contain (test code = SARS-CoV-2 detectab le SARS-CoV-2 Antibody, IgM) IgMantibodies. T his negative result does not rule out SARS-CoV-2 infec tion. Correlation with epidemiolog ic risk factorsand other clinical a nd laboratory findings is coni mmended.Serologic results should n ot be used as the sole basis todia gnose or exclude recent SARS-CoV- 2 infection. [facility] performed at: [BN] [facility] [address] [place] [address], [address], , Bus Info Consultant: Wesly Bryant MDTest(s) [id number] Antibody, IgMhas not been reviewed by the Food and Drug Administration.L - SARS-CoV-2 Antibody,IgA 2019-10-11 11:04:00 Test Item Value Reference Range Comments SARS-CoV-2 Antibody,IgA Negative Negative This bipin ple does not contain (test code = SARS-CoV-2 detectab le SARS-CoV-2 Antibody,IgA) IgAantibodies. T his negative result does not rule out SARS-CoV-2 infec tion. Correlation with epidemiolog ic risk factorsand other clinical a nd laboratory findings is coni mmended.Serologic results should n ot be used as the sole basis todia gnose or exclude recent SARS-CoV- 2 infection. [facility] performed at: [BN] [address], [place], [address], , Bus Info Consultant: Wesly Bryant MDTest(s) [id number] Antibody, IgAhas not been reviewed by the Food and Drug Administration.[id number] 10:57:00 Test Item Value Reference Range Comments Glucose (test code = Glucose) 96 mg/dL 74-106 Sodium (test code = Sodium) 145 mmol/L 135-145 Potassium (test code = Potassium) 4.0 mmol/L 3.5-5.3 Chloride (test code = Chloride) 107 mmol/L 98-107 CO2 (test code = CO2) 33 mmol/L 22-30 Creatinine, serum (test code = Creatinine, serum) 0.70 mg/dL 0.10-1.25 Glomerular Filtration Rate (test code = >60 >60 Glomerular Filtration Rate) Glomerular Filtration Rate AA (test code = >60 >60 Glomerular Filtration Rate AA) Blood Urea Nitrogen (test code = Blood Urea 23 mg/dL 9-20 Nitrogen) Calcium (test code = Calcium) 9.4 mg/dL 8.4-10.5 Phosphorus (test code = Phosphorus) 3.5 mg/dL 2.5-4.5 Albumin (test code = 43896-6) 3.5 g/dL 3.5-5.0 BASIC METABOLIC PANEL\S\[id number] 13:20:00 Test Item Value Reference Range Comments CARBON DIOXIDE (test code = CO2) 28 mmol/L 22-30 SODIUM (test code = NA) 140.5 mmol/L 137-145 GLUCOSE (test code = GLU) 330 mg/dL 75-110 ANION GAP (test code = ANION) 10 5-19 BLOOD UREA NITROGEN (test code = BUN) 15 mg/dL 7-20 EGFR, (test code = GFRAA) > 60 >60 POTASSIUM (test code = K) 4.9 mmol/L 3.6-5.0 EGFR,NON (test code = GFRN) > 60 >60 CHLORIDE (test code = CL) 103 mmol/L 98-107 CALCIUM (test code = CA) 10.2 mg/dL 8.4-10.2 CREATININE RESULT (test code = CREA) 1.00 mg/dL 0.52-1.25 CBC WITH DIFF\S\[id number] 13:20:00 Test Item Value Reference Range Comments HEMATOCRIT (test code = HCT) 43.0 % 37.9-51.0 EOSINOPHILS % (AUTO) (test code = EO%) 1.3 % 0-6 MEAN CORPUSCULAR VOLUME (test code = MCV) 90 fl 80-97 MONOCYTES % (AUTO) (test code = MO%) 4.4 % 3-13 MEAN CORPUSCULAR HEMOGLOBIN (test code = MCH) 29.3 pg 27 .0-33.4 ABSOLUTE NEUT (AUTO) (test code = NE#) 13.6 10 3/uL 1.7-8.2 RED BLOOD COUNT (test code = RBC) 4.80 10 6/uL 4.35-5.55 BASOPHILS % (AUTO) (test code = BA%) 0.5 % 0-2 PLATELET COUNT (test code = PLT) 179 10 3/uL 150-450 ABSOLUTE LYMPHOCYTES (AUTO) (test code = LY#) 1.5 10 3/uL 0. 5-4.7 RED CELL DISTRIBUTION WIDTH (test code = RDW) 14.4 % 11 .5-14.0 HEMOGLOBIN (test code = HGB) 14.0 g/dL 13.5-17.0 ABSOLUTE BASOPHILS # (AUTO) (test code = BA#) 0.1 10 3/uL 0. 0-0.2 LYMPHOCYTES % (AUTO) (test code = LY%) 9.1 % 13-45 ABSOLUTE MONOCYTES (AUTO) (test code = MO#) 0.7 10 3/uL 0.1- 1.4 SEGMENTED NEUTROPHILS % (AUTO) (test code = 84.7 % 42-7 8 SEG%) WHITE BLOOD COUNT (test code = WBC) 16.0 10 3/uL 4.0-10.5 MEAN CORPUSCULAR HGB CONC (test code = MCHC) 32.7 g/dL 32. 0-36.0 ABSOLUTE EOSINOPHILS # (AUTO) (test code = EO#) 0.2 10 3/uL 0.0-0.6 ERYTHROCYTE SEDIMENTATION RATE\S\[id number] 13:20:00 Test Item Value Reference Range Comments ERYTHROCYTE SEDIMENTATION RATE (test code = ESR) 19 mm/hr 0-20 Assessments Condition Name Status Diagnosis Date Treating Clinici an Dyskinesia of esophagus Active 0 Dysphagia, oropharyngeal phase Active 0 Dysphagia, oropharyngeal phase Active 0 Dysphagia, unspecified Active 0 Gastro-esophageal reflux disease without Active 0 esophagitis Gastro-esophageal reflux disease without Active 0 esophagitis Dysphagia, unspecified Active 0 Spermatocele Active Encounter for prostate cancer screening Active BPH with obstruction/lower urinary tract Active symptoms History of nicotine dependence Active 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 LAURIE on CPAP Active Excess wax in ear Active Tinea cruris Active Shortness of breath Active Urinary incontinence Active Glycosuria Active Difficulty swallowing Active Dyslipidemia Active Atelectasis Active Difficulty breathing Active Mixed hyperlipidemia Active History of pneumonia Active Pulmonary nodule Active Restless legs syndrome Active Chronic lung disease Active Chronic obstructive pulmonary disease Active Current use of insulin Active Esophageal dysfunction Active Chest pain Active Hypertension Active Obesity Active Diabetes mellitus with diabetic neuropathy Active Fatty liver Active Bilateral edema of lower extremity Active Chronic lung disease Active LAURIE on CPAP Active Difficulty breathing Active Pulmonary nodule Active Chronic obstructive pulmonary disease Active Pulmonary embolism Active Pneumonia Active Diabetes mellitus with diabetic neuropathy Active Chronic lung disease Active LAURIE on CPAP Active History of pneumonia Active Pulmonary nodule Active Chronic obstructive pulmonary disease Active Pulmonary embolism Active Current use of insulin Active Obesity Active Diabetes mellitus with diabetic neuropathy Active Bilateral edema of lower extremity Active 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 Mixed hyperlipidemia Active Pulmonary embolism Active Hypertension Active Abnormal cardiac function test Active Familial hypertriglyceridemia Active High risk medication use Active Spermatocele Active Encounter for prostate cancer screening Active BPH with obstruction/lower urinary tract Active symptoms History of nicotine dependence Active 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 LAURIE on CPAP Active Excess wax in ear Active Tinea cruris Active Shortness of breath Active Urinary incontinence Active Glycosuria Active Difficulty swallowing Active Dyslipidemia Active Atelectasis Active Difficulty breathing Active Mixed hyperlipidemia Active History of pneumonia Active Pulmonary nodule Active Restless legs syndrome Active Chronic lung disease Active Chronic obstructive pulmonary disease Active Pulmonary embolism Active Current use of insulin Active Esophageal dysfunction Active Chest pain Active Hypertension Active Pneumonia Active Obesity Active Diabetes mellitus with diabetic neuropathy Active Fatty liver Active Bilateral edema of lower extremity Active Chronic obstructive pulmonary disease Active LAURIE on CPAP Active Dyspnea on effort Active Difficulty breathing Active Pulmonary nodule Active Chronic lung disease Active Pulmonary embolism Active Diabetes mellitus with diabetic neuropathy Active Enlarged prostate with lower urinary tract Active symptoms (LUTS) Difficulty swallowing Active Bilateral edema of lower extremity Active Familial hypertriglyceridemia Active 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 Dyslipidemia Active Diabetes mellitus with diabetic neuropathy Active Current use of insulin Active Obesity Active Chronic GERD Active Weight loss Active Esophageal dysfunction Active Oropharyngeal dysphagia Active Atelectasis Active LAURIE on CPAP Active Dyspnea on effort Active Chronic lung disease Active Chronic obstructive pulmonary disease Active Chronic obstructive pulmonary disease Active LAURIE on CPAP Active Pulmonary nodule Active Pulmonary embolism Active Chronic GERD Active Esophageal dysfunction Active Anemia in stage 1 chronic kidney disease Active 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 Shortness of breath Active Dyslipidemia Active Cardiomyopathy, dilated Active History of pneumonia Active Pulmonary nodule Active Chronic lung disease Active Chronic obstructive pulmonary disease Active Current use of insulin Active Pneumonia Active Diabetes mellitus with diabetic neuropathy Active Fatty liver Active Chronic GERD Active Cardiomyopathy, dilated Active LAURIE on CPAP Active Chronic lung disease Active Chronic obstructive pulmonary disease Active Pulmonary embolism Active Hypertension Active Dehydration Active Fatty liver Active Anemia in stage 1 chronic kidney disease Active 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 Dyslipidemia Active Hypertension Active Bilateral edema of lower extremity Active Diabetes mellitus with diabetic neuropathy Active Current use of insulin Active Suspected COVID-19 virus infection Active Lingular pneumonia Active Abnormal CT scan of lung Active LAURIE on CPAP Active Cardiomyopathy, dilated Active History of pneumonia Active Chronic lung disease Active Chronic obstructive pulmonary disease Active Pneumonia Active Suspected COVID-19 virus infection Active Mild vitamin D deficiency Active Cigarette nicotine dependence in remission Active Cigarette nicotine dependence in remission Active Encysted hydrocele Active Cigarette nicotine dependence in remission Active Cigarette nicotine dependence in remission Active Cigarette nicotine dependence in remission Active Encysted hydrocele Active Cigarette nicotine dependence in remission Active Cigarette nicotine dependence in remission Active Cigarette nicotine dependence in remission Active Upper respiratory tract infection due to Active severe acute respiratory syndrome coronavirus 2 (SARS-CoV-2) Encounter for prostate cancer screening Active Enlarged prostate with lower urinary tract Active symptoms (LUTS) Chronic lung disease Active LAURIE on CPAP Active Excess wax in ear Active Diabetes mellitus Active Pulmonary nodule Active Esophageal dysfunction Active Chronic lung disease Active History of nicotine dependence Active LAURIE on CPAP Active Excess wax in ear Active Atelectasis Active Pulmonary nodule Active Chronic obstructive pulmonary disease Active Hypertension Active 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 Shortness of breath Active Mixed hyperlipidemia Active Diabetes mellitus with diabetic neuropathy Active Current use of insulin Active Obesity Active Abnormal cardiac function test Active Familial hypertriglyceridemia Active BPH with obstruction/lower urinary tract Active symptoms Chest pain Active Diabetes mellitus Active Dyslipidemia Active Hypertension Active Diabetes mellitus Active Cigarette nicotine dependence in remission Active Cigarette nicotine dependence in remission Active Encysted hydrocele Active Cigarette nicotine dependence in remission Active Cigarette nicotine dependence in remission Active Cigarette nicotine dependence in remission Active Encysted hydrocele Active Cigarette nicotine dependence in remission Active Cigarette nicotine dependence in remission Active Cigarette nicotine dependence in remission Active Upper respiratory tract infection due to Active severe acute respiratory syndrome coronavirus 2 (SARS-CoV-2) Pneumonitis due to inhalation of food and Active SYSTEM vomit Chest pain Active Cigarette nicotine dependence in remission Active History of nicotine dependence Active LAURIE on CPAP Active Shortness of breath Active Difficulty swallowing Active Difficulty breathing Active Pulmonary nodule Active Aspiration pneumonia Active Chronic obstructive pulmonary disease Active Diabetes mellitus with diabetic neuropathy Active Diabetes mellitus with diabetic neuropathy Active Current use of insulin Active Obesity Active Abnormal cardiac function test Active Chronic obstructive pulmonary disease Active Hypertension Active Diabetes mellitus with diabetic neuropathy Active Acute bronchitis Active Chronic obstructive pulmonary disease Active Chronic lung disease Active Cigarette nicotine dependence in remission Active LAURIE on CPAP Active Difficulty swallowing Active Pulmonary nodule Active Aspiration pneumonia Active Chronic obstructive pulmonary disease Active Chest pain Active Abnormal cardiac function test Active Encounters Start End Encounter Admission Attending Care Care Encounter Date/Time Date/Time Type Type Clinicians Facility Department ID 2020-02-26 2020-02-26 Appointment Anjana [facility] [id number] 08:45:00 08:45:00 ; Ata Yeung III, III, Bob, MD 2020-01-31 2020-01-31 Appointment [facility] [id number] 13:25:00 13:25:00 ; STEPHANIE guallpa [facility] 2019-12-21 2019-12-21 Appointment [facility] [id number] 09:00:00 09:00:00 ; Octavio Montes De Oca D.O. 2019-12-19 2019-12-19 Appointment [facility] [id number] 11:00:00 11:00:00 ; GERALD JOHNSON, ROOM 2019-12-15 2019-12-15 Appointment [facility] [id number] 11:30:00 11:30:00 ; Pulmonary, Functions 2019-12-13 2019-12-13 Appointment Alan [facility] [id number] 14:00:00 14:00:00 ; Rigoberto Chamberlain MD 2019-11-22 2019-11-22 Appointment Alan [facility] [id number] 10:15:00 10:15:00 ; Rigoberto Chamberlain MD 2019-11-10 2019-11-10 Appointment Patrizia [facility] [id number] 11:50:00 11:50:00 ; Chery Acharya MD 2019-10-11 2019-10-11 Appointment [facility] [id number] 13:45:00 13:45:00 ; Iván Andrews 2019-10-11 2019-10-11 Appointment Alan [facility] [id number] 10:15:00 10:15:00 ; Rigoberto Chamberlain MD 2019-09-20 2019-09-20 Appointment Alan [facility] [id number] 10:45:00 10:45:00 ; Rigoberto Chamberlain MD 2019-08-22 2019-08-22 Appointment [facility] [id number] 10:25:00 10:25:00 ; Jeremie Treviño 2019-08-08 2019-08-08 Appointment Alan [facility] [id number] 15:00:00 15:00:00 ; Rigoberto Chamberlain MD 2019-07-18 2019-07-18 Appointment [facility] [id number] 09:45:00 09:45:00 ; Mitchell Aguila D.O. 2019-06-14 2019-06-14 Mitchell Olmstead [facility] 2 [id number] 09:11:46 11:27:00 Mitchell Aguila 2019-06-13 2019-06-13 Appointment [facility] [id number] 15:00:00 15:00:00 ; Octavio Montes De Oca D.O. 2019-06-13 2019-06-13 Appointment [facility] [id number] 14:30:00 14:30:00 ; Nisha johnson, XRAY 2019-06-13 2019-06-13 Appointment [facility] [id number] 13:00:00 13:00:00 ; CIM Nisha johnson, Nuclear 2 2019-06-01 2019-06-01 O E Mitchell Aguila [facility] 2 [id number] 12:15:10 12:48:00 Mitchell Aguila 2019-05-22 2019-05-22 Appointment [facility] [id number] 13:10:00 13:10:00 ; Nisha johnson, XRAY 2019-05-22 2019-05-22 Appointment [facility] [id number] 11:45:00 11:45:00 ; Octavio Montes De Oca D.O. 2019-05-16 2019-05-16 Appointment [facility] [id number] 10:00:00 10:00:00 ; Nicki Cole NP 2019-05-15 2019-05-15 O E Mitchell Aguila [facility] 2 [id number] 13:59:19 23:59:59 Mitchell Aguila 2019-05-12 2019-05-12 Appointment Patrizia [facility] [id number] 08:50:00 08:50:00 ; Chery Acharya MD 2019-05-03 2019-05-03 Appointment Alan [facility] [id number] 14:30:00 14:30:00 ; Rigoberto Chamberlain MD 2019-04-12 2019-04-12 Appointment [facility] [id number] 14:30:00 14:30:00 ; Iván Andrews 2019-04-10 2019-04-10 O Mitchell Chu [facility] 2 [id number] 08:37:45 23:59:59 Mitchell Aguila 2019-02-20 2019-02-20 Appointment [facility] [id number] 14:30:00 14:30:00 ; Mitchell Aguila D.O. 2019-02-16 2019-02-16 [facility] [id number] 10:30:00 10:30:00 ; Ata Yeung III, III, Bob, MD 2018-12-16 2018-12-16 Appointment [facility] [id number] 16:00:00 16:00:00 ; Octavio Montes De Oca D.O. 2018-12-16 2018-12-16 Appointment [facility] [id number] 15:00:00 15:00:00 ; Pulmonary, Functions 2018-12-16 2018-12-16 Appointment [facility] [id number] 14:30:00 14:30:00 ; GERALD JOHNSON, ROOM 2018-11-11 2018-11-11 [facility] [id number] 15:00:00 15:00:00 ; Rigoberto Chamberlain MD 2018-11-04 2018-11-04 Appointment [facility] [id number] 13:00:00 13:00:00 ; Demetria Treviño 2018-10-12 2018-10-12 Appointment [facility] [id number] 13:45:00 13:45:00 ; Iván Andrews 2018-09-05 2018-09-05 [facility] [id number] 10:30:00 10:30:00 ; Chery Acharya MD 2018-07-06 2018-07-06 Appointment [facility] [id number] 09:30:00 09:30:00 ; Octavio Montes De Oca D.O. 2018-07-06 2018-07-06 [facility] [id number] 09:00:00 09:00:00 ; MARVA CarrascoAY 2018-06-23 2018-06-23 [facility] [id number] 09:30:00 09:30:00 ; Octavio Montes De Oca D.O. 2018-06-06 2018-06-06 Appointment [facility] [id number] 11:30:00 11:30:00 ; Pulmonary, Functions 2018-05-23 2018-05-23 App[facility] [id number] 09:30:00 09:30:00 ; Rigoberto Chamberlain MD 2018-05-04 2018-05-04 [facility] [id number] 10:30:00 10:30:00 ; Chery Acharya MD 2018-04-13 2018-04-13 Appointment [facility] [id number] 10:15:00 10:15:00 ; Iván Andrews 2018-04-04 2018-04-04 Appointment [facility] [id number] 09:45:00 09:45:00 ; Octavio Montes De Oca D.O. 2018-04-04 2018-04-04 [facility] [id number] 09:30:00 09:30:00 ; MO NISHA JOHNSON, [facility] 2018-03-22 2018-03-22 Appointment [facility] [id number] 12:45:00 12:45:00 ; Shavonne Peralta MD 2018-02-28 2018-02-28 Appointment [facility] [id number] 11:30:00 11:30:00 ; Octavio Montes De Oca D.OArsenio 2018-02-15 2018-02-15 Appointment Anjana [facility] [id number] 10:30:00 10:30:00 ; Ata Yeung III, III, Bob, MD 2018-01-19 2018-01-19 Appointment Alan, [facility] 20 [id number] 09:30:00 09:30:00 ; Rigoberto Chamberlain MD 2018-01-17 2018-01-17 Appointment [facility] [id number] 14:45:00 14:45:00 ; Shavonne Peralta MD 2018-01-04 2018-01-04 Appointment [facility] [id number] 15:30:00 15:30:00 ; Ketan Yusuf D.O. 2017-12-24 2017-12-24 O EMERITA Montes De Oca [facility] [id number] 12:43:00 12:43:00 Octavio 2017-12-24 2017-12-24 Appointment ROSALIA Acharya [facility] [id number] 08:30:00 08:30:00 ; Chery Acharya MD 2017-12-22 2017-12-22 Appointment [facility] [id number] 14:00:00 14:00:00 ; Octavio Montes De Oca D.O. 2017-12-14 2017-12-14 Appointment [facility] [id number] 16:00:00 16:00:00 ; Abram Sanchez PA-C 2017-11-29 2017-11-29 Appointment [facility] [id number] 09:15:00 09:15:00 ; Octavio Montes De Oca D.O. 2017-11-29 2017-11-29 Appointment [facility] [id number] 08:30:00 08:30:00 ; CT NISHA , ROOM 2017-11-15 2017-11-15 Appointment [facility] [id number] 15:15:00 15:15:00 ; Abram Sanchez PA-C Family History Family Member Diagnosis Comments Start Date Stop Date Unspecified Family history of Heart Disease Family History Father Family history of Stroke Syndrome Brother Family history of Chronic Obstructive Pulmonary Disease Brother Family history of Gout Brother Family history of Cath Stent Placement Immunizations Ordered Immunization Filled Immunization Date Status Commen ts Refusal Name Name Reason Fluzone High-Dose 2020-01-31 Completed Quadrivalent 0.7 ML 13:56:00 Intramuscular Suspension Prefilled Syringe Fluzone High-Dose 0.5 2018-02-28 Completed ML Intramuscular 12:52:00 Suspension Prefilled Syringe Pneumococcal 2018-01-19 Completed polysaccharide 09:54:00 vaccine, 23 valent Influenza 2016-02-19 Completed 00:00:00 Prevnar 13 2016-02-19 Completed Intramuscular 00:00:00 Suspension Influenza 2012-03-23 Completed 00:00:00 Zostavax [id number] 2012-02-23 Completed UNT/0.65ML 00:00:00 Subcutaneous Solution Reconstituted Tdap (Boostrix) 2011-03-25 Completed 00:00:00 Pneumococcal 2011-03-11 Completed polysaccharide 00:00:00 vaccine, 23 valent Hepatitis B 1990-03-25 Completed 00:00:00 Influenza A (H1N1) Unknown Completed Monoval Vac SUSP DTaP Unknown Completed Fluarix 0.5 ML RADHA Unknown Completed Payers Payer Name Policy Type Policy Number Effective Date Expiration D ate Plan of Treatment Planned Activity Planned Date Details Comments Future Scheduled Test [code = ] Future Scheduled Test [code = ] Future Scheduled Test [code = ] Future Scheduled Test [code = ] Future Scheduled Test [code = ] Social History Smoking Status Start Date Stop Date Ex-smoker (finding) Vital Signs Vital Name Observation Time Observation Value Comments Systolic blood pressure 2020-02-26 09:00:00 124 mm[Hg] Diastolic blood pressure 2020-02-26 09:00:00 54 mm[Hg] Body temperature 2020-02-26 09:00:00 97.1 [degF] Heart Rate 2020-02-26 09:00:00 72 /min Systolic blood pressure 2019-12-13 14:00:00 136 mm[Hg] Diastolic blood pressure 2019-12-13 14:00:00 84 mm[Hg] Body height 2019-12-13 14:00:00 72 [in_us] Weight 2019-12-13 14:00:00 301 [lb_av] Body mass index (BMI) 2019-12-13 14:00:00 40.82 kg/m2 [Ratio] Heart Rate 2019-12-13 14:00:00 73 /min Respiratory rate 2019-12-13 14:00:00 14 /min O2 SAT 2019-12-13 14:00:00 87 % Systolic blood pressure 2019-11-22 10:01:00 122 mm[Hg] Loca tion: LUE; Position: Sittin g Diastolic blood pressure 2019-11-22 10:01:00 62 mm[Hg] Loc ation: LUE; Position: Sittin g Weight 2019-11-22 10:01:00 291 [lb_av] Body mass index (BMI) 2019-11-22 10:01:00 39.47 kg/m2 [Ratio] Heart Rate 2019-11-22 10:01:00 70 /min Respiratory rate 2019-11-22 10:01:00 18 /min O2 SAT 2019-11-22 10:01:00 97 % Systolic blood pressure 2019-11-10 11:52:00 112 mm[Hg] Diastolic blood pressure 2019-11-10 11:52:00 64 mm[Hg] Weight 2019-11-10 11:52:00 294 [lb_av] Body mass index (BMI) 2019-11-10 11:52:00 39.87 kg/m2 [Ratio] Body temperature 2019-11-10 11:52:00 97.8 [degF] Heart Rate 2019-11-10 11:52:00 72 /min Systolic blood pressure 2019-10-11 13:26:00 108 mm[Hg] Diastolic blood pressure 2019-10-11 13:26:00 58 mm[Hg] Body height 2019-10-11 13:26:00 72 [in_us] Body mass index (BMI) 2019-10-11 13:26:00 40.15 kg/m2 [Ratio] Weight 2019-10-11 13:26:00 296 [lb_av] Body temperature 2019-10-11 13:26:00 98.4 [degF] Heart Rate 2019-10-11 13:26:00 78 /min Systolic blood pressure 2019-10-11 10:30:00 130 mm[Hg] Loca tion: LUE; Position: Sittin g Diastolic blood pressure 2019-10-11 10:30:00 62 mm[Hg] Loc ation: LUE; Position: Sittin g Body mass index (BMI) 2019-10-11 10:30:00 38.92 kg/m2 [Ratio] Weight 2019-10-11 10:30:00 287 [lb_av] Heart Rate 2019-10-11 10:30:00 78 /min Respiratory rate 2019-10-11 10:30:00 16 /min O2 SAT 2019-10-11 10:30:00 90 % Hospital Discharge Instructions NameDatesDetailsInstructions not documentedNameDatesDetailsInstructions not documentedNameDatesDetailsInstructions not documented NameDatesDetailsInstructions not documentedNameDatesDetailsInstructions not documentedNameDatesDetailsInstructions not documented NameDatesDetailsInstructions not documented
== END 2020-03-06 06:20 | disposition home or self-care (01) ==
LOC: ER 22:07
DX: J18.9 Pneumonia, unspecified organism (principal); J44.0 Chronic obstructive pulmonary disease with (acute) lower respiratory infection; R06.02 Shortness of breath; R05 Cough; R07.1 Chest pain on breathing; I44.0 Atrioventricular block, first degree; I10 Essential (primary) hypertension; E11.9 Type 2 diabetes mellitus without complications; G47.33 Obstructive sleep apnea (adult) (pediatric); Z99.89 Dependence on other enabling machines and devices; Z79.899 Other long term (current) drug therapy; Z87.891 Personal history of nicotine dependence; Z86.711 Personal history of pulmonary embolism; Z20.828 Contact with and (suspected) exposure to other viral communicable diseases
CPT/HCPCS: 93005; 96376; 99285; 96375; 96365; 36415; 87040; 85025; 80053; 84484; 82803; 83880; 71045; 93010; U0003; J1100; A9270; J0696; C9803; 87635

== ENCOUNTER → 2020-05-06 | Outpatient (CLI) | payer MEDICARE ==
[~2020-05-06] MED LIST: COVID-19 VACCINE (PFIZER)/PF 30 MCG/0.3 ML VIAL IM ONE; EPINEPHRINE INJ/PF 1 MG/1 ML AMPULE IM PRN
== END ==
LOC: EMPHEALTH 09:48
PROVIDERS: ATTEND Internal Medicine
DX: Z23 Encounter for immunization (principal)
CPT/HCPCS: 91300